=== PATIENT | male | born 1970 | race Caucasian/White ===

== ENCOUNTER 2021-12-22 13:26 | Outpatient (CLI) | payer OTHER, SELFPAY ==
[2021-12-22 11:14] LABS: Creatinine Urine 145.6 mg/dL
[2021-12-22 11:21] LABS: Albumin* 4.7 g/dL (3.3-5.0)
[2021-12-22 11:22] LABS: Chloride* 98 mmol/L (96-114); Potassium* 4.6 mmol/L (3.6-5.1); Sodium* 136 mmol/L (135-149)
[2021-12-22 11:24] LABS: Bilirubin Total* 1.1 mg/dL (0.1-1.5); Carbon Dioxide* 26 mmol/L (20-32); Cholesterol* 184 mg/dL (90-199); Creatinine* 0.7 mg/dL (0.5-1.5); Estimated Glomerular Filt Rate 110 ml/min; Total Protein* 8.4 g/dL (6.0-8.3)
[2021-12-22 11:25] LABS: Alanine Aminotransferase* 92 U/L (4-50); Alkaline Phosphatase* 72 U/L (40-150); Aspartate Amino Transferase* 76 U/L (12-35); Blood Urea Nitrogen* 14 mg/dL (7-30); Calcium* 9.4 mg/dL (8.4-10.6); Glucose* 114 mg/dL (60-115); HDL Cholesterol* 58 mg/dL (>=40); LDL Cholesterol Calculated 101 mg/dL (<100); Triglycerides* 125 mg/dL (40-149)
[2021-12-22 11:53] LABS: PSA Screen* 1.12 ng/mL (0.10-4.00)
[2021-12-22 11:54] LABS: Microalbumin Creatinine Ratio 440 mg/g (0-30); Microalbumin Urine 65 mg/dL
== END 2021-12-22 13:27 | disposition home or self-care (01) ==
PROVIDERS: PCP Family Medicine; Visit Provider Family Medicine
DX: E11.9 Type 2 diabetes mellitus without complications (principal); Z13.6 Encounter for screening for cardiovascular disorders; Z12.5 Encounter for screening for malignant neoplasm of prostate
CPT/HCPCS: 80053; 80061; 82043; 82570; 84153

== ENCOUNTER 2022-12-28 08:20 | Outpatient (CLI) | payer OTHER, SELFPAY | END 2022-12-28 08:21 | disposition home or self-care (01) | LOC: NFLDREF 15:14 | PROVIDERS: PCP Family Medicine; Referring Provider Family Medicine; Visit Provider Family Medicine | DX: Z00.00 Encounter for general adult medical examination without abnormal findings (principal); E11.9 Type 2 diabetes mellitus without complications; I10 Essential (primary) hypertension; E78.5 Hyperlipidemia, unspecified; R80.9 Proteinuria, unspecified | CPT/HCPCS: 80053; 80061; 82043; 82570 ==

== ENCOUNTER 2023-11-07 08:21 | Outpatient (CLI) | payer BC, SELFPAY ==
--- OUTSIDE RECORDS SUMMARY | 2023-11-07 08:25 | XMS_ITS | Clinical Summary ---
Author Organization [facility] Address [address] [place] [id number] Care Team Providers Care Card Player Name Role Phone Anthony Moeller MD Primary Care Provider [phone] Donald Parker MD Unavailable [phone] Allergies No known active allergies Medications Medication Sig Dispensed Refills Start Date End Date Status LISINOPRIL POIndications:Hyperte nsion Take 40 mg by mouth every evening Active Multiple Vitamins-Minerals (MULTIVITAMIN ADULT PO) Take by mouth every morning Active metFORMIN (GLUCOPHAGE) 500 MG tablet Take 500 mg by mouth 2 times daily (with meals) 06/05/2021 Active amLODIPine (NORVASC) 5 MG tablet Take 5 mg by mouth every morning 02/23/2022 Active aspirin 81 MG EC tabletIndications:Sherri chamorro osteoarthritis of right knee Take 1 tablet (81 mg) by mouth 2 times daily 60 tablet 04/17/2022 Active senna-docusate (SENOKOT-S/PERICOLACE ) 8.6-50 MG tabletIndications:Sherri chamorro osteoarthritis of right knee Take 1-2 tablets by mouth 2 times daily Take while on oral narcotics to prevent or treat constipation. 30 tablet 04/17/2022 Active polyethylene glycol (MIRALAX) 17 g packetIndications:Sherri chamorro osteoarthritis of right knee Take 17 g by mouth daily 7 packet 04/17/2022 Active acetaminophen (TYLENOL) 325 MG tabletIndications:Sherri chamorro osteoarthritis of right knee Take 2 tablets (650 mg) by mouth every 4 hours as needed for other (mild pain) 100 tablet 04/17/2022 Active ibuprofen (ADVIL/MOTRIN) 600 MG tabletIndications:Sherri pedro pablo osteoarthritis of right knee Take 1 tablet (600 mg) by mouth every 6 hours as needed for mild pain 30 tablet 04/17/2022 Active Active Problems Problem Noted Date Diagnosed Date Primary osteoarthritis of right knee 04/23/2022 Morbid obesity 04/02/2022 Resolved Problems Problem Noted Date Diagnosed Date Resolved Date Chronic pain of right knee 04/23/2022 0 07/24/2022 Aftercare following right kn ee joint replacement surgery 04/23/2022 07/24/2022 Family History Medical History Relation Comments Cerebrovascular Disease Father Diabetes Father Heart Disease Father Cancer Mother Diabetes Mother Relation Status Comments Father Mother Social History Tobacco Use Types Packs/Day Years Used Date Smoking Tobacco: Former Cigarettes 1 30 1 5 - 2014 Smokeless Tobacco: Never Tobacco Cessation:Counseling Given: Not Answered Alcohol Use Standard Drinks/Week Comments Yes 0 (1 standard drink = 0.6 oz pur e alcohol) daily 3-4 PHQ-2 Answer Date Recorded PHQ-2 Score 0 05/11/2022 Adolescent Education Answer Date Record ed Getting School Help Needed Not on file 02/13 Sex and Gender Information Value Date Recorded Sex Assigned at Not on file Gender Identity Not on file Sexual Orientation Not on file Last Filed Vital Signs Vital Sign Reading Time Taken Comments Blood Pressure 120/68 05/25/2022 10:23 AM TIMBER SIZER OPERATOR Pulse 72 04/18/2022 8:11 AM TIMBER SIZER OPERATOR Temperature 36.5 ??C (97.7 ??F) 04/18/2022 8 :11 AM TIMBER SIZER OPERATOR Respiratory Rate 16 04/18/2022 8:11 AM TIMBER SIZER OPERATOR Oxygen Saturation 97% 04/18/2022 8:1 1 AM TIMBER SIZER OPERATOR Inhaled Oxygen Concentration - - Weight 128.8 kg (284 lb) 05/25/2022 10: 23 AM TIMBER SIZER OPERATOR pulled from last visit Height 175.3 cm (5' 9) 05/25/2022 10:2 3 AM TIMBER SIZER OPERATOR Body Mass Index 41.94 05/25/2022 10:23 AM TIMBER SIZER OPERATOR Plan of Treatment Health Maintenance Due Date Last Done Comments ADVANCE CARE PLANNING 1968 ANNUAL REVIEW OF HM ORDERS 1968 CT COLONOGRAPHY 1968 FIT 1968 FLEX SIG 1968 URINE DRUG SCREEN 1968 YEARLY PREVENTIVE VISIT 1968 sDNA (Cologuard) 1968 COLONOSCOPY 1978 COLORECTAL CANCER SCREENING 1978 HIV SCREENING 09/12/1983 HEPATITIS C SCREENING 1986 HEPATITIS B IMMUNIZATION (1 of 3 - 19+ 3-dose series) 09/12/1987 LIPID 2008 LUNG CANCER SCREENING 2018 COVID-19 Vaccine ( - 2022- season) 2022 PHQ-2 (once per calendar year) 2023 05/11/2022, 04/03/2022 INFLUENZA VACCINE (#1) 2023 9, 03/25/2018, 04/18/2009, Additional history exists GLUCOSE 04/18/2025 04/18/2022, 03/30, 04/17/2022, Additional history exists DTAP/TDAP/TD IMMUNIZATION (3 - Td or Tdap) 12/02/2029 12/03/2019, 06/13/2010, 04/28/1994 Pneumococcal Vaccine: Pediatrics (0 to 5 Years) and At-Risk Patients (6 to 64 Years) Aged Out 10/23/2018 No longer eligible based on patient's age to complete this topic ZOSTER IMMUNIZATION Completed 08/27/2019, 9 HPV IMMUNIZATION Aged Out No longer e ligible based on patient's age to complete this topic IPV IMMUNIZATION Aged Out No longer e ligible based on patient's age to complete this topic MENINGITIS IMMUNIZATION Aged Out No l onger eligible based on patient's age to complete this topic RSV MONOCLONAL ANTIBODY Aged Out No l onger eligible based on patient's age to complete this topic Medical Devices Implanted Type Area Taker Down Device Identifier Shelf Expiration Date Model / Serial / Lot Bone Cement Simplex Full Dose 6191-1-001 - [id number] Implanted:Qty : 1 on 04/17/2022 by Donald Parker MD at [facility] Cement, Bone Right: Knee [employer] 06/27/2023 6191-1-001 / / [id number] Twinfix Ultra Pk 5.5mm Suture [place] With 2 Ultrabraid Sutures Implanted:Qty : 1 on 12/10/2017 by Les Israel MD at [facility] Metallic Hardware/An chor Right: Shoulder 05/23/2022 [id number] / / [id number] 2.8mm Q-Fix Suture [place] Implanted:Qty : 1 on 12/10/2017 by Les Israel MD at [facility] Metallic Hardware/An chor Right: Shoulder 04/03/2020 25-2800 / / [id number] Knee Uni Tibia Tray Mobile Bear D5 Rm/Ll - [id number] Implanted:Qty : 1 on 04/17/2022 by Donald Parker MD at [facility] Total Joint Component/I nsert Right: Knee [employer] 07/27/2031 [id number] / / [id number] Knee [place] Uni Femoral Med - [id number] Implanted:Qty : 1 on 04/17/2022 by Donald Parker MD at [facility] Total Joint Component/I nsert Right: Knee [employer] 03/19/2032 [id number] / / [id number] Insert [place] Anatomic Bear R Med Sz 4 - [id number] Implanted:Qty : 1 on 04/17/2022 by Donald Parker MD at [facility] Total Joint Component/I nsert Right: Knee [employer] 11/16/2025 [id number] / / [id number] Twinfix Ultra Pk 5.5mm Suture [place] With 2 Ultrabraid Sutures Implanted:Qty : 1 on 12/10/2017 by Les Israel MD at [facility] Right: Shoulder [employer] 01/10/2022 [id number] / / [id number] Procedures Procedure Name Priority Date/Time Associated Diagnosis Comments GLUCOSE BY METER Routine 04/18/2022 7:15 AM TIMBER SIZER OPERATOR from Last 3 Months or Most Recently Relevant to Health Maintenance Results * (ABNORMAL) Glucose by meter (04/18/2022 7:15 AM TIMBER SIZER OPERATOR) [facility] Signature GLUCOSE BY METER POCT 143(H) 70 - 99 mg/dL 04/18/2022 7:22 AM TIMBER SIZER OPERATOR RH LABORATORY POC Blood, Capillary BLOOD SPECIMEN / Unknown 04/18/2022 7:15 AM TIMBER SIZER OPERATOR 04/18/2022 7:22 AM TIMBER SIZER OPERATOR Donald Parker [facility] POC [facility] Lab [address] Lab (1st floor, no room number) [place] [address], [facility] [phone] from Last 3 Months or Most Recently Relevant to Health Maintenance Advance Directives For more information, please contact: [phone] * Full Code (Latest Code Status on File) Date Activated Date Inactivated Comments 04/17/2022 11:28 AM 04/18/2022 10:58 AM All basi c and advanced life-sustaining interventions are performed as appropriate Question Answer Comments Code status determined by: Discussion with adriana nt/ legal decision maker Care Teams Card Player Relationship Specialty Start Date End Date Anthony Moeller MD PCP - General Family Practice 11/21/17 Donald Parker MD [address] [place] [id number] Assigned Musculoskeletal Provider 09/29/22
--- OUTSIDE RECORDS SUMMARY | 2023-11-07 08:25 | XMS_ITS | Referral Summary ---
Author Organization [facility] Address [address] [place] [address] Care Team Providers Care Floral Designer Name Role Phone Anthony Moeller MD Primary Care Provider [phone] Donald Parker MD Unavailable [phone] Allergies No known active allergies Medications Medication [...] 04/17/2022 Active senna-docusate (SENOKOT-S/PERICOLACE ) 8.6-50 MG tabletIndications:Sherir chamorro osteoarthritis of right knee Take 1-2 [...] kn ee joint replacement surgery 04/23/2022 07/24/2022 Social History Tobacco Use Types Packs/Day Years Used Date Smoking Tobacco: Former Cigarettes 1 30 1 [id number] Smokeless Tobacco: Never Tobacco Cessation:Counseling Given: Not [...] Comments Blood Pressure 120/68 05/25/2022 10:23 AM GROUNDMAN/LINEMAN Pulse 72 04/18/2022 8:11 AM GROUNDMAN/LINEMAN Temperature 36.5 ??C (97.7 ??F) 04/18/2022 8 :11 AM GROUNDMAN/LINEMAN Respiratory Rate 16 04/18/2022 8:11 AM GROUNDMAN/LINEMAN Oxygen Saturation 97% 04/18/2022 8:1 1 AM GROUNDMAN/LINEMAN Inhaled Oxygen Concentration - - Weight 128.8 kg (284 lb) 05/25/2022 10: 23 AM GROUNDMAN/LINEMAN pulled from last visit Height 175.3 cm (5' 9) 05/25/2022 10:2 3 AM GROUNDMAN/LINEMAN Body Mass Index 41.94 05/25/2022 10:23 AM GROUNDMAN/LINEMAN Plan of Treatment Not on file Medical Devices Implanted Type Area Application Software Developer Device Identifier Shelf Expiration Date Model / Serial / Lot Bone Cement Simplex Full Dose 6191-1-001 - [id number] Implanted:Qty : 1 on 04/17/2022 by Donald Parker MD at [facility] Cement, Bone Right: Knee [employer] 06/27/2023 6191-1-001 / / [id number] Twinfix Ultra Pk 5.5mm Suture [place] With 2 Ultrabraid Sutures Implanted:Qty : 1 on 12/10/2017 by Les Israel MD at [facility] Metallic Hardware/An chor Right: Shoulder 05/23/2022 [id number] / / [id number] 2.8mm Q-Fix Suture [place] Implanted:Qty : 1 on 12/10/2017 by Les Israel MD at [facility] Metallic Hardware/An chor Right: Shoulder 04/03/2020 [id number] / / [id number] Knee Uni Tibia Tray Mobile Bear D5 Rm/Ll - [id number] Implanted:Qty : 1 on 04/17/2022 by Donald Parker MD at [facility] Total Joint Component/I nsert Right: Knee [employer] 07/27/2031 [id number] / / [id number] Knee [place] Uni Femoral Med - [id number] Implanted:Qty : 1 on 04/17/2022 by Donald Parker MD at [facility] Total Joint Component/I nsert Right: Knee [employer] 03/19/2032 [id number] / / [id number] Insert [place] Anatomic Bear R Med Sz 4 - [id number] Implanted:Qty : 1 on 04/17/2022 by Donald Parker MD at [facility] Total Joint Component/I nsert Right: Knee [employer] 11/16/2025 [id number] / / [id number] Twinfix Ultra Pk 5.5mm Suture [place] With 2 Ultrabraid Sutures Implanted:Qty : 1 on 12/10/2017 by Les Israel MD at [facility] Right: Shoulder [employer] 01/10/2022 [id number] / / [id number] Procedures Procedure Name Priority Date/Time Associated Diagnosis Comments GLUCOSE BY METER Routine 04/18/2022 7:15 AM GROUNDMAN/LINEMAN from Last 3 Months or Most Recently Relevant to Health Maintenance Results * (ABNORMAL) Glucose by meter (04/18/2022 7:15 AM GROUNDMAN/LINEMAN) [facility] Signature GLUCOSE BY METER POCT 143(H) 70 - 99 mg/dL 04/18/2022 7:22 AM GROUNDMAN/LINEMAN RH LABORATORY POC Blood, Capillary BLOOD SPECIMEN / Unknown 04/18/2022 7:15 AM GROUNDMAN/LINEMAN 04/18/2022 7:22 AM GROUNDMAN/LINEMAN Donald Parker MD LAB - [facility] POCT RH LABORATORY POC [facility] Acute Care Lab [address] Lab (1st floor, no room number) [place] [address], [facility] [phone] from Last 3 Months or Most Recently Relevant to Health Maintenance Advance Directives For more information, please contact: [phone] * Full Code (Latest Code Status on File) Date Activated Date Inactivated Comments 04/17/2022 11:28 AM 04/18/2022 10:58 AM All basi c and advanced life-sustaining interventions are performed as appropriate Question Answer Comments Code status determined by: Discussion with adriana nt/ legal decision maker Care Teams Floral Designer Relationship Specialty Start Date End Date Anthony Moeller MD PCP - General Family Practice 11/21/17 Donald Parker MD [address] [place] [address] Assigned Musculoskeletal Provider 09/29/22
--- OUTSIDE RECORDS SUMMARY | 2023-11-07 08:25 | XMS_ITS | Clinical Summary ---
Author Organization [facility] Address [address] [place] [address] Care Team Providers Care Canal Boat Operator Name Role Phone Md JUSTIN Hoff Primary Care Provider [phone] Source Comments You are receiving this document as you are listed as the primary care provider,follow-up provider, or the patient has been referred to you for consultation.This is in compliance with the Medicare and[facility] EHR Incentive Program,which states Providers who transition their patient to another setting of careor provider of care or refers their patient to another provider of care shouldprovide summary care record for each transition of care or referral. [facility] Allergies No known active allergies Medications Medication Sig Dispensed Refills Start Date End Date Status LISINOPRIL OR Active metFORMIN (GLUCOPHAGE) 500 MG tablet Take 500 mg by mouth two times a day with meals. Active ONE DAILY MULTIPLE VITAMIN OR Take 1 Tablet by mouth daily. Active Active Problems Problem Noted Date Diagnosed Date Plantar fasciitis 10/02/2019 Overview: Added automatically from request for surgery [id number] Complete rupture of rotator cuff 08/20/2012 Tobacco abuse 04/15/2012 Obstructive sleep apnea 12/23/2007 Overview: Setting: Auto 8-15 cmH20 Supplied by: [facility] PSG done: 12-10-07, 01-07-08 AHI 94 RDI 94 Lowest O2 Sat: 76% [place] [facility] 05-18-14 ; Severe Obstructive sleep apnea (adult) (ACG) Resolved Problems Problem Noted Date Diagnosed Date Resolved Date Esophageal reflux 11/26/2007 04/15/2012 Overview: Gastroesophageal Reflux Disease Immunizations Name Administration Dates Next Due Flu Vac Preserv Free (3+yrs) 03/18/2007 TDAP (ADACEL) 06/13/2010 Td 04/28/1994 Social History Tobacco Use Types Packs/Day Years Used Date Smoking Tobacco: Former Cigarettes Smokeless Tobacco: Never Comments:Smoking History Pac ks/day: Alcohol Use Standard Drinks/Week Comments Yes 0 (1 standard drink = 0.6 oz pur e alcohol) Sex and Gender Information Value Date Recorded Sex Assigned at Not on file Gender Identity Not on file Sexual Orientation Not on file Last Filed Vital Signs Vital Sign Reading Time Taken Comments Blood Pressure 122/82 11/04/2019 8:30 AM CDT Pulse 73 11/04/2019 8:30 AM CDT Temperature 36.2 ??C (97.2 ??F) 11/04/2019 8:15 AM CD T Respiratory Rate 16 11/04/2019 8:30 AM CDT Oxygen Saturation 96% 11/04/2019 8:30 AM CDT Inhaled Oxygen Concentration - - Weight 127.4 kg (280 lb 15.6 oz) 2019 10:03 AM CDT Height 172.7 cm (5' 8) 11/02/2019 10:0 3 AM CDT Body Mass Index 42.72 11/02/2019 10:03 AM CDT Plan of Treatment Health Maintenance Due Date Last Done Comments Colon Cancer Screening Plan Due 1968 Hep C Screening (Preventive Services) 1968 HIV Screening (Preventive Services) 1984 Adult Preventive Visit 1986 HepB (1) 09/12/1987 PSA Screening Discussion 06/20/2011 06/20/2010 Cholesterol 06/20/2015 06/20/2010, 03/18/2007 COVID-19 Vaccine (1 - 2022-2 4 season) 2022 Influenza (#1) 2023 04/16/2019, 03/25/2018, 03/18/2007 DTaP/Tdap/Td (3 - Tdap) 12/02/2029 12/03/19, 06/13/2010, 04/28/1994 Pneumococcal Aged Out 10/23/2018 No longer eligi ble based on patient's age to complete this topic Zoster/Shingles Completed 08/27/2019, 04/16/2019 HepA Aged Out No longer eligi ble based on patient's age to complete this topic Hib Aged Out No longer eligi ble based on patient's age to complete this topic IPV (Polio) Aged Out No longer eligi ble based on patient's age to complete this topic MCV4 Aged Out No longer eligi ble based on patient's age to complete this topic Procedures Procedure Name Priority Date/Time Associated Diagnosis Comments PROSTATIC SPECIFIC ANTIGEN(SCREEN) Routine 06/20/2010 8:15 AM MARKETING COPYWRITER LIPID PANEL & DIRECT LDL (IF NEEDED) Routine 06/20/2010 8:15 AM MARKETING COPYWRITER from Last 3 Months or Most Recently Relevant to Health Maintenance Results * Lipid Panel and Direct LDL(If Needed) (06/20/2010 8:15 AM MARKETING COPYWRITER) Cholesterol 174 0 - 200 mg/dL HP CONVERSION Triglycerides 125 0 - 149 mg/dL HP CONVERSION HDL Cholesterol 46 >39 mg/dL HP CONVERSION Cholesterol/HDL Ratio Screen 3.8 No normal range HP CONVERSION LDL Calculated 103 19 - 130 mg/dL HP CONVERSION Hours Fasting 15.0 No normal range HP CONVERSION 06/20/2010 8:15 AM MARKETING COPYWRITER [facility] LAB_1 HP CONVERSION * Prostatic Specific Antigen (Screen) (06/20/2010 8:15 AM MARKETING COPYWRITER) Prostate Specific Antigen 0.8 0.0 - 4.0 ng/mL HP CONVERSION 06/20/2010 8:15 AM MARKETING COPYWRITER Maxim[facility]ah[facility] LAB_1 HP CONVERSION from Last 3 Months or Most Recently Relevant to Health Maintenance Advance Directives * Full Code (Latest Code Status on File) Date Activated Date Inactivated Comments 11/04/2019 8:12 AM 11/04/2019 10:54 AM Care Teams Canal Boat Operator Relationship Specialty Start Date End Date Md Luis Eduardo, [place] [address] PCP - General 08/01/10
--- OUTSIDE RECORDS SUMMARY | 2023-11-07 08:25 | XMS_ITS | Clinical Summary ---
Author Organization [facility] Address [place], [place] [address] Care Team Providers Care Assistant Manager/Embalmer Name Role Phone Radha Gonzalez Primary Care Provider Unavailable Allergies No known active allergies Medications Medication Sig Dispensed Refills Start Date End Date Status ibuprofen (ADVIL; MOTRIN) 600 mg tablet Take 1 tablet by mouth every 6 hours if needed for Pain. Maximum of 3200 mg in 24 hours. 90 tablet 2 09/16/2012 Active oxyCODONE (ROXICODONE) 5 mg immediate release tablet Take 1-3 tablets by mouth every 4 hours if needed for Pain. 80 tablet 0 09/16/2012 Active hydrOXYzine pamoate (VISTARIL) 25 mg capsule Take 1 capsule by mouth every 6 hours if needed for Other (Specify) (to augment pain control). 50 capsule 1 09/16/2012 Active Active Problems Problem Noted Date Diagnosed Date Rotator cuff tear 09/15/2012 Glenoid labral tear 09/15/2012 Social History Tobacco Use Types Packs/Day Years Used Date Smoking Tobacco: Every Day Cigarettes Tobacco Cessation:Ready to Q uit: No Alcohol Use Standard Drinks/Week Comments Yes 3.3 (1 standard drink = 0.6 oz p ure alcohol) social Sex and Gender Information Value Date Recorded Sex Assigned at Not on file Gender Identity Not on file Sexual Orientation Not on file Obstetrics History Last Filed Vital Signs Vital Sign Reading Time Taken Comments Blood Pressure 115/68 09/16/2012 5:45 PM CDT Pulse 56 09/16/2012 5:45 PM CDT Temperature 36.3 ??C (97.4 ??F) 09/16/2012 4:09 PM CD T Respiratory Rate 18 09/16/2012 5:45 PM CDT Oxygen Saturation 94% 09/16/2012 5:45 PM CDT Inhaled Oxygen Concentration - - Weight 103 kg (227 lb 1.2 oz) 09/16/2012 11:53 A M CDT Height 174 cm (5' 8.5) 09/16/2012 11:53 AM CDT Body Mass Index 34.02 09/16/2012 11:53 AM CDT Plan of Treatment Health Maintenance Due Date Last Done Comments Tdap 09/12/1979 Depression screening for age 12+ 1980 HIV for age 15-65 09/12/1983 BMI (ht and wt on same day) for age 18+ 1986 Hepatitis C screening for ag e 18-79 1986 Tetanus booster 1988 Colonoscopy through age 75 2013 Lipids for age 45-75 2013 Zoster (shingles) series for age 50+ (1 of 2) 2018 COVID-19 vaccine series ( - 2022- season) 2022 Influenza for age 50-64 12/29/2023 Pneumococcal series for age 6-64 Aged Out No longer eligible based on patient's age to complete this topic Medical Devices Implanted Type Area Periodicals Library Assistant Device Identifier Shelf Expiration Date Model / Serial / Lot Sut Ancr 4.75 W/Loop - [id number] Implanted:Qty: 1 on 09/16/2012 by Jama Cohen MD at [facility] Right: Shoulder [employer] 04/27/2014 [id number] / / [id number] Care Teams Assistant Manager/Embalmer Relationship Specialty Start Date End Date Radha Gonzalez - Prior Lux PCP - General 09/16/12
--- NOTE | 2023-11-07 09:41 | W.ANESCHARGE ---
Anesthesia Charges Start Date/Time Anesthesia Start Date: 11/07/23 Anesthesia Start Time: 09:15 Stop Date/Time Anesthesia Stop Date: 11/07/23 Anesthesia Stop Time: 09:42
--- NOTE | 2023-11-07 11:05 | W.ANESCHARGE ---
Anesthesia Charges Start Date/Time Anesthesia Start Date: 11/07/23 Anesthesia Start Time: 09:15 Stop Date/Time Anesthesia Stop Date: 11/07/23 Anesthesia Stop Time: 09:42
== END 2023-11-07 08:22 | disposition home or self-care (01) ==
PROVIDERS: PCP Family Medicine; Visit Provider Internal Medicine
DX: Z12.11 Encounter for screening for malignant neoplasm of colon (principal); K63.5 Polyp of colon; Z86.010 Personal history of colon polyps
CPT/HCPCS: 00811; 43255; 88305; J2704

== ENCOUNTER 2023-12-20 08:17 | Outpatient (CLI) | payer BC, SELFPAY ==
--- OUTSIDE RECORDS SUMMARY | 2023-12-22 07:29 | XMS_ITS | Clinical Summary ---
Author Organization [facility] Address [address] [place] [address] Care Team Providers Care Burlap Spreader Name Role Phone Anthony Moeller MD Primary Care Provider [phone] Allergies No known active allergies Medications Medication Sig Dispensed Refills Start Date End Date Status LISINOPRIL POIndications:Hypert ension Take 40 mg by mouth every evening Active Multiple Vitamins-Minerals (MULTIVITAMIN ADULT PO) Take by mouth every morning Active metFORMIN (GLUCOPHAGE) 500 MG tablet Take 500 mg by mouth 2 times daily (with meals) 06/05/2021 Active amLODIPine (NORVASC) 5 MG tablet Take 5 mg by mouth every morning 02/23/2022 Active aspirin 81 MG EC tabletIndications:Pr imary osteoarthritis of right knee Take 1 tablet (81 mg) by mouth 2 times daily 60 tablet 04/17/2022 Active senna-docusate (SENOKOT-S/PERICOLAC E) 8.6-50 MG tabletIndications:Pr imary osteoarthritis of right knee Take 1-2 tablets by mouth 2 times daily Take while on oral narcotics to prevent or treat constipation. 30 tablet 04/17/2022 Active Additional Information Patient not taking.Reported on 12/20/2023 polyethylene glycol (MIRALAX) 17 g packetIndications:Pr imary osteoarthritis of right knee Take 17 g by mouth daily 7 packet 04/17/2022 Active Additional Information Patient not taking.Reported on 12/20/2023 acetaminophen (TYLENOL) 325 MG tabletIndications:Pr imary osteoarthritis of right knee Take 2 tablets (650 mg) by mouth every 4 hours as needed for other (mild pain) 100 tablet 04/17/2022 Active Additional Information Patient not taking.Reported on 12/20/2023 ibuprofen (ADVIL/MOTRIN) 600 MG tabletIndications:Pr imary osteoarthritis of right knee Take 1 tablet (600 mg) by mouth every 6 hours as needed for mild pain 30 tablet 04/17/2022 Active Additional Information Patient not taking.Reported on 12/20/2023 Active Problems Problem Noted Date Diagnosed Date Primary osteoarthritis of right knee 04/23/2022 Morbid obesity 04/02/2022 Resolved Problems Problem Noted Date Diagnosed Date Resolved Date Chronic pain of right knee 04/23/2022 0 07/24/2022 Aftercare following right kn ee joint replacement surgery 04/23/2022 07/24/2022 Encounters Date Type Department Care Team Description 12/20/2023 11:50 AM CDT Ancillary Procedure [facility] [address] [address] Donald Parker MD Orthopedic aftercare 12/20/2023 11:40 AM CDT Office Visit [facility] Orthopedic [address] [address] Donald Parker MD Orthopedic aftercare (Primary Dx); S/P right unicompartmental knee replacement 12/20/2023 Travel 12/03/2023 Telephone [facility] Orthopedic [address] [address] Donald Parker MD from Last 3 Months Family History Medical History Relation Comments Cerebrovascular Disease Father Diabetes Father Heart Disease Father Cancer Mother Diabetes Mother Relation Status Comments Father Mother Social History Tobacco Use Types Packs/Day Years Used Date Smoking Tobacco: Former Cigarettes 1 30 1 985 - 2015 Smokeless Tobacco: Never Tobacco Cessation:Counseling Given: Not [...] Sign Reading Time Taken Comments Blood Pressure 129/86 12/20/2023 11:46 AM CDT Pulse 72 04/18/2022 8:11 AM POWER GENERATION PLANT OPERATOR Temperature 36.5 ??C (97.7 ??F) 04/18/2022 8 :11 AM POWER GENERATION PLANT OPERATOR Respiratory Rate 16 04/18/2022 8:11 AM POWER GENERATION PLANT OPERATOR Oxygen Saturation 97% 04/18/2022 8:1 1 AM POWER GENERATION PLANT OPERATOR Inhaled Oxygen Concentration - - Weight 128.8 kg (284 lb) 05/25/2022 10: 23 AM POWER GENERATION PLANT OPERATOR pulled from last visit Height 175.3 cm (5' 9) 05/25/2022 10:2 3 AM POWER GENERATION PLANT OPERATOR Body Mass Index 41.94 05/25/2022 10:23 AM POWER GENERATION PLANT OPERATOR Plan of Treatment Health Maintenance Due [...] LUNG CANCER SCREENING 2018 COVID-19 Vaccine ( season) 2022 PHQ-2 (once per calendar year) [...] this topic Medical Devices Implanted Type Area Post Hole Digger Device Identifier Shelf Expiration Date Model / Serial / Lot Bone Cement Simplex Full Dose 6191-1-001 - [id number] Implanted:Qty : 1 on 04/17/2022 by Donald Parker MD at [employer] Cement, Bone Right: Knee [employer] 06/27/2023 6191-1-001 / / [id number] Twinfix Ultra Pk 5.5mm Suture [place] With 2 Ultrabraid Sutures Implanted:Qty : 1 on 12/10/2017 by Les Israel MD at [employer] Metallic Hardware/An chor Right: Shoulder 05/23/2022 [id number] / / [id number] 2.8mm Q-Fix Suture [place] Implanted:Qty : 1 on 12/10/2017 by Les Israel MD at [employer] Metallic Hardware/An chor Right: Shoulder 04/03/2020-2800 / / [id number] Knee Uni Tibia Tray Mobile Bear D5 Rm/Ll - [id number] Implanted:Qty : 1 on 04/17/2022 by Donald Parker MD at [employer] Total Joint Component/I nsert Right: Knee [employer] 07/27/2031 [id number] / / [id number] Knee [place] Uni Femoral Med - [id number] Implanted:Qty : 1 on 04/17/2022 by Donald Parker MD at [employer] Total Joint Component/I nsert Right: Knee [employer] 03/19/2032 [id number] / / [id number] Insert [place] Anatomic Bear R Med Sz 4 - [id number] Implanted:Qty : 1 on 04/17/2022 by Donald Parker MD at [employer] Total Joint Component/I nsert Right: Knee [employer] 11/16/2025 [id number] / / [id number] Twinfix Ultra Pk 5.5mm Suture [place] With 2 Ultrabraid Sutures Implanted:Qty : 1 on 12/10/2017 by Les Israel MD at [employer] Right: Shoulder [employer] 01/10/2022 [id number] / / [id number] Procedures Procedure Name Priority Date/Time Associated Diagnosis Comments XR KNEE RIGHT 3 VIEWS Routine 12/20/2023 12:06 PM CDT Orthopedic aftercare GLUCOSE BY METER Routine 04/18/2022 7:15 AM POWER GENERATION PLANT OPERATOR from Last 3 Months or Most Recently Relevant to Health Maintenance Results * XR Knee Right 3 Views (12/20/2023 12:06 PM CDT) Anatomical Region Laterality Modality Thigh, Knee, Leg Right Computed Radiog su Impressions 12/20/2023 3:10 PM CDT IMPRESSION: Medial unicompartmental hemiarthroplasty. No evidence of loosening or periprosthetic fracture. No joint effusion. JAMES GAMBLE DO SYSTEM ID: ??[id number] Narrative 12/20/2023 3:10 PM CDT EXAM: XR KNEE RIGHT 3 VIEWS DATE/TIME: 12/20/2023 12:06 PM INDICATION: Orthopedic aftercare COMPARISON: 05/25/2022 Procedure Note James Gamble DO - 12/20/2023 EXAM: XR KNEE RIGHT 3 VIEWS DATE/TIME: 12/20/2023 12:06 PM INDICATION: Orthopedic aftercare COMPARISON: 05/25/2022 IMPRESSION: Medial unicompartmental hemiarthroplasty. No evidence of loosening or periprosthetic fracture. No joint effusion. JAMES GAMBLE DO SYSTEM ID: [id number] Donald Parker MD IMG DIAGNOSTIC IMAGI NG ORDERABLES * (ABNORMAL) Glucose by meter (04/18/2022 7:15 AM POWER GENERATION PLANT OPERATOR) GLUCOSE BY METER POCT 143(H) 70 - 99 mg/dL 04/18/2022 7:22 AM POWER GENERATION PLANT OPERATOR [facility] POC Blood, Capillary BLOOD SPECIMEN / Unknown 04/18/2022 7:15 AM POWER GENERATION PLANT OPERATOR 04/18/2022 7:22 AM POWER GENERATION PLANT OPERATOR Donald Parekr MD LAB - BUD POCT [facility] [address] Lab (1st floor, no room number) [place] [address], [facility] [phone] from Last 3 Months or Most Recently Relevant to Health Maintenance Advance Directives For more information, please contact: [phone] * Full Code (Latest Code Status on File) Date Activated Date Inactivated Comments 04/17/2022 11:28 AM 04/18/2022 10:58 AM All basi c and advanced life-sustaining interventions are performed as appropriate Question Answer Comments Code status determined by: Discussion with adriana silveira/ legal decision maker Care Teams Burlap Spreader Relationship Specialty Start Date End Date Anthony Moeller MD PCP - General Family Practice 11/21/17
--- OUTSIDE RECORDS SUMMARY | 2023-12-22 07:29 | XMS_ITS | Encounter Summary ---
Author Organization [facility] Address [address] [place] [address] Care Team Providers Care Clock And Watch Hands Painter Name Role Phone Anthony Moeller MD Primary Care Provider [phone] Donald Parker MD Unavailable [phone] Encounter Details Date Type Department Care Team ([facility] st Contact Info) Description 12/03/2023 [facility] [address] [place], [place] [id number] Donald Parker MD [address] [place] [address] Social History Tobacco Use Types Packs/Day Years Used Date Smoking Tobacco: Former Cigarettes 5 2014 Smokeless Tobacco: Never Alcohol Use Standard Drinks/Week Comments Yes 0 (1 standard drink = 0.6 oz pur e alcohol) daily 3-4 PHQ-2 Answer Date Recorded PHQ-2 Score 0 05/11/2022 Adolescent Education Answer Date Record ed Getting School Help Needed Not on file 02/13 Sex and Gender Information Value Date Recorded Sex Assigned at Not on file Gender Identity Not on file Sexual Orientation Not on file documented as of this encounter Miscellaneous Notes * Telephone Encounter - Emerald Skelton RN - 12/04/2023 10:04 AM CDT Phoned patient back regarding right knee clunking symptoms. Patient is s/p right uni knee replacement 04/17/[address] Parker. Patient reports there is an audible clunking in his right knee that started about 2 weeks ago. He denies recent trauma/falls, knee pain, decreased ROM, inability to bear weight, swelling, redness, weeping/drainage, and/or fever/chills. Patient agreeable to follow up with Dr. Parker in clinic for further evaluation. Machine Room Engineer assisted in scheduling patient at the [place] location. Patient thankful for call and has no further questions. Emerald Skelton RN on 12/04/2023 at 10:07 AM * Telephone Encounter - StewartJuly - 12/03/2023 4:15 PM CDT Patient Returning Call Reason for call: patient calling having questions about the clunking he hears as of two weeks ago from surgery that provider did two years ago, requesting callback Information relayed to patient: te sent to clinic Patient has additional questions: No Could we send this information to you in [facility] or would you prefer to receive a phone call?: Patient would prefer a phone call Okay to leave a detailed message?: Yes at Cell number on file: Telephone Information: documented in this encounter Plan of Treatment Not on file documented as of this encounter Visit Diagnoses Not on filedocumented in this encounter Care Teams Clock And Watch Hands Painter Relationship Specialty Start Date End Date Anthony Moeller MD PCP - General Family Practice 11/21/17 Donald Parker MD [address] [place] [address] Assigned Musculoskeletal Provider 09/29/22 12/19/23 documented as of this encounter
--- OUTSIDE RECORDS SUMMARY | 2023-12-22 07:29 | XMS_ITS | Clinical Summary ---
Author Organization [facility] Address [address] [place] [address] Care Team Providers Care Fish Farmer Name Role Phone Md JUSTIN Hoff Primary Care Provider [phone] Source Comments You are receiving this document as you are listed as the primary care provider,follow-up provider, or the patient has been referred to you for consultation.This is in compliance with the Medicare andOhio[facility] Medical Cent[facility]aid EHR Incentive Program,which states Providers who transition their patient to another setting of careor provider of care or refers their patient to another provider of care shouldprovide summary care record for each transition of care or referral. [facility] Allergies No known active allergies Medications Medication Sig Dispensed Refills Start Date End Date Status LISINOPRIL OR Active metFORMIN (GLUCOPHAGE) 500 MG tablet Take 500 mg by mouth two times a day with meals. Active ONE DAILY MULTIPLE VITAMIN OR Take 1 Tablet by mouth daily. Active Active Problems Problem Noted Date Diagnosed Date Plantar fasciitis 10/02/2019 Overview (10/02/2019): Added automatically from request for surgery [id number] Complete rupture of rotator cuff 08/20/2012 Tobacco abuse 04/15/2012 Obstructive sleep apnea 12/23/2007 Overview (12/19/2016): Setting: Auto 8-15 cmH20 Supplied by: [facility] PSG done: 12-10-07, 01-07-08 AHI 94 RDI 94 Lowest O2 Sat: 76% [place] FF 1-20-15 ; Severe Obstructive sleep apnea (adult) (ACG) Resolved Problems Problem Noted Date Diagnosed Date Resolved Date Esophageal reflux 11/26/2007 04/15/2012 Overview (12/19/2016): Gastroesophageal Reflux Disease Immunizations Name Administration Dates [...] PROSTATIC SPECIFIC ANTIGEN(SCREEN) Routine 06/20/2010 8:15 AM FITNESS PLAN COORDINATOR LIPID PANEL & DIRECT LDL (IF NEEDED) Routine 06/20/2010 8:15 AM FITNESS PLAN COORDINATOR from Last 3 Months or Most Recently Relevant to Health Maintenance Results * Lipid Panel and Direct LDL(If Needed) (06/20/2010 8:15 AM FITNESS PLAN COORDINATOR) Cholesterol 174 0 - 200 mg/dL HP CONVERSION Triglycerides 125 0 - 149 mg/dL HP CONVERSION HDL Cholesterol 46 >39 mg/dL HP CONVERSION Cholesterol/HDL Ratio Screen 3.8 No normal range HP CONVERSION LDL Calculated 103 19 - 130 mg/dL HP CONVERSION Hours Fasting 15.0 No normal range HP CONVERSION 06/20/2010 8:15 AM FITNESS PLAN COORDINATOR [facility]_1 HP CONVERSION * Prostatic Specific Antigen (Screen) (06/20/2010 8:15 AM FITNESS PLAN COORDINATOR) Prostate Specific Antigen 0.8 0.0 - 4.0 ng/mL HP CONVERSION 06/20/2010 8:15 AM FITNESS PLAN COORDINATOR [facility] LAB_1 HP CONVERSION from Last 3 Months or Most Recently Relevant to Health Maintenance Advance Directives * Full Code (Latest Code Status on File) Date Activated Date Inactivated Comments 11/04/2019 8:12 AM 11/04/2019 10:54 AM Care Teams Fish Farmer Relationship Specialty Start Date End Date Md Luis Eduardo, [place] [address] PCP - General 08/01/10
--- OUTSIDE RECORDS SUMMARY | 2023-12-22 07:29 | XMS_ITS | Encounter Summary ---
Author Organization [facility] Address [address] [place] [address] Care Team Providers Care Concrete Stone Finishing Supervisor Name Role Phone Anthony Moeller MD Primary Care Provider [phone] Encounter Details Date Type Department Care Team (Latest Contact Info) Description 12/20/2023 Travel Social History Tobacco Use Types Packs/Day Years Used Date Smoking Tobacco: Former Cigarettes 982014 Smokeless Tobacco: Never Alcohol Use Standard Drinks/Week [...] on file documented as of this encounter Plan of Treatment Not on file documented as of this encounter Visit Diagnoses Not on filedocumented in this encounter Care Teams Concrete Stone Finishing Supervisor Relationship Specialty Start Date End Date Anthony Moeller MD PCP - General Family Practice 11/21/17 documented as of this encounter
--- OUTSIDE RECORDS SUMMARY | 2023-12-22 07:29 | XMS_ITS | Encounter Summary ---
Author Organization [facility] Address [address] [place] [address] Care Team Providers Care Pin Ticket Machine Operator Name Role Phone Anthony Moeller MD Primary Care Provider [phone] Reason for Visit * Diagnostic Imaging XR (Routine) - Pending Review Specialty Diagnoses / Procedures Referred By Contac t Referred To Contact Radiology. Diagnoses Orthopedic aftercare Procedures XR Knee Right 3 Views Donald Parker MD [address] [place] [address] Referral ID Status Reason Start Date Expiration Date V isits Requested Visits Authorized [id number] Pending Review 12/20/2023 12/19/2024 1 1 Encounter Details Date Type Department Care Team (Latest Contact Info) Description 12/20/2023 11:50 AM CDT Ancillary Procedure [facility] [address] [place] [address] Donald Parker MD [address] [place] [address] Orthopedic aftercare Social History Tobacco Use Types Packs/Day Years Used Date Smoking Tobacco: Former Cigarettes - 2014 Smokeless Tobacco: Never Alcohol Use Standard [...] on file documented as of this encounter Procedures Procedure Name Priority Date/Time Associated Diagnosis Comments XR KNEE RIGHT 3 VIEWS Routine 12/20/2023 12:06 PM CDT Orthopedic aftercare documented in this encounter Results * XR Knee Right 3 Views (12/20/2023 12:06 PM CDT) Anatomical Region Laterality Modality Thigh, Knee, Leg Right Computed Radiog su Impressions 12/20/2023 3:10 PM CDT IMPRESSION: Medial unicompartmental hemiarthroplasty. No evidence of loosening or periprosthetic fracture. No joint effusion. JAMES GAMBLE DO SYSTEM ID: ??[id number] Narrative 12/20/2023 3:10 PM CDT EXAM: XR KNEE RIGHT 3 VIEWS DATE/TIME: 12/20/2023 12:06 PM INDICATION: Orthopedic aftercare COMPARISON: 05/25/2022 Procedure Note James Gamble DO - 12/20/2023 EXAM: XR KNEE RIGHT 3 VIEWS DATE/TIME: 12/20/2023 12:06 PM INDICATION: Orthopedic aftercare COMPARISON: 05/25/2022 IMPRESSION: Medial unicompartmental hemiarthroplasty. No evidence of loosening or periprosthetic fracture. No joint effusion. JAMES GAMBLE DO SYSTEM ID: [id number] Donald Parker MD IMG DIAGNOSTIC IMAGI NG ORDERABLES documented in this encounter Visit Diagnoses Diagnosis Orthopedic aftercare Unspecified orthopedic aftercare documented in this encounter Care Teams Pin Ticket Machine Operator Relationship Specialty Start Date End Date Anthony Moeller MD PCP - General Family Practice 11/21/17 documented as of this encounter
--- OUTSIDE RECORDS SUMMARY | 2023-12-22 07:29 | XMS_ITS | Clinical Summary ---
Author Organization [facility] Address [place], [place] [address] Care Team Providers Care Chief Cloth Finishing Range Operator Name Role Phone Radha Gonzalez Primary Care [...] cuff tear 09/15/2012 Glenoid labral tear 09/15/2012 Encounters Date Type Department Care Team Description 11/07/2023 Lab Requisition [facility] [phone] Unknown, Doctor from Last 3 Months Social History Tobacco Use Types Packs/Day Years [...] (1 of 2) 2018 COVID-19 vaccine series (2022- season) 2022 Influenza for age 50-64 12/29/2023 Pneumococcal series for age 6-64 Aged Out No longer eligible based on patient's age to complete this topic Medical Devices Implanted Type Area Client Engagement Manager Device Identifier Shelf Expiration Date Model / Serial / Lot Sut Ancr 4.75 W/Loop - [id number] Implanted:Qty: 1 on 09/16/2012 by Jama Cohen MD at [facility] Right: Shoulder [employer] 04/27/2014 [id number] / / [id number] Procedures Procedure Name Priority Date/Time Associated Diagnosis Comments LAB TRACKING EVENT Routine 11/07/2023 9: 35 AM CDT PATH TISSUE EXAM Routine 11/07/2023 9:35 AM CDT from Last 3 Months Results * LAB TRACKING EVENT (11/07/2023 9:35 AM CDT) Other (Other) Client Collect / Unknown 11/07/2023 9:35 AM CDT 11/07/2023 10:09 PM CDT Doctor Unknown [facility] [address] [place] [address], * PATH TISSUE EXAM (11/07/2023 9:35 AM CDT) Case Report Pathology Report ?Case: [id number] ? Authorizing Provider: ??Unknown, Doctor ?Collected: ? 11/07/2023 0935 ? Ordering Location: ? [facility] ?Received: ?11/08/2023 0811 ? Pathologist: ? Danial Arias MD ? Specimen: ?Descending Colon Polyp ? 11/11/2023 11:03 AM CDT [facility] Final Diagnosis A) COLON, DESCENDING, POLYPECTOMY: 1. Tubular adenoma 2. Negative for high grade dysplasia 3. Per the colonoscopy report: ?? a. Polyp size: 3 mm ?? b. Resection: Complete ?? c. Retrieval: Complete 11/11/2023 11:03 AM CDT [facility] Clinical Information Mr. Schwartz is a 53 y.o. who presents for screening colonoscopy. 11/11/2023 11:03 AM CDT [facility] Gross Description A) Received in formalin are 3 guido mucosal fragments averaging 2 mm in greatest dimension, which are entirely submitted in one cassette. It is labeled with the patient's name and designated descending colon polyp. CAPRICE Celis 11/08/2023 10:03 AM 11/11/2023 11:03 AM CDT [facility] Microscopic Description The final diagnosis is based on microscopic examination of appropriate sections of all specimens. 11/11/2023 11:03 AM CDT [facility] Additional Information Interpreted at [facility] - [address] [facility] [address], [place] [address] 11/11/2023 11:03 AM CDT [facility] Other (Descending Colon Polyp) 11/07/2023 9:35 AM CDT 11/08/2023 8:11 AM CDT Doctor Unknown PATHOLOGY/CYTOLOGY [facility] [address] [place] [address], from Last 3 Months Care Teams Chief Cloth Finishing Range Operator Relationship Specialty Start Date End Date Radha Gonzalez PCP - General 09/16/12
--- OUTSIDE RECORDS SUMMARY | 2023-12-22 07:29 | XMS_ITS | Referral Summary ---
Author Organization [facility] Address [address] [place] [address] Care Team Providers Care Automatic Lathe Operator Name Role Phone Anthony Moeller MD Primary Care Provider [phone] Encounters Date Type Department Care Team Description 12/20/2023 11:50 AM CDT Ancillary Procedure [facility] Sports and Orthopedic Care [address] [place] [address] Donald Parker MD Orthopedic aftercare 12/20/2023 Travel 12/20/2023 11:40 AM CDT Office Visit [facility] Orthopedic [address] [address] Donald Parker MD Orthopedic aftercare (Primary Dx); S/P right unicompartmental knee replacement 12/03/2023 Telephone [facility] Orthopedic [address] [address] Donald Parker MD from Last 3 Months Allergies No known active allergies Medications Medication [...] AM CDT Pulse 72 04/18/2022 8:11 AM COAT OPERATOR Temperature 36.5 ??C (97.7 ??F) 04/18/2022 8 :11 AM COAT OPERATOR Respiratory Rate 16 04/18/2022 8:11 AM COAT OPERATOR Oxygen Saturation 97% 04/18/2022 8:1 1 AM COAT OPERATOR Inhaled Oxygen Concentration - - Weight 128.8 kg (284 lb) 05/25/2022 10: 23 AM COAT OPERATOR pulled from last visit Height 175.3 cm (5' 9) 05/25/2022 10:2 3 AM COAT OPERATOR Body Mass Index 41.94 05/25/2022 10:23 AM COAT OPERATOR Plan of Treatment Not on file Medical Devices Implanted Type Area Director Transition Device Identifier Shelf Expiration Date Model / Serial / Lot Bone Cement Simplex Full Dose 6191-1-001 - [id number] Implanted:Qty : 1 on 04/17/2022 by Donald Parker MD at [facility] Cement, Bone Right: Knee [employer] 06/27/2023 6191-1-001 / / [id number] Twinfix Ultra Pk 5.5mm Suture [place] With 2 Ultrabraid Sutures Implanted:Qty : 1 on 12/10/2017 by Les Israel MD at [facility] Metallic Hardware/An chor Right: Shoulder 05/23/2022 [id number] / / [id number] 2.8mm Q-Fix Suture [place] Implanted:Qty : 1 on 12/10/2017 by Les Israel MD at [facility] Metallic Hardware/An chor Right: Shoulder 04/03/2020 [id number] / / [id number] Knee Uni Tibia Tray Mobile Bear D5 Rm/Ll - [id number] Implanted:Qty : 1 on 04/17/2022 by Donald Parker MD at [facility] Total Joint Component/I nsert Right: Knee [employer] 07/27/2031 [id number] / / [id number] Knee [place] Uni Femoral Med - [id number] Implanted:Qty : 1 on 04/17/2022 by Donald Parker MD at [facility] Total Joint Component/I nsert Right: Knee [employer] 03/19/2032 [id number] / / [id number] Insert [place] Anatomic Bear R Med 4 - [id number] Implanted:Qty : 1 on 04/17/2022 by Donald Parker MD at [facility] Total Joint Component/I nsert Right: Knee [employer] 11/16/2025 [id number] / / [id number] Twinfix Ultra Pk 5.5mm Suture [place] With 2 Ultrabraid Sutures Implanted:Qty : 1 on 12/10/2017 by Les Israel MD at [facility] Right: Shoulder [employer] 01/10/2022 [id number] / / [id number] Procedures Procedure Name Priority Date/Time Associated Diagnosis Comments XR KNEE RIGHT 3 VIEWS Routine 12/20/2023 12:06 PM CDT Orthopedic aftercare GLUCOSE BY METER Routine 04/18/2022 7:15 AM COAT OPERATOR from Last 3 Months or Most Recently Relevant to Health Maintenance Results * XR Knee Right 3 Views (12/20/2023 12:06 PM CDT) Anatomical Region Laterality Modality Thigh, Knee, Leg Right Computed Radiog su Impressions 12/20/2023 3:10 PM CDT IMPRESSION: Medial unicompartmental hemiarthroplasty. No evidence of loosening or periprosthetic fracture. No joint effusion. JAMES GAMBLE DO SYSTEM ID: ??[id number] Narrative 12/20/2023 3:10 PM CDT EXAM: XR KNEE RIGHT 3 VIEWS DATE/TIME: 12/20/2023 12:06 PM INDICATION: Orthopedic aftercare COMPARISON: 05/25/2022 Procedure Note James Gamble DO - 12/20/2023 EXAM: XR KNEE RIGHT 3 VIEWS DATE/TIME: 12/20/2023 12:06 PM INDICATION: Orthopedic aftercare COMPARISON: 05/25/2022 IMPRESSION: Medial unicompartmental hemiarthroplasty. No evidence of loosening or periprosthetic fracture. No joint effusion. JAMES GAMBLE DO SYSTEM ID: [id number] Donald Parker MD IMG DIAGNOSTIC IMAGI NG ORDERABLES * (ABNORMAL) Glucose by meter (04/18/2022 7:15 AM COAT OPERATOR) GLUCOSE BY METER POCT 143(H) 70 - 99 mg/dL 04/18/2022 7:22 AM COAT OPERATOR [facility] LABORATORY POC Blood, Capillary BLOOD SPECIMEN / Unknown 04/18/2022 7:15 AM COAT OPERATOR 04/18/2022 7:22 AM COAT OPERATOR Donald Parker MD LAB - BEAKER POCT RH LABORATORY POC [facility] Acute Care Lab [address] [facility] Lab (1st floor, no room number) [place] [address], [facility] [phone] from Last 3 Months or Most Recently Relevant to Health Maintenance Advance Directives For more information, please contact: [phone] * Full Code (Latest Code Status on File) Date Activated Date Inactivated Comments 04/17/2022 11:28 AM 04/18/2022 10:58 AM All basi c and advanced life-sustaining interventions are performed as appropriate Question Answer Comments Code status determined by: Discussion with adriana silveira/ legal decision maker Care Teams Automatic Lathe Operator Relationship Specialty Start Date End Date Anthony Moeller MD PCP - General Family Practice 11/21/17
--- OUTSIDE RECORDS SUMMARY | 2023-12-22 07:29 | XMS_ITS | Encounter Summary ---
Author Organization [facility] Address [address] [place] [address] Care Team Providers Care Sap Bw Bi Developer Name Role Phone Anthony Moeller MD Primary Care Provider [phone] Reason for Referral * Diagnostic Imaging XR (Routine) - Pending Review Specialty Diagnoses / Procedures Referred By Contac t Referred To Contact Radiology. Diagnoses Orthopedic aftercare Procedures XR Knee Right 3 Views Donald Parker MD [address] [place] [address] Referral ID Status Reason Start Date Expiration Date V isits Requested Visits Authorized [id number] Pending Review 12/20/2023 12/19/2024 1 1 Encounter Details Date Type Department Care Team (Latest Contact Info) Description 12/20/2023 11:40 AM CDT Office Visit [facility] Orthopedic Clinic [address] [place] [address] Donald Parker MD [address] [place] [address] Orthopedic aftercare (Primary Dx); S/P right unicompartmental knee replacement Social History Tobacco Use Types Packs/Day Years Used Date Smoking Tobacco: Former Cigarettes 30 2014 Smokeless Tobacco: Never Alcohol Use Standard [...] on file documented as of this encounter Last Filed Vital Signs Vital Sign Reading Time Taken Comments Blood Pressure 129/86 12/20/2023 11:46 AM CDT Pulse - - Temperature - - Respiratory Rate - - Oxygen Saturation - - Inhaled Oxygen Concentration - - Weight - - Height - - Body Mass Index - - documented in this encounter Progress Notes * Donald Parker MD - 12/20/2023 11:40 AM CDT Images from the original note were not included. [facility] Physicians Orthopaedic Surgery Consultation by Donald Parker M.D. Rolando Schwartz Age: [age] year old Date of : 1970 Requesting physician: Anthony Grey Background history: DX: Hypertension Type 2 diabetes mellitus latest A1c 7.2 according to patient TREATMENTS: Right knee menisectomy ~20 years ago 04/17/2022, right medial unicompartmental knee arthroplasty, Dr. Parker History of Present Illness: 51-year-old male presenting with chronic right knee pain due to end-stage osteoarthritic changes inmedial compartment. Insufficiently responding to nonsurgical treatment options. Patient underwent right medial unicompartmental knee arthroplasty on 04/17/2022. Today the patient presents approximately a year and a half status post right medial unicompartmental arthroplasty. He states that overall he has been very pleased with the surgery and pain-free. 1 month ago he started to feel a clunk in the knee while walking. This lasted about 2-1/2 weeks before it spontaneously resolved. He denies any pain or locking associated with the clunk. He denies any swelling, redness fever or malaise. 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 Parents are currently in town and are able to help out in postsurgical phase. Hobbies / Sports: likes fishing/ice fishing Smoking: No Alcohol: Yes Illicit drug use: No Physical Exam: EXAMINATION pertinent findings: PSYCH: Pleasant, healthy-appearing, alert, oriented x3, cooperative. Normal mood and affect. VITAL SIGNS: There were no vitals taken for this visit. Reviewed nursing intake notes. There is no height or weight on file to calculate BMI. RESP: non labored breathing ABD: benign, soft, non-tender, no acute peritoneal findings SKIN: grossly normal LYMPHATIC: grossly normal, no adenopathy, no extremity edema NEURO: grossly normal , no motor deficits VASCULAR: satisfactory perfusion of all extremities MUSCULOSKELETAL: Alignment: Neutral alignment of right lower extremity. R knee: Incision is clean, dry and intact. There is some redness around the distal part of the incision. ROM 130-0-0 ??. No reproducible clunk with range of motion today straight leg raise +. No effusion ligamentously stable in both ML and AP direction. Normal PF tracking without crepitus. No signsof DVT. Right LE: Thigh and leg compartments soft and compressible +Quad/TA/GSC/FHL/EHL SILT DP/SP/Viri/Saph/Tib nerve distributions Palpable dorsalis pedis pulse Data: All laboratory data reviewed All imaging studies reviewed by me personally. XR knee right 12/20/2023: My interpretation: Status post placement of right medial unicompartmental knee arthroplasty. Adequate sizing, orientation and fixation of components. No signs of immediate postoperative complications. Assessment and Plan: Assessment: 51-year-old male presenting with chronic right knee pain due to end-stage osteoarthritic changes inmedial compartment. Insufficiently responding to nonsurgical treatment options. Patient underwent right medial unicompartmental knee arthroplasty on 04/17/2022. Now presenting with spontaneously subsided short-lived episode of clicking right knee of unknown etiology. Plan: After examined the patient reviewing the x-rays I extensively discussed my finds with him today. X-rays show no signs of mechanical failure of the implants. I was not able to reproduce the clunk today on physical exam. I cannot accurately tell him where this clunk came from but may be secondary to scar tissue. If it is not painful and he has no locking or decreased function of the knee we are notoverly concerned. If the clunk in the knee recurs I instructed him to call. He can continue to activities as tolerated. I recommend avoiding high impact exercises long-term. All questions were answered the patient will follow-up at his 5-year postop. Donald Parker MD, PhD Manager Business Systems Adult Reconstruction [facility] Department of Orthopaedic Surgery documented in this encounter Plan of Treatment Not on file documented as of this encounter Results * XR Knee Right 3 Views (12/20/2023 12:06 PM CDT) Anatomical Region Laterality Modality Thigh, Knee, Leg Right Computed Radiog su Impressions 12/20/2023 3:10 PM CDT IMPRESSION: Medial unicompartmental hemiarthroplasty. No evidence of loosening or periprosthetic fracture. No joint effusion. JAMES GAMBLE DO SYSTEM ID: ??[id number] Narrative 12/20/2023 3:10 PM CDT EXAM: XR KNEE RIGHT 3 VIEWS DATE/TIME: 12/20/2023 12:06 PM INDICATION: Orthopedic aftercare COMPARISON: 05/25/2022 Procedure Note James Gamble DO - 12/20/2023 EXAM: XR KNEE RIGHT 3 VIEWS DATE/TIME: 12/20/2023 12:06 PM INDICATION: Orthopedic aftercare COMPARISON: 05/25/2022 IMPRESSION: Medial unicompartmental hemiarthroplasty. No evidence of loosening or periprosthetic fracture. No joint effusion. JAMES GAMBLE DO SYSTEM ID: [id number] Donald Parker MD IMG DIAGNOSTIC IMAGI NG ORDERABLES documented in this encounter Visit Diagnoses Diagnosis Orthopedic aftercare- Primary Unspecified orthopedic aftercare S/P right unicompartmental knee replacement Knee joint replacement by other means Orthopedic aftercare Unspecified orthopedic aftercare documented in this encounter Care Teams Sap Bw Bi Developer Relationship Specialty Start Date End Date Anthony Moeller MD PCP - General Family Practice 11/21/17 documented as of this encounter
== END 2023-12-20 08:18 | disposition home or self-care (01) ==
LOC: NFLDREF 12-22 07:27
PROVIDERS: PCP Family Medicine; Referring Provider Family Medicine; Visit Provider Family Medicine
DX: E11.9 Type 2 diabetes mellitus without complications (principal); E78.5 Hyperlipidemia, unspecified; I10 Essential (primary) hypertension; R79.89 Other specified abnormal findings of blood chemistry; R80.9 Proteinuria, unspecified; R10.13 Epigastric pain; E87.1 Hypo-osmolality and hyponatremia
CPT/HCPCS: 80053; 80061; 82043; 82570

== ENCOUNTER 2024-01-01 14:24 | Outpatient (CLI) | payer BC, SELFPAY ==
--- OUTSIDE RECORDS SUMMARY | 2024-01-01 14:26 | XMS_ITS | Referral Summary ---
Author Organization [facility] Address [address] [place] [address] Care Team Providers Care Forensic Examiner Name Role Phone Anthony Moeller MD Primary Care Provider [phone] Encounters Date Type Department Care Team Description 12/20/2023 11:50 AM CDT Ancillary Procedure [facility] Sports and Orthopedic Care [address] [place] [address] Donald Parker MD Orthopedic aftercare 12/20/2023 Travel 12/20/2023 11:40 AM CDT Office Visit [facility] Orthopedic [address] [address] Donald Parker MD Orthopedic aftercare (Primary Dx); S/P right unicompartmental knee replacement 12/03/2023 Telephone [facility] Orthopedic [address] [address] Donald Parker MD from Last 3 Months [...] AM CDT Pulse 72 04/18/2022 8:11 AM ADVANCED SEAL DELIVERY SYSTEM Temperature 36.5 ??C (97.7 ??F) 04/18/2022 8 :11 AM ADVANCED SEAL DELIVERY SYSTEM Respiratory Rate 16 04/18/2022 8:11 AM ADVANCED SEAL DELIVERY SYSTEM Oxygen Saturation 97% 04/18/2022 8:1 1 AM ADVANCED SEAL DELIVERY SYSTEM Inhaled Oxygen Concentration - - Weight 128.8 kg (284 lb) 05/25/2022 10: 23 AM ADVANCED SEAL DELIVERY SYSTEM pulled from last visit Height 175.3 cm (5' 9) 05/25/2022 10:2 3 AM ADVANCED SEAL DELIVERY SYSTEM Body Mass Index 41.94 05/25/2022 10:23 AM ADVANCED SEAL DELIVERY SYSTEM Plan of Treatment Not on file Medical Devices Implanted Type Area Automated Teller Manager Device Identifier Shelf Expiration Date Model / Serial / Lot Bone Cement Simplex Full Dose 6191-1-001 - [id number] Implanted:Qty : 1 on 04/17/2022 by Donald Parker MD at [facility] Cement, Bone Right: Knee [employer] 06/27/2023 6191-1-001 / / [id number] Twinfix Ultra Pk 5.5mm Suture [place] With 2 Ultrabraid Sutures Implanted:Qty : 1 on 12/10/2017 by Les Israel MD at [facility] Metallic Hardware/An chor Right: Shoulder 05/23/2022 [id number] / / [id number] 2.8mm Q-Fix Suture [place] Implanted:Qty : 1 on 12/10/2017 by Les Israel MD at [facility] Metallic Hardware/An chor Right: Shoulder 04/03/2020 25-2800 / / [id number] Knee Uni Tibia Tray Mobile Bear D5 Rm/Ll - [id number] Implanted:Qty : 1 on 04/17/2022 by Donald Parker MD at [facility] Total Joint Component/I nsert Right: Knee [employer] 07/27/2031 [id number] / / [id number] Knee Ava Uni Femoral Med - [id number] Implanted:Qty : 1 on 04/17/2022 by Donald Parker MD at [facility] Total Joint Component/I nsert Right: Knee [employer] 03/19/2032 [id number] / / [id number] Insert Ava Anatomic Bear R Med 4 - [id number] Implanted:Qty : 1 on 04/17/2022 by Donald Parker MD at [facility] Total Joint Component/I nsert Right: Knee [employer] 11/16/2025 [id number] / / [id number] Twinfix Ultra Pk 5.5mm Suture [place] With 2 Ultrabraid Sutures Implanted:Qty : 1 on 12/10/2017 by Les Israel MD at [facility] Right: Shoulder [employer] 01/10/2022 [id number] / / [id number] Procedures Procedure Name Priority Date/Time Associated Diagnosis Comments XR KNEE RIGHT 3 VIEWS Routine 12/20/2023 12:06 PM CDT Orthopedic aftercare GLUCOSE BY METER Routine 04/18/2022 7:15 AM ADVANCED SEAL DELIVERY SYSTEM from Last 3 Months or Most Recently Relevant to Health Maintenance Results * XR Knee Right 3 Views (12/20/2023 12:06 PM CDT) Anatomical Region Laterality Modality Thigh, Knee, Leg Right Computed Radiog su Impressions 12/20/2023 3:10 PM CDT IMPRESSION: Medial unicompartmental hemiarthroplasty. No evidence of loosening or periprosthetic fracture. No joint effusion. JAMES GAMBLE DO SYSTEM ID: ??[id number] Narrative 12/20/2023 3:10 PM CDT EXAM: XR KNEE RIGHT 3 VIEWS DATE/TIME: 12/20/2023 12:06 PM INDICATION: Orthopedic aftercare COMPARISON: 05/25/2022 Procedure Note James Gamble DO - 12/20/2023 EXAM: XR KNEE RIGHT 3 VIEWS DATE/TIME: 12/20/2023 12:06 PM INDICATION: Orthopedic aftercare COMPARISON: 05/25/2022 IMPRESSION: Medial unicompartmental hemiarthroplasty. No evidence of loosening or periprosthetic fracture. No joint effusion. JAMES GAMBLE DO SYSTEM ID: [id number] Donald Parker MD IMG DIAGNOSTIC IMAGI NG ORDERABLES * (ABNORMAL) Glucose by meter (04/18/2022 7:15 AM ADVANCED SEAL DELIVERY SYSTEM) GLUCOSE BY METER POCT 143(H) 70 - 99 mg/dL 04/18/2022 7:22 AM ADVANCED SEAL DELIVERY SYSTEM [facility] LABORATORY POC Blood, Capillary BLOOD SPECIMEN / Unknown 04/18/2022 7:15 AM ADVANCED SEAL DELIVERY SYSTEM 04/18/2022 7:22 AM ADVANCED SEAL DELIVERY SYSTEM Donald Parker MD LAB - BEAKER POCT RH LABORATORY POC [facility] Acute Care Lab [address] [facility] Lab (1st floor, no room number) [place] [address], [facility] [phone] from Last 3 Months or Most Recently Relevant to Health Maintenance Advance Directives For more information, please contact: [phone] * Full Code (Latest Code Status on File) Date Activated Date Inactivated Comments 04/17/2022 11:28 AM 04/18/2022 10:58 AM All basi c and advanced life-sustaining interventions are performed as appropriate Question Answer Comments Code status determined by: Discussion with adriana silveira/ legal decision maker Care Teams Forensic Examiner Relationship Specialty Start Date End Date Anthony Moeller MD PCP - General Family Practice 11/21/17
--- OUTSIDE RECORDS SUMMARY | 2024-01-01 14:26 | XMS_ITS | Clinical Summary ---
Author Organization [employer] [facility] Address [place], [place] [address] Care Team Providers Care Printing Engineer Name Role Phone Radha Gonzalez Primary Care [...] Department Care Team Description 11/07/2023 Lab Requisition [facility] [phone] Unknown, Doctor from Last 3 Months Social [...] of 2) 2018 COVID-19 vaccine series ( season) 2023 Influenza for age 50-64 12/29/2023 Pneumococcal series for age 6-64 Aged Out No longer eligible based on patient's age to complete this topic Medical Devices Implanted Type Area Floor Finisher Helper Device Identifier Shelf Expiration Date Model / Serial / Lot Sut Ancr 4.75 W/Loop - [id number] Implanted:Qty: 1 on 09/16/2012 by Jama Cohen MD at [facility] Right: Shoulder [employer] 04/27/2014 [id number] / / [id number] Procedures Procedure Name Priority Date/Time Associated Diagnosis Comments LAB TRACKING EVENT Routine 11/07/2023 9: 35 AM CDT PATH TISSUE EXAM Routine 11/07/2023 9:35 AM CDT from Last 3 Months Results * LAB TRACKING EVENT (11/07/2023 9:35 AM CDT) Other (Other) Client Collect / Unknown 11/07/2023 9:35 AM CDT 11/07/2023 10:09 PM CDT Doctor Unknown [facility] [address] [place] [address], * PATH TISSUE EXAM (11/07/2023 9:35 AM CDT) Case Report Pathology Report ?Case: [id number] ? Authorizing Provider: ??Unknown, Doctor ?Collected: ? 11/07/2023 0935 ? Ordering Location: ? [facility] ?Received: ?11/08/2023 0811 ? Pathologist: ? Danial Arias MD ? Specimen: ?Descending Colon Polyp ? 11/11/2023 11:03 AM CDT [facility] LABORAT[facility] LABORATORY Final Diagnosis A) COLON, DESCENDING, POLYPECTOMY: 1. Tubular adenoma 2. Negative for high grade dysplasia 3. Per the colonoscopy report: ?? a. Polyp size: 3 mm ?? b. Resection: Complete ?? c. Retrieval: Complete 11/11/2023 11:03 AM CDT [facility] LABORAT[facility] LABORATORY Clinical Information Mr. Schwartz is a 53 y.o. who presents for screening colonoscopy. 11/11/2023 11:03 AM CDT [facility] Gross Description A) Received in formalin are 3 guido mucosal fragments averaging 2 mm in greatest dimension, which are entirely submitted in one cassette. It is labeled with the patient's name and designated descending colon polyp. CAPRICE Celis 11/08/2023 10:03 AM 11/11/2023 11:03 AM CDT [facility] Microscopic Description The final diagnosis is based on microscopic examination of appropriate sections of all specimens. 11/11/2023 11:03 AM CDT [facility] Additional Information Interpreted at [facility] Laboratory - [address] [facility] [address], [place] [address] 11/11/2023 11:03 AM CDT [facility] Other (Descending Colon Polyp) 11/07/2023 9:35 AM CDT 11/08/2023 8:11 AM CDT Doctor Unknown [facility] [address] [place] [address], from Last 3 Months Care Teams Printing Engineer Relationship Specialty Start Date End Date Radha Gonzalez PCP - General 09/16/12
--- OUTSIDE RECORDS SUMMARY | 2024-01-01 14:26 | XMS_ITS | Encounter Summary ---
Author Organization [facility] Address [address] [place] [address] Care Team Providers Care Senior Informatica Developer Name Role Phone Anthony Moeller MD Primary Care Provider [phone] Encounter Details Date Type Department Care Team [...] on filedocumented in this encounter Care Teams Senior Informatica Developer Relationship Specialty Start Date End Date Anthony Moeller MD PCP - General Family Practice 11/21/17 documented as of this encounter
--- OUTSIDE RECORDS SUMMARY | 2024-01-01 14:26 | XMS_ITS | Encounter Summary ---
Author Organization [facility] Address [address] [place] [address] Care Team Providers Care Department Store Manager Name Role Phone Anthony Moeller MD Primary Care Provider [phone] Reason for Referral * Diagnostic Imaging XR (Routine) - Pending Review Specialty Diagnoses / Procedures Referred By Contac t Referred To Contact Radiology. Diagnoses Orthopedic aftercare Procedures XR Knee Right 3 Views Donald Parker MD [address] [place] [address] Referral ID Status Reason Start Date Expiration Date V isits Requested Visits Authorized [id number] Pending Review 12/20/2023 12/19/2024 1 1 Encounter Details Date Type Department Care Team (Latest Contact Info) Description 12/20/2023 11:40 AM CDT Office Visit [facility] Orthopedic Clinic [address] [place] [address] Donald Parker MD [address] [place] [address] Orthopedic aftercare (Primary Dx); S/P right [...] from the original note were not included. [facility] Physicians Orthopaedic Surgery Consultation by Donald [...] swelling, redness fever or malaise. 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 [...] his 5-year postop. Donald Parker MD, PhD Seam Stay Stitcher Adult Reconstruction [facility] Department of Orthopaedic Surgery documented in this [...] joint effusion. JAMES GAMBLE DO SYSTEM ID: ??[id number] Narrative 12/20/2023 3:10 PM CDT EXAM: XR KNEE RIGHT 3 VIEWS DATE/TIME: 12/20/2023 12:06 PM INDICATION: Orthopedic aftercare COMPARISON: 05/25/2022 Procedure Note James Gamble DO - 12/20/2023 EXAM: XR KNEE RIGHT 3 VIEWS DATE/TIME: 12/20/2023 12:06 PM INDICATION: Orthopedic aftercare COMPARISON: 05/25/2022 IMPRESSION: Medial unicompartmental hemiarthroplasty. No evidence of loosening or periprosthetic fracture. No joint effusion. JAMES GAMBLE DO SYSTEM ID: [id number] Donald Parker MD IMG DIAGNOSTIC IMAGI NG ORDERABLES documented in this encounter Visit Diagnoses Diagnosis Orthopedic aftercare- Primary Unspecified orthopedic aftercare S/P right unicompartmental knee replacement Knee joint replacement by other means Orthopedic aftercare Unspecified orthopedic aftercare documented in this encounter Care Teams Department Store Manager Relationship Specialty Start Date End Date Anthony Moeller MD PCP - General Family Practice 11/21/17 documented as of this encounter
--- OUTSIDE RECORDS SUMMARY | 2024-01-01 14:26 | XMS_ITS | Clinical Summary ---
Author Organization [facility] Address [address] [place] [address] Care Team Providers Care Creative Strategist Name Role Phone Anthony Moeller MD Primary Care Provider [phone] Allergies No known active allergies Medications Medication [...] Description 12/20/2023 11:50 AM CDT Ancillary Procedure [facility] [address] [address] Donald Parker MD Orthopedic aftercare 12/20/2023 11:40 AM CDT Office Visit [facility] Orthopedic [address] [address] Donald Parker MD Orthopedic aftercare (Primary Dx); S/P right unicompartmental knee replacement 12/20/2023 Travel 12/03/[address] [facility] Orthopedic [address] [address] Donald Parker MD from Last 3 Months [...] AM CDT Pulse 72 04/18/2022 8:11 AM SUGAR REFINERY SUPERVISOR Temperature 36.5 ??C (97.7 ??F) 04/18/2022 8 :11 AM SUGAR REFINERY SUPERVISOR Respiratory Rate 16 04/18/2022 8:11 AM SUGAR REFINERY SUPERVISOR Oxygen Saturation 97% 04/18/2022 8:1 1 AM SUGAR REFINERY SUPERVISOR Inhaled Oxygen Concentration - - Weight 128.8 kg (284 lb) 05/25/2022 10: 23 AM SUGAR REFINERY SUPERVISOR pulled from last visit Height 175.3 cm (5' 9) 05/25/2022 10:2 3 AM SUGAR REFINERY SUPERVISOR Body Mass Index 41.94 05/25/2022 10:23 AM SUGAR REFINERY SUPERVISOR Plan of Treatment Health Maintenance Due Date [...] this topic Medical Devices Implanted Type Area Grinding Machine Operator Automatic Device Identifier Shelf Expiration Date Model / Serial / Lot Bone Cement Simplex Full Dose 6191-1-001 - [id number] Implanted:Qty : 1 on 04/17/2022 by Donald Parker MD at [facility] Cement, Bone Right: Knee [employer] 06/27/2023 6191-1-001 / / [id number] Twinfix Ultra Pk 5.5mm Suture [place] With 2 Ultrabraid Sutures Implanted:Qty : 1 on 12/10/2017 by Les Israel MD at [facility] Metallic Hardware/An chor Right: Shoulder 05/23/2022 [id number] / / [id number] 2.8mm Q-Fix Suture [place] Implanted:Qty : 1 on 12/10/2017 by Les Israel MD at [facility] Metallic Hardware/An chor Right: Shoulder 04/03/2020-2800 / / [id number] Knee Uni Tibia Tray Mobile Bear D5 Rm/Ll - [id number] Implanted:Qty : 1 on 04/17/2022 by Donald Parker MD at [facility] Total Joint Component/I nsert Right: Knee [employer] 07/27/2031 [id number] / / [id number] Knee [place] Uni Femoral Med - [id number] Implanted:Qty : 1 on 04/17/2022 by Donald Parker MD at [facility] Total Joint Component/I nsert Right: Knee [employer] 03/19/2032 [id number] / / [id number] Insert [place] Anatomic Bear R Med Sz 4 - [id number] Implanted:Qty : 1 on 04/17/2022 by Donald Parker MD at [facility] Total Joint Component/I nsert Right: Knee [employer] 11/16/2025 [id number] / / [id number] Twinfix Ultra Pk 5.5mm Suture [place] With 2 Ultrabraid Sutures Implanted:Qty : 1 on 12/10/2017 by Les Israel MD at [facility] Right: Shoulder [employer] 01/10/2022 [id number] / / [id number] Procedures Procedure Name Priority Date/Time Associated Diagnosis Comments XR KNEE RIGHT 3 VIEWS Routine 12/20/2023 12:06 PM CDT Orthopedic aftercare GLUCOSE BY METER Routine 04/18/2022 7:15 AM SUGAR REFINERY SUPERVISOR from Last 3 Months or Most Recently Relevant to Health Maintenance Results * XR Knee Right 3 Views (12/20/2023 12:06 PM CDT) Anatomical Region Laterality Modality Thigh, Knee, Leg Right Computed Radiog su Impressions 12/20/2023 3:10 PM CDT IMPRESSION: Medial unicompartmental hemiarthroplasty. No evidence of loosening or periprosthetic fracture. No joint effusion. JAMES GAMBLE DO SYSTEM ID: [id number] Narrative 12/20/2023 3:10 PM CDT EXAM: XR KNEE RIGHT 3 VIEWS DATE/TIME: 12/20/2023 12:06 PM INDICATION: Orthopedic aftercare COMPARISON: 05/25/2022 Procedure Note James Gamble DO - 12/20/2023 EXAM: XR KNEE RIGHT 3 VIEWS DATE/TIME: 12/20/2023 12:06 PM INDICATION: Orthopedic aftercare COMPARISON: 05/25/2022 IMPRESSION: Medial unicompartmental hemiarthroplasty. No evidence of loosening or periprosthetic fracture. No joint effusion. JAMES GAMBLE DO SYSTEM ID: [id number] Donald Parker MD IMG DIAGNOSTIC IMAGI NG ORDERABLES * (ABNORMAL) Glucose by meter (04/18/2022 7:15 AM SUGAR REFINERY SUPERVISOR) GLUCOSE BY METER POCT 143(H) 70 - 99 mg/dL 04/18/2022 7:22 AM SUGAR REFINERY SUPERVISOR [facility] POC Blood, Capillary BLOOD SPECIMEN / Unknown 04/18/2022 7:15 AM SUGAR REFINERY SUPERVISOR 04/18/2022 7:22 AM SUGAR REFINERY SUPERVISOR Donald Parker MD LAB - BUD POCT [facility] [address] Lab (1st floor, no room number) [place] [address], [facility] [phone] from Last 3 Months or Most Recently Relevant to Health Maintenance Advance Directives For more information, please contact: [phone] * Full Code (Latest Code Status on File) Date Activated Date Inactivated Comments 04/17/2022 11:28 AM 04/18/2022 10:58 AM All basi c and advanced life-sustaining interventions are performed as appropriate Question Answer Comments Code status determined by: Discussion with adriana silveira/ legal decision maker Care Teams Creative Strategist Relationship Specialty Start Date End Date Anthony Moeller MD PCP - General Family Practice 11/21/17
--- OUTSIDE RECORDS SUMMARY | 2024-01-01 14:26 | XMS_ITS | Clinical Summary ---
Author Organization [facility] Address [address] [place] [address] Care Team Providers Care Data Control Clerk Supervisor Name Role Phone Md JUSTIN Hoff Primary Care Provider [phone] Source Comments You are receiving this document as you are listed as the primary care provider,follow-up provider, or the patient has been referred to you for consultation.This is in compliance with the Medicare and[facility] E[facility] Incentive Program,which states Providers who transition their patient to another setting of careor provider of care or refers their patient to another provider of care shouldprovide summary care record for each transition of care or referral. [facility] [employer] Allergies No known active allergies Medications Medication [...] (10/02/2019): Added automatically from request for surgery [id number] Complete rupture of rotator cuff 08/20/2012 Tobacco abuse 04/15/2012 Obstructive sleep apnea 12/23/2007 Overview (12/19/2016): Setting: Auto 8-15 cmH20 Supplied by: [facility] PSG done: 12-10-07, 01-07-08 AHI 94 RDI [...] COVID-19 Vaccine (1 - 2022-2 4 season) 2023 Influenza (#1) 2023 04/16/2019, 03/25/2018, 03/18/2007 DTaP/Tdap/Td [...] PROSTATIC SPECIFIC ANTIGEN(SCREEN) Routine 06/20/2010 8:15 AM HEAD SOFT SUGAR OPERATOR LIPID PANEL & DIRECT LDL (IF NEEDED) Routine 06/20/2010 8:15 AM HEAD SOFT SUGAR OPERATOR from Last 3 Months or Most Recently Relevant to Health Maintenance Results * Lipid Panel and Direct LDL(If Needed) (06/20/2010 8:15 AM HEAD SOFT SUGAR OPERATOR) Cholesterol 174 0 - 200 mg/dL HP CONVERSION Triglycerides 125 0 - 149 mg/dL HP CONVERSION HDL Cholesterol 46 >39 mg/dL HP CONVERSION Cholesterol/HDL Ratio Screen 3.8 No normal range HP CONVERSION LDL Calculated 103 19 - 130 mg/dL HP CONVERSION Hours Fasting 15.0 No normal range HP CONVERSION 06/20/2010 8:15 AM HEAD SOFT SUGAR OPERATOR [facility] LAB_1 HP CONVERSION * Prostatic Specific Antigen (Screen) (06/20/2010 8:15 AM HEAD SOFT SUGAR OPERATOR) Prostate Specific Antigen 0.8 0.0 - 4.0 ng/mL HP CONVERSION 06/20/2010 8:15 AM HEAD SOFT SUGAR OPERATOR Maximiliano Barahona [facility] LAB_1 HP CONVERSION from Last 3 Months or Most Recently Relevant to Health Maintenance Advance Directives * Full Code (Latest Code Status on File) Date Activated Date Inactivated Comments 11/04/2019 8:12 AM 11/04/2019 10:54 AM Care Teams Data Control Clerk Supervisor Relationship Specialty Start Date End Date Md Luis Eduardo, [place] [address] PCP - General 08/01/10
--- OUTSIDE RECORDS SUMMARY | 2024-01-01 14:26 | XMS_ITS | Encounter Summary ---
Author Organization [facility] Address [address] [place] [address] Care Team Providers Care Talent Development Consultant Name Role Phone Anthony Moeller MD Primary Care Provider [phone] Reason for Visit * Diagnostic Imaging XR (Routine) - Pending Review Specialty Diagnoses / Procedures Referred By Contac t Referred To Contact Radiology. Diagnoses Orthopedic aftercare Procedures XR Knee Right 3 Views Donald Parker MD [address] [place] [address] Referral ID Status Reason Start Date Expiration Date V isits Requested Visits Authorized [id number] Pending Review 12/20/2023 12/19/2024 1 1 Encounter Details Date Type Department Care Team (Latest Contact Info) Description 12/20/2023 11:50 AM CDT Ancillary Procedure [facility] [address] [place] [address] Donald Parker MD [address] [place] [address] Orthopedic aftercare Social History Tobacco Use [...] joint effusion. JAMES GAMBLE DO SYSTEM ID: [id number] Narrative 12/20/2023 3:10 PM CDT EXAM: XR KNEE RIGHT 3 VIEWS DATE/TIME: 12/20/2023 12:06 PM INDICATION: Orthopedic aftercare COMPARISON: 05/25/2022 Procedure Note James Gamble DO - 12/20/2023 EXAM: XR KNEE RIGHT 3 VIEWS DATE/TIME: 12/20/2023 12:06 PM INDICATION: Orthopedic aftercare COMPARISON: 05/25/2022 IMPRESSION: Medial unicompartmental hemiarthroplasty. No evidence of loosening or periprosthetic fracture. No joint effusion. JAMES GAMBLE DO SYSTEM ID: [id number] Donald Parker MD IMG DIAGNOSTIC IMAGI NG ORDERABLES documented in this encounter Visit Diagnoses Diagnosis Orthopedic aftercare Unspecified orthopedic aftercare documented in this encounter Care Teams Talent Development Consultant Relationship Specialty Start Date End Date Anthony Moeller MD PCP - General Family Practice 11/21/17 documented as of this encounter
--- OUTSIDE RECORDS SUMMARY | 2024-01-01 14:27 | XMS_ITS | Encounter Summary ---
Author Organization [facility] Address [address] [place] [address] Care Team Providers Care Hockey Player Name Role Phone Anthony Moeller MD Primary Care Provider [phone] Donald Parker MD Unavailable [phone] Encounter Details Date Type Department Care Team ([facility] st Contact Info) Description 12/03/2023 [facility] [address] [place], [place] [address] Donald Parker MD [address] [place] [address] Social History Tobacco Use Types [...] Dr. Parker in clinic for further evaluation. Fuel Management Handler assisted in scheduling patient at the [place] location. Patient thankful for call and has [...] we send this information to you in [facility] or would you prefer to receive a phone call?: Patient would prefer a phone call Okay to leave a detailed message?: Yes at Cell number on file: Telephone Information: documented in this encounter Plan of Treatment Not on file documented as of this encounter Visit Diagnoses Not on filedocumented in this encounter Care Teams Hockey Player Relationship Specialty Start Date End Date Anthony Moeller MD PCP - General Family Practice 11/21/17 Donald Parker MD [address] [place] [address] Assigned Musculoskeletal Provider 09/29/22 12/19/23 documented as of this encounter
--- NOTE | 2024-01-01 15:00 | CRLHL7_ITS ---
For Patients: As a result of the Century Cures Act, medical imaging exams and procedure reports are released immediately into your electronic medical record. You may view this report before your referring provider. If you have questions, please contact your health care provider. INDICATION: Epigastric pain TECHNIQUE: CT abdomen and pelvis with 129 mL Isovue 70 COMPARISON: None. FINDINGS: Lower chest: Numerous small nodules diffusely within the lower lobes. Liver: Liver granulomas. Similar heterogeneous appearance of the liver with likely multiple ill-defined masses liver example inferior aspect of segment 4 of the liver measuring approximately 3 centimeters. Slight nodular contour to liver. No biliary dilatation seen. Gallbladder and bile ducts: No stones or inflammation. No biliary dilatation. Pancreas: Unremarkable. No mass or inflammation. Spleen: Splenic granulomas. Adrenal glands: Small nodule left adrenal gland nodularity left adrenal gland Kidneys: Too small to characterize low-attenuation lesions left kidney. GI tract: Unremarkable. Normal in caliber. No sign of mass or inflammation. Normal appendix. Vasculature: Abdominal aorta is normal in caliber. Suspected focal thrombus in the portal vein suspected thrombus in the portal vein near the splenic vein confluence on probable small thrombus in the proximal splenic vein 05/31 4 Lymph nodes: Upper abdominal adenopathy with multiple enlarged gastrohepatic lymph nodes example 2 centimeter short axis gastrohepatic lymph node enlarged iron hepatis nodes Peritoneum/Abdominal Wall: Unremarkable. No sign of mass or infiltration. No free air or significant free fluid. Pelvis: Large prostate gland. Bones: Unremarkable for age. IMPRESSION: 1. Slight nodular contour to liver extremely heterogeneous appearance with likely diffuse hypodense ill-defined masses. Upper abdominal adenopathy with gastrohepatic adenopathy enlarged iron hepatis nodes. Findings suspicious for metastatic disease. Suspect several focal areas of thrombus in the portal vein proximal splenic vein. 2. Numerous small nodules throughout the lower lobes indeterminate. Results discussed with Dr. Cruz on 01/02/24 at 9:30am. Please note that all CT scans at this facility use dose modulation, iterative reconstruction, and/or weight-based dosing when appropriate to reduce radiation dose to as low as reasonably achievable. Dictated by Evelyn Zuniga MD @ 01/02/2024 5:04:23 AM (Electronically Signed)
== END 2024-01-01 14:25 | disposition home or self-care (01) ==
LOC: CT 14:25
PROVIDERS: PCP Family Medicine; Visit Provider Family Medicine
DX: R10.13 Epigastric pain (principal); R16.0 Hepatomegaly, not elsewhere classified; R91.8 Other nonspecific abnormal finding of lung field
CPT/HCPCS: 74177; Q9967

== ENCOUNTER 2024-01-15 07:01 | Outpatient (CLI) | payer BC, SELFPAY ==
--- OUTSIDE RECORDS SUMMARY | 2024-01-15 07:03 | XMS_ITS | Clinical Summary ---
Author Organization [facility] Address [address] [place] [address] Care Team Providers Care Rose Grading Supervisor Name Role Phone Md JUSTIN Hoff Primary Care Provider [phone] Source Comments You are receiving this document as you are listed as the primary care provider,follow-up provider, or the patient has been referred to you for consultation.This is in compliance with the Medicare and[facility] EHR Incentive Program,which states Providers who transition their patient to another setting of careor provider of care or refers their patient to another provider of care shouldprovide summary care record for each transition of care or referral. [facility] Allergies No known active allergies Medications Medication [...] (10/02/2019): Added automatically from request for surgery [id number] Complete rupture of rotator cuff 08/20/2012 Tobacco abuse 04/15/2012 Obstructive sleep apnea 12/23/2007 Overview (12/19/2016): Setting: Auto 8-15 cmH20 Supplied by: [facility] PSG done: 12-10-07, 01-07-08 AHI 94 RDI 94 Lowest O2 Sat: 76% [place] FF 1-20-15 ; Severe Obstructive sleep apnea [...] 06/20/2010 Cholesterol 06/20/2015 06/20/2010, 03/18/2007 COVID-19 Vaccine ( - 2023-2 5 season) 2023 Influenza (#1) 2023 04/16/2019, 03/25/2018, [...] PROSTATIC SPECIFIC ANTIGEN(SCREEN) Routine 06/20/2010 8:15 AM SURGICAL AIDES TEACHER LIPID PANEL & DIRECT LDL (IF NEEDED) Routine 06/20/2010 8:15 AM SURGICAL AIDES TEACHER from Last 3 Months or Most Recently Relevant to Health Maintenance Results * Lipid Panel and Direct LDL(If Needed) (06/20/2010 8:15 AM SURGICAL AIDES TEACHER) Cholesterol 174 0 - 200 mg/dL HP CONVERSION Triglycerides 125 0 - 149 mg/dL HP CONVERSION HDL Cholesterol 46 >39 mg/dL HP CONVERSION Cholesterol/HDL Ratio Screen 3.8 No normal range HP CONVERSION LDL Calculated 103 19 - 130 mg/dL HP CONVERSION Hours Fasting 15.0 No normal range HP CONVERSION 06/20/2010 8:15 AM SURGICAL AIDES TEACHER Maxim[facility]ahona [facility] LAB_1 HP CONVERSION * Prostatic Specific Antigen (Screen) (06/20/2010 8:15 AM SURGICAL AIDES TEACHER) Prostate Specific Antigen 0.8 0.0 - 4.0 ng/mL HP CONVERSION 06/20/2010 8:15 AM SURGICAL AIDES TEACHER Maximiliano Barahona [facility] LAB_1 HP CONVERSION from Last 3 Months or Most Recently Relevant to Health Maintenance Advance Directives * Full Code (Latest Code Status on File) Date Activated Date Inactivated Comments 11/04/2019 8:12 AM 11/04/2019 10:54 AM Care Teams Rose Grading Supervisor Relationship Specialty Start Date End Date Md Luis Eduardo, [place] [address] PCP - General 08/01/10
--- OUTSIDE RECORDS SUMMARY | 2024-01-15 07:03 | XMS_ITS | Clinical Summary ---
Author Organization [facility] Address [place], [place] [address] Care Team Providers Care Production Control Coordinating Clerk Name Role Phone Anthony Moeller MD Primary Care Provider [phone] Allergies No known active allergies Medications Medication Sig Dispensed Refills Start Date End Date Status ibuprofen (ADVIL; MOTRIN) 600 mg tablet Take 1 tablet by mouth every 6 hours if needed for Pain. Maximum of 3200 mg in 24 hours. 90 tablet 2 09/16/2012 Active Lisinopril, Bulk, 100 % powd Mix 40 mg in liquid then take by mouth once daily. Active metFORMIN (GLUCOPHAGE) 500 mg tablet Take 500 mg by mouth two times daily with meals. Active metoprolol succinate (TOPROL XL) 50 mg sustained-release tablet Take 50 mg by mouth once daily. 01/29/2023 Active omeprazole (PRILOSEC) 40 mg Delayed-Release capsule Take 40 mg by mouth once daily. 01/07/2024 Active rosuvastatin (CRESTOR) 10 mg tablet Take 10 mg by mouth once daily. 01/07/2024 Active aspirin (ECOTRIN) 81 mg enteric coated tablet Take 81 mg by mouth once daily. 04/17/2022 Active amLODIPine (NORVASC) 5 mg tablet Take 5 mg by mouth once daily. Active oxyCODONE (ROXICODONE) 5 mg immediate release tablet Take 1-3 tablets by mouth every 4 hours if needed for Pain. 80 tablet 0 09/16/2012 01/14/2024 Discontinued (*Patient states no longer taking) hydrOXYzine pamoate (VISTARIL) 25 mg capsule Take 1 capsule by mouth every 6 hours if needed for Other (Specify) (to augment pain control). 50 capsule 1 09/16/2012 01/14/2024 Discontinued (*Patient states no longer taking) Active Problems Problem Noted Date Diagnosed Date Rotator cuff tear 09/15/2012 Glenoid labral tear 09/15/2012 Encounters Date Type Department Care Team Description 01/14/2024 10:24 AM CDT - 01/14/2024 11:59 PM CDT Hospital Encounter [facility] [address] [place] [address] Anthony Moeller MD Hepatomegaly 01/14/2024 Travel 11/07/2023 Lab Requisition [facility] [phone] Unknown, Doctor from Last 3 Months Social History Tobacco Use Types Packs/Day Years Used Date Smoking Tobacco: Former Cigarettes Tobacco Cessation:Counseling Given: Not Answered Alcohol Use Standard Drinks/Week Comments Yes 3.3 (1 standard drink = 0.6 oz p ure alcohol) social Sex and Gender Information Value Date Recorded Sex Assigned at Not on file Gender Identity Not on file Sexual Orientation Not on file Obstetrics History Last Filed Vital Signs Vital Sign Reading Time Taken Comments Blood Pressure 138/75 01/14/2024 2:15 PM CDT Pulse 65 01/14/2024 2:15 PM CDT Temperature 36.8 ??C (98.2 ??F) 01/14/2024 11:13 AM C DT Respiratory Rate 16 01/14/2024 2:15 PM CDT Oxygen Saturation 95% 01/14/2024 2:15 PM CDT Inhaled Oxygen Concentration - - Weight 103 kg (227 lb) 01/14/2024 11:13 AM CDT Height 172.7 cm (5' 8) 01/14/2024 11:13 AM CDT Body Mass Index 34.52 01/14/2024 11:13 AM CDT Plan of Treatment Health Maintenance [...] this topic Medical Devices Implanted Type Area Shearing Machine Operator Device Identifier Shelf Expiration Date Model / Serial / Lot Sut Ancr 4.75 W/Loop - [id number] Implanted:Qty: 1 on 09/16/2012 by Jama Cohen MD at [facility] Right: Shoulder [employer] 04/27/2014 [id number] / / [id number] Procedures Procedure Name Priority Date/Time Associated Diagnosis Comments CT BIOPSY LIVER Routine 01/14/2024 12:27 PM CDT Hepatomegaly GLUCOSE METER Routine 01/14/2024 11:20 AM CDT HEMOGLOBIN STAT 01/14/2024 10:51 AM CDT PLATELET COUNT STAT 01/14/2024 10:51 AM CDT PROTIME-INR STAT 01/14/2024 10:51 AM CDT LAB TRACKING EVENT Routine 11/07/2023 9: 35 AM CDT PATH TISSUE EXAM Routine 11/07/2023 9:35 AM CDT from Last 3 Months Results * CT BIOPSY LIVER (01/14/2024 12:27 PM CDT) Anatomical Region Laterality Modality LIVER Computed Tomogra phy, Other, Other, Other Narrative 01/14/2024 3:28 PM CDT RADIOLOGY POST PROCEDURE NOTE ?? 01/14/2024 Rolando Schwartz [id number] INFORMEDCONSENT: In my discussion, prior to the signing of the consent, I reviewed the procedure, benefits, risks, long-term effects, treatment options, possible use of pain or sedation medications, and how the procedure will meet the treatment goal with the patient and/or family. The patient was given ample time to ask questions. All questions were answered. INDICATIONS: Abnormal liver lesion in segment 4 of the liver PROCEDURE PERFORMED: CT-guided biopsy PROCEDURE NARRATIVE : Procedure explained to the patient and proper consent form obtained. ??Axial cuts through the liver performed in the supine position. ??Under CT guidance and sterile condition 18-gauge core biopsy was obtained from the lesion segment 4 of the liver. ??Cytology confirmed adequacy. ??Postprocedure CT was performed showed no hemorrhage or complications. ??Patient tolerated procedure well. PATIENT POSITION: supine ANTISEPTIC PREPARATION and BARRIER TECHNIQUES USED: ??Skin was prepped and draped in the usual sterile fashion. IMAGING GUIDANCE FOR ACCESS / PROCEDURE: ??CT ?Permanently recorded images are archived in PACS. ACCESS LOCATION / SITE / TECHNIQUE: Anterior approach. EQUIPMENT UTILIZED: 17/18-gauge core biopsy system CLOSURE: ??none RADIATION DOSE: ?? total exam DLP: 1400 mGy-cm MEDICATIONS GIVEN: ??. ??1% Lidocaine was used for local anesthesia. SPECIMEN(S): Several COMPLICATIONS: no complications noted DRAINS: ??None ?? ESTIMATED BLOOD LOSS: ??Less than 10 cc. PHYSICIAN(S) AND ASSISTANTS (if any): ??Diane Dickinson MD Additional Comments: Please call with questions. Diane Dickinson MD [place] Protocol A. Pre-procedure verification complete yes 1-relevant information / documentation available, reviewed and properly matched to the patient; 2-consent accurate and complete, 3-equipment and supplies available B. Site marking complete Yes Site marked if not in continuous attendance with patient C. TIME OUT completed yes Time Out was conducted just prior to starting procedure to verify the eight required elements: 1-patient identity, 2-consent accurate and complete, 3-position, 4-correct side/site marked (if applicable), 5-procedure, 6-relevant images / results properly labeled and displayed (if applicable), 7-antibiotics / irrigation fluids (if applicable), 8-safety precautions. Please note that all CT scans at this facility use dose modulation, iterative reconstruction, and/or weight-based dosing when appropriate to reduce radiation dose to as low as reasonably achievable. Anthony Moeller MD CT * (ABNORMAL) GLUCOSE METER (01/14/2024 11:20 AM CDT) GLUCOSE METER 101(H) 65 - 100 mg/dL 01/15/2024 6:08 AM CDT [facility] Blood BLOOD SPECIMEN / Unknown 01/14/2024 11:20 AM CDT 01/15/2024 6:08 AM CDT Anthony Moeller MD CHEMISTRY Performing Organization Address [facility]/ZIP Co de Phone Number [facility] [address] [place] [address], * Platelet Count (01/14/2024 10:51 AM CDT) PLATELET COUNT 215 140 - 440 thou/cu mm 01/14/2024 11:16 AM CDT [facility] MPV 9.4 6.5 - 11.0 fL 01/14/2024 11:16 AM CDT [facility] Blood BLOOD SPECIMEN / Unknown Venipuncture / Unknown 01/14/2024 10:51 AM CDT 01/14/2024 10:58 AM CDT Diane Dickinson MD HEMATOLOGY Performing Organization Address [facility] Co de Phone Number [facility] [address] [place] [address], * (ABNORMAL) Hemoglobin (01/14/2024 10:51 AM CDT) HEMOGLOBIN 11.7(L) 13.5 - 17.5 g/dL 01/14/2024 11:16 AM CDT [facility] MCV 93 80 - 100 fL 01/14/2024 11:16 AM CDT [facility] Blood BLOOD SPECIMEN / Unknown Venipuncture / Unknown 01/14/2024 10:51 AM CDT 01/14/2024 10:58 AM CDT Diane Dickinson MD HEMATOLOGY Performing Organization Address City/[facility]/ZIP Co de Phone Number [facility] [address] [address], * (ABNORMAL) Protime-INR (01/14/2024 10:51 AM CDT) INR 1.3(H) <1.3 01/14/2024 11:13 AM CDT [facility] PROTIME 14.4(H) 10.3 - 12.3 sec 01/14/2024 11:13 AM CDT [facility] Blood BLOOD SPECIMEN / Unknown Venipuncture / Unknown 01/14/2024 10:51 AM CDT 01/14/2024 10:59 AM CDT Narrative [facility] - 01/14/2024 11:13 AM CDT ?Therapeutic Range 2.0-3.0 for most anticoagulated patients 2.5-3.5 or 4.0 for high risk patients The INR is only used for patients on stable oral anticoagulant therapy. It makes no significant contribution to the diagnosis or treatment of patients whose Protime is prolonged for other reasons. INR results are increased when heparin levels exceed 1.0 U/mL, which corresponds to an aPTT >125 seconds if the patient is on UFH. Diane Dickinson MD HEMATOLOGY Performing Organization Address [facility] de Phone Number [facility] [address] [place] [address], * LAB TRACKING EVENT (11/07/2023 9:35 AM CDT) Other (Other) Client Collect / Unknown 11/07/2023 9:35 AM CDT 11/07/2023 10:09 PM CDT Doctor Unknown LAB BILL ONLY Performing Organization Address [facility] Co de Phone Number [facility] [address] [place] [address], [place] * PATH TISSUE EXAM (11/07/2023 9:35 AM CDT) Case Report Pathology Report ?Case: [id number] ? Authorizing Provider: ??Unknown, Doctor ?Collected: ? 11/07/2023 0935 ? Ordering Location: ? [facility] ?Received: ?11/08/2023 0811 ? Pathologist: ? Danial Arias MD ? Specimen: ?Descending Colon Polyp ? 11/11/2023 11:03 AM CDT [facility] Final Diagnosis A) COLON, DESCENDING, POLYPECTOMY: 1. Tubular adenoma 2. Negative for high grade dysplasia 3. Per the colonoscopy report: ?? a. Polyp size: 3 mm ?? b. Resection: Complete ?? c. Retrieval: Complete 11/11/2023 11:03 AM CDT [facility] Clinical Information Mr. Schwartz is a 53 y.o. who presents for screening colonoscopy. 11/11/2023 11:03 AM CDT [facility] Gross Description A) Received in formalin are 3 guido mucosal fragments averaging 2 mm in greatest dimension, which are entirely submitted in one cassette. It is labeled with the patient's name and designated descending colon polyp. CAPRICE Celis 11/08/2023 10:03 AM 11/11/2023 11:03 AM CDT [facility] Microscopic Description The final diagnosis is based on microscopic examination of appropriate sections of all specimens. 11/11/2023 11:03 AM CDT [facility] Additional Information Interpreted at [facility] - [address] [place] [address]. [facility] [address] [address] 11/11/2023 11:03 AM CDT [facility] Other (Descending Colon Polyp) 11/07/2023 9:35 AM CDT 11/08/2023 8:11 AM CDT Doctor Unknown PATHOLOGY/CYTOLOGY [facility] [address] [place] [address], from Last 3 Months Care Teams Production Control Coordinating Clerk Relationship Specialty Start Date End Date Anthony Moeller MD [address] [place] [address] PCP - General Family Practice 01/09/24
--- OUTSIDE RECORDS SUMMARY | 2024-01-15 07:03 | XMS_ITS | Clinical Summary ---
Author Organization [facility] Address [address] [place] [address] Care Team Providers Care Braille And Talking Books Clerk Name Role Phone Anthony Moeller MD Primary Care Provider [phone] Allergies No known active allergies Medications Medication [...] Description 12/20/2023 11:50 AM CDT Ancillary Procedure [facility] [address] [address] Donald Parker MD Orthopedic aftercare 12/20/2023 11:40 AM CDT Office Visit [facility] [address] [address] Donald Parker MD Orthopedic aftercare (Primary Dx); S/P right unicompartmental knee replacement 12/20/2023 Travel 12/03/2023 Telephone [facility] [address] [address] Donald Parker MD from Last 3 Months [...] AM CDT Pulse 72 04/18/2022 8:11 AM PRACTICAL NURSING FACULTY Temperature 36.5 ??C (97.7 ??F) 04/18/2022 8 :11 AM PRACTICAL NURSING FACULTY Respiratory Rate 16 04/18/2022 8:11 AM PRACTICAL NURSING FACULTY Oxygen Saturation 97% 04/18/2022 8:1 1 AM PRACTICAL NURSING FACULTY Inhaled Oxygen Concentration - - Weight 128.8 kg (284 lb) 05/25/2022 10: 23 AM PRACTICAL NURSING FACULTY pulled from last visit Height 175.3 cm (5' 9) 05/25/2022 10:2 3 AM PRACTICAL NURSING FACULTY Body Mass Index 41.94 05/25/2022 10:23 AM PRACTICAL NURSING FACULTY Plan of Treatment Health Maintenance Due Date [...] 09/12/1987 LIPID 2008 LUNG CANCER SCREENING 2018 PHQ-2 (once per calendar year) 2023 05/11/2022, 04/03/2022 COVID-19 Vaccine ( season) 2023 INFLUENZA VACCINE (#1) 2023 9, 03/25/2018, 04/18/2009, [...] this topic Medical Devices Implanted Type Area Repairer Welding Equipment Device Identifier Shelf Expiration Date Model / Serial / Lot Bone Cement Simplex Full Dose 6191-1-001 - [id number] Implanted:Qty : 1 on 04/17/2022 by Donald Parker MD at [facility] Cement, Bone Right: Knee [employer] 06/27/2023 6191-1-001 / / [id number] Twinfix Ultra Pk 5.5mm Suture [place] With 2 Ultrabraid Sutures Implanted:Qty : 1 on 12/10/2017 by Les Israel MD at [facility] Metallic Hardware/An chor Right: Shoulder 05/23/2022 [id number] / / [id number] 2.8mm Q-Fix Suture [place] Implanted:Qty : 1 on 12/10/2017 by Les Israel MD at [facility] Metallic Hardware/An chor Right: Shoulder 04/03/2020-2800 / / [id number] Knee Uni Tibia Tray Mobile Bear D5 Rm/Ll - [id number] Implanted:Qty : 1 on 04/17/2022 by Donald Parker MD at [facility] Total Joint Component/I nsert Right: Knee [employer] 07/27/2031 [id number] / / [id number] Knee [place] Uni Femoral Med - [id number] Implanted:Qty : 1 on 04/17/2022 by Donald Parker MD at [facility] Total Joint Component/I nsert Right: Knee [employer] 03/19/2032 [id number] / / [id number] Insert [place] Anatomic Bear R Med Sz 4 - [id number] Implanted:Qty : 1 on 04/17/2022 by Donald Parker MD at [facility] Total Joint Component/I nsert Right: Knee [employer] 11/16/2025 [id number] / / [id number] Twinfix Ultra Pk 5.5mm Suture [place] With 2 Ultrabraid Sutures Implanted:Qty : 1 on 12/10/2017 by Les Israel MD at [facility] Right: Shoulder [employer] 01/10/2022 [id number] / / [id number] Procedures Procedure Name Priority Date/Time Associated Diagnosis Comments XR KNEE RIGHT 3 VIEWS Routine 12/20/2023 12:06 PM CDT Orthopedic aftercare GLUCOSE BY METER Routine 04/18/2022 7:15 AM PRACTICAL NURSING FACULTY from Last 3 Months or Most Recently Relevant to Health Maintenance Results * XR Knee Right 3 Views (12/20/2023 12:06 PM CDT) Anatomical Region Laterality Modality Thigh, Knee, Leg Right Computed Radiog su Impressions 12/20/2023 3:10 PM CDT IMPRESSION: Medial unicompartmental hemiarthroplasty. No evidence of loosening or periprosthetic fracture. No joint effusion. JAMES GAMBLE DO SYSTEM ID: ??[id number] Narrative 12/20/2023 3:10 PM CDT EXAM: XR KNEE RIGHT 3 VIEWS DATE/TIME: 12/20/2023 12:06 PM INDICATION: Orthopedic aftercare COMPARISON: 05/25/2022 Procedure Note James Gamble DO - 12/20/2023 EXAM: XR KNEE RIGHT 3 VIEWS DATE/TIME: 12/20/2023 12:06 PM INDICATION: Orthopedic aftercare COMPARISON: 05/25/2022 IMPRESSION: Medial unicompartmental hemiarthroplasty. No evidence of loosening or periprosthetic fracture. No joint effusion. JAMES GAMBLE DO SYSTEM ID: [id number] Donald Parker MD IMG DIAGNOSTIC IMAGI NG ORDERABLES * (ABNORMAL) Glucose by meter (04/18/2022 7:15 AM PRACTICAL NURSING FACULTY) GLUCOSE BY METER POCT 143(H) 70 - 99 mg/dL 04/18/2022 7:22 AM PRACTICAL NURSING FACULTY [facility] POC Blood, Capillary BLOOD SPECIMEN / Unknown 04/18/2022 7:15 AM PRACTICAL NURSING FACULTY 04/18/2022 7:22 AM PRACTICAL NURSING FACULTY Donald Parker MD LAB - BUD POCT [facility] LAB[facility]AT[facility] [address] Lab (1st floor, no room number) [place] [address], [facility] [phone] from Last 3 Months or Most Recently Relevant to Health Maintenance Advance Directives For more information, please contact: [phone] * Full Code (Latest Code Status on File) Date Activated Date Inactivated Comments 04/17/2022 11:28 AM 04/18/2022 10:58 AM All basi c and advanced life-sustaining interventions are performed as appropriate Question Answer Comments Code status determined by: Discussion with adriana silveira/ legal decision maker Care Teams Braille And Talking Books Clerk Relationship Specialty Start Date End Date Anthony Moeller MD PCP - General Family Practice 11/21/17
--- OUTSIDE RECORDS SUMMARY | 2024-01-15 07:03 | XMS_ITS | Referral Summary ---
Author Organization [facility] Address [address] [place] [address] Care Team Providers Care Customs Verifier Name Role Phone Anthony Moeller MD Primary Care Provider [phone] Encounters Date Type Department Care Team Description 12/20/2023 11:50 AM CDT Ancillary Procedure [facility] [address] [place] [address] Donald Parker MD Orthopedic aftercare 12/20/2023 Travel 12/20/2023 11:40 AM CDT Office Visit [facility] Orthopedic [address] [address] Donald Parker MD Orthopedic aftercare (Primary Dx); S/P right unicompartmental knee replacement 12/03/2023 Telephone [facility]opedic [address] [address] Donald Parker MD from Last 3 Months [...] AM CDT Pulse 72 04/18/2022 8:11 AM DRILLING RIG OPERATOR Temperature 36.5 ??C (97.7 ??F) 04/18/2022 8 :11 AM DRILLING RIG OPERATOR Respiratory Rate 16 04/18/2022 8:11 AM DRILLING RIG OPERATOR Oxygen Saturation 97% 04/18/2022 8:1 1 AM DRILLING RIG OPERATOR Inhaled Oxygen Concentration - - Weight 128.8 kg (284 lb) 05/25/2022 10: 23 AM DRILLING RIG OPERATOR pulled from last visit Height 175.3 cm (5' 9) 05/25/2022 10:2 3 AM DRILLING RIG OPERATOR Body Mass Index 41.94 05/25/2022 10:23 AM DRILLING RIG OPERATOR Plan of Treatment Not on file Medical Devices Implanted Type Area Supervisor Contact Lens Device Identifier Shelf Expiration Date Model / Serial / Lot Bone Cement Simplex Full Dose 6191-1-001 - [id number] Implanted:Qty : 1 on 04/17/2022 by Donald Parker MD at [facility] Cement, Bone Right: Knee [employer] 06/27/2023 6191-1-001 / / [id number] Twinfix Ultra Pk 5.5mm Suture [place] With 2 Ultrabraid Sutures Implanted:Qty : 1 on 12/10/2017 by Les Israel MD at [facility] Metallic Hardware/An chor Right: Shoulder 05/23/2022 [id number] / / [id number] 2.8mm Q-Fix Suture [place] Implanted:Qty : 1 on 12/10/2017 by Les Israel MD at [facility] Metallic Hardware/An chor Right: Shoulder 04/03/2020 [id number] / / [id number] Knee Uni Tibia Tray Mobile Bear D5 Rm/Ll - [id number] Implanted:Qty : 1 on 04/17/2022 by Donald Parker MD at [facility] Total Joint Component/I nsert Right: Knee [employer] 07/27/2031 [id number] / / [id number] Knee [place] Uni Femoral Med - [id number] Implanted:Qty : 1 on 04/17/2022 by Donald Parker MD at [facility] Total Joint Component/I nsert Right: Knee [employer] 03/19/2032 [id number] / / [id number] Insert [place] Anatomic Bear R Med 4 - [id number] Implanted:Qty : 1 on 04/17/2022 by Donald Parker MD at [facility] Total Joint Component/I nsert Right: Knee [employer] 11/16/2025 [id number] / / [id number] Twinfix Ultra Pk 5.5mm Suture [place] With 2 Ultrabraid Sutures Implanted:Qty : 1 on 12/10/2017 by Les Israel MD at [facility] Right: Shoulder [employer] 01/10/2022 [id number] / / [id number] Procedures Procedure Name Priority Date/Time Associated Diagnosis Comments XR KNEE RIGHT 3 VIEWS Routine 12/20/2023 12:06 PM CDT Orthopedic aftercare GLUCOSE BY METER Routine 04/18/2022 7:15 AM DRILLING RIG OPERATOR from Last 3 Months or Most Recently Relevant to Health Maintenance Results * XR Knee Right 3 Views (12/20/2023 12:06 PM CDT) Anatomical Region Laterality Modality Thigh, Knee, Leg Right Computed Radiog su Impressions 12/20/2023 3:10 PM CDT IMPRESSION: Medial unicompartmental hemiarthroplasty. No evidence of loosening or periprosthetic fracture. No joint effusion. JAMES GAMBLE DO SYSTEM ID: ??[id number] Narrative 12/20/2023 3:10 PM CDT EXAM: XR KNEE RIGHT 3 VIEWS DATE/TIME: 12/20/2023 12:06 PM INDICATION: Orthopedic aftercare COMPARISON: 05/25/2022 Procedure Note James Gamble DO - 12/20/2023 EXAM: XR KNEE RIGHT 3 VIEWS DATE/TIME: 12/20/2023 12:06 PM INDICATION: Orthopedic aftercare COMPARISON: 05/25/2022 IMPRESSION: Medial unicompartmental hemiarthroplasty. No evidence of loosening or periprosthetic fracture. No joint effusion. JAMES GAMBLE DO SYSTEM ID: [id number] Donald Parker MD IMG DIAGNOSTIC IMAGI NG ORDERABLES * (ABNORMAL) Glucose by meter (04/18/2022 7:15 AM DRILLING RIG OPERATOR) GLUCOSE BY METER POCT 143(H) 70 - 99 mg/dL 04/18/2022 7:22 AM DRILLING RIG OPERATOR [facility] LAB[facility]AT[facility] POC Blood, Capillary BLOOD SPECIMEN / Unknown 04/18/2022 7:15 AM DRILLING RIG OPERATOR 04/18/2022 7:22 AM DRILLING RIG OPERATOR Donald Parker MD LAB - BEAKER POCT [facility] LABORATORY POC [facility] [address] [facility] Lab (1st floor, no room number) [place] [address], [facility] [phone] from Last 3 Months or Most Recently Relevant to Health Maintenance Advance Directives For more information, please contact: [phone] * Full Code (Latest Code Status on File) Date Activated Date Inactivated Comments 04/17/2022 11:28 AM 04/18/2022 10:58 AM All basi c and advanced life-sustaining interventions are performed as appropriate Question Answer Comments Code status determined by: Discussion with adriana silveira/ legal decision maker Care Teams Customs Verifier Relationship Specialty Start Date End Date Anthony Moeller MD PCP - General Family Practice 11/21/17
--- OUTSIDE RECORDS SUMMARY | 2024-01-15 07:04 | XMS_ITS | Encounter Summary ---
Author Organization [facility] Address [address] [place] [address] Care Team Providers Care Store Operations Associate Name Role Phone Anthony Moeller MD Primary Care Provider [phone] Reason for Referral * Diagnostic Imaging XR (Routine) - Pending Review Specialty Diagnoses / Procedures Referred By Contac t Referred To Contact Radiology. Diagnoses Orthopedic aftercare Procedures XR Knee Right 3 Views Donald Parker MD [address] [place] [address] Referral ID Status Reason Start Date Expiration Date V isits Requested Visits Authorized [id number] Pending Review 12/20/2023 12/19/2024 1 1 Encounter Details Date Type Department Care Team (Latest Contact Info) Description 12/20/2023 11:40 AM CDT Office Visit [facility] [address] [place] [address] Donald Parker MD [address] [place] [address] Orthopedic aftercare (Primary Dx); S/P right [...] from the original note were not included. [facility] Orthopaedic Surgery Consultation by Donald Parker [...] swelling, redness fever or malaise. 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 [...] his 5-year postop. Donald Parker MD, PhD Electrical Prospecting Operator Adult Reconstruction [facility] Department of Orthopaedic Surgery documented in this [...] joint effusion. JAMES GAMBLE DO SYSTEM ID: ??[id number] Narrative 12/20/2023 3:10 PM CDT EXAM: XR KNEE RIGHT 3 VIEWS DATE/TIME: 12/20/2023 12:06 PM INDICATION: Orthopedic aftercare COMPARISON: 05/25/2022 Procedure Note James Gamble DO - 12/20/2023 EXAM: XR KNEE RIGHT 3 VIEWS DATE/TIME: 12/20/2023 12:06 PM INDICATION: Orthopedic aftercare COMPARISON: 05/25/2022 IMPRESSION: Medial unicompartmental hemiarthroplasty. No evidence of loosening or periprosthetic fracture. No joint effusion. JAMES GAMBLE DO SYSTEM ID: [id number] Donald Parker MD IMG DIAGNOSTIC IMAGI NG ORDERABLES documented in this encounter Visit Diagnoses Diagnosis Orthopedic aftercare- Primary Unspecified orthopedic aftercare S/P right unicompartmental knee replacement Knee joint replacement by other means Orthopedic aftercare Unspecified orthopedic aftercare documented in this encounter Care Teams Store Operations Associate Relationship Specialty Start Date End Date Anthony Moeller MD PCP - General Family Practice 11/21/17 documented as of this encounter
--- OUTSIDE RECORDS SUMMARY | 2024-01-15 07:04 | XMS_ITS | Encounter Summary ---
Author Organization [place] Address [address] [place] [address] Care Team Providers Care Station Mechanic Name Role Phone Anthony Moeller MD Primary Care Provider Donald Parker MD Unavailable [phone] Encounter Details Date Type Department Care Team ([facility] st Contact Info) Description 12/03/2023 [facility] [address] [place], [place] [address] Donald Parker MD [address] [place] [address] Social History Tobacco Use Types [...] Dr. Parker in clinic for further evaluation. Cloth Cutting Inspector assisted in scheduling patient at the [place] location. Patient thankful for call and has [...] we send this information to you in [facility] or would you prefer to receive a phone call?: Patient would prefer a phone call Okay to leave a detailed message?: Yes at Cell number on file: Telephone Information: documented in this encounter Plan of Treatment Not on file documented as of this encounter Visit Diagnoses Not on filedocumented in this encounter Care Teams Station Mechanic Relationship Specialty Start Date End Date Anthony Moeller MD PCP - General Family Practice 11/21/17 Donald Parker MD [address] [place] [address] Assigned Musculoskeletal Provider 09/29/22 12/19/23 documented as of this encounter
--- OUTSIDE RECORDS SUMMARY | 2024-01-15 07:04 | XMS_ITS | Encounter Summary ---
Author Organization [facility] Address [address] [place] [address] Care Team Providers Care Culinary Director Name Role Phone Anthony Moeller MD Primary Care Provider [phone] Reason for Visit * Diagnostic Imaging XR (Routine) - Pending Review Specialty Diagnoses / Procedures Referred By Contac t Referred To Contact Radiology. Diagnoses Orthopedic aftercare Procedures XR Knee Right 3 Views Donald Parker MD [address] [place] [address] Referral ID Status Reason Start Date Expiration Date V isits Requested Visits Authorized [id number] Pending Review 12/20/2023 12/19/2024 1 1 Encounter Details Date Type Department Care Team (Latest Contact Info) Description 12/20/2023 11:50 AM CDT Ancillary Procedure [facility] [address] [place] [address] Donald Parker MD [address] [place] [address] Orthopedic aftercare Social History Tobacco Use [...] loosening or periprosthetic fracture. No joint effusion. AJMES GAMBLE DO SYSTEM ID: ??[id number] Narrative 12/20/2023 3:10 PM CDT EXAM: XR KNEE RIGHT 3 VIEWS DATE/TIME: 12/20/2023 12:06 PM INDICATION: Orthopedic aftercare COMPARISON: 05/25/2022 Procedure Note James Gamble DO - 12/20/2023 EXAM: XR KNEE RIGHT 3 VIEWS DATE/TIME: 12/20/2023 12:06 PM INDICATION: Orthopedic aftercare COMPARISON: 05/25/2022 IMPRESSION: Medial unicompartmental hemiarthroplasty. No evidence of loosening or periprosthetic fracture. No joint effusion. JAMES GAMBLE DO SYSTEM ID: [id number] Donald Parker MD IMG DIAGNOSTIC IMAGI NG ORDERABLES documented in this encounter Visit Diagnoses Diagnosis Orthopedic aftercare Unspecified orthopedic aftercare documented in this encounter Care Teams Culinary Director Relationship Specialty Start Date End Date Anthony Moeller MD PCP - General Family Practice 11/21/17 documented as of this encounter
--- OUTSIDE RECORDS SUMMARY | 2024-01-15 07:04 | XMS_ITS | Encounter Summary ---
Author Organization [place] Address [address] [place] [address] Care Team Providers Care Automotive Product Engineer Name Role Phone Anthony Moeller MD Primary Care Provider Encounter Details Date Type Department Care Team [...] on filedocumented in this encounter Care Teams Automotive Product Engineer Relationship Specialty Start Date End Date Anthony Moeller MD PCP - General Family Practice 11/21/17 documented as of this encounter
--- NOTE | 2024-01-15 07:15 | CRLHL7_ITS ---
For Patients: As a result of the 21st Century Cures Act, medical imaging exams and procedure reports are released immediately into your electronic medical record. You may view this report before your referring provider. If you have questions, please contact your health care provider. INDICATION: Hepatomegaly, suspicion for metastatic disease TECHNIQUE: 1.5 T MRI of the abdomen was performed with pre and postcontrast T1 weighted imaging; T2 weighted imaging; diffusion weighted imaging; in and out of phase imaging. 30 mL Dotarem IV COMPARISON: CT abdomen and pelvis 01/01/2024 FINDINGS: LIVER: Mildly nodular liver contour which may suggest cirrhosis. No hepatic steatosis. Heterogeneously peripherally enhancing mass at the right hepatic dome with extension into the infrahepatic IVC measuring 3.1 x 5 cm (). Multiple additional ill-defined lesions in the right hepatic lobe () and replacing most of the left hepatic lobe that are best appreciated on diffusion-weighted imaging (). Extensive tumor thrombus within the left and main portal vein. The right portal vein is patent. Additional eccentric tumor thrombus within the main portal vein adjacent to the portal confluence (55) that abuts the pancreatic head (/56). Focal thrombus within the splenic vein (/48). The hepatic veins and superior mesenteric vein are patent. The hepatic arteries are not well evaluated secondary to contrast bolus timing. Biliary tree: Mild intrahepatic biliary dilation within the right hepatic lobe. No extrahepatic biliary dilation. Gallbladder: Normal fluid-filled appearance without stones. REMAINING FINDINGS: Lungs: Innumerable subcentimeter bilateral pulmonary nodules, better evaluated on prior CT. No pleural or pericardial effusion. Possible right hilar lymph node versus filling defect within the right lower lobe central/segmental pulmonary artery (19/6), incompletely evaluated. Enlarged paraesophageal lymph node measuring 1.4 cm (19/7). Spleen: Splenomegaly measuring 15 cm in craniocaudal dimension. Pancreas: No pancreatic duct dilation. Adrenal glands: Left adrenal gland nodule measuring 1.4 cm (/21) with signal dropout on out of phase imaging. Kidneys and ureters: No renal masses or calculi bilaterally. No hydronephrosis. Vasculature: The IVC and aorta are patent. No abdominal aortic aneurysm. Lymph nodes: Similar multiple enlarged gastrohepatic and iron hepatis lymph nodes measuring up to 1.7 cm (/). Peritoneal space: No free fluid in the abdomen. Abdominal wall: Unremarkable Bones: Multilevel degenerative change of the imaged spine. Anterior compression deformity of the T10 and T11 vertebral bodies. Diffusion restricting and heterogeneously T2 hyperintense ovoid lesions within the T7 and T11 vertebral bodies without definite enhancement measuring 2 cm () and 1.3 cm (). IMPRESSION: 1. Mildly nodular liver contour suggestive of cirrhosis with multiple heterogeneously enhancing hepatic lesions replacing most of the left hepatic lobe, with additional lesions in the right hepatic lobe/dome. There is extensive tumor thrombus involving the intrahepatic IVC, left portal vein, main portal vein, and splenic vein. Imaging characteristics are indeterminate for primary hepatic malignancy versus metastases, although cholangiocarcinoma or possible pancreatic adenocarcinoma are favored. Hepatocellular carcinoma is also a consideration. Tissue sampling is recommended for further evaluation. 2. Possible right hilar lymph node versus filling defect within the right lower lobe central/segmental pulmonary artery. 3. Enlarged gastrohepatic and iron hepatis lymph nodes are suspicious for metastatic disease. 4. Thoracic osseous lesions are indeterminate for metastatic disease. 5. Innumerable subcentimeter pulmonary nodules are better evaluated on prior CT. 6. Focal intrahepatic biliary dilation in the right hepatic lobe. 7. Left adrenal gland nodule with signal characteristics suggestive of an adenoma, however its small size limits accurate characterization. 8. Splenomegaly. Dictated by Clarissa Begum MD @ 01/15/2024 2:13:58 PM (Electronically Signed)
== END 2024-01-15 07:02 | disposition home or self-care (01) ==
LOC: MRI 07:02
PROVIDERS: PCP Family Medicine; Visit Provider Family Medicine
DX: R16.0 Hepatomegaly, not elsewhere classified (principal); M89.9 Disorder of bone, unspecified; K74.60 Unspecified cirrhosis of liver; K76.9 Liver disease, unspecified; R91.8 Other nonspecific abnormal finding of lung field; E27.9 Disorder of adrenal gland, unspecified
CPT/HCPCS: 74183; A9575

== ENCOUNTER 2024-01-17 08:42 | Outpatient (CLI) | payer BC, SELFPAY ==
--- OUTSIDE RECORDS SUMMARY | 2024-01-17 08:46 | XMS_ITS | Clinical Summary ---
Author Organization [employer] [facility] Address [place], [place] [address] Care Team Providers Care Train Starter Name Role Phone Anthony Moeller MD Primary Care Provider [phone] Allergies No known active allergies Medications Medication [...] - 01/14/2024 11:59 PM CDT Hospital Encounter [facility] [address] [place] [address] Anthony Moeller MD Hepatomegaly 01/14/2024 Travel 11/07/2023 Lab Requisition [facility] [phone] Unknown, Doctor from Last 3 Months Social [...] this topic Medical Devices Implanted Type Area Supervisor Word Processing Device Identifier Shelf Expiration Date Model / Serial / Lot Sut Ancr 4.75 W/Loop - [id number] Implanted:Qty: 1 on 09/16/2012 by Jama Cohen MD at [facility] Right: Shoulder [employer] 04/27/2014 [id number] / / [id number] Procedures Procedure Name Priority Date/Time Associated Diagnosis Comments CT BIOPSY LIVER Routine 01/14/2024 12:27 PM CDT Hepatomegaly PATH [facility] CYTOLOGY ASP CYTOLOGY Today 01/14/2024 12:14 PM CDT GLUCOSE METER Routine 01/14/2024 11:20 AM CDT [...] POST PROCEDURE NOTE ?? 01/14/2024 Rolando Schwartz [id number] INFORMEDCONSENT: In my discussion, prior to [...] Please call with questions. Diane Dickinson MD Dalton Protocol A. Pre-procedure verification complete yes 1-relevant [...] reasonably achievable. Anthony Moeller MD CT * [facility] Cytology RETURNED GOODS REPAIRER (01/14/2024 12:14 PM CDT) Case Report Medical Cytology Report ? Case: [id number] ? Authorizing Provider: ??Diane Dickinson MD ?Collected: ? 01/14/2024 1214 ? Ordering Location: ? [facility] ?Received: ?01/14/2024 1222 ? Hospital Medical Imaging ? Pathologist: ? Jama Alcocer MD ? Specimen: ?Liver ? 01/15/2024 2:14 PM CDT [facility] Final Diagnosis A) LIVER, CT-GUIDED NEEDLE BIOPSY: 1. 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 -Tubular features seen histologically (see comment) 2. Background nonneoplastic liver shows cirrhosis, likely steatohepatitic (see comment) 3. Ancillary studies: ?? a. DNA mismatch repair enzyme IHC: Intact (positive labeling for MLH1, PMS2, MSH2 and MSH6) ? b. NGS 52 gene panel: Pending (ordered 01/15/2024), results in an amendment 01/15/2024 2:14 PM [facility] Comment A) The biopsy is diagnostic of an adenocarcinoma. The histomorphology in conjunction with the immunohistochemical labeling pattern (see below) are consistent with a cholangiocarcioma. Cholangiocarcinoma, however, is in part a diagnosis of exclusion based on no other apparent primary site in the upper GI tract, pancreas or gallbladder. Non-biliary lineage immunohistochemical markers are negative. Given the presence of cirrhosis and the histologically multifocal portal predominant growth this may be a tubular type cholangiocarcinoma arising in the intrahepatic biliary tree. In this clinical context this subtype is likely not clinically significant. Regarding the background liver, there is cirrhosis which, in the context of moderate steatosis and hepatocellular swelling most likely represents steatohepatitic etiology which could potentially be secondary to excess alcohol use or be nonalcoholic) which is most often due to some combination of the metabolic syndrome (obesity, diabetes, hyperlipidemia, etc.). Dr. Alcocer conveyed the results via phone discussion with Dr. Anthony Moeller's nurse, Kadi Avendaño, on 12/18/2023 at 2:10 PM. This was seen in consultation with Dr. Otilia Hutton. Please contact us with any questions ([facility] GI pathology service [phone]). Neoplastic tissue is available for ancillary studies, to request please contact the [facility] ([phone]). Neoplastic tissue available for ancillary studies: ?? [facility] NGS testing: ?- FFPE tissue blocks: A2 and A3 ?- Cytology slides: A1-1 (used for NGS); A1-2, A1-3, A1-4 remaining ?? Tests using immunostains and/or FISH (requiring 100 cells): A2 and A3 ?? Send out (outside vendor) testing requiring 5 x 5 mm of tumor: A2 and A3 01/15/2024 2:14 PM T [facility] Clinical Information Mr. Schwartz is a 53 y[address] who undergoes CT-guided needle biopsy of liver. 01/15/2024 2:14 PM CDT [facility] Gross Description A) Received identified as Liver is a radiologic guided biopsy specimen. The core biopsy sampling measures 2.0 cm x 0.4 cm in aggregate. The specimen consists of: ? -4 Air dried slides ? -1 Formalin vial ? -0 RPMI vials The following were prepared from the specimen submitted: ? -4 Diff-Quik stained slides ? -2 H&E stained cell block slides The biopsy material is entirely submitted in 2 cassettes. A2 Cell block material was removed from the patient and placed directly in formalin at 1215 on 01/14/24 and fixed in formalin at least 6 hours and no more than 72 hours. A3 Cell block material was removed from the patient and placed directly in formalin at 1215 on 01/14/24 and fixed in formalin at least 6 hours and no more than 72 hours. 01/15/2024 2:14 PM [facility] Adequacy Assessment A) C.A.M. assessed adequacy from the air-dried smears at the time of the procedure with an impression of Adequate. 01/15/2024 2:14 PM [facility] Microscopic Description Specimen adequacy: Adequate for interpretation. All slides were reviewed. The microscopic appearance substantiates the diagnosis. Both biopsies (A2 and A3) are generously sized and show a moderately differentiated adenocarcinoma with a tubulopapillary growth pattern, no obvious mucin production, and no necrosis. The background liver shows bridging fibrosis and nodular regeneration, fairly prominent sinusoidal dilatation, moderate (35%) steatosis, mild hepatocellular swelling, and negligible hepatocyte necrosis and no Krys's hyalin. A panel of immunostains was performed on block A2 to better clarify the nature of the adenocarcinoma with results as follows: TTF-1: Negative CDX2: Negative CK19: Positive CAIX: Positive (membranous) CK7: Negative CK20: Positive (focal) MLH1: Intact MSH2: Intact MSH6: Intact PMS2: Intact These results support carcinoma. 01/15/2024 2:14 PM T [facility] Additional Information Cytology is screened at [facility] - [address], [place] [address] and [facility] - [address], [place] [address] and [facility] - [address] [place] [address] Interpreted at [facility] - [address], [place] [address] Immunohistochemistry controls were reviewed and approved by the pathologist during this examination. 01/15/2024 2:14 PM CDT [facility] Aspirate SPECIMEN FROM LIVER / Unknown 01/14/2024 12:14 PM CDT 01/14/2024 12:22 PM CDT Diane Dickinson MD PATHOLOGY/CYTOLOGY [facility] [address] [place] [address], [place] * (ABNORMAL) GLUCOSE METER (01/14/2024 11:20 AM CDT) GLUCOSE METER 101(H) 65 - 100 mg/dL 01/15/2024 6:08 AM CDT [facility] Blood BLOOD SPECIMEN / Unknown 01/14/2024 11:20 AM CDT 01/15/2024 6:08 AM CDT Anthony Moeller MD CHEMISTRY [facility] [address] [place] [address], [place] * Platelet Count (01/14/2024 10:51 AM CDT) PLATELET COUNT 215 140 - 440 thou/cu mm 01/14/2024 11:16 AM CDT [facility] MPV 9.4 6.5 - 11.0 fL 01/14/2024 11:16 AM CDT [facility] Blood BLOOD SPECIMEN / Unknown Venipuncture / Unknown 01/14/2024 10:51 AM CDT 01/14/2024 10:58 AM CDT Diane Dickinson MD HEMATOLOGY Performing Organization Address [facility] Co de Phone Number [facility] [address] [place] [address] * (ABNORMAL) Hemoglobin (01/14/2024 10:51 AM CDT) HEMOGLOBIN 11.7(L) 13.5 - 17.5 g/dL 01/14/2024 11:16 AM CDT [facility] MCV 93 80 - 100 fL 01/14/2024 11:16 AM CDT [facility] Blood BLOOD SPECIMEN / Unknown Venipuncture / Unknown 01/14/2024 10:51 AM CDT 01/14/2024 10:58 AM CDT Diane Dickinson MD HEMATOLOGY Performing Organization Address [facility] de Phone Number [facility] [address] [place] [address], * (ABNORMAL) Protime-INR (01/14/2024 10:51 AM CDT) INR 1.3(H) <1.3 01/14/2024 11:13 AM CDT [facility] PROTIME 14.4(H) 10.3 - 12.3 sec 01/14/2024 11:13 AM CDT [facility] Blood BLOOD SPECIMEN / Unknown Venipuncture / Unknown 01/14/2024 10:51 AM CDT 01/14/2024 10:59 AM CDT Narrative [facility] - 01/14/2024 11:13 AM CDT ?Therapeutic [...] Diane Dickinson MD HEMATOLOGY Performing Organization Address [facility] de Phone Number [facility] [address] [place] [address], * LAB TRACKING EVENT (11/07/2023 9:35 AM CDT) Other (Other) Client Collect / Unknown 11/07/2023 9:35 AM CDT 11/07/2023 10:09 PM CDT Doctor Unknown LAB BILL ONLY Performing Organization Address [facility] Phone Number [facility] [address] [place] [address], * PATH TISSUE EXAM (11/07/2023 9:35 AM CDT) Case Report Pathology Report ?Case: [id number] ? Authorizing Provider: ??Unknown, Doctor ?Collected: ? 11/07/2023 0935 ? Ordering Location: ? [facility] ?Received: ?11/08/2023 0811 ? Pathologist: ? Danial Arias MD ? Specimen: ?Descending Colon Polyp ? 11/11/2023 11:03 AM CDT [facility] Final Diagnosis A) COLON, DESCENDING, POLYPECTOMY: 1. Tubular adenoma 2. Negative for high grade dysplasia 3. Per the colonoscopy report: ?? a. Polyp size: 3 mm ?? b. Resection: Complete ?? c. Retrieval: Complete 11/11/2023 11:03 AM CDT [facility] Clinical Information Mr. Schwartz is a 53 y.o. who presents for screening colonoscopy. 11/11/2023 11:03 AM CDT [facility] Gross Description A) Received in formalin are 3 guido mucosal fragments averaging 2 mm in greatest dimension, which are entirely submitted in one cassette. It is labeled with the patient's name and designated descending colon polyp. CAPRICE Celis 11/08/2023 10:03 AM 11/11/2023 11:03 AM CDT [facility] Microscopic Description The final diagnosis is based on microscopic examination of appropriate sections of all specimens. 11/11/2023 11:03 AM CDT [facility] Additional Information Interpreted at [facility] - [address] [address] 11/11/2023 11:03 AM CDT [facility] Other (Descending Colon Polyp) 11/07/2023 9:35 AM CDT 11/08/2023 8:11 AM CDT Doctor Unknown [facility] [address] [place] [address], from Last 3 Months Care Teams Train Starter Relationship Specialty Start Date End Date Anthony Moeller MD [address] [place] [phone] PCP - General Family Practice 01/09/24
--- OUTSIDE RECORDS SUMMARY | 2024-01-17 08:46 | XMS_ITS | Encounter Summary ---
Author Organization [facility] Address [address] [place] [address] Care Team Providers Care Clinical Data Analyst Name Role Phone Anthony Moeller MD Primary Care Provider [phone] Donald Parker MD Unavailable [phone] Encounter Details Date Type Department Care Team ([facility] st Contact Info) Description 12/03/2023 [facility] [address] [place], [place] [address] Donald Parker MD [address] [place] [address] Social History Tobacco Use Types [...] Dr. Parker in clinic for further evaluation. Special Procedures Tech assisted in scheduling patient at the [place] location. Patient thankful for call and has [...] we send this information to you in [facility] or would you prefer to receive a phone call?: Patient would prefer a phone call Okay to leave a detailed message?: Yes at Cell number on file: Telephone Information: documented in this encounter Plan of Treatment Not on file documented as of this encounter Visit Diagnoses Not on filedocumented in this encounter Care Teams Clinical Data Analyst Relationship Specialty Start Date End Date Anthony Moeller MD PCP - General Family Practice 11/21/17 Donald Parker MD [address] [place] [address] Assigned Musculoskeletal Provider 09/29/22 12/19/23 documented as of this encounter
--- OUTSIDE RECORDS SUMMARY | 2024-01-17 08:46 | XMS_ITS | Referral Summary ---
Author Organization [facility] Address [address] [place] [address] Care Team Providers Care Tin Recovery Worker Name Role Phone Anthony Moeller MD Primary Care Provider [phone] Encounters Date Type Department Care Team Description 12/20/2023 11:50 AM CDT Ancillary Procedure [facility] [address] [place] [address] Donald Parker MD Orthopedic aftercare 12/20/2023 Travel 12/20/2023 11:40 AM CDT Office Visit [facility] [address] [address] Donald Parker MD Orthopedic aftercare (Primary Dx); S/P right unicompartmental knee replacement 12/03/2023 Telephone [facility] [address] [address] Donald Parker MD from Last 3 Months [...] AM CDT Pulse 72 04/18/2022 8:11 AM ELECTRICIAN SHIP Temperature 36.5 ??C (97.7 ??F) 04/18/2022 8 :11 AM ELECTRICIAN SHIP Respiratory Rate 16 04/18/2022 8:11 AM ELECTRICIAN SHIP Oxygen Saturation 97% 04/18/2022 8:1 1 AM ELECTRICIAN SHIP Inhaled Oxygen Concentration - - Weight 128.8 kg (284 lb) 05/25/2022 10: 23 AM ELECTRICIAN SHIP pulled from last visit Height 175.3 cm (5' 9) 05/25/2022 10:2 3 AM ELECTRICIAN SHIP Body Mass Index 41.94 05/25/2022 10:23 AM ELECTRICIAN SHIP Plan of Treatment Not on file Medical Devices Implanted Type Area Scrap Baller Device Identifier Shelf Expiration Date Model / Serial / Lot Bone Cement Simplex Full Dose 6191-1-001 - [id number] Implanted:Qty : 1 on 04/17/2022 by Donald Parker MD at [facility] Cement, Bone Right: Knee [employer] 06/27/2023 6191-1-001 / / [id number] Twinfix Ultra Pk 5.5mm Suture [place] With 2 Ultrabraid Sutures Implanted:Qty : 1 on 12/10/2017 by Les Israel MD at [facility] Metallic Hardware/An chor Right: Shoulder 05/23/2022 [id number] / / [id number] 2.8mm Q-Fix Suture [place] Implanted:Qty : 1 on 12/10/2017 by Les Israel MD at [facility] Metallic Hardware/An chor Right: Shoulder 04/03/2020 [id number] / / [id number] Knee Uni Tibia Tray Mobile Bear D5 Rm/Ll - [id number] Implanted:Qty : 1 on 04/17/2022 by Donald Parker MD at [facility] Total Joint Component/I nsert Right: Knee [employer] 07/27/2031 [id number] / / [id number] Knee [place] Uni Femoral Med - [id number] Implanted:Qty : 1 on 04/17/2022 by Donald Parker MD at [facility] Total Joint Component/I nsert Right: Knee [employer] 03/19/2032 [id number] / / [id number] Insert [place] Anatomic Bear R Med 4 - [id number] Implanted:Qty : 1 on 04/17/2022 by Donald Parker MD at [facility] Total Joint Component/I nsert Right: Knee [employer] 11/16/2025 [id number] / / [id number] Twinfix Ultra Pk 5.5mm Suture [place] With 2 Ultrabraid Sutures Implanted:Qty : 1 on 12/10/2017 by Les Israel MD at [facility] Right: Shoulder [employer] 01/10/2022 [id number] / / [id number] Procedures Procedure Name Priority Date/Time Associated Diagnosis Comments XR KNEE RIGHT 3 VIEWS Routine 12/20/2023 12:06 PM CDT Orthopedic aftercare GLUCOSE BY METER Routine 04/18/2022 7:15 AM ELECTRICIAN SHIP from Last 3 Months or Most Recently Relevant to Health Maintenance Results * XR Knee Right 3 Views (12/20/2023 12:06 PM CDT) Anatomical Region Laterality Modality Thigh, Knee, Leg Right Computed Radiog su Impressions 12/20/2023 3:10 PM CDT IMPRESSION: Medial unicompartmental hemiarthroplasty. No evidence of loosening or periprosthetic fracture. No joint effusion. JMAES GAMBLE DO SYSTEM ID: ??[id number] Narrative 12/20/2023 3:10 PM CDT EXAM: XR KNEE RIGHT 3 VIEWS DATE/TIME: 12/20/2023 12:06 PM INDICATION: Orthopedic aftercare COMPARISON: 05/25/2022 Procedure Note James Gamble DO - 12/20/2023 EXAM: XR KNEE RIGHT 3 VIEWS DATE/TIME: 12/20/2023 12:06 PM INDICATION: Orthopedic aftercare COMPARISON: 05/25/2022 IMPRESSION: Medial unicompartmental hemiarthroplasty. No evidence of loosening or periprosthetic fracture. No joint effusion. JAMES GAMBLE DO SYSTEM ID: [id number] Donald Parker MD IMG DIAGNOSTIC IMAGI NG ORDERABLES * (ABNORMAL) Glucose by meter (04/18/2022 7:15 AM ELECTRICIAN SHIP) GLUCOSE BY METER POCT 143(H) 70 - 99 mg/dL 04/18/2022 7:22 AM ELECTRICIAN SHIP RH LABORATORY POC Blood, Capillary BLOOD SPECIMEN / Unknown 04/18/2022 7:15 AM ELECTRICIAN SHIP 04/18/2022 7:22 AM ELECTRICIAN SHIP Donald Parker MD LAB - BEAKER POCT RH LABORATORY POC [facility] Lab [address] [facility] Lab (1st floor, no room number) [place] [address], [facility] [phone] from Last 3 Months or Most Recently Relevant to Health Maintenance Advance Directives For more information, please contact: [phone] * Full Code (Latest Code Status on File) Date Activated Date Inactivated Comments 04/17/2022 11:28 AM 04/18/2022 10:58 AM All basi c and advanced life-sustaining interventions are performed as appropriate Question Answer Comments Code status determined by: Discussion with adriana silveira/ legal decision maker Care Teams Tin Recovery Worker Relationship Specialty Start Date End Date Anthony Moeller MD PCP - General Family Practice 11/21/17
--- OUTSIDE RECORDS SUMMARY | 2024-01-17 08:46 | XMS_ITS | Clinical Summary ---
Author Organization [facility] Address [address] [place] [address] Care Team Providers Care Associate Professor Of Philosophy Name Role Phone Md JUSTIN Hoff Primary Care Provider [phone] Source Comments You are receiving this document as you are listed as the primary care provider,follow-up provider, or the patient has been referred to you for consultation.This is in compliance with the Medicare and[facility] EHR Incentive Program,which states Providers who transition their patient to another setting of careor provider of care or refers their patient to another provider of care shouldprovide summary care record for each transition of care or referral. [facility] Allergies No known active allergies Medications Medication [...] (10/02/2019): Added automatically from request for surgery [id number] Complete rupture of rotator cuff 08/20/2012 Tobacco abuse 04/15/2012 Obstructive sleep apnea 12/23/2007 Overview (12/19/2016): Setting: Auto 8-15 cmH20 Supplied by: [facility] PSG done: 12-10-07, 01-07-08 AHI 94 [...] PROSTATIC SPECIFIC ANTIGEN(SCREEN) Routine 06/20/2010 8:15 AM AIRCRAFT DISPATCHER LIPID PANEL & DIRECT LDL (IF NEEDED) Routine 06/20/2010 8:15 AM AIRCRAFT DISPATCHER from Last 3 Months or Most Recently Relevant to Health Maintenance Results * Lipid Panel and Direct LDL(If Needed) (06/20/2010 8:15 AM AIRCRAFT DISPATCHER) Cholesterol 174 0 - 200 mg/dL HP CONVERSION Triglycerides 125 0 - 149 mg/dL HP CONVERSION HDL Cholesterol 46 >39 mg/dL HP CONVERSION Cholesterol/HDL Ratio Screen 3.8 No normal range HP CONVERSION LDL Calculated 103 19 - 130 mg/dL HP CONVERSION Hours Fasting 15.0 No normal range HP CONVERSION 06/20/2010 8:15 AM AIRCRAFT DISPATCHER [facility] LAB_1 HP CONVERSION * Prostatic Specific Antigen (Screen) (06/20/2010 8:15 AM AIRCRAFT DISPATCHER) Prostate Specific Antigen 0.8 0.0 - 4.0 ng/mL HP CONVERSION 06/20/2010 8:15 AM AIRCRAFT DISPATCHER [facility] LAB_1 HP CONVERSION from Last 3 Months or Most Recently Relevant to Health Maintenance Advance Directives * Full Code (Latest Code Status on File) Date Activated Date Inactivated Comments 11/04/2019 8:12 AM 11/04/2019 10:54 AM Care Teams Associate Professor Of Philosophy Relationship Specialty Start Date End Date Md Luis Eduardo, [place] [address] PCP - General 08/01/10
--- OUTSIDE RECORDS SUMMARY | 2024-01-17 08:46 | XMS_ITS | Encounter Summary ---
Author Organization [facility] Address [address] [place] [address] Care Team Providers Care Preschool Head Teacher Name Role Phone Anthony Moeller MD Primary Care Provider [phone] Reason for Referral * Diagnostic Imaging XR (Routine) - Pending Review Specialty Diagnoses / Procedures Referred By Contac t Referred To Contact Radiology. Diagnoses Orthopedic aftercare Procedures XR Knee Right 3 Views Donald Parker MD [address] [place] [address] Referral ID Status Reason Start Date Expiration Date V isits Requested Visits Authorized [id number] Pending Review 12/20/2023 12/19/2024 1 1 Encounter Details Date Type Department Care Team (Latest Contact Info) Description 12/20/2023 11:40 AM CDT Office Visit [facility] [address] [place] [address] Donald Parker MD [address] [place] [address] Orthopedic aftercare (Primary Dx); S/P right [...] from the original note were not included. [facility] Physicians Orthopaedic Surgery Consultation by Donald [...] swelling, redness fever or malaise. 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 [...] his 5-year postop. Donald Parker MD, PhD Dog Groomer Adult Reconstruction [facility] Department of Orthopaedic Surgery documented in this [...] joint effusion. JAMES GAMBLE DO SYSTEM ID: ??[id number] Narrative 12/20/2023 3:10 PM CDT EXAM: XR KNEE RIGHT 3 VIEWS DATE/TIME: 12/20/2023 12:06 PM INDICATION: Orthopedic aftercare COMPARISON: 05/25/2022 Procedure Note James Gamble DO - 12/20/2023 EXAM: XR KNEE RIGHT 3 VIEWS DATE/TIME: 12/20/2023 12:06 PM INDICATION: Orthopedic aftercare COMPARISON: 05/25/2022 IMPRESSION: Medial unicompartmental hemiarthroplasty. No evidence of loosening or periprosthetic fracture. No joint effusion. JAMES GAMBLE DO SYSTEM ID: [id number] Donald Parker MD IMG DIAGNOSTIC IMAGI NG ORDERABLES documented in this encounter Visit Diagnoses Diagnosis Orthopedic aftercare- Primary Unspecified orthopedic aftercare S/P right unicompartmental knee replacement Knee joint replacement by other means Orthopedic aftercare Unspecified orthopedic aftercare documented in this encounter Care Teams Preschool Head Teacher Relationship Specialty Start Date End Date Anthony Moeller MD PCP - General Family Practice 11/21/17 documented as of this encounter
--- OUTSIDE RECORDS SUMMARY | 2024-01-17 08:46 | XMS_ITS | Encounter Summary ---
Author Organization [facility] Address [address] [place] [address] Care Team Providers Care Management Accounts Manager Name Role Phone Anthony Moeller MD Primary Care Provider [phone] Reason for Visit * Diagnostic Imaging XR (Routine) - Pending Review Specialty Diagnoses / Procedures Referred By Contac t Referred To Contact Radiology. Diagnoses Orthopedic aftercare Procedures XR Knee Right 3 Views Donald Parker MD [address] [place] [address] Referral ID Status Reason Start Date Expiration Date V isits Requested Visits Authorized [id number] Pending Review 12/20/2023 12/19/2024 1 1 Encounter Details Date Type Department Care Team (Latest Contact Info) Description 12/20/2023 11:50 AM CDT Ancillary Procedure [facility] [address] [place] [address] Donald Parker MD [address] [place] [address] Orthopedic aftercare Social History Tobacco Use [...] joint effusion. JAMES GAMBLE DO SYSTEM ID: ??[id number] Narrative 12/20/2023 3:10 PM CDT EXAM: XR KNEE RIGHT 3 VIEWS DATE/TIME: 12/20/2023 12:06 PM INDICATION: Orthopedic aftercare COMPARISON: 05/25/2022 Procedure Note James Gamble DO - 12/20/2023 EXAM: XR KNEE RIGHT 3 VIEWS DATE/TIME: 12/20/2023 12:06 PM INDICATION: Orthopedic aftercare COMPARISON: 05/25/2022 IMPRESSION: Medial unicompartmental hemiarthroplasty. No evidence of loosening or periprosthetic fracture. No joint effusion. JAMES GAMBLE DO SYSTEM ID: [id number] Donald Parker MD IMG DIAGNOSTIC IMAGI NG ORDERABLES documented in this encounter Visit Diagnoses Diagnosis Orthopedic aftercare Unspecified orthopedic aftercare documented in this encounter Care Teams Management Accounts Manager Relationship Specialty Start Date End Date Anthony Moeller MD PCP - General Family Practice 11/21/17 documented as of this encounter
--- OUTSIDE RECORDS SUMMARY | 2024-01-17 08:46 | XMS_ITS | Encounter Summary ---
Author Organization [facility] Address [address] [place] [address] Care Team Providers Care Food Equipment Service Technician Name Role Phone Anthony Moeller MD Primary Care Provider [phone] Encounter Details Date Type Department Care Team [...] on filedocumented in this encounter Care Teams Food Equipment Service Technician Relationship Specialty Start Date End Date Anthony Moeller MD PCP - General Family Practice 11/21/17 documented as of this encounter
--- OUTSIDE RECORDS SUMMARY | 2024-01-17 08:46 | XMS_ITS | Clinical Summary ---
Author Organization [facility] Address [address] [place] [address] Care Team Providers Care Electric Repair Supervisor Name Role Phone Anthony Moeller MD Primary Care Provider [phone] Allergies No known active allergies Medications Medication [...] Description 12/20/2023 11:50 AM CDT Ancillary Procedure [facility] [address] [address] Donald Parker MD Orthopedic aftercare 12/20/2023 11:40 AM CDT Office Visit [facility] [address] [address] Donald Parker MD Orthopedic aftercare (Primary Dx); S/P right unicompartmental knee replacement 12/20/2023 Travel 12/03/2023 Telephone [facility] [address] [address] Donald Parker MD from Last 3 Months [...] AM CDT Pulse 72 04/18/2022 8:11 AM PEOPLE MANAGER Temperature 36.5 ??C (97.7 ??F) 04/18/2022 8 :11 AM PEOPLE MANAGER Respiratory Rate 16 04/18/2022 8:11 AM PEOPLE MANAGER Oxygen Saturation 97% 04/18/2022 8:1 1 AM PEOPLE MANAGER Inhaled Oxygen Concentration - - Weight 128.8 kg (284 lb) 05/25/2022 10: 23 AM PEOPLE MANAGER pulled from last visit Height 175.3 cm (5' 9) 05/25/2022 10:2 3 AM PEOPLE MANAGER Body Mass Index 41.94 05/25/2022 10:23 AM PEOPLE MANAGER Plan of Treatment Health Maintenance Due Date [...] this topic Medical Devices Implanted Type Area Power Shovel Operator Device Identifier Shelf Expiration Date Model / Serial / Lot Bone Cement Simplex Full Dose 6191-1-001 - [id number] Implanted:Qty : 1 on 04/17/2022 by Donald Parker MD at [facility] Cement, Bone Right: Knee [employer] 06/27/2023 6191-1-001 / / [id number] Twinfix Ultra Pk 5.5mm Suture [place] With 2 Ultrabraid Sutures Implanted:Qty : 1 on 12/10/2017 by Les Israel MD at [facility] Metallic Hardware/An chor Right: Shoulder 05/23/2022 [id number] / / [id number] 2.8mm Q-Fix Suture [place] Implanted:Qty : 1 on 12/10/2017 by Les Israel MD at [facility] Metallic Hardware/An chor Right: Shoulder 04/03/2020-2800 / / [id number] Knee Uni Tibia Tray Mobile Bear D5 Rm/Ll - [id number] Implanted:Qty : 1 on 04/17/2022 by Donald Parker MD at [facility] Total Joint Component/I nsert Right: Knee [employer] 07/27/2031 [id number] / / [id number] Knee [place] Uni Femoral Med - [id number] Implanted:Qty : 1 on 04/17/2022 by Donald Parker MD at [facility] Total Joint Component/I nsert Right: Knee [employer] 03/19/2032 [id number] / / [id number] Insert [place] Anatomic Bear R Med Sz 4 - [id number] Implanted:Qty : 1 on 04/17/2022 by Donald Parker MD at [facility] Total Joint Component/I nsert Right: Knee [employer] 11/16/2025 [id number] / / [id number] Twinfix Ultra Pk 5.5mm Suture [place] With 2 Ultrabraid Sutures Implanted:Qty : 1 on 12/10/2017 by Les Israel MD at [facility] Right: Shoulder [employer] 01/10/2022 [id number] / / [id number] Procedures Procedure Name Priority Date/Time Associated Diagnosis Comments XR KNEE RIGHT 3 VIEWS Routine 12/20/2023 12:06 PM CDT Orthopedic aftercare GLUCOSE BY METER Routine 04/18/2022 7:15 AM PEOPLE MANAGER from Last 3 Months or Most Recently Relevant to Health Maintenance Results * XR Knee Right 3 Views (12/20/2023 12:06 PM CDT) Anatomical Region Laterality Modality Thigh, Knee, Leg Right Computed Radiog su Impressions 12/20/2023 3:10 PM CDT IMPRESSION: Medial unicompartmental hemiarthroplasty. No evidence of loosening or periprosthetic fracture. No joint effusion. JAMES GAMBLE DO SYSTEM ID: ??[id number] Narrative 12/20/2023 3:10 PM CDT EXAM: XR KNEE RIGHT 3 VIEWS DATE/TIME: 12/20/2023 12:06 PM INDICATION: Orthopedic aftercare COMPARISON: 05/25/2022 Procedure Note James Gamble DO - 12/20/2023 EXAM: XR KNEE RIGHT 3 VIEWS DATE/TIME: 12/20/2023 12:06 PM INDICATION: Orthopedic aftercare COMPARISON: 05/25/2022 IMPRESSION: Medial unicompartmental hemiarthroplasty. No evidence of loosening or periprosthetic fracture. No joint effusion. JAMES GAMBLE DO SYSTEM ID: [id number] Donald Parker MD IMG DIAGNOSTIC IMAGI NG ORDERABLES * (ABNORMAL) Glucose by meter (04/18/2022 7:15 AM PEOPLE MANAGER) GLUCOSE BY METER POCT 143(H) 70 - 99 mg/dL 04/18/2022 7:22 AM PEOPLE MANAGER RH LABORATORY POC Blood, Capillary BLOOD SPECIMEN / Unknown 04/18/2022 7:15 AM PEOPLE MANAGER 04/18/2022 7:22 AM PEOPLE MANAGER Donald Parker MD LAB - BUD POCT RH LABORATORY [facility] Acute Care Lab [address] Lab (1st floor, no room number) [place] [address], [facility] [phone] from Last 3 Months or Most Recently Relevant to Health Maintenance Advance Directives For more information, please contact: [phone] * Full Code (Latest Code Status on File) Date Activated Date Inactivated Comments 04/17/2022 11:28 AM 04/18/2022 10:58 AM All basi c and advanced life-sustaining interventions are performed as appropriate Question Answer Comments Code status determined by: Discussion with adriana silveira/ legal decision maker Care Teams Electric Repair Supervisor Relationship Specialty Start Date End Date Anthony Moeller MD PCP - General Family Practice 11/21/17
--- NOTE | 2024-01-17 09:00 | CRLHL7_ITS ---
For Patients: As a result of the Century Cures Act, medical imaging exams and procedure reports are released immediately into your electronic medical record. You may view this report before your referring provider. If you have questions, please contact your health care provider. INDICATION: Intrahepatic bile duct carcinoma COMPARISON: CT abdomen pelvis 01/01/2024, MR abdomen 01/15/2024 TECHNIQUE: CT angiogram chest with contrast, pulmonary embolism protocol. Multiplanar axial, coronal, and sagittal reformats are included. MIP images to improve detection of pulmonary emboli are included. Intravenous contrast: 95 mL Isovue 370. FINDINGS: PE: Well-timed contrast bolus. No pulmonary emboli. Normal caliber main pulmonary artery. Normal sized right heart chambers. No reflux of contrast below the diaphragm. Airway: Expiratory appearance of the trachea. Lungs: Innumerable small metastatic nodules scattered throughout both lungs. Extensive calcified granulomas. No consolidations. No edema or emphysema. Pleura: No pleural effusion. No pneumothorax. Lymph nodes: Multi station bilateral hilar and mediastinal adenopathy. No axillary or subpectoral adenopathy. No internal mammary or cardiophrenic adenopathy. There is some underlying coarse calcifications and a few lymph nodes consistent with old granulomatous disease, but the adenopathy is consistent with malignant/metastatic ruben involvement. Right upper paratracheal: 2.9 x 2.9 cm (series 5, image 66) Right lower paratracheal: 1.9 x 3.1 cm (series 5, image 76) Subcarinal: 3.6 x 2.6 cm (series 5, image 92) Right anterior prevascular: 2.7 x 1.3 cm (series 5, image 94) Right hilar: 1.7 x 3.4 centimeters (series 5, image 90) Left upper anterior hilar: 2.0 x 1.5 cm (series 5, image 80) . Mediastinum: No pneumomediastinum. Heart and great vessels: No pericardial effusion. Normal cardiac chamber size. Scattered atherosclerotic plaques. No aortic aneurysm. Chest wall: Normal. No masses. Upper abdomen: See recent abdominal cross-sectional imaging. Irregular liver parenchyma. Upper abdominal adenopathy. Splenic granulomas. Bones: There is a 1.5 centimeter lytic or lucent lesion in the T4 vertebral body posteriorly. No pathologic fracture at that level. Posterior cortex is disrupted. Extraosseous extension is not excluded by CT, particularly due to timing for pulmonary emboli. Smaller bone lesion in T8. Similar large bone lesion in the right posterior aspect of T12. T11 compression fracture does not appear pathologic. Cortex is sclerotic and intact suggest this is a remote injury. There is some mild anterior wedging of the T12 vertebral body which also does not appear to be an acute compression fracture. Tiny sclerotic lesion in the mid sternum. IMPRESSION: 1. Extensive pulmonary parenchymal metastatic nodules. 2. Metastatic mediastinal and bilateral hilar adenopathy. 3. Multiple lytic bone lesions consistent with osseous metastasis. 4. No pulmonary embolism. Please note that all CT scans at this facility use dose modulation, iterative reconstruction, and/or weight-based dosing when appropriate to reduce radiation dose to as low as reasonably achievable. Dictated by Carmencita Carr MD @ 01/20/2024 8:44:36 AM (Electronically Signed)
[2024-01-17 09:33] LABS: Creatinine* 0.9 mg/dL (0.5-1.5); Estimated Glomerular Filt Rate 101 ml/min
== END 2024-01-17 08:43 | disposition home or self-care (01) ==
LOC: CT 08:43
PROVIDERS: PCP Family Medicine; Visit Provider Clinical Nurse Specialist
DX: C22.1 Intrahepatic bile duct carcinoma (principal); R93.89 Abnormal findings on diagnostic imaging of other specified body structures; C78.00 Secondary malignant neoplasm of unspecified lung; M89.9 Disorder of bone, unspecified
CPT/HCPCS: 36415; 71275; 82565; Q9967

== ENCOUNTER 2024-01-27 09:06 | Day surgery (SDC) | payer BC, SELFPAY ==
[2024-01-27] VITALS (8 sets, daily range): BP systolic 97–140; BP diastolic 54–88; PULSE 55–64; RESP 16–18; TEMP 35.9–36.5; O2SAT 95–100; BMI 37.8
--- OUTSIDE RECORDS SUMMARY | 2024-01-27 09:09 | XMS_ITS | Encounter Summary ---
Author Organization [facility] Address [address] [place] [address] Care Team Providers Care Director Systems Name Role Phone Anthony Moeller MD Primary Care Provider [phone] Reason for Visit * Diagnostic Imaging XR (Routine) - Pending Review Specialty Diagnoses / Procedures Referred By Contac t Referred To Contact Radiology. Diagnoses Orthopedic aftercare Procedures XR Knee Right 3 Views Donald Parker MD [address] [place] [address] Referral ID Status Reason Start Date Expiration Date V isits Requested Visits Authorized [id number] Pending Review 12/20/2023 12/19/2024 1 1 Encounter Details Date Type Department Care Team (Latest Contact Info) Description 12/20/2023 11:50 AM CDT Ancillary Procedure [facility] [address] [place] [address] Donald Parker MD [address] [place] [address] Orthopedic aftercare Social History Tobacco Use [...] joint effusion. JAMES GAMBLE DO SYSTEM ID: ??[id number] Narrative 12/20/2023 3:10 PM CDT EXAM: XR KNEE RIGHT 3 VIEWS DATE/TIME: 12/20/2023 12:06 PM INDICATION: Orthopedic aftercare COMPARISON: 05/25/2022 Procedure Note James Gamble DO - 12/20/2023 EXAM: XR KNEE RIGHT 3 VIEWS DATE/TIME: 12/20/2023 12:06 PM INDICATION: Orthopedic aftercare COMPARISON: 05/25/2022 IMPRESSION: Medial unicompartmental hemiarthroplasty. No evidence of loosening or periprosthetic fracture. No joint effusion. JAMES GAMBLE DO SYSTEM ID: [id number] Donald Parker MD IMG DIAGNOSTIC IMAGI NG ORDERABLES documented in this encounter Visit Diagnoses Diagnosis Orthopedic aftercare Unspecified orthopedic aftercare documented in this encounter Care Teams Director Systems Relationship Specialty Start Date End Date Anthony Moeller MD PCP - General Family Practice 11/21/17 documented as of this encounter
--- OUTSIDE RECORDS SUMMARY | 2024-01-27 09:09 | XMS_ITS | Encounter Summary ---
Author Organization [facility] Address [address] [place] [address] Care Team Providers Care Senior Hadoop Developer Name Role Phone Anthony Moeller MD [...] filedocumented in this encounter Care Teams Senior Hadoop Developer Relationship Specialty Start Date End Date Anthony Moeller MD PCP - General Family Practice 11/21/17 documented as of this encounter
--- OUTSIDE RECORDS SUMMARY | 2024-01-27 09:09 | XMS_ITS | Referral Summary ---
Author Organization [facility] Address [address] [place] [address] Care Team Providers Care Prepleater Name Role Phone Anthony Moeller MD Primary Care Provider [phone] Donald Parker MD Unavailable [phone] Encounters Date Type Department Care Team Description 12/20/2023 11:50 AM CDT Ancillary Procedure [facility] [address] [place] [address] Donald Parker MD Orthopedic aftercare 12/20/2023 Travel 12/20/2023 11:40 AM CDT Office Visit [facility] Orthopedic [address] [place] [address] Donald Parker MD Orthopedic aftercare (Primary Dx); S/P right unicompartmental knee replacement 12/03/[address] [facility] Orthopedic [address] [place] [address] Donald Parker MD from Last 3 Months [...] Former Cigarettes 1 30 1 985 - 2014 Smokeless Tobacco: Never Tobacco Cessation:Counseling [...] AM CDT Pulse 72 04/18/2022 8:11 AM DIGITAL MARKETER Temperature 36.5 ??C (97.7 ??F) 04/18/2022 8 :11 AM DIGITAL MARKETER Respiratory Rate 16 04/18/2022 8:11 AM DIGITAL MARKETER Oxygen Saturation 97% 04/18/2022 8:1 1 AM DIGITAL MARKETER Inhaled Oxygen Concentration - - Weight 128.8 kg (284 lb) 05/25/2022 10: 23 AM DIGITAL MARKETER pulled from last visit Height 175.3 cm (5' 9) 05/25/2022 10:2 3 AM DIGITAL MARKETER Body Mass Index 41.94 05/25/2022 10:23 AM DIGITAL MARKETER Plan of Treatment Not on file Medical Devices Implanted Type Area Girls Tennis Coach Device Identifier Shelf Expiration Date Model / Serial / Lot Bone Cement Simplex Full Dose 6191-1-001 - [id number] Implanted:Qty : 1 on 04/17/2022 by Donald Parker MD at [facility] Cement, Bone Right: Knee [employer] 06/27/2023 6191-1-001 / / [id number] Twinfix Ultra Pk 5.5mm Suture Dyer With 2 Ultrabraid Sutures Implanted:Qty : 1 on 12/10/2017 by Les Israel MD at [facility] Metallic Hardware/An chor Right: Shoulder 05/23/2022 [id number] / / [id number] 2.8mm Q-Fix Suture Dyer Implanted:Qty : 1 on 12/10/2017 by Les Israel MD at [facility] Metallic Hardware/An chor Right: Shoulder 04/03/2020-2800 / / [id number] Knee Uni Tibia Tray Mobile Bear D5 Rm/Ll - [id number] Implanted:Qty : 1 on 04/17/2022 by Donald Parker MD at [facility] Total Joint Component/I nsert Right: Knee [employer] 07/27/2031 [id number] / / [id number] Knee Anita Uni Femoral Med - [id number] Implanted:Qty : 1 on 04/17/2022 by Donald Parker MD at [facility] Total Joint Component/I nsert Right: Knee [employer] 03/19/2032 [id number] / / [id number] Insert Anita Anatomic [facility] 4 - [id number] Implanted:Qty : 1 on 04/17/2022 by Donald Parker MD at [facility] Total Joint Component/I nsert Right: Knee [employer] 11/16/2025 [id number] / / [id number] Twinfix Ultra Pk 5.5mm Suture Dyer With 2 Ultrabraid Sutures Implanted:Qty : 1 on 12/10/2017 by Les Israel MD at [facility] Right: Shoulder [employer] 01/10/2022 [id number] / / [id number] Procedures Procedure Name Priority Date/Time Associated Diagnosis Comments XR KNEE RIGHT 3 VIEWS Routine 12/20/2023 12:06 PM CDT Orthopedic aftercare GLUCOSE BY METER Routine 04/18/2022 7:15 AM DIGITAL MARKETER from Last 3 Months or Most Recently Relevant to Health Maintenance Results * XR Knee Right 3 Views (12/20/2023 12:06 PM CDT) Anatomical Region Laterality Modality Thigh, Knee, Leg Right Computed Radiog su Impressions 12/20/2023 3:10 PM CDT IMPRESSION: Medial unicompartmental hemiarthroplasty. No evidence of loosening or periprosthetic fracture. No joint effusion. JAMES GAMBLE DO SYSTEM ID: ??[id number] Narrative 12/20/2023 3:10 PM CDT EXAM: XR KNEE RIGHT 3 VIEWS DATE/TIME: 12/20/2023 12:06 PM INDICATION: Orthopedic aftercare COMPARISON: 05/25/2022 Procedure Note James Gamble DO - 12/20/2023 EXAM: XR KNEE RIGHT 3 VIEWS DATE/TIME: 12/20/2023 12:06 PM INDICATION: Orthopedic aftercare COMPARISON: 05/25/2022 IMPRESSION: Medial unicompartmental hemiarthroplasty. No evidence of loosening or periprosthetic fracture. No joint effusion. JAMES GAMBLE DO SYSTEM ID: [id number] Donald Parker MD IMG DIAGNOSTIC IMAGI NG ORDERABLES * (ABNORMAL) Glucose by meter (04/18/2022 7:15 AM DIGITAL MARKETER) GLUCOSE BY METER POCT 143(H) 70 - 99 mg/dL 04/18/2022 7:22 AM DIGITAL MARKETER LABORATORY POC Blood, Capillary BLOOD SPECIMEN / Unknown 04/18/2022 7:15 AM DIGITAL MARKETER 04/18/2022 7:22 AM DIGITAL MARKETER Donald Parker MD LAB - [facility] POCT LABORATORY [facility] [address] (1st floor, no room number) [place] [address], [facility] [phone] from Last 3 Months or Most Recently Relevant to Health Maintenance Advance Directives For more information, please contact: [phone] * Full Code (Latest Code Status on File) Date Activated Date Inactivated Comments 04/17/2022 11:28 AM 04/18/2022 10:58 AM All basi c and advanced life-sustaining interventions are performed as appropriate Question Answer Comments Code status determined by: Discussion with patie nt/ legal decision maker Care Teams Prepleater Relationship Specialty Start Date End Date Anthony Moeller MD PCP - General Family Practice 11/21/17 Donald Parker MD [address] [place] [address] Assigned Musculoskeletal Provider 01/20/24
--- OUTSIDE RECORDS SUMMARY | 2024-01-27 09:09 | XMS_ITS | Clinical Summary ---
Author Organization [facility] Address [address] [place] [address] Care Team Providers Care Engineering Production Worker Name Role Phone Anthony Moeller MD Primary Care Provider [phone] Donald Parker MD Unavailable [phone] Allergies No known active allergies Medications Medication [...] [facility] [address] [address] Donald Parker MD Orthopedic aftercare 12/20/2023 11:40 AM CDT Office Visit [facility] Orthopedic [address] [address] Donald Parker MD Orthopedic aftercare (Primary Dx); S/P right unicompartmental knee replacement 12/20/2023 Travel 12/03/2023 Telephone [facility] Orthopedic [address] [address] Donald Parker MD from Last 3 Months [...] AM CDT Pulse 72 04/18/2022 8:11 AM INSTRUCTOR FLYING Temperature 36.5 ??C (97.7 ??F) 04/18/2022 8 :11 AM INSTRUCTOR FLYING Respiratory Rate 16 04/18/2022 8:11 AM INSTRUCTOR FLYING Oxygen Saturation 97% 04/18/2022 8:1 1 AM INSTRUCTOR FLYING Inhaled Oxygen Concentration - - Weight 128.8 kg (284 lb) 05/25/2022 10: 23 AM INSTRUCTOR FLYING pulled from last visit Height 175.3 cm (5' 9) 05/25/2022 10:2 3 AM INSTRUCTOR FLYING Body Mass Index 41.94 05/25/2022 10:23 AM INSTRUCTOR FLYING Plan of Treatment Health Maintenance Due Date [...] 04/18/2009, Additional history exists GLUCOSE 04/18/2025 04/18/2022, 12, 04/17/2022, Additional history exists DTAP/TDAP/TD IMMUNIZATION (3 [...] this topic Medical Devices Implanted Type Area Finish Patcher Device Identifier Shelf Expiration Date Model / Serial / Lot Bone Cement Simplex Full Dose 6191-1-001 - [id number] Implanted:Qty : 1 on 04/17/2022 by Donald Parker MD at [facility] Cement, Bone Right: Knee [employer] 06/27/2023 6191-1-001 / / [id number] Twinfix Ultra Pk 5.5mm Suture [place] With 2 Ultrabraid Sutures Implanted:Qty : 1 on 12/10/2017 by Les Israel MD at [facility] Metallic Hardware/An chor Right: Shoulder 05/23/2022 [id number] / / [id number] 2.8mm Q-Fix Suture [employer] Implanted:Qty : 1 on 12/10/2017 by Les Israel MD at [facility] Metallic Hardware/An chor Right: Shoulder 04/03/2020-2800 / / [id number] Knee Uni Tibia Tray Mobile Bear D5 Rm/Ll - [id number] Implanted:Qty : 1 on 04/17/2022 by Donald Parker MD at [facility] Total Joint Component/I nsert Right: Knee [employer] 07/27/2031 [id number] / / [id number] Knee [place] Uni Femoral Med - [id number] Implanted:Qty : 1 on 04/17/2022 by Donald Parker MD at [facility] Total Joint Component/I nsert Right: Knee [employer] 03/19/2032 [id number] / / [id number] Insert Atqasuk Anatomic Bear R Med Sz 4 - [id number] Implanted:Qty : 1 on 04/17/2022 by Donald Parker MD at [facility] Total Joint Component/I nsert Right: Knee [employer] 11/16/2025 [id number] / / [id number] Twinfix Ultra Pk 5.5mm Suture [place] With 2 Ultrabraid Sutures Implanted:Qty : 1 on 12/10/2017 by Les Israel MD at [facility] Right: Shoulder [employer] 01/10/2022 [id number] / / [id number] Procedures Procedure Name Priority Date/Time Associated Diagnosis Comments XR KNEE RIGHT 3 VIEWS Routine 12/20/2023 12:06 PM CDT Orthopedic aftercare GLUCOSE BY METER Routine 04/18/2022 7:15 AM INSTRUCTOR FLYING from Last 3 Months or Most Recently Relevant to Health Maintenance Results * XR Knee Right 3 Views (12/20/2023 12:06 PM CDT) Anatomical Region Laterality Modality Thigh, Knee, Leg Right Computed Radiog su Impressions 12/20/2023 3:10 PM CDT IMPRESSION: Medial unicompartmental hemiarthroplasty. No evidence of loosening or periprosthetic fracture. No joint effusion. JAMES GAMBLE DO SYSTEM ID: ??[id number] Narrative 12/20/2023 3:10 PM CDT EXAM: XR KNEE RIGHT 3 VIEWS DATE/TIME: 12/20/2023 12:06 PM INDICATION: Orthopedic aftercare COMPARISON: 05/25/2022 Procedure Note James Gamble DO - 12/20/2023 EXAM: XR KNEE RIGHT 3 VIEWS DATE/TIME: 12/20/2023 12:06 PM INDICATION: Orthopedic aftercare COMPARISON: 05/25/2022 IMPRESSION: Medial unicompartmental hemiarthroplasty. No evidence of loosening or periprosthetic fracture. No joint effusion. JAMES GAMBLE DO SYSTEM ID: [id number] Donald Parker MD IMG DIAGNOSTIC IMAGI NG ORDERABLES * (ABNORMAL) Glucose by meter (04/18/2022 7:15 AM INSTRUCTOR FLYING) GLUCOSE BY METER POCT 143(H) 70 - 99 mg/dL 04/18/2022 7:22 AM INSTRUCTOR FLYING RH LABORATORY POC Blood, Capillary BLOOD SPECIMEN / Unknown 04/18/2022 7:15 AM INSTRUCTOR FLYING 04/18/2022 7:22 AM INSTRUCTOR FLYING Donald Parker MD LAB - [facility] LABORATORY POC [facility] Lab [address] Lab (1st floor, no room number) [place] [address], [place] [phone] from Last 3 Months or Most Recently Relevant to Health Maintenance Advance Directives For more information, please contact: [phone] * Full Code (Latest Code Status on File) Date Activated Date Inactivated Comments 04/17/2022 11:28 AM 04/18/2022 10:58 AM All basi c and advanced life-sustaining interventions are performed as appropriate Question Answer Comments Code status determined by: Discussion with adriana silveira/ legal decision maker Care Teams Engineering Production Worker Relationship Specialty Start Date End Date Anthony Moeller MD PCP - General Family Practice 11/21/17 Donald Parker MD [address] [place] [address] Assigned Musculoskeletal Provider 01/20/24
--- OUTSIDE RECORDS SUMMARY | 2024-01-27 09:09 | XMS_ITS | Clinical Summary ---
Author Organization [facility] Address [place], [place] [address] Care Team Providers Care Systems Auditor Name Role Phone Anthony Moeller MD Primary Care Provider [phone] Allergies No known active allergies Medications Medication [...] - 01/14/2024 11:59 PM CDT Hospital Encounter [facility] [address] [place] [address] Anthony Moeller MD Hepatomegaly 01/14/2024 Travel 11/07/2023 Lab Requisition [facility] [phone] Unknown, Doctor from Last 3 Months Social [...] this topic Medical Devices Implanted Type Area Ripsawyer Device Identifier Shelf Expiration Date Model / Serial / Lot Sut Ancr 4.75 W/Loop - [id number] Implanted:Qty: 1 on 09/16/2012 by Jama Cohen MD at [facility] Right: Shoulder [employer] 04/27/2014 [id number] / / [id number] Procedures Procedure Name Priority Date/Time Associated Diagnosis Comments CT BIOPSY LIVER Routine 01/14/2024 12:27 PM CDT Hepatomegaly PATH [facility] CYTOLOGY ASP CYTOLOGY Today 01/14/2024 12:14 PM CDT FOCUS Routine 01/14/2024 12:14 PM CDT GLUCOSE METER Routine [...] POST PROCEDURE NOTE ?? 01/14/2024 Rolando Schwartz [id number] INFORMEDCONSENT: In my discussion, prior to [...] 10 cc. PHYSICIAN(S) AND ASSISTANTS (if any): ??iDane Dickinson MD Additional Comments: Please call with questions. Diane Dickinson MD [place] Protocol A. Pre-procedure verification complete yes 1-relevant [...] reasonably achievable. Anthony Moeller MD CT * FOCUS (01/14/2024 12:14 PM CDT) Aspirate SPECIMEN FROM LIVER / Unknown 01/14/2024 12:14 PM CDT 01/15/2024 1:33 PM CDT Diane Dickinson MD LABORATORY [facility]-CENTRAL LABORATORY [address] [place] [address], * [facility] Cytology REST ROOM ATTENDANT (01/14/2024 12:14 PM CDT) Case Report Medical Cytology Report ? Case: [id number] ? Authorizing Provider: ??Diane Dickinson MD ?Collected: ? 01/14/2024 1214 ? Ordering Location: ? [facility] ?Received: ?01/14/2024 1222 ? [facility] ? Pathologist: ? Jama Alcocer MD ? Specimen: ?Liver ? 01/24/2024 1:29 PM CDT [facility]- CENTRAL LABORATORY Amendment 01/24/2024 - Amendmen t to report [facility] Solid Tumor Targeted (52 gene) Next Generation Sequencing results. Please see diagnosis and attached scanned report. 01/24/2024 1:29 PM CDT [facility]- CENTRAL LABORATORY Final Diagnosis A) LIVER, CT-GUIDED NEEDLE BIOPSY: 1. 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 -Tubular features seen histologically (see comment) 2. Background nonneoplastic liver shows cirrhosis, likely steatohepatitic (see comment) 3. Ancillary studies: ?? a. DNA mismatch repair enzyme IHC: Intact (positive labeling for MLH1, PMS2, MSH2 and MSH6) ? b. NGS 52 gene panel: Negative, See attached NGS report 01/24/2024 1:[address] [facility] [place] [place] [facility] Amendment electronically signed by Aissatou Castillo MD on 01/24/2024 at 1:29 PM Comment A) The biopsy is diagnostic of [...] [place]. Please contact us with any questions ([facility] GI pathology service [phone]). Neoplastic tissue is available for ancillary studies, to request please contact the [facility] ([phone]). Neoplastic tissue available for ancillary studies: ?? [facility] NGS testing: ?- FFPE tissue blocks: A2 and A3 ?- Cytology slides: A1-1 (used for NGS); A1-2, A1-3, A1-4 remaining ?? Tests using immunostains and/or FISH (requiring 100 cells): A2 and A3 ?? Send out (outside vendor) testing requiring 5 x 5 mm of tumor: A2 and A3 01/24/2024 1:[address] [facility] [place] [place] [facility] Clinical Information Mr. Schwartz is a 53 y[address]o. who undergoes CT-guided needle biopsy of liver. 01/24/2024 1:[address] [facility] [place] [place] [facility] Gross Description A) Received identified as [...] hours and no more than 72 hours. 01/24/2024 1:[address] [facility] [place] [place] [facility] Adequacy Assessment A) C.A.M. assessed adequacy from the air-dried smears at the time of the procedure with an impression of Adequate. 01/24/2024 1:[address] [facility] [place] [place] [facility] Microscopic Description Specimen adequacy: Adequate for interpretation. [...] Intact PMS2: Intact These results support carcinoma. 01/24/2024 1:[address] [facility] [place] [place] [facility] Molecular Diagnostics Summary Preanalytical microdissection of tissue/cytology slides for Next Generation Sequencing was performed according to laboratory protocol as follows: Microscopic examination was performed by a pathologist, Dr. Alcocer, to determine specimen adequacy and identify areas of tumor for isolation. Areas of tumor selected and marked by the pathologist were manually harvested by a ear mold laboratory technician for nucleic acid extraction. 01/24/2024 1:[address] [facility] [place] [place] [facility] Additional Information Cytology is screened at [facility] - [address], [place] [address] and [facility] - [address] [place] [address] and [facility] - [address] [place] [address] Interpreted at [facility] - [address] [address] Immunohistochemistry controls were reviewed and approved by the pathologist during this examination. 01/24/2024 1:[address] [facility] [place] [place] [facility] Aspirate SPECIMEN FROM LIVER / Unknown 01/14/2024 12:14 PM CDT 01/14/2024 12:22 PM CDT Diane Dickinson MD PATHOLOGY/CYTOLOGY [facility] [address] [address], [place] * (ABNORMAL) GLUCOSE METER (01/14/2024 11:20 AM CDT) GLUCOSE METER 101(H) 65 - 100 mg/dL 01/15/2024 6:08 AM CDT [facility] Blood BLOOD SPECIMEN / Unknown 01/14/2024 11:20 AM CDT 01/15/2024 6:08 AM CDT Anthony Moeller MD CHEMISTRY Performing Organization Address [facility] Co de Phone Number [facility] [address] [place] [address], [place] * Platelet Count (01/14/2024 10:51 AM CDT) PLATELET COUNT 215 140 - 440 thou/cu mm 01/14/2024 11:16 AM CDT [facility] MPV 9.4 6.5 - 11.0 fL 01/14/2024 11:16 AM CDT [facility] Blood BLOOD SPECIMEN / Unknown Venipuncture / Unknown 01/14/2024 10:51 AM CDT 01/14/2024 10:58 AM CDT Diane Dickinson MD HEMATOLOGY Performing Organization Address City/[facility]/ZIP Co de Phone Number [facility] [address] [place] [address], * (ABNORMAL) Hemoglobin (01/14/2024 10:51 AM CDT) HEMOGLOBIN 11.7(L) 13.5 - 17.5 g/dL 01/14/2024 11:16 AM CDT [facility] MCV 93 80 - 100 fL 01/14/2024 11:16 AM CDT [facility] Blood BLOOD SPECIMEN / Unknown Venipuncture / Unknown 01/14/2024 10:51 AM CDT 01/14/2024 10:58 AM CDT Diane Dickinson MD HEMATOLOGY Performing Organization Address [facility] Co de Phone Number [facility] [address] [address], [place] * (ABNORMAL) Protime-INR (01/14/2024 10:51 AM CDT) INR 1.3(H) <1.3 01/14/2024 11:13 AM CDT [facility] PROTIME 14.4(H) 10.3 - 12.3 sec 01/14/2024 11:13 AM CDT [facility] Blood BLOOD SPECIMEN / Unknown Venipuncture / Unknown 01/14/2024 10:51 AM CDT 01/14/2024 10:59 AM CDT Narrative [facility] - 01/14/2024 11:13 AM CDT ?Therapeutic [...] Diane Dickinson MD HEMATOLOGY Performing Organization Address [facility] Co de Phone Number [facility] [address] [address], [place] * LAB TRACKING EVENT (11/07/2023 9:35 AM CDT) Other (Other) Client Collect / Unknown 11/07/2023 9:35 AM CDT 11/07/2023 10:09 PM CDT Doctor Unknown LAB BILL ONLY Performing Organization Address [facility] Co de Phone Number [facility] [address] [address], [place] * PATH TISSUE EXAM (11/07/2023 9:35 AM CDT) Case Report Pathology Report ?Case: [id number] ? Authorizing Provider: ??Unknown, Doctor ?Collected: ? 11/07/2023 0935 ? Ordering Location: ? [facility] ?Received: ?11/08/2023 0811 ? Pathologist: ? Danial Arias MD ? Specimen: ?Descending Colon Polyp ? 11/11/2023 11:03 AM CDT [facility] LABORATORY-[facility] N[facility]AL LABORATORY Final Diagnosis A) COLON, DESCENDING, POLYPECTOMY: 1. Tubular adenoma 2. Negative for high grade dysplasia 3. Per the colonoscopy report: ?? a. Polyp size: 3 mm ?? b. Resection: Complete ?? c. Retrieval: Complete 11/11/2023 11:03 AM CDT [facility] LABORATORY-[facility]AL LAB[facility]AT[facility] Clinical Information Mr. Schwartz is a 53 y.o. who presents for screening colonoscopy. 11/11/2023 11:03 AM CDT [facility] Gross Description A) Received in formalin are 3 guido mucosal fragments averaging 2 mm in greatest dimension, which are entirely submitted in one cassette. It is labeled with the patient's name and designated descending colon polyp. CAPRICE Celis 11/08/2023 10:03 AM 11/11/2023 11:03 AM CDT [facility] Microscopic Description The final diagnosis is based on microscopic examination of appropriate sections of all specimens. 11/11/2023 11:03 AM CDT [facility] N[facility]AL [facility]AT[facility] Additional Information Interpreted at [facility] - [address] [place] [address] [facility] [address], [place] [address] 11/11/2023 11:03 AM CDT [facility] Other (Descending Colon Polyp) 11/07/2023 9:35 AM CDT 11/08/2023 8:11 AM CDT Doctor Unknown PATHOLOGY/CYTOLOGY [facility] [address] [place] [address], from Last 3 Months Care Teams Systems Auditor Relationship Specialty Start Date End Date Anthony Moeller MD [address] [place] [id number] PCP - General Family Practice 01/09/24
--- OUTSIDE RECORDS SUMMARY | 2024-01-27 09:09 | XMS_ITS | Clinical Summary ---
Author Organization [facility] Address [address] [place] [address] Care Team Providers Care Sewer Digger Name Role Phone Md JUSTIN Hoff Primary Care Provider Source Comments You are receiving this document as you are listed as the primary care provider,follow-up provider, or the patient has been referred to you for consultation.This is in compliance with the Medicare and[facility] EHR Incentive Program,which states Providers who transition their patient to another setting of careor provider of care or refers their patient to another provider of care shouldprovide summary care record for each transition of care or referral. [facility] Allergies No known active allergies Medications Medication [...] (10/02/2019): Added automatically from request for surgery [id number] Complete rupture of rotator cuff 08/20/2012 Tobacco abuse 04/15/2012 Obstructive sleep apnea 12/23/2007 Overview (12/19/2016): Setting: Auto 8-15 cmH20 Supplied by: [facility] PSG done: 12-10-07, 01-07-08 AHI 94 [...] PROSTATIC SPECIFIC ANTIGEN(SCREEN) Routine 06/20/2010 8:15 AM CLASSICS PROFESSOR LIPID PANEL & DIRECT LDL (IF NEEDED) Routine 06/20/2010 8:15 AM CLASSICS PROFESSOR from Last 3 Months or Most Recently Relevant to Health Maintenance Results * Lipid Panel and Direct LDL(If Needed) (06/20/2010 8:15 AM CLASSICS PROFESSOR) Cholesterol 174 0 - 200 mg/dL HP CONVERSION Triglycerides 125 0 - 149 mg/dL HP CONVERSION HDL Cholesterol 46 >39 mg/dL HP CONVERSION Cholesterol/HDL Ratio Screen 3.8 No normal range HP CONVERSION LDL Calculated 103 19 - 130 mg/dL HP CONVERSION Hours Fasting 15.0 No normal range HP CONVERSION 06/20/2010 8:15 AM CLASSICS PROFESSOR [facility] LAB_1 HP CONVERSION * Prostatic Specific Antigen (Screen) (06/20/2010 8:15 AM CLASSICS PROFESSOR) Prostate Specific Antigen 0.8 0.0 - 4.0 ng/mL HP CONVERSION 06/20/2010 8:15 AM CLASSICS PROFESSOR Maximiliano Barahona [facility] LAB_1 HP CONVERSION from Last 3 Months or Most Recently Relevant to Health Maintenance Advance Directives * Full Code (Latest Code Status on File) Date Activated Date Inactivated Comments 11/04/2019 8:12 AM 11/04/2019 10:54 AM Care Teams Sewer Digger Relationship Specialty Start Date End Date Md Luis Eduardo, [place] [address] PCP - General 08/01/10
--- OUTSIDE RECORDS SUMMARY | 2024-01-27 09:10 | XMS_ITS | Encounter Summary ---
Author Organization [facility] Address [address] [place] [address] Care Team Providers Care Textile Engraver Name Role Phone Anthony Moeller MD Primary Care Provider [phone] Reason for Referral * Diagnostic Imaging XR (Routine) - Pending Review Specialty Diagnoses / Procedures Referred By Contac t Referred To Contact Radiology. Diagnoses Orthopedic aftercare Procedures XR Knee Right 3 Views Donald Parker MD [address] [place] [id number] Referral ID Status Reason Start Date Expiration Date V isits Requested Visits Authorized [id number] Pending Review 12/20/2023 12/19/2024 1 1 Encounter Details Date Type Department Care Team (Latest Contact Info) Description 12/20/2023 11:40 AM CDT Office Visit [facility] [address] [place] [address] Donald Parker MD [address] [place] [id number] Orthopedic aftercare (Primary Dx); S/P right [...] from the original note were not included. [facility]3] Physicians Orthopaedic Surgery Consultation by Donald Parker [...] swelling, redness fever or malaise. 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 [...] his 5-year postop. Donald Parker MD, PhD Jewelry Mechanic Adult Reconstruction [facility] Department of Orthopaedic Surgery documented in this encounter Plan of Treatment Not on file documented as of this encounter Results * XR Knee Right 3 Views (12/20/2023 12:06 PM CDT) Anatomical Region Laterality Modality Thigh, Knee, Leg Right Computed Radiog su Impressions 12/20/2023 3:10 PM CDT IMPRESSION: Medial unicompartmental hemiarthroplasty. No evidence of loosening or periprosthetic fracture. No joint effusion. JAEMS GAMBLE DO SYSTEM ID: ??[id number] Narrative 12/20/2023 3:10 PM CDT EXAM: XR KNEE RIGHT 3 VIEWS DATE/TIME: 12/20/2023 12:06 PM INDICATION: Orthopedic aftercare COMPARISON: 05/25/2022 Procedure Note James Gamble DO - 12/20/2023 EXAM: XR KNEE RIGHT 3 VIEWS DATE/TIME: 12/20/2023 12:06 PM INDICATION: Orthopedic aftercare COMPARISON: 05/25/2022 IMPRESSION: Medial unicompartmental hemiarthroplasty. No evidence of loosening or periprosthetic fracture. No joint effusion. JAMES GAMBLE DO SYSTEM ID: [id number] Donald Parker MD IMG DIAGNOSTIC IMAGI NG ORDERABLES documented in this encounter Visit Diagnoses Diagnosis Orthopedic aftercare- Primary Unspecified orthopedic aftercare S/P right unicompartmental knee replacement Knee joint replacement by other means Orthopedic aftercare Unspecified orthopedic aftercare documented in this encounter Care Teams Textile Engraver Relationship Specialty Start Date End Date Anthony Moeller MD PCP - General Family Practice 11/21/17 documented as of this encounter
--- OUTSIDE RECORDS SUMMARY | 2024-01-27 09:10 | XMS_ITS | Encounter Summary ---
Author Organization [facility] Address [address] [place] [address] Care Team Providers Care Senior Bookkeeper Name Role Phone Anthony Moeller MD Primary Care Provider [phone] Donald Parker MD Unavailable [phone] Encounter Details Date Type Department Care Team ([facility] st Contact Info) Description 12/03/2023 [facility] [address] [place], [place] [id number] Donald Parker MD [address] [place] [address] Social History Tobacco Use Types [...] Dr. Parker in clinic for further evaluation. Green Hide Inspector assisted in scheduling patient at the [facility] location. Patient thankful for call and has [...] we send this information to you in [facility] or would you prefer to receive a phone call?: Patient would prefer a phone call Okay to leave a detailed message?: Yes at Cell number on file: Telephone Information: documented in this encounter Plan of Treatment Not on file documented as of this encounter Visit Diagnoses Not on filedocumented in this encounter Care Teams Senior Bookkeeper Relationship Specialty Start Date End Date Anthony Moeller MD PCP - General Family Practice 11/21/17 Donald Parker MD [address] [place] [id number] Assigned Musculoskeletal Provider 09/29/22 12/19/23 documented as of this encounter
[2024-01-27] MEDS: SODIUM CHLORIDE 0.9 % (FLUSH) 10 ML SYRINGE IVF (09:25)
[2024-01-27] MEDS: LACTATED RINGERS 1000 ML 1,000 ML 100 ML IV (09:25)
--- NOTE | 2024-01-27 10:30 | CRLHL7_ITS ---
For Patients: As a result of the Century Cures Act, medical imaging exams and procedure reports are released immediately into your electronic medical record. You may view this report before your referring provider. If you have questions, please contact your health care provider. INDICATION: Intraop part. TECHNIQUE: Single spot fluoroscopic views of the chest. COMPARISON: None. FINDINGS: Right IJ Port-A-Cath terminates in the mid to distal SVC. Please see operative report/procedure note for complete details. Fluoroscopy time: 103.1 seconds. Radiation dose: 43.6 mGy. IMPRESSION: Fluoroscopic guidance for port placement. Dictated by Marcio Loza MD @ 01/27/2024 12:31:00 PM (Electronically Signed)
--- NOTE | 2024-01-27 10:39 | PM.GSCN ---
History of Present Illness Consult details Date Seen: 01/27/24 Consult date: 01/27/24 Narrative: The patient is a 53-year-old male with metastatic cholangiocarcinoma who is here today for port placement for chemotherapy. Two months ago he began having abdominal pain and noted a 30 lb weight loss. Workup revealed multiple liver masses, IVC and portal vein thrombus, upper abdominal adenopathy, pulmonary nodules as well as multiple lytic bone lesions consistent with osseous metastasis. Liver biopsy showed cirrhosis and moderately differentiated adenocarcinoma consistent with cholangiocarcinoma. He does take apixaban for portal vein thrombus. He has held that since Saturday. He has normal renal function so that should be acceptable. Today he complains only of back pain. [facility] Medical History (Updated 01/27/24 @ 10:53 by Edel Kennedy MD) Hypertension ?I10 - Essential (primary) hypertension (ICD-10) DMII (diabetes mellitus, type 2) ?E11.9 - Type 2 diabetes mellitus without complications (ICD-10) Obstructive sleep apnea treated with continuous positive airway pressure (CPAP) ?G47.33 - Obstructive sleep apnea (adult) (pediatric) (ICD-10) ?Z99.89 - Dependence on other enabling machines and devices (ICD-10) Osteoarthritis of knee ?M17.10 - Unilateral primary osteoarthritis, unspecified knee (ICD-10) Liver masses ?R16.0 - Hepatomegaly, not elsewhere classified (ICD-10) Cholangiocarcinoma ?C22.1 - Intrahepatic bile duct carcinoma (ICD-10) Portal vein thrombosis ?I81 - Portal vein thrombosis (ICD-10) Plantar fasciitis ?M72.2 - Plantar fascial fibromatosis (ICD-10) History of tear of meniscus of knee joint ?Z87.828 - Personal history of other (healed) physical injury and trauma (ICD-10) History of fracture of vertebral column ?Z87.81 - Personal history of (healed) traumatic fracture (ICD-10) Surgical History (Updated 01/07/23 @ 07:59 by Anthony Moeller MD) History of partial knee replacement ?Z96.659 - Presence of unspecified artificial knee joint (ICD-10) Status post rotator cuff surgery ?Z98.890 - Other specified postprocedural states (ICD-10) History of shoulder surgery ?Z98.890 - Other specified postprocedural states (ICD-10) History of colonoscopy with polypectomy ?Z98.890 - Other specified postprocedural states (ICD-10) ?Z86.010 - Personal history of colonic polyps (ICD-10) Social History (Updated 12/25/23 @ 09:43 by Edel Oliva[facility]) Narrative: History of alcohol use with cirrhosis noted on recent liver biopsy. Has now abstained since his diagnosis of cholangiocarcinoma. History of smoking; has been tobacco free for 15 years. 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 What is your current living situation?: I presently have a place to live Problems where you live: no known problems In the past 12 months, utilities in danger of being shut off: no In past 12 months, lack of transportation kept you from medical appts, meetings, work, or getting things needed for daily living: no In the past 12 mos, have been you worried that your food would run out before you had money to buy more?: never true In the past 12 mos, the food you bought just didn't last and you didn't have money to buy more?: never true Smoking Status: Former smoker How often do you have a drink containing alcohol: monthly or less AUDIT-C Alcohol total score: 1 Non-prescribed substance use: denies use Caffeine: Yes How often does anyone, including family, friends and others, physically hurt you: never How often does anyone, including family, friends and others, insult or talk down to you: never How often does anyone, including family, friends and others, threaten you with harm: never How often does anyone, including family, friends and others, scream or curse at you: never Little interest or pleasure in doing things: not at all Feeling down, depressed, or hopeless: not at all Meds Home Medications and Allergies Home Medications ?Medication ?Instructions ?Recorded ?Confirmed ?Type Blood Glucose Meter 12/26/21 01/20/24 History aspirin 81 mg tablet,delayed 81 mg PO QDAY 12/26/21 01/27/24 History release (Adult Low Dose Aspirin) multivitamin 1 tab PO QDAY 12/26/21 01/27/24 History amoxicillin 500 mg capsule 2,000 mg PO ONCE PRN 02/27/23 01/27/24 History acetaminophen 500 mg capsule 1,000 mg PO Q6H PRN 01/20/24 01/27/24 History naproxen sodium 220 mg capsule 440 mg PO BID PRN 01/20/24 01/27/24 History (Aleve) Allergies Allergy/AdvReac Type Severity Reaction Status Date / Time No Known Allergies Allergy Unknown Verified 01/27/24 09:13 Exam Narrative: Exam Narrative: General: No acute distress CV: Regular rate Respiratory: Breathing nonlabored on room air Neck: Patient with a striking amount of fatty tissue in his supra clavicular fossa bilaterally. This is soft. There are no firm nodules or adenopathy. Chest: No scars noted on upper chest. Const: Vital Signs, click to edit/add: Vital Signs - 24 hr 01/27/24 09:26 Temperature 97.7 F Pulse Rate 55 L Respiratory Rate 16 Blood Pressure 138/88 Pulse Oximetry 99 Oxygen Delivery Me thod Room Air Results Labs Labs: Reviewed Imaging CT scan - chest: report reviewed and image reviewed Additional studies: Chest CT: IMPRESSION: 1. Extensive pulmonary parenchymal metastatic nodules. 2. Metastatic mediastinal and bilateral hilar adenopathy. 3. Multiple lytic bone lesions consistent with osseous metastasis. 4. No pulmonary embolism. Progress Note:A&P Assessment and plan (1) Cholangiocarcinoma: Status: Acute (2) Liver masses: Status: Acute (3) Portal vein thrombosis: Status: Acute (4) Obstructive sleep apnea treated with continuous positive airway pressure (CPAP): Status: Acute Plan The patient is a 53-year-old male who is here today for port placement for chemotherapy. Risks and benefits of the procedure were discussed with him. He is agreeable to proceed. His anticoagulation has been appropriately held. Of note, he has striking fullness of his supraclavicular fossa bilaterally, however imaging was reviewed and this clinically and radiographically appears to be fatty tissue. This may make port placement somewhat more difficult, however, it should still be feasible this point.
--- NOTE | 2024-01-27 11:09 | W.ANESCHARGE ---
Anesthesia Charges Start Date/Time Anesthesia Start Date: 01/27/24 Anesthesia Start Time: 11:06 Stop Date/Time Anesthesia Stop Date: 01/27/24 Anesthesia Stop Time: 12:32
[2024-01-27] MEDS: CEFAZOLIN 2 GM INJ IVP (11:22)
--- NOTE | 2024-01-27 11:26 | W.ANESCHARGE ---
Anesthesia Charges Start Date/Time Anesthesia Start Date: 01/27/24 Anesthesia Start Time: 11:06 Stop Date/Time Anesthesia Stop Date: 01/27/24 Anesthesia Stop Time: 12:32
[2024-01-27] MEDS: 0.9% SODIUM CHL 50 ML VIAL INJECTION (12:04)
[2024-01-27] MEDS: LIDOCAINE 1% MDV 20 ML INJECTION (12:04)
[2024-01-27] MEDS: HEPARIN 500 UNIT/5 ML SYRINGE IVF (12:04)
[2024-01-27] MEDS: BUPIVACAINE 0.5% 30 ML INJECTION (12:04)
--- NOTE | 2024-01-27 12:20 | CRLHL7_ITS ---
For Patients: As a result of the Century Cures Act, medical imaging exams and procedure reports are released immediately into your electronic medical record. You may view this report before your referring provider. If you have questions, please contact your health care provider. INDICATION: Post port placement TECHNIQUE: Chest 1 views. COMPARISON: CT PE 01/17/2024 FINDINGS: Cardiovasculature and mediastinum: Appearance of cardiomegaly is likely related to low lung volumes. Unremarkable mediastinum. Right chest wall port catheter with tip in the superior cavoatrial junction. Lungs and pleural spaces: Lung volumes are low, but lungs are clear. No pneumothorax or pleural effusion. Bones and soft tissues: No significant findings. IMPRESSION: Right chest wall port catheter with tip in the superior cavoatrial junction. Dictated by Jamila Silva MD @ 01/27/2024 1:14:13 PM (Electronically Signed)
--- NOTE | 2024-01-27 12:22 | P.GSOP_ITS ---
Operative Note Date of procedure: 01/27/24 Pre-op diagnosis: Metastatic cholangiocarcinoma Post-op diagnosis: Same Type of Procedure: Right IJ power port placement with fluoroscopic and ultrasound guidance Indications: The patient is a 53-year-old male who was recently diagnosed with advanced cholangiocarcinoma. A port has been requested for chemotherapy. He presents today for this procedure. Procedure Description: After discussing the risks and benefits of the procedure, the patient signed informed consent.? The operative site was marked and the patient was brought to the operating room and placed on the operating table in supine position.? Care was taken to pad the patient's pressure points.?? The patient was then given sedation by anesthesia.? His arms were tucked at his sides and neck extended.? The operative site was then prepped and draped in the usual sterile fashion.? A time-out was then performed. The patient's right internal jugular vein was visualized using ultrasound. Local anesthetic was injected into the skin overlying the vein. This was accessed percutaneously using ultrasound guidance. Using Seldinger technique, a guidewire was threaded through the needle. The wire initially did not advance easily. The needle was pulled back, however it was pulled back from the vein. Ultrasound was again used to access the left IJ vein and the wire threaded easily. Fluoroscopy was used and the wire was noted to have crossed the midline. This was pulled back and repositioned was attempted, however the wire curled back on itself. A Glidewire was then obtained and advanced through the needle. I was able to slide this down into the SVC, with the wire remaining to the right of midline. A skin brent was made around the wire. Next, local anesthetic was injected into the skin below the clavicle and along the proposed tract to the neck incision. A skin incision was then made with a 15 blade and a pocket created in the subcutaneous tissue with cautery. A tunneler was then used to thread the catheter from the chest wall pocket to the neck incision. Once t his was done fluoroscopy was brought into the field. Over the wire the tract was dilated using fluoroscopy. The wire and the dilator were then removed leaving the sheath in the vein. Through this, the catheter was threaded. Using fluoroscopy, the catheter was positioned into the distal SVC. The catheter did initially not have blood return with aspiration. It was pulled back to the mid SVC and then did aspirate very easily. It flushed easily as well. The catheter was then connected to the port. The port was placed in the subcutaneous pocket and secured in place with 2 0 Prolene sutures. The port was again noted to flush and aspirate easily. This was then locked with heparinized saline. The skin was closed with absorbable suture. Sterile dressings were applied. Instrument sponge and needle counts were correct at the end of the case. The patient was woken and taken to the PACU in stable condition. ? The patient tolerated the procedure well. Findings: Right IJ power port placed in the mid SVC. Implants: Power port Anesthesia: MAC Surgeon: Edel Kennedy MD Estimated blood loss (mL): 10 Condition: stable Disposition: same day
== END 2024-01-27 13:36 | disposition home or self-care (01) ==
PROVIDERS: PCP Family Medicine; Visit Provider Surgery
PROC: (CPT 36561; principal; 2024-01-27 10:30)
DX: Z45.2 Encounter for adjustment and management of vascular access device (principal); C22.1 Intrahepatic bile duct carcinoma; C79.51 Secondary malignant neoplasm of bone; C78.02 Secondary malignant neoplasm of left lung; C78.01 Secondary malignant neoplasm of right lung; C77.1 Secondary and unspecified malignant neoplasm of intrathoracic lymph nodes; E11.9 Type 2 diabetes mellitus without complications
CPT/HCPCS: 36561; 00532; 71045; 76000; 76998; 82962; C1769; C1788; J0665; J0690; J1100; J1642; J2250; J2405; J2704; J3010; J3490; J7120

== ENCOUNTER 2024-01-29 10:13 | Outpatient (CLI) | payer BC, SELFPAY ==
--- NOTE | 2024-01-29 10:00 | CT_ITS ---
Patient: CLEMENTE DAVIS Facility:?[facility] Patient ID:?[id number] Site Patient ID:?[id number]. Site :?[id number] Study:?CT-Chest 75CC ISOVUE 370-01/29/2024 10:35:17 AM Ordering Physician:Dsuty Chang Final Report: INDICATION: Status post port placement. Hematoma right chest wall. Evaluate for hemothorax. COMPARISON: Portions of a CT obtained January 17, 2024 TECHNIQUE: : CT examination of the chest was performed following the uneventful intravenous administration of 75 cc of Isovue 3 7.Thin axial sections were obtained from the thoracic inlet through the lung bases. Please note that all CT scans at this facility use dose modulation, iterative reconstruction, and/or weight-based dosing when appropriate to reduce radiation dose to as low as reasonably achievable. FINDINGS: : HEART and MEDIASTINUM: The heart size is normal. There is extensive mediastinal lymphadenopathy similar to the prior study. No pericardial effusion. LUNGS and PLEURAL SPACES: The lungs show too numerous to count scattered nodules similar in appearance to the prior study. There is no pleural effusion or pneumothorax. There is no hemothorax. VISUALIZED UPPER ABDOMEN: Upper abdominal lymphadenopathy again identified. Similar to the prior study OSSEOUS STRUCTURES: Osseous metastatic disease again noted. The largest focus is in T4 and is unchanged. TUBES and LINES: There is a newly placed right port. This ends in the proximal SVC. There is extensive clot in the SVC distal to the port. This is nearly occlusive. There is subcutaneous induration in the region of the port but no collection. IMPRESSION: 1. There is a newly placed right port that ends in the proximal SVC. This terminates immediately prior to a long segment of clot in the SVC. This clot is nearly occlusive based on contrast flow from the left brachiocephalic vein into the right heart. 2. Cutaneous and subcutaneous induration in the region of the port, an expected postoperative finding. No collection in this area. No mediastinal hematoma. No pleural effusion, pneumothorax or hemothorax as questioned. 3. Redemonstration of extensive malignant disease involving mediastinal and hilar lymph nodes, the lungs, the bones and the lymph nodes of the visualized upper abdomen. Similar to the most recent exam. Please note that all CT scans at this facility use dose modulation, iterative reconstruction, and/or weight-based dosing when appropriate to reduce radiation dose to as low as reasonably achievable. Dictated by Ant Rodriguez MD @ 01/29/2024 11:11:06 AM Signed by:?Ant Rodriguez MD @01/29/2024 11:11:06 AM (Electronic Signature)
--- OUTSIDE RECORDS SUMMARY | 2024-01-29 10:18 | XMS_ITS | Clinical Summary ---
Author Organization [facility] Address [address] [place] [address] Care Team Providers Care Hotel Superintendent Name Role Phone Anthony Moeller MD Primary Care Provider [phone] Donald Parker MD Unavailable [phone] Allergies No known active allergies Medications Medication [...] 12/20/2023 11:50 AM CDT Ancillary Procedure [facility] Sports [facility] Orthopedic Care [address] [address] Donald Parker MD Orthopedic aftercare 12/20/2023 11:40 AM CDT Office Visit [facility] Orthopedic [address] [address] Donald Parker MD Orthopedic aftercare (Primary Dx); S/P right unicompartmental knee replacement 12/20/2023 Travel 12/03/2023 Telephone [facility] Orthopedic [address] [address] Donald Parker MD from Last 3 Months [...] AM CDT Pulse 72 04/18/2022 8:11 AM COMMUNITY PLACEMENT WORKER Temperature 36.5 ??C (97.7 ??F) 04/18/2022 8 :11 AM COMMUNITY PLACEMENT WORKER Respiratory Rate 16 04/18/2022 8:11 AM COMMUNITY PLACEMENT WORKER Oxygen Saturation 97% 04/18/2022 8:1 1 AM COMMUNITY PLACEMENT WORKER Inhaled Oxygen Concentration - - Weight 128.8 kg (284 lb) 05/25/2022 10: 23 AM COMMUNITY PLACEMENT WORKER pulled from last visit Height 175.3 cm (5' 9) 05/25/2022 10:2 3 AM COMMUNITY PLACEMENT WORKER Body Mass Index 41.94 05/25/2022 10:23 AM COMMUNITY PLACEMENT WORKER Plan of Treatment Health Maintenance Due Date [...] this topic Medical Devices Implanted Type Area Quality Assurance Representative Device Identifier Shelf Expiration Date Model / Serial / Lot Bone Cement Simplex Full Dose 6191-1-001 - [id number] Implanted:Qty : 1 on 04/17/2022 by Donald Parker MD at [facility] Cement, Bone Right: Knee [employer] 06/27/2023 6191-1-001 / / [id number] Twinfix Ultra Pk 5.5mm Suture Zapata With 2 Ultrabraid Sutures Implanted:Qty : 1 on 12/10/2017 by Les Israel MD at [facility] Metallic Hardware/An chor Right: Shoulder 05/23/2022 [id number] / / [id number] 2.8mm Q-Fix Suture Zapata Implanted:Qty : 1 on 12/10/2017 by Les Israel MD at [facility] Metallic Hardware/An chor Right: Shoulder 04/03/2020-2800 / / [id number] Knee Uni Tibia Tray Mobile Bear D5 Rm/Ll - [id number] Implanted:Qty : 1 on 04/17/2022 by Donald Parker MD at [facility] Total Joint Component/I nsert Right: Knee [employer] 07/27/2031 [id number] / / [id number] Knee Roland Uni Femoral Med - [id number] Implanted:Qty : 1 on 04/17/2022 by Donald Parker MD at [facility] Total Joint Component/I nsert Right: Knee [employer] 03/19/2032 [id number] / / [id number] Insert Roland Anatomic Bear R Med Sz 4 - [id number] Implanted:Qty : 1 on 04/17/2022 by Donald Parker MD at [facility] Total Joint Component/I nsert Right: Knee [employer] 11/16/2025 [id number] / / [id number] Twinfix Ultra Pk 5.5mm Suture Zapata With 2 Ultrabraid Sutures Implanted:Qty : 1 on 12/10/2017 by Les Israel MD at [facility] Right: Shoulder [employer] 01/10/2022 [id number] / / [id number] Procedures Procedure Name Priority Date/Time Associated Diagnosis Comments XR KNEE RIGHT 3 VIEWS Routine 12/20/2023 12:06 PM CDT Orthopedic aftercare GLUCOSE BY METER Routine 04/18/2022 7:15 AM COMMUNITY PLACEMENT WORKER from Last 3 Months or Most Recently Relevant to Health Maintenance Results * XR Knee Right 3 Views (12/20/2023 12:06 PM CDT) Anatomical Region Laterality Modality Thigh, Knee, Leg Right Computed Radiog su Impressions 12/20/2023 3:10 PM CDT IMPRESSION: Medial unicompartmental hemiarthroplasty. No evidence of loosening or periprosthetic fracture. No joint effusion. JAMES GAMBLE DO SYSTEM ID: ??[id number] Narrative 12/20/2023 3:10 PM CDT EXAM: XR KNEE RIGHT 3 VIEWS DATE/TIME: 12/20/2023 12:06 PM INDICATION: Orthopedic aftercare COMPARISON: 05/25/2022 Procedure Note James Gamble DO - 12/20/2023 EXAM: XR KNEE RIGHT 3 VIEWS DATE/TIME: 12/20/2023 12:06 PM INDICATION: Orthopedic aftercare COMPARISON: 05/25/2022 IMPRESSION: Medial unicompartmental hemiarthroplasty. No evidence of loosening or periprosthetic fracture. No joint effusion. JAMES GAMBLE DO SYSTEM ID: [id number] Donald Parker MD IMG DIAGNOSTIC IMAGI NG ORDERABLES * (ABNORMAL) Glucose by meter (04/18/2022 7:15 AM COMMUNITY PLACEMENT WORKER) GLUCOSE BY METER POCT 143(H) 70 - 99 mg/dL 04/18/2022 7:22 AM COMMUNITY PLACEMENT WORKER [facility] LABORATORY POC Blood, Capillary BLOOD SPECIMEN / Unknown 04/18/2022 7:15 AM COMMUNITY PLACEMENT WORKER 04/18/2022 7:22 AM COMMUNITY PLACEMENT WORKER Donald Parker MD LAB - SUEAKER POCT [facility] LABORATORY POC [facility] Acute Care Lab [address] Lab (1st floor, no room number) [place] [address], [facility] [phone] from Last 3 Months or Most Recently Relevant to Health Maintenance Advance Directives For more information, please contact: [phone] * Full Code (Latest Code Status on File) Date Activated Date Inactivated Comments 04/17/2022 11:28 AM 04/18/2022 10:58 AM All basi c and advanced life-sustaining interventions are performed as appropriate Question Answer Comments Code status determined by: Discussion with adriana silveira/ legal decision maker Care Teams Hotel Superintendent Relationship Specialty Start Date End Date Anthony Moeller MD PCP - General Family Practice 11/21/17 Donald Parker MD [address] [place] [address] Assigned Musculoskeletal Provider 01/20/24
--- OUTSIDE RECORDS SUMMARY | 2024-01-29 10:18 | XMS_ITS | Clinical Summary ---
Author Organization [facility] Address [place], [place] [address] Care Team Providers Care Wet Mix Operator Name Role Phone Anthony Moeller MD Primary Care Provider [phone] Allergies No known active allergies Medications Medication [...] 01/14/2024 11:59 PM CDT Hospital Encounter [facility] Medical Imaging [address] [place] [address] Anthony Moeller MD Hepatomegaly 01/14/2024 Travel 11/07/2023 Lab Requisition [facility] [phone] Unknown, Doctor from Last 3 Months Social [...] this topic Medical Devices Implanted Type Area Gasateria Attendant Device Identifier Shelf Expiration Date Model / Serial / Lot Sut Ancr 4.75 W/Loop - [id number] Implanted:Qty: 1 on 09/16/2012 by Jama Cohen MD at [facility] Right: Shoulder [employer] 04/27/2014 [id number] / / [id number] Procedures Procedure Name Priority Date/Time Associated Diagnosis [...] POST PROCEDURE NOTE ?? 01/14/2024 Rolando Schwartz [id number] INFORMEDCONSENT: In my discussion, prior to [...] Please call with questions. Diane Dickinson MD [place] Protocol A. Pre-procedure verification complete yes 1-relevant [...] 1:33 PM CDT Diane Dickinson MD LABORATORY [facility] [address] [place] [address], * [facility]NA Cytology SLAB CONDITIONER SUPERVISOR (01/14/2024 12:14 PM CDT) Case Report Medical Cytology Report ? Case: [id number] ? Authorizing Provider: ??Diane Dickinson MD ?Collected: ? 01/14/2024 1214 ? Ordering Location: ? [facility] ?Received: ?01/14/2024 1222 ? Hospital Medical Imaging ? Pathologist: ? Jama Alcocer MD ? Specimen: ?Liver ? 01/24/2024 1:29 PM CDT [facility] Amendment 01/24/2024 - Amendmen t to report [facility] Solid Tumor Targeted (52 gene) Next Generation Sequencing results. Please see diagnosis and attached scanned report. 01/24/2024 1:29 PM CDT [facility] Final Diagnosis A) LIVER, CT-GUIDED [...] attached NGS report 01/24/2024 1:29 PM CDT [facility] Amendment electronically signed by Aissatou Castillo [...] [place]. Please contact us with any questions ([facility] GI pathology service [phone]). Neoplastic tissue is available for ancillary studies, to request please contact the [facility] Pathology Consult Center ([phone]). Neoplastic tissue available for ancillary studies: ?? [facility] NGS testing: ?- FFPE tissue blocks: A2 and A3 ?- Cytology slides: A1-1 (used for NGS); A1-2, A1-3, A1-4 remaining ?? Tests using immunostains and/or FISH (requiring 100 cells): A2 and A3 ?? Send out (outside vendor) testing requiring 5 x 5 mm of tumor: A2 and A3 01/24/2024 1:29 PM T [facility] Clinical Information Mr. Schwartz is a 53 y[address] who undergoes CT-guided needle biopsy of liver. 01/24/2024 1:29 PM CDT [facility] Gross Description A) Received identified [...] than 72 hours. 01/24/2024 1:29 PM T [facility] Adequacy Assessment A) C.A.M. assessed adequacy from the air-dried smears at the time of the procedure with an impression of Adequate. 01/24/2024 1:29 PM T [facility] Microscopic Description Specimen adequacy: Adequate for [...] results support carcinoma. 01/24/2024 1:29 PM CDT [facility] Molecular Diagnostics Summary Preanalytical microdissection of tissue/cytology slides for Next Generation Sequencing was performed according to laboratory protocol as follows: Microscopic examination was performed by a pathologist, Dr. Alcocer, to determine specimen adequacy and identify areas of tumor for isolation. Areas of tumor selected and marked by the pathologist were manually harvested by a catheterization laboratory technician for nucleic acid extraction. 01/24/2024 1:29 PM T [facility] Additional Information Cytology is screened at [facility] - [address], [place] [address] and [facility] - [address] [place] [address] and [facility] - [address] [place] [address] Interpreted at [facility] - [address], [place] [address] Immunohistochemistry controls were reviewed and approved by the pathologist during this examination. 01/24/2024 1:29 PM CDT [facility] Aspirate SPECIMEN FROM LIVER / Unknown 01/14/2024 12:14 PM CDT 01/14/2024 12:22 PM CDT Diane Dickinson MD PATHOLOGY/CYTOLOGY [facility] [address] [address], [place] * (ABNORMAL) GLUCOSE METER (01/14/2024 11:20 AM CDT) GLUCOSE METER 101(H) 65 - 100 mg/dL 01/15/2024 6:08 AM CDT [facility] Blood BLOOD SPECIMEN / Unknown 01/14/2024 11:20 AM CDT 01/15/2024 6:08 AM CDT Anthony Moeller MD CHEMISTRY Performing Organization Address [facility] Co de Phone Number [facility] [address] [place] [address], [place] * Platelet Count (01/14/2024 10:51 AM CDT) PLATELET COUNT 215 140 - 440 thou/cu mm 01/14/2024 11:16 AM CDT [facility] MPV 9.4 6.5 - 11.0 fL 01/14/2024 11:16 AM CDT [facility] Blood BLOOD SPECIMEN / Unknown Venipuncture / Unknown 01/14/2024 10:51 AM CDT 01/14/2024 10:58 AM CDT Diane Dickinson MD HEMATOLOGY Performing Organization Address [facility]/ZIP Co de Phone Number [facility] [address] [place] [address], * (ABNORMAL) Hemoglobin (01/14/2024 10:51 AM CDT) HEMOGLOBIN 11.7(L) 13.5 - 17.5 g/dL 01/14/2024 11:16 AM CDT [facility] MCV 93 80 - 100 fL 01/14/2024 11:16 AM CDT [facility] Blood BLOOD SPECIMEN / Unknown Venipuncture / Unknown 01/14/2024 10:51 AM CDT 01/14/2024 10:58 AM CDT Diane Dickinson MD HEMATOLOGY Performing Organization Address [facility] Co de Phone Number [facility] [address] [address], [place] * (ABNORMAL) Protime-INR (01/14/2024 10:51 AM CDT) INR 1.3(H) <1.3 01/14/2024 11:13 AM CDT [facility] PROTIME 14.4(H) 10.3 - 12.3 sec 01/14/2024 11:13 AM CDT [facility] Blood BLOOD SPECIMEN / Unknown Venipuncture / Unknown 01/14/2024 10:51 AM CDT 01/14/2024 10:59 AM CDT Narrative [facility] - 01/14/2024 11:13 AM CDT ?Therapeutic Range [...] Diane Dickinson MD HEMATOLOGY Performing Organization Address [facility] Co de Phone Number [facility] [address] [address], [place] * LAB TRACKING EVENT (11/07/2023 9:35 AM CDT) Other (Other) Client Collect / Unknown 11/07/2023 9:35 AM CDT 11/07/2023 10:09 PM CDT Doctor Unknown LAB BILL ONLY Performing Organization Address [facility] Co de Phone Number [facility] [address] [address], [place] * PATH TISSUE EXAM (11/07/2023 9:35 AM CDT) Case Report Pathology Report ?Case: [id number] ? Authorizing Provider: ??Unknown, Doctor ?Collected: ? 11/07/2023 0935 ? Ordering Location: ? [facility] ?Received: ?11/08/2023 0811 ? Pathologist: ? Danial Arias MD ? Specimen: ?Descending Colon Polyp ? 11/11/2023 11:03 AM CDT [facility] Final Diagnosis A) COLON, DESCENDING, POLYPECTOMY: 1. Tubular adenoma 2. Negative for high grade dysplasia 3. Per the colonoscopy report: ?? a. Polyp size: 3 mm ?? b. Resection: Complete ?? c. Retrieval: Complete 11/11/2023 11:03 AM CDT [facility] Clinical Information Mr. Schwartz is a 53 y.o. who presents for screening colonoscopy. 11/11/2023 11:03 AM CDT [facility] Gross Description A) Received in formalin are 3 guido mucosal fragments averaging 2 mm in greatest dimension, which are entirely submitted in one cassette. It is labeled with the patient's name and designated descending colon polyp. CAPRICE Celis 11/08/2023 10:03 AM 11/11/2023 11:03 AM CDT [facility] Microscopic Description The final diagnosis is based on microscopic examination of appropriate sections of all specimens. 11/11/2023 11:03 AM CDT [facility] Additional Information Interpreted at [facility] - [address] [place] [address] [address] [facility] [address], [place] [address] 11/11/2023 11:03 AM CDT [facility] Other (Descending Colon Polyp) 11/07/2023 9:35 AM CDT 11/08/2023 8:11 AM CDT Doctor Unknown PATHOLOGY/CYTOLOGY [facility] [address] [place] [address], from Last 3 Months Care Teams Wet Mix Operator Relationship Specialty Start Date End Date Anthony Moeller MD [address] [place] [phone] PCP - General Family Practice 01/09/24
--- OUTSIDE RECORDS SUMMARY | 2024-01-29 10:18 | XMS_ITS | Clinical Summary ---
Author Organization [facility] Address [address] [place] [address] Care Team Providers Care Milieu Counselor Name Role Phone Md JUSTIN Hoff Primary Care Provider [phone] Source Comments You are receiving this document as you are listed as the primary care provider,follow-up provider, or the patient has been referred to you for consultation.This is in compliance with the Medicare andSelect [facility] EHR Incentive Program,which states Providers who transition their patient to another setting of careor provider of care or refers their patient to another provider of care shouldprovide summary care record for each transition of care or referral. [facility] Allergies No known active allergies Medications Medication [...] (10/02/2019): Added automatically from request for surgery [id number] Complete rupture of rotator cuff 08/20/2012 Tobacco abuse 04/15/2012 Obstructive sleep apnea 12/23/2007 Overview (12/19/2016): Setting: Auto 8-15 cmH20 Supplied by: [facility] PSG done: 12-10-07, 01-07-08 AHI 89 [...] patient's age to complete this topic RSV Aged Out No longer eligi ble based on patient's age to complete this topic MCV4 Aged Out No longer eligi ble based on patient's age to complete this topic Procedures Procedure Name Priority Date/Time Associated Diagnosis Comments PROSTATIC SPECIFIC ANTIGEN(SCREEN) Routine 06/20/2010 8:15 AM CORE SUCKER LIPID PANEL & DIRECT LDL (IF NEEDED) Routine 06/20/2010 8:15 AM CORE SUCKER from Last 3 Months or Most Recently Relevant to Health Maintenance Results * Lipid Panel and Direct LDL(If Needed) (06/20/2010 8:15 AM CORE SUCKER) Cholesterol 174 0 - 200 mg/dL HP CONVERSION Triglycerides 125 0 - 149 mg/dL HP CONVERSION HDL Cholesterol 46 >39 mg/dL HP CONVERSION Cholesterol/HDL Ratio Screen 3.8 No normal range HP CONVERSION LDL Calculated 103 19 - 130 mg/dL HP CONVERSION Hours Fasting 15.0 No normal range HP CONVERSION 06/20/2010 8:15 AM CORE SUCKER Maximiliano Barahona [facility]_1 HP CONVERSION * Prostatic Specific Antigen (Screen) (06/20/2010 8:15 AM CORE SUCKER) Prostate Specific Antigen 0.8 0.0 - 4.0 ng/mL HP CONVERSION 06/20/2010 8:15 AM CORE SUCKER Maximiliano Barahona [facility]_1 HP CONVERSION from Last 3 Months or Most Recently Relevant to Health Maintenance Advance Directives * Full Code (Latest Code Status on File) Date Activated Date Inactivated Comments 11/04/2019 8:12 AM 11/04/2019 10:54 AM Care Teams Milieu Counselor Relationship Specialty Start Date End Date Md Luis Eduardo, [place] [address] PCP - General 08/01/10
--- OUTSIDE RECORDS SUMMARY | 2024-01-29 10:19 | XMS_ITS | Encounter Summary ---
Author Organization [facility] Address [address] [place] [address] Care Team Providers Care Shoe Sprayer Name Role Phone Anthony Moeller MD Primary Care Provider [phone] Reason for Visit * Diagnostic Imaging XR (Routine) - Pending Review Specialty Diagnoses / Procedures Referred By Contac t Referred To Contact Radiology. Diagnoses Orthopedic aftercare Procedures XR Knee Right 3 Views Donald Parker MD [address] [place] [address] Referral ID Status Reason Start Date Expiration Date V isits Requested Visits Authorized [id number] Pending Review 12/20/2023 12/19/2024 1 1 Encounter Details Date Type Department Care Team (Latest Contact Info) Description 12/20/2023 11:50 AM CDT Ancillary Procedure [facility] [address] [place] [address] Donald Parker MD [address] [place] [address] Orthopedic aftercare Social History Tobacco Use [...] joint effusion. JAMES GAMBLE DO SYSTEM ID: ??[id number] Narrative 12/20/2023 3:10 PM CDT EXAM: XR KNEE RIGHT 3 VIEWS DATE/TIME: 12/20/2023 12:06 PM INDICATION: Orthopedic aftercare COMPARISON: 05/25/2022 Procedure Note James Gamble DO - 12/20/2023 EXAM: XR KNEE RIGHT 3 VIEWS DATE/TIME: 12/20/2023 12:06 PM INDICATION: Orthopedic aftercare COMPARISON: 05/25/2022 IMPRESSION: Medial unicompartmental hemiarthroplasty. No evidence of loosening or periprosthetic fracture. No joint effusion. JAMES GAMBLE DO SYSTEM ID: [id number] Donald Parker MD IMG DIAGNOSTIC IMAGI NG ORDERABLES documented in this encounter Visit Diagnoses Diagnosis Orthopedic aftercare Unspecified orthopedic aftercare documented in this encounter Care Teams Shoe Sprayer Relationship Specialty Start Date End Date Anthony Moeller MD PCP - General Family Practice 11/21/17 documented as of this encounter
--- OUTSIDE RECORDS SUMMARY | 2024-01-29 10:19 | XMS_ITS | Encounter Summary ---
Author Organization [facility] Address [address] [place] [address] Care Team Providers Care Extrusion Operator Name Role Phone Anthony Moeller MD [...] on filedocumented in this encounter Care Teams Extrusion Operator Relationship Specialty Start Date End Date Anthony Moeller MD PCP - General Family Practice 11/21/17 documented as of this encounter
--- OUTSIDE RECORDS SUMMARY | 2024-01-29 10:19 | XMS_ITS | Referral Summary ---
Author Organization [facility] Address [address] [place] [address] Care Team Providers Care Statistical Analyst Name Role Phone Anthony Moeller MD Primary Care Provider [phone] Donald Parker MD Unavailable [phone] Encounters Date Type Department Care Team Description 12/20/2023 11:50 AM CDT Ancillary Procedure [facility] [address] [place] [address] Donald Parker MD Orthopedic aftercare 12/20/2023 Travel 12/20/2023 11:40 AM CDT Office Visit [facility] [address] [place] [address] Donald Parker MD Orthopedic aftercare (Primary Dx); S/P right unicompartmental knee replacement 12/03/2023 Telephone [facility] [address] [place] [address] Donald Parker MD from Last 3 Months [...] AM CDT Pulse 72 04/18/2022 8:11 AM SHORTHAND TEACHER Temperature 36.5 ??C (97.7 ??F) 04/18/2022 8 :11 AM SHORTHAND TEACHER Respiratory Rate 16 04/18/2022 8:11 AM SHORTHAND TEACHER Oxygen Saturation 97% 04/18/2022 8:1 1 AM SHORTHAND TEACHER Inhaled Oxygen Concentration - - Weight 128.8 kg (284 lb) 05/25/2022 10: 23 AM SHORTHAND TEACHER pulled from last visit Height 175.3 cm (5' 9) 05/25/2022 10:2 3 AM SHORTHAND TEACHER Body Mass Index 41.94 05/25/2022 10:23 AM SHORTHAND TEACHER Plan of Treatment Not on file Medical Devices Implanted Type Area Director Physical Therapy Device Identifier Shelf Expiration Date Model / Serial / Lot Bone Cement Simplex Full Dose 6191-1-001 - [id number] Implanted:Qty : 1 on 04/17/2022 by Donald Parker MD at [facility] Cement, Bone Right: Knee [employer] 06/27/2023 6191-1-001 / / [id number] Twinfix Ultra Pk 5.5mm Suture [place] With 2 Ultrabraid Sutures Implanted:Qty : 1 on 12/10/2017 by Les Israel MD at [facility] Metallic Hardware/An chor Right: Shoulder 05/23/2022 [id number] / / [id number] 2.8mm Q-Fix Suture [place] Implanted:Qty : 1 on 12/10/2017 by Les Israel MD at [facility] Metallic Hardware/An chor Right: Shoulder 04/03/2020-2800 / / [id number] Knee Uni Tibia Tray Mobile Bear D5 Rm/Ll - [id number] Implanted:Qty : 1 on 04/17/2022 by Donald Parker MD at [facility] Total Joint Component/I nsert Right: Knee [employer] 07/27/2031 [id number] / / [id number] Knee [place] Uni Femoral Med - [id number] Implanted:Qty : 1 on 04/17/2022 by Donald Parker MD at [facility] Total Joint Component/I nsert Right: Knee [employer] 03/19/2032 [id number] / / [id number] Insert [place] Anatomic [facility] 4 - [id number] Implanted:Qty : 1 on 04/17/2022 by Donald Parker MD at [facility] Total Joint Component/I nsert Right: Knee [employer] 11/16/2025 [id number] / / [id number] Twinfix Ultra Pk 5.5mm Suture [place] With 2 Ultrabraid Sutures Implanted:Qty : 1 on 12/10/2017 by Les Israel MD at [facility] Right: Shoulder [employer] 01/10/2022 [id number] / / [id number] Procedures Procedure Name Priority Date/Time Associated Diagnosis Comments XR KNEE RIGHT 3 VIEWS Routine 12/20/2023 12:06 PM CDT Orthopedic aftercare GLUCOSE BY METER Routine 04/18/2022 7:15 AM SHORTHAND TEACHER from Last 3 Months or Most Recently Relevant to Health Maintenance Results * XR Knee Right 3 Views (12/20/2023 12:06 PM CDT) Anatomical Region Laterality Modality Thigh, Knee, Leg Right Computed Radiog su Impressions 12/20/2023 3:10 PM CDT IMPRESSION: Medial unicompartmental hemiarthroplasty. No evidence of loosening or periprosthetic fracture. No joint effusion. JAMES GAMBLE DO SYSTEM ID: ??[id number] Narrative 12/20/2023 3:10 PM CDT EXAM: XR KNEE RIGHT 3 VIEWS DATE/TIME: 12/20/2023 12:06 PM INDICATION: Orthopedic aftercare COMPARISON: 05/25/2022 Procedure Note James Gamble DO - 12/20/2023 EXAM: XR KNEE RIGHT 3 VIEWS DATE/TIME: 12/20/2023 12:06 PM INDICATION: Orthopedic aftercare COMPARISON: 05/25/2022 IMPRESSION: Medial unicompartmental hemiarthroplasty. No evidence of loosening or periprosthetic fracture. No joint effusion. JAMES GAMBLE DO SYSTEM ID: [id number] Donald Parker MD IMG DIAGNOSTIC IMAGI NG ORDERABLES * (ABNORMAL) Glucose by meter (04/18/2022 7:15 AM SHORTHAND TEACHER) GLUCOSE BY METER POCT 143(H) 70 - 99 mg/dL 04/18/2022 7:22 AM SHORTHAND TEACHER LABORATORY POC Blood, Capillary BLOOD SPECIMEN / Unknown 04/18/2022 7:15 AM SHORTHAND TEACHER 04/18/2022 7:22 AM SHORTHAND TEACHER Donald Parker MD LAB - [facility] POCT LABORATORY [facility] [address] [facility] (1st floor, no room number) [place] [address], [facility] [phone] from Last 3 Months or Most Recently Relevant to Health Maintenance Advance Directives For more information, please contact: [phone] * Full Code (Latest Code Status on File) Date Activated Date Inactivated Comments 04/17/2022 11:28 AM 04/18/2022 10:58 AM All basi c and advanced life-sustaining interventions are performed as appropriate Question Answer Comments Code status determined by: Discussion with patie nt/ legal decision maker Care Teams Statistical Analyst Relationship Specialty Start Date End Date Anthony Moeller MD PCP - General Family Practice 11/21/17 Donald Parker MD [address] [place] [address] Assigned Musculoskeletal Provider 01/20/24
--- OUTSIDE RECORDS SUMMARY | 2024-01-29 10:19 | XMS_ITS | Encounter Summary ---
Author Organization [facility] Address [address] [place] [address] Care Team Providers Care Molding Cutter Name Role Phone Anthony Moeller MD Primary Care Provider [phone] Reason for Referral * Diagnostic Imaging XR (Routine) - Pending Review Specialty Diagnoses / Procedures Referred By Contac t Referred To Contact Radiology. Diagnoses Orthopedic aftercare Procedures XR Knee Right 3 Views Donald Parker MD [address] [place] [address] Referral ID Status Reason Start Date Expiration Date V isits Requested Visits Authorized [id number] Pending Review 12/20/2023 12/19/2024 1 1 Encounter Details Date Type Department Care Team (Latest Contact Info) Description 12/20/2023 11:40 AM CDT Office Visit [facility] [address] [place] [address] Donald Parker MD [address] [place] [address] Orthopedic aftercare (Primary Dx); S/P right [...] from the original note were not included. [facility] Physicians Orthopaedic Surgery Consultation by [...] swelling, redness fever or malaise. 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 [...] his 5-year postop. Donald Parker MD, PhD Brass Roller Adult Reconstruction [facility] Department of Orthopaedic Surgery documented in this [...] joint effusion. JAMES GAMBLE DO SYSTEM ID: ??[id number] Narrative 12/20/2023 3:10 PM CDT EXAM: XR KNEE RIGHT 3 VIEWS DATE/TIME: 12/20/2023 12:06 PM INDICATION: Orthopedic aftercare COMPARISON: 05/25/2022 Procedure Note James Gamble DO - 12/20/2023 EXAM: XR KNEE RIGHT 3 VIEWS DATE/TIME: 12/20/2023 12:06 PM INDICATION: Orthopedic aftercare COMPARISON: 05/25/2022 IMPRESSION: Medial unicompartmental hemiarthroplasty. No evidence of loosening or periprosthetic fracture. No joint effusion. JAMES GAMBLE DO SYSTEM ID: [id number] Donald Parker MD IMG DIAGNOSTIC IMAGI NG ORDERABLES documented in this encounter Visit Diagnoses Diagnosis Orthopedic aftercare- Primary Unspecified orthopedic aftercare S/P right unicompartmental knee replacement Knee joint replacement by other means Orthopedic aftercare Unspecified orthopedic aftercare documented in this encounter Care Teams Molding Cutter Relationship Specialty Start Date End Date Anthony Moeller MD PCP - General Family Practice 11/21/17 documented as of this encounter
--- OUTSIDE RECORDS SUMMARY | 2024-01-29 10:19 | XMS_ITS | Encounter Summary ---
Author Organization [facility] Address [address] [place] [address] Care Team Providers Care Wheat Buyer Name Role Phone Anthony Moeller MD Primary Care Provider [phone] Donald Parker MD Unavailable [phone] Encounter Details Date Type Department Care Team ([facility] st Contact Info) Description 12/03/2023 [facility] [address] [place], [place] [id number] Donald Parker MD [address] [place] [address] Social History Tobacco Use Types [...] Dr. Parker in clinic for further evaluation. Denture Processor assisted in scheduling patient at the [place] location. Patient thankful for call and has [...] we [facility] to you [facility] or would you prefer to receive a phone call?: Patient would prefer a phone call Okay to leave a detailed message?: Yes at Cell number on file: Telephone Information: documented in this encounter Plan of Treatment Not on file documented as of this encounter Visit Diagnoses Not on filedocumented in this encounter Care Teams Wheat Buyer Relationship Specialty Start Date End Date Anthony Moeller MD PCP - General Family Practice 11/21/17 Donald Parker MD [address] [place] [address] Assigned Musculoskeletal Provider 09/29/22 12/19/23 documented as of this encounter
== END 2024-01-29 10:14 | disposition home or self-care (01) ==
LOC: CT 10:14
PROVIDERS: PCP Family Medicine; Visit Provider Surgery
DX: J94.2 Hemothorax (principal)
CPT/HCPCS: 71260; Q9967

== ENCOUNTER 2024-02-28 12:05 | Outpatient (CLI) | payer BC, SELFPAY ==
--- OUTSIDE RECORDS SUMMARY | 2024-02-28 12:08 | XMS_ITS | Encounter Summary ---
Author Organization [facility] Address [address] [place] [address] Care Team Providers Care Mortgage Specialist Name Role Phone Unavailable Primary Care Provider Unavailabl e Reason for Referral * MRI/CAT/PET Scan (Routine) - Closed Specialty Diagnoses / Procedures Referred By Bharat khoury Referred To Contact Diagnoses Cholangiocarcinoma (HCC) Procedures PET CT Skull to Thigh FDG Georgiana Samayoa M.D. [address] [place] [address] Phone: tel: fax: [facility] Region Referral ID Status Reason Start Date Expiration Date Visits Re quested Visits Authorized [id number] Closed 01/20/2024 01/19/2025 1 1 Reason for Visit * MRI/CAT/PET Scan (Routine) - Closed Specialty Diagnoses / Procedures Referred By Bharat khoury Referred To Contact Diagnoses Cholangiocarcinoma (HCC) Procedures PET CT Skull to Thigh FDG Georgiana Samayoa M.D. [address] [place] [address] Phone: tel: fax: [facility] Region Referral ID Status Reason Start Date Expiration Date Visits Re quested Visits Authorized [id number] Closed 01/20/2024 01/19/2025 1 1 Encounter Details Date Type Department Care Team (Latest Contact Info) Description 02/21/2024 9:42 AM CDT - 02/21/2024 11:59 PM CDT Hospital Encounter Department of Radiology in [place], [place] [address] [place] [phone] Georgiana Samayoa M.D. 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 Gender Identity Not on file Sexual Orientation Not on file documented as of this encounter Medications at Time of Discharge prochlorperazine (Compazine) 10 mg tablet TAKE 1/2 TABLET (5 MG) BY MOUTH 3 TIMES DAILY NEEDED FOR NAUSEA AND VOMITING 30 tablet 02/18/2024 documented as of this encounter Plan of Treatment Not on file documented as of this encounter Procedures Procedure Name Priority Date/Time Associated Diagnosis Comments PET CT SKULL TO THIGH RAD - Routine (most inpatients and all outpatients) 02/21/2024 11:17 AM CDT Cholangiocarcinom a (HCC) documented in this encounter Results * PET CT Skull to Thigh FDG (02/21/2024 11:17 AM CDT) Anatomical Region Laterality Modality Body, Nuclear Medicine PET R ST LOS, PET ARZ LOS, Nuclear Medicine PET FLA LOS, Nuclear Medicine N/A Positron Emission Tomography (PET) Impressions 02/21/2024 12:39 PM CDT 1. ??Focal elevated radiotracer uptake in hepatic segment 4 near the hilum, may correspond to previous biopsy result of adenocarcinoma/cholangiocarcinoma. Recommend further evaluation with liver MRI or multiphase CT. 2. ??Multiple enlarged upper abdominal lymph nodes with low level radiotracer uptake, suspicious for metastases. 3. ??Enlarged mediastinal lymph nodes with low level radiotracer uptake, suspicious for metastases. 4. ??Innumerable sub-6 mm pulmonary nodules without detectable radiotracer uptake, may represent metastases or infectious/inflammatory etiology. 5. ??Hypermetabolic lytic vertebral body lesions in T12 and L1, suspicious for metastases. Two additional lytic vertebral body lesions without radiotracer uptake are indeterminate. Narrative 02/21/2024 12:39 PM CDT EXAM: PET CT SKULL TO THIGH FDG COMPARISON: None INDICATION: Cholangiocarcinoma. Subsequent treatment strategy. F-[address] scan was performed from the mid calvarium through the upper thighs with CT fusion imaging for attenuation correction, anatomic coregistration, and respiratory gating only. Serum glucose at time of F-18 FDG injection: 122 mg/dL. Uptake time: 60 minutes following injection. The patient reports no recent vaccinations. FINDINGS: Head/Neck: Periapical lucency with associated radiotracer avidity adjacent to the right mandibular molar, may represent dental infection. Chest: Enlarged right paratracheal lymph node (image 85) measuring 17 mm in short axis with SUV max 3.1. There is an additional prominent mediastinal lymph node anterior to the SVC with low level radiotracer uptake (image 87), SUV max 3.8. Background mediastinal blood pool SUV max is 2.4. Abdomen/Pelvis: Focal mildly elevated radiotracer uptake centrally in hepatic segment 4 near the hilum with SUV max of 4.4. Background liver SUV max is 3.1. Multiple enlarged gastrohepatic, celiac axis, and iron hepatis lymph nodes with low level radiotracer uptake, for example a gastrohepatic lymph node measuring 21 mm in short axis (image 145), with SUV max 2.8. Multiple prominent to mildly enlarged retroperitoneal lymph nodes with low level radiotracer uptake. Skeleton: Hypermetabolic lytic lesion in the right posterior T12 vertebral body (image 156) with SUV max 6.7, suspicious for metastasis. There is another hypermetabolic lesion in the L1 vertebral body with associated subtle lysis on CT (image 164), SUV max 5. There are additional indeterminate lytic lesions in the T8 and T4 vertebral bodies without elevated radiotracer uptake. Other Findings: Innumerable bilateral pulmonary nodules most are sub-6 mm. There is no single dominant noncalcified nodule. Calcified left hilar lymph nodes and left upper lobe nodule likely represent old granulomatous disease. Right internal jugular approach Port-A-Cath terminates in the SVC. Hepatosplenomegaly. Hepatic and splenic granulomata. There is a 14 mm mildly hyperdense cystic lesion at the superior pole of the right kidney without associated radiotracer uptake. There is a small exophytic cyst at the inferior pole of the left kidney. Left adrenal 15 mm nodule. Small fat-containing inguinal hernias. Subcentimeter sclerotic focus in the right ilium (image 225) without radiotracer uptake, may represent a bone island. RADIOPHARMACEUTICAL/MEDS: Route: intravenous fludeoxyglucose F 18 injection FCI (FDG F-18),14.7 millicurie Procedure Note Shant Bryson M.D., M.S. - 02/21/2024 EXAM: PET CT SKULL TO THIGH FDG COMPARISON: None INDICATION: Cholangiocarcinoma. Subsequent treatment strategy. F-[address] scan was performed from the mid calvarium through theupper thighs with CT fusion imaging for attenuation correction, anatomiccoregistration, and respiratory gating only. Serum glucose at time of F-18 FDG injection: 122 mg/dL. Uptake time: 60 minutes following injection. The patient reports no recent vaccinations. FINDINGS: Head/Neck: Periapical lucency with associated radiotracer avidity adjacentto the right mandibular molar, may represent dental infection. Chest: Enlarged right paratracheal lymph node (image 85) measuring 17 mmin short axis with SUV max 3.1. There is an additional prominentmediastinal lymph node anterior to the SVC with low level radiotraceruptake (image 87), SUV max 3.8. Background mediastinal blood pool SUV max is 2.4. Abdomen/Pelvis: Focal mildly elevated radiotracer uptake centrally inhepatic segment 4 near the hilum with SUV max of 4.4. Background liver SUVmax is 3.1. Multiple enlarged gastrohepatic, celiac axis, and portahepatis lymph nodes with low level radiotracer uptake, for example a gastrohepatic lymph node measuring 21 mmin short axis (image 145), with SUV max 2.8. Multiple prominent to mildlyenlarged retroperitoneal lymph nodes with low level radiotracer uptake. Skeleton: Hypermetabolic lytic lesion in the right posterior T12 vertebralbody (image 156) with SUV max 6.7, suspicious for metastasis. There isanother hypermetabolic lesion in the L1 vertebral body with associatedsubtle lysis on CT (image 164), SUV max 5. There are additional indeterminate lytic lesions in the T8 and D9jamltgcge bodies without elevated radiotracer uptake. Other Findings: Innumerable bilateral pulmonary nodules most are sub-6 mm.There is no single dominant noncalcified nodule. Calcified left hilarlymph nodes and left upper lobe nodule likely represent old granulomatousdisease. Right internal jugular approach Port-A-Cath terminates in the SVC. Hepatosplenomegaly. Hepaticand splenic granulomata. There is a 14 mm mildly hyperdense cystic lesionat the superior pole of the right kidney without associated radiotraceruptake. There is a small exophytic cyst at the inferior pole of the left kidney. Left adrenal 15 mm nodule.Small fat-containing inguinal hernias. Subcentimeter sclerotic focus inthe right ilium (image 225) without radiotracer uptake, may represent abone island. RADIOPHARMACEUTICAL/MEDS: Route: intravenous fludeoxyglucose F 18 injection FCI (FDG F-18),14.7 millicurie IMPRESSION: 1. Focal elevated radiotracer uptake in hepatic segment 4 near the hilum,may correspond to previous biopsy result ofadenocarcinoma/cholangiocarcinoma. Recommend further evaluation with liverMRI or multiphase CT. 2. Multiple enlarged upper abdominal lymph nodes with low levelradiotracer uptake, suspicious for metastases. 3. Enlarged mediastinal lymph nodes with low level radiotracer uptake,suspicious for metastases. 4. Innumerable sub-6 mm pulmonary nodules without detectable radiotraceruptake, may represent metastases or infectious/inflammatory etiology. 5. Hypermetabolic lytic vertebral body lesions in T12 and L1, suspiciousfor metastases. Two additional lytic vertebral body lesions withoutradiotracer uptake are indeterminate. Georgiana AUGUSTINE [place] PROCEDURES Final Resu lt documented in this encounter Visit Diagnoses Diagnosis Cholangiocarcinoma (HCC) documented in this encounter Administered Medications Inactive Administered Medications - up to 3 most recent administrations Medication Order MAR Action Action Date Dose Rate Site fludeoxyglucose F 18 injection FCI (FDG F-18) 14.7 millicurie, intravenous, Once, On Sat02/21/24 at 1030, For 1 dose, Imaging Protocol Orders Given 02/21/2024 9:55 AM CDT 14.7 millicuries Left Antecubital documented in this encounter
--- OUTSIDE RECORDS SUMMARY | 2024-02-28 12:08 | XMS_ITS | Encounter Summary ---
Author Organization [facility] Address [address] [place] [address] Care Team Providers Care Photographic Press Screwmaker Name Role Phone Unavailable Primary Care Provider Unavailabl e Reason for Referral * MRI/CAT/PET Scan (Routine) - Closed Specialty Diagnoses / Procedures Referred By Bharat khoury Referred To Contact Diagnoses Cholangiocarcinoma (HCC) Procedures PET CT Skull to Thigh FDG Georgiana Samayoa M.D. [address] [place] [address] Phone: tel: fax: [facility] Referral ID Status Reason Start Date Expiration Date Visits Re quested Visits Authorized [id number] Closed 01/20/2024 01/19/2025 1 1 Encounter Details Date Type Department Care Team (Late st Contact Info) Description 01/20/2024 Orders Only Department of Oncology in [place], [place] [address] [place] [phone] Georgiana Samayoa M.D. 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 Other Findings: [...] RADIOPHARMACEUTICAL/MEDS: Route: intravenous fludeoxyglucose F 18 injection FDC (FDG F-18),14.7 millicurie IMPRESSION: 1. Focal elevated [...] lesions withoutradiotracer uptake are indeterminate. Georgiana AUGUSTINE NM PROCEDURES Final Resu lt documented in this encounter Visit Diagnoses Diagnosis Cholangiocarcinoma (HCC)- Primary Cholangiocarcinoma (HCC) documented in this encounter
--- OUTSIDE RECORDS SUMMARY | 2024-02-28 12:08 | XMS_ITS | Clinical Summary ---
Author Organization [facility] Address [address] [place] [address] Care Team Providers Care Heavy Duty Custodian Name Role Phone Unavailable Primary Care Provider Unavailabl e Source Comments Patient records contain information from all sites at [facility]. For routine questions regarding patient records, call [phone] during business hours, M-F 8:00 AM - 5:00 PM Central Time. Record requests for emergency care only can be directed to [phone] at any time.[facility] Medications prochlorperazin e (Compazine) 10 mg tablet TAKE 1/2 TABLET (5 MG) BY MOUTH 3 TIMES DAILY NEEDED FOR NAUSEA AND VOMITING 30 tablet 02/18/2024 Active Encounters Date Type Department Care Team Description 02/21/2024 9:42 AM CDT - 02/21/2024 11:59 PM CDT Hospital Encounter Department of Radiology in [place], [place] [address] [place] [phone] Georgiana Samayoa M.D. Cholangiocarcinoma (HCC) Discharge Disposition: Home or Self Care 02/17/2024 Refill Department of Oncology in [place], [place] [address] [place] [phone] Georgiana Samayoa M.D. Med Refill 01/20/2024 Orders Only Department of Oncology in [place], [place] [address] [place] [phone] Georgiana Samayoa M.D. 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 Gender Identity Not on file Sexual Orientation Not on file Plan of Treatment Health Maintenance Due Date Last Done Comments CT Colonography 1968 Cologuard 1968 Colonoscopy 1968 Colorectal Cancer Screening 1968 FIT 1968 HIV Screening 1968 Hepatitis C Screening 1968 Lipid (Cholesterol) Screening 1968 Hepatitis B Vaccines (1 of 3 - 19+ 3-dose series) 09/12/1987 Depression Screening (Annual PHQ-2) 04/29/2023 COVID-19 Vaccine ( - season) 2023 Influenza Vaccine (#1) 2024 9, 03/25/2018, 04/18/2009, Additional history exists Fasting Glucose for Diabetes Screening 04/02/2025 04/02/2022 DTaP,Tdap,and Td Vaccines (3 - Td or Tdap) 12/02/2029 12/03/2019, 06/13/2010, 04/28/1994 Pneumococcal vaccine (0-64 years) Aged Out 10/23/2018 No longer eligible based on patient's age to complete this topic Zoster Vaccines Completed 08/27/2019, 04/16/2019 IPV Vaccines Aged Out No longer eligi ble based on patient's age to complete this topic Procedures Procedure Name Priority Date/Time Associated Diagnosis Comments PET CT SKULL TO THIGH RAD - Routine (most inpatients and all outpatients) 02/21/2024 11:17 AM CDT Cholangiocarcinom a (HCC) from Last 3 Months Results * PET CT Skull to Thigh [...] RADIOPHARMACEUTICAL/MEDS: Route: intravenous fludeoxyglucose F 18 injection ALF (FDG F-18),14.7 millicurie Procedure Note Shant Bryson [...] indeterminate lytic lesions in the T8 and X0pbxrmaalp bodies without elevated radiotracer uptake. Other Findings: [...] RADIOPHARMACEUTICAL/MEDS: Route: intravenous fludeoxyglucose F 18 injection ALF (FDG F-18),14.7 millicurie IMPRESSION: 1. Focal elevated [...] vertebral body lesions withoutradiotracer uptake are indeterminate. us Georgiana Danita M.D. IMG NM PROCEDURES Final Resu lt from Last 3 Months Insurance [facility]
--- OUTSIDE RECORDS SUMMARY | 2024-02-28 12:08 | XMS_ITS | Encounter Summary ---
Author Organization [facility] Address [address] [place] [address] Care Team Providers Care Packing House Laborer Name Role Phone Unavailable Primary Care Provider Unavailabl e Reason for Visit * Reason Comments Med Refill Encounter Details Date Type Department Care Team (Late st Contact Info) Description 02/17/2024 Refill Department of Oncology in [place], [place] [address] [place] [phone] Georgiana Samayoa M.D. 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
--- OUTSIDE RECORDS SUMMARY | 2024-02-28 12:08 | XMS_ITS | Referral Summary ---
Author Organization [facility] Address [address] [place] [address] Care Team Providers Care Media Operator Name Role Phone Unavailable Primary Care Provider Unavailabl e Source Comments Patient records contain information from all sites at [facility]. For routine questions regarding patient records, call [phone] during business hours, M-F 8:00 AM - 5:00 PM Central Time. Record requests for emergency care only can be directed to [phone] at any time.[facility] Encounters Date Type Department Care Team Description 02/21/2024 9:42 AM CDT - 02/21/2024 11:59 PM CDT Hospital Encounter Department of Radiology in [place], [place] [address] [place] [address] Georgiana Samayoa M.D. Cholangiocarcinoma (HCC) Discharge Disposition: Home or Self Care 02/17/2024 Refill Department of Oncology in [place], [place] [address] [place] [address] Georgiana Samayoa M.D. Med Refill 01/20/2024 Orders Only Department of Oncology in [place], [place] [address] [place] [address] Georgiana Samayoa M.D. Cholangiocarcinoma (HCC) (Primary Dx) from Last 3 Months Medications prochlorperazin e (Compazine) 10 mg tablet TAKE 1/2 TABLET (5 MG) BY MOUTH 3 TIMES DAILY NEEDED FOR NAUSEA AND VOMITING 30 tablet 02/18/2024 Active Social History Tobacco Use Types Packs/Day Years Used Date Smoking Tobacco: Never Assessed Nutrition Answer Date Recorded Nutrition: EVOO Fat Source Unknown 07/04 Nutrition: Servings of Fruits/Vegetables per Day Not on file 07/04/2020 Dental Answer Date Recorded Dental: Regular Dentist Unknown 07/06/19 21 Sex and Gender Information Value Date Recorded Sex Assigned at Not on file 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 Other Findings: [...] RADIOPHARMACEUTICAL/MEDS: Route: intravenous fludeoxyglucose F 18 injection PENITENTIARY (FDG F-18),14.7 millicurie IMPRESSION: 1. Focal elevated [...] body lesions withoutradiotracer uptake are indeterminate. Georgiana Samayoa M.D. [facility] [place] PROCEDURES Final Resu lt from Last 3 Months Insurance [place] [address]
--- OUTSIDE RECORDS SUMMARY | 2024-02-28 12:08 | XMS_ITS | Clinical Summary ---
Author Organization [facility] Address [address] [place] [address] Care Team Providers Care Purchasing Buyer Name Role Phone Md JUSTIN Hoff Primary Care Provider [phone] Source Comments You are receiving this document as you are listed as the primary care provider,follow-up provider, or the patient has been referred to you for consultation.This is in compliance with the Medicare and[facility] EHR Incentive Program,which states Providers who transition their patient to another setting of careor provider of care or refers their patient to another provider of care shouldprovide summary care record for each transition of care or referral. [facility] Allergies No known active allergies Medications Medication [...] (10/02/2019): Added automatically from request for surgery [id number] Complete rupture of rotator cuff 08/20/2012 Tobacco abuse 04/15/2012 Obstructive sleep apnea 12/23/2007 Overview (12/19/2016): Setting: Auto 8-15 cmH20 Supplied by: [facility] PSG done: 12-10-07, 01-07-08 AHI 94 [...] on patient's age to complete this topic Infant RSV Aged Out No longer eligi ble based on patient's age to complete this topic MCV4 Aged Out No longer eligi ble based on patient's age to complete this topic Procedures Procedure Name Priority Date/Time Associated Diagnosis Comments PROSTATIC SPECIFIC ANTIGEN(SCREEN) Routine 06/20/2010 8:15 AM LINUX NETWORK ENGINEER LIPID PANEL & DIRECT LDL (IF NEEDED) Routine 06/20/2010 8:15 AM LINUX NETWORK ENGINEER from Last 3 Months or Most Recently Relevant to Health Maintenance Results * Lipid Panel and Direct LDL(If Needed) (06/20/2010 8:15 AM LINUX NETWORK ENGINEER) Cholesterol 174 0 - 200 mg/dL HP CONVERSION Triglycerides 125 0 - 149 mg/dL HP CONVERSION HDL Cholesterol 46 >39 mg/dL HP CONVERSION Cholesterol/HDL Ratio Screen 3.8 No normal range HP CONVERSION LDL Calculated 103 19 - 130 mg/dL HP CONVERSION Hours Fasting 15.0 No normal range HP CONVERSION 06/20/2010 8:15 AM LINUX NETWORK ENGINEER [facility] LAB_1 HP CONVERSION * Prostatic Specific Antigen (Screen) (06/20/2010 8:15 AM LINUX NETWORK ENGINEER) Prostate Specific Antigen 0.8 0.0 - 4.0 ng/mL HP CONVERSION 06/20/2010 8:15 AM LINUX NETWORK ENGINEER Maximiliano Barahona [facility] LAB_1 HP CONVERSION from Last 3 Months or Most Recently Relevant to Health Maintenance Advance Directives * Full Code (Latest Code Status on File) Date Activated Date Inactivated Comments 11/04/2019 8:12 AM 11/04/2019 10:54 AM Care Teams Purchasing Buyer Relationship Specialty Start Date End Date Md Luis Eduardo, [place] [address] PCP - General 08/01/10
--- OUTSIDE RECORDS SUMMARY | 2024-02-28 12:08 | XMS_ITS ---
Author Organization [facility] Address [address] [place] [address] Care Team Providers Care Tandem Operator Name Role Phone Unavailable Unavailable Unavailable Surgery Details Not on file Complications Check Surgery Details section. Procedure Estimated Blood Loss Check Surgery Details section. Procedure Findings Check Surgery Details section. Procedure Specimens Taken Check Surgery Details section.
--- OUTSIDE RECORDS SUMMARY | 2024-02-28 12:09 | XMS_ITS | Encounter Summary ---
Author Organization [facility] Address [address] [place] [address] Care Team Providers Care Band Edger Name Role Phone Anthony Moeller MD Primary Care Provider [phone] Donald Parker MD Unavailable [phone] Encounter Details Date Type Department Care Team ([facility] st Contact Info) Description 12/03/2023 [facility] [address] [place], [place] [phone] Donald Parker MD [address] [place] [address] Social History Tobacco Use Types Packs/Day Years Used Date Smoking Tobacco: Former Cigarettes 30 1 5 - 2014 Smokeless Tobacco: Never Alcohol Use Standard Drinks/Week Comments Yes 0 (1 standard drink = 0.6 oz pur e alcohol) daily 3-4 PHQ-2 Answer Date Recorded PHQ-2 Score 0 05/11/2022 Adolescent Education Answer Date Record ed Getting School Help Needed Not on file 02/13 Sex and Gender Information Value Date Recorded Sex Assigned at Not on file 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 Parker in clinic for further evaluation. Neonatal Social Worker assisted in scheduling patient at the [place] location. Patient thankful for call and has no further questions. Emerald Skelton RN on 12/04/2023 at 10:07 AM * Telephone Encounter - TerryJuly - 12/03/2023 4:15 PM CDT Patient Returning Call Reason for call: patient calling having questions about the clunking he hears as of two weeks ago from surgery that provider did two years ago, requesting callback Information relayed to patient: te sent to clinic Patient has additional questions: No [facility] or would you prefer to receive a phone call?: Patient would prefer a phone call Okay to leave a detailed message?: Yes at Cell number on file: Telephone Information: documented in this encounter Plan of Treatment Not on file documented as of this encounter Visit Diagnoses Not on filedocumented in this encounter Care Teams Band Edger Relationship Specialty Start Date End Date Anthony Moeller MD PCP - General Family Practice 11/21/17 Donald Parker MD [address] [place] [address] Assigned Musculoskeletal Provider 09/29/22 12/19/23 documented as of this encounter
--- OUTSIDE RECORDS SUMMARY | 2024-02-28 12:09 | XMS_ITS | Referral Summary ---
Author Organization [facility] Address [address] [place] [address] Care Team Providers Care Machine Accountant Name Role Phone Anthony Moeller MD Primary Care Provider [phone] Donald Parker MD Unavailable [phone] Encounters Date Type Department Care Team Description 12/20/2023 11:50 AM CDT Ancillary Procedure [facility] [address] [place] [address] Donald Parker MD Orthopedic aftercare 12/20/2023 Travel 12/20/2023 11:40 AM CDT Office Visit [facility] [address] [place] [address] Donald Parker MD Orthopedic aftercare (Primary Dx); S/P right unicompartmental knee replacement 12/03/2023 Telephone [facility] [address] [place] [address] Donald Parker MD from Last 3 Months Allergies No known active allergies Medications LISINOPRIL POIndications:Hype rtension Take 40 mg by mouth every evening Active Multiple Vitamins-Minerals (MULTIVITAMIN ADULT PO) Take by mouth every morning Active metFORMIN (GLUCOPHAGE) 500 MG tablet Take 500 mg by mouth 2 times daily (with meals) 06/05/19 22 Active amLODIPine (NORVASC) 5 MG tablet Take 5 mg by mouth every morning 02/24/20 Active aspirin 81 MG EC tabletIndications: Primary osteoarthritis of right knee Take 1 tablet (81 mg) by mouth 2 times daily 60 tablet 04/17/20 Active senna-docusate (SENOKOT-S/PERICOL CARLOS) 8.6-50 MG tabletIndications: Primary osteoarthritis of right knee Take 1-2 tablets by mouth 2 times daily Take while on oral narcotics to prevent or treat constipation. 30 tablet 04/17/20 Active Additional Information Patient not taking.Reported on 12/20/2023 polyethylene glycol (MIRALAX) 17 g packetIndications: Primary osteoarthritis of right knee Take 17 g by mouth daily 7 packet 04/17/20 Active Additional Information Patient not taking.Reported on 12/20/2023 acetaminophen (TYLENOL) 325 MG tabletIndications: Primary osteoarthritis of right knee Take 2 tablets (650 mg) by mouth every 4 hours as needed for other (mild pain) 100 tablet 04/17/20 Active Additional Information Patient not taking.Reported on 12/20/2023 ibuprofen (ADVIL/MOTRIN) 600 MG tabletIndications: Primary osteoarthritis of right knee Take 1 tablet (600 mg) by mouth every 6 hours as needed for mild pain 30 tablet 04/17/20 Active Additional Information Patient not taking.Reported on [...] Smoking Tobacco: Former Cigarettes 1 30 1 - 2014 Smokeless Tobacco: Never Tobacco Cessation:Counseling [...] on file Legal Sex Male 5:12 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 TAX 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 Gender Identity Not on file Sexual Orientation Not on file Last Filed Vital Signs Vital Sign Reading Time Taken Comments Blood Pressure 129/86 12/20/2023 11:46 AM CDT Pulse 72 04/18/2022 8:11 AM INCOME TAX ADJUSTER Temperature 36.5 ??C (97.7 ??F) 04/18/2022 8 :11 AM INCOME TAX ADJUSTER Respiratory Rate 16 04/18/2022 8:11 AM INCOME TAX ADJUSTER Oxygen Saturation 97% 04/18/2022 8:1 1 AM INCOME TAX ADJUSTER Inhaled Oxygen Concentration - - Weight 128.8 kg (284 lb) 05/25/2022 10: 23 AM INCOME TAX ADJUSTER pulled from last visit Height 175.3 cm (5' 9) 05/25/2022 10:2 3 AM INCOME TAX ADJUSTER Body Mass Index 41.94 05/25/2022 10:23 AM INCOME TAX ADJUSTER Plan of Treatment Not on file Medical Devices Implanted Type Area Licensed Occupational Therapist Device Identifier Shelf Expiration Date Model / Serial / Lot Bone Cement Simplex Full Dose 6191-1-001 - [id number] Implanted:Qty : 1 on 04/17/2022 by Donald Parker MD at [facility] Cement, Bone Right: Knee [employer] 06/27/2023 6191-1-001 / / [id number] Twinfix Ultra Pk 5.5mm Suture Mulberry With 2 Ultrabraid Sutures Implanted:Qty : 1 on 12/10/2017 by Les Israel MD at [facility] Metallic Hardware/An chor Right: Shoulder 05/23/2022 [id number] / / [id number] 2.8mm Q-Fix Suture Mulberry Implanted:Qty : 1 on 12/10/2017 by Les Israel MD at [facility] Metallic Hardware/An chor Right: Shoulder 04/03/2020-2800 / / [id number] Knee Uni Tibia Tray Mobile Bear D5 Rm/Ll - [id number] Implanted:Qty : 1 on 04/17/2022 by Donald Parker MD at [facility] Total Joint Component/I nsert Right: Knee [employer] 07/27/2031 [id number] / / [id number] Knee [place] Uni Femoral Med - [id number] Implanted:Qty : 1 on 04/17/2022 by Donald Parker MD at [facility] Total Joint Component/I nsert Right: Knee [employer] 03/19/2032 [id number] / / [id number] Insert [place] Anatomic Miller R Med 4 - [id number] Implanted:Qty : 1 on 04/17/2022 by Donald Parker MD at [facility] Total Joint Component/I nsert Right: Knee [employer] 11/16/2025 [id number] / / [id number] Twinfix Ultra Pk 5.5mm Suture Mulberry With 2 Ultrabraid Sutures Implanted:Qty : 1 on 12/10/2017 by Les Israel MD at [facility] Right: Shoulder [employer] 01/10/2022 [id number] / / [id number] Procedures Procedure Name Priority Date/Time Associated Diagnosis Comments XR KNEE RIGHT 3 VIEWS Routine 12/20/2023 12:06 PM CDT Orthopedic aftercare GLUCOSE BY METER Routine 04/18/2022 7:15 AM INCOME TAX ADJUSTER from Last 3 Months or Most Recently Relevant to Health Maintenance Results * XR Knee Right 3 Views (12/20/2023 12:06 PM CDT) Anatomical Region Laterality Modality Thigh, Knee, Leg Right Computed Radiog su Impressions 12/20/2023 3:10 PM CDT IMPRESSION: Medial unicompartmental hemiarthroplasty. No evidence of loosening or periprosthetic fracture. No joint effusion. JAMES GAMBLE DO SYSTEM ID: [id number] Narrative 12/20/2023 3:10 PM CDT EXAM: XR KNEE RIGHT 3 VIEWS DATE/TIME: 12/20/2023 12:06 PM INDICATION: Orthopedic aftercare COMPARISON: 05/25/2022 Procedure Note James Gamble DO - 12/20/2023 EXAM: XR KNEE RIGHT 3 VIEWS DATE/TIME: 12/20/2023 12:06 PM INDICATION: Orthopedic aftercare COMPARISON: 05/25/2022 IMPRESSION: Medial unicompartmental hemiarthroplasty. No evidence of loosening or periprosthetic fracture. No joint effusion. JAMES GAMBLE DO SYSTEM ID: [id number] Donald Parker MD IMG DIAGNOSTIC IMAGING ORDER KEV Final Result * (ABNORMAL) Glucose by meter (04/18/2022 7:15 AM INCOME TAX ADJUSTER) GLUCOSE BY METER POCT 143(H) 70 - 99 mg/dL 04/18/2022 7:22 AM INCOME TAX ADJUSTER LABORATORY POC Blood, Capillary BLOOD SPECIMEN / Unknown 04/18/2022 7:15 AM INCOME TAX ADJUSTER 04/18/2022 7:22 AM INCOME TAX ADJUSTER Donald Parker MD LAB - BEAKER POCT Final Resu lt LABORATORY [facility] [address] [facility] Lab (1st floor, no room number) [place] [address], [facility] [phone] from Last 3 Months or Most Recently Relevant to Health Maintenance Insurance [place] [address] [place] [id number] [facility] [employer] Advance Directives For more information, please contact: [phone] * Full Code (Latest Code Status on File) Date Activated Date Inactivated Comments 04/17/2022 11:28 AM 04/18/2022 10:58 AM All basi c and advanced life-sustaining interventions are performed as appropriate Question Answer Comments Code status determined by: Discussion with adriana nt/ legal decision maker Care Teams Machine Accountant Relationship Specialty Start Date End Date Anthony Moeller MD PCP - General Family Practice 11/21/17 Donald Parker MD [address] [place] [phone] Assigned Musculoskeletal Provider 01/20/24
--- OUTSIDE RECORDS SUMMARY | 2024-02-28 12:09 | XMS_ITS | Encounter Summary ---
Author Organization [facility] Address [address] [place] [address] Care Team Providers Care President Mortgage Company Name Role Phone Anthony Moeller MD Primary Care Provider [phone] Encounter Details Date Type Department Care Team (Latest Contact Info) Description 12/20/2023 Travel Social History Tobacco Use Types Packs/Day Years Used Date Smoking Tobacco: Former Cigarettes 2014 Smokeless Tobacco: Never Alcohol Use Standard Drinks/Week Comments Yes 0 (1 standard drink = 0.6 oz pur e alcohol) daily 3-4 PHQ-2 Answer Date Recorded PHQ-2 Score 0 05/11/2022 Adolescent Education Answer Date Record ed Getting School Help Needed Not on file 02/13 Sex and Gender Information Value Date Recorded Sex Assigned at Not on file 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
--- OUTSIDE RECORDS SUMMARY | 2024-02-28 12:09 | XMS_ITS | Encounter Summary ---
Author Organization [place] Address [address] [place] [address] Care Team Providers Care Freight Loading Supervisor Name Role Phone Anthony Moeller MD Primary Care Provider [phone] Reason for Referral * Diagnostic Imaging XR (Routine) - Pending Review Specialty Diagnoses / Procedures Referred By Contac t Referred To Contact Radiology. Diagnoses Orthopedic aftercare Procedures XR Knee Right 3 Views Donald Parker MD [address] [place] [address] Phone: tel: fax: Referral ID Status Reason Start Date Expiration Date V isits Requested Visits Authorized [id number] Pending Review 12/20/2023 12/19/2024 1 1 Encounter Details Date Type Department Care Team (Latest Contact Info) Description 12/20/2023 11:40 AM CDT Office Visit [facility] [address] [place] [address] Donald Parker MD [address] [place] [address] Orthopedic aftercare (Primary Dx); S/P right [...] on file Legal Sex Male 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 [facility] Orth[facility]edic [facility] Consultation by Donald Parker [...] redness fever or malaise. 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 [...] his 5-year postop. Donald Parker MD, PhD Legal Word Processor Adult Reconstruction [facility] Department of Orthopaedic Surgery documented in this [...] joint effusion. JMAES GAMBLE DO SYSTEM ID: ??[id number] Narrative 12/20/2023 3:10 PM CDT EXAM: XR KNEE RIGHT 3 VIEWS DATE/TIME: 12/20/2023 12:06 PM INDICATION: Orthopedic aftercare COMPARISON: 05/25/2022 Procedure Note James Gamble DO - 12/20/2023 EXAM: XR KNEE RIGHT 3 VIEWS DATE/TIME: 12/20/2023 12:06 PM INDICATION: Orthopedic aftercare COMPARISON: 05/25/2022 IMPRESSION: Medial unicompartmental hemiarthroplasty. No evidence of loosening or periprosthetic fracture. No joint effusion. JAMES GAMBLE DO SYSTEM ID: [id number] Donald Parker MD IMG DIAGNOSTIC IMAGING ORDER KEV Final Result documented in this encounter Visit Diagnoses Diagnosis Orthopedic aftercare- Primary Unspecified orthopedic aftercare S/P right unicompartmental knee replacement Knee joint replacement by other means Orthopedic aftercare Unspecified orthopedic aftercare documented in this encounter Care Teams Freight Loading Supervisor Relationship Specialty Start Date End Date Anthony Moeller MD PCP - General Family Practice 11/21/17 documented as of this encounter
--- OUTSIDE RECORDS SUMMARY | 2024-02-28 12:09 | XMS_ITS | Clinical Summary ---
Author Organization [employer] [facility] Address [place], [place] [address] Care Team Providers Care Stage Manager Name Role Phone Anthony Moeller MD Primary Care Provider [phone] Allergies No known active allergies Medications Medication [...] 5 mg by mouth once daily. Active Active Problems Problem Noted Date Diagnosed Date Rotator cuff tear 09/15/2012 Glenoid labral tear 09/15/2012 Encounters Date Type Department Care Team Description 02/21/2024 Transcribe Orders [facility] [address] [place] [address] Georgiana Samayoa MD 01/14/2024 10:24 AM CDT - 01/14/2024 11:59 PM CDT Hospital Encounter [facility] Medical Imaging [address] [place] [address] Anthony Moeller MD Hepatomegaly 01/14/2024 Travel from Last 3 Months Social History Tobacco [...] 01/14/2024 11:13 AM CDT Plan of Treatment Upcoming Encounters Date Type Department Care Team (Late st Contact Info) Description 03/11/2024 9:00 AM CARBIDE OPERATOR Phone Office Visit [facility] [address] [place] [address] Kayli Ty MS, [facility] [address] [place] [address] Health Maintenance Due Date Last Done Comments [...] this topic Medical Devices Implanted Type Area Therapeutic Specialist Device Identifier Shelf Expiration Date Model / Serial / Lot Sut Ancr 4.75 W/Loop - [id number] Implanted:Qty: 1 on 09/16/2012 by Jama Cohen MD at [facility] Right: Shoulder [employer] 04/27/2014 [id number] / / [id number] Procedures Procedure Name Priority Date/Time Associated Diagnosis Comments CT BIOPSY LIVER Routine 01/14/2024 12:27 PM CDT Hepatomegaly PATH [facility]NA CYTOLOGY ASP CYTOLOGY Today 01/14/2024 12:14 PM CDT FOCUS Routine 01/14/2024 12:14 PM CDT GLUCOSE METER Routine 01/14/2024 11:20 AM CDT HEMOGLOBIN STAT 01/14/2024 10:51 AM CDT PLATELET COUNT STAT 01/14/2024 10:51 AM CDT PROTIME-INR STAT 01/14/2024 10:51 AM CDT from Last 3 Months Results * CT BIOPSY LIVER (01/14/2024 12:27 PM CDT) Anatomical Region Laterality Modality LIVER Computed Tomogra phy, Other, Other, Other Narrative 01/14/2024 3:28 PM CDT RADIOLOGY POST PROCEDURE NOTE ?? 01/14/2024 Rolando Schwartz [id number] INFORMEDCONSENT: In my discussion, prior to [...] Please call with questions. Diane Dickinson MD [place] Protocol A. Pre-procedure verification complete yes 1-relevant [...] 1:33 PM CDT Diane Dickinson MD LABORATORY [facility] [address] [place] [address], * FNA Cytology REVENUE INVESTIGATOR (01/14/2024 12:14 PM CDT) Case Report Medical Cytology Report ? Case: [id number] ? Authorizing Provider: ??Diane Dickinson MD ?Collected: ? 01/14/2024 1214 ? Ordering Location: ? [facility] ?Received: ?01/14/2024 1222 ? Hospital Medical Imaging ? Pathologist: ? Jama Alcocer MD ? Specimen: ?Liver ? 01/24/2024 1:29 PM CDT [facility] Amendment 01/24/2024 - Amendmen t to report [facility] Solid Tumor Targeted (52 gene) Next Generation Sequencing results. Please see diagnosis and attached scanned report. 01/24/2024 1:29 PM CDT [facility] Final Diagnosis A) LIVER, CT-GUIDED [...] attached NGS report 01/24/2024 1:29 PM CDT [facility] Amendment electronically signed by Aissatou [...] [place]. Please contact us with any questions ([facility] GI pathology service [phone]). Neoplastic tissue is available for ancillary studies, to request please contact the [facility] ([phone]). Neoplastic tissue available for ancillary studies: ?? Charan NGS testing: ?- FFPE tissue blocks: A2 and A3 ?- Cytology slides: A1-1 (used for NGS); A1-2, A1-3, A1-4 remaining ?? Tests using immunostains and/or FISH (requiring 100 cells): A2 and A3 ?? Send out (outside vendor) testing requiring 5 x 5 mm of tumor: A2 and A3 01/24/2024 1:29 PM T [facility] Clinical Information Mr. Schwartz is a 53 y.o. who undergoes CT-guided needle biopsy of liver. 01/24/2024 1:29 PM CDT [facility] Gross Description A) Received identified [...] than 72 hours. 01/24/2024 1:29 PM T [facility] Adequacy Assessment A) C.A.M. assessed adequacy from the air-dried smears at the time of the procedure with an impression of Adequate. 01/24/2024 1:29 PM T [facility] Microscopic Description Specimen adequacy: Adequate [...] results support carcinoma. 01/24/2024 1:29 PM CDT [facility] Molecular Diagnostics Summary Preanalytical microdissection of tissue/cytology slides for Next Generation Sequencing was performed according to laboratory protocol as follows: Microscopic examination was performed by a pathologist, Dr. Alcocer, to determine specimen adequacy and identify areas of tumor for isolation. Areas of tumor selected and marked by the pathologist were manually harvested by a laboratory equipment cleaner for nucleic acid extraction. 01/24/2024 1:29 PM CDT [facility] Additional Information Cytology is screened at [facility] - [address], [place] [address] and [facility] - [address] [place] [address] and [facility] - [address] [place] [address] Interpreted at [facility] - [address], [place] [address] Immunohistochemistry controls were reviewed and approved by the pathologist during this examination. 01/24/2024 1:29 PM CDT [facility] Aspirate SPECIMEN FROM LIVER / Unknown 01/14/2024 12:14 PM CDT 01/14/2024 12:22 PM CDT Diane Dickinson MD PATHOLOGY/CYTOLOGY [facility] [address] [place] [address], [place] * (ABNORMAL) GLUCOSE METER (01/14/2024 11:20 AM CDT) GLUCOSE METER 101(H) 65 - 100 mg/dL 01/15/2024 6:08 AM CDT [facility] Blood BLOOD SPECIMEN / Unknown 01/14/2024 11:20 AM CDT 01/15/2024 6:08 AM CDT Anthony Moeller MD CHEMISTRY Performing Organization Address [facility]/ZIP Co de Phone Number [facility] [address] [place] [address], * Platelet Count (01/14/2024 10:51 AM CDT) PLATELET COUNT 215 140 - 440 thou/cu mm 01/14/2024 11:16 AM CDT [facility] MPV 9.4 6.5 - 11.0 fL 01/14/2024 11:16 AM CDT [facility] Blood BLOOD SPECIMEN / Unknown Venipuncture / Unknown 01/14/2024 10:51 AM CDT 01/14/2024 10:58 AM CDT Diane Dickinson MD HEMATOLOGY Performing Organization Address [facility] Co de Phone Number [facility] [address] [place] [address], * (ABNORMAL) Hemoglobin (01/14/2024 10:51 AM CDT) HEMOGLOBIN 11.7(L) 13.5 - 17.5 g/dL 01/14/2024 11:16 AM CDT [facility] MCV 93 80 - 100 fL 01/14/2024 11:16 AM CDT [facility] Blood BLOOD SPECIMEN / Unknown Venipuncture / Unknown 01/14/2024 10:51 AM CDT 01/14/2024 10:58 AM CDT Diane Dickinson MD HEMATOLOGY Performing Organization Address City/[facility]/ZIP Co de Phone Number [facility] [address] [place] [address], [place] * (ABNORMAL) Protime-INR (01/14/2024 10:51 AM CDT) INR 1.3(H) <1.3 01/14/2024 11:13 AM CDT [facility] PROTIME 14.4(H) 10.3 - 12.3 sec 01/14/2024 11:13 AM CDT [facility] Blood BLOOD SPECIMEN / Unknown Venipuncture / Unknown 01/14/2024 10:51 AM CDT 01/14/2024 10:59 AM CDT Narrative [facility] - 01/14/2024 11:13 AM CDT ?Therapeutic Range [...] is on UFH. Diane Dickinson MD HEMATOLOGY [facility] [address] [place] [address], from Last 3 Months Care Teams Stage Manager Relationship Specialty Start Date End Date Anthony Moeller MD [address] [place] [phone] PCP - General Family Practice 01/09/24
--- OUTSIDE RECORDS SUMMARY | 2024-02-28 12:09 | XMS_ITS | Clinical Summary ---
Author Organization [facility] Address [address] [place] [address] Care Team Providers Care Marine Drafter Name Role Phone Anthony Moeller MD Primary Care Provider [phone] Donald Parker MD Unavailable [phone] Allergies No known active allergies Medications LISINOPRIL POIndications:Hype rtension Take 40 mg by mouth every evening Active Multiple Vitamins-Minerals (MULTIVITAMIN ADULT PO) Take by mouth every morning Active metFORMIN (GLUCOPHAGE) 500 MG tablet Take 500 mg by mouth 2 times daily (with meals) 06/05/19 22 Active amLODIPine (NORVASC) 5 MG tablet Take 5 mg by mouth every morning 02/24/20 22 Active aspirin 81 MG EC tabletIndications: Primary osteoarthritis of right knee Take 1 tablet (81 mg) by mouth 2 times daily 60 tablet 04/17/20 22 Active senna-docusate (SENOKOT-S/PERICOL CARLOS) 8.6-50 MG tabletIndications: Primary osteoarthritis of right knee Take 1-2 tablets by mouth 2 times daily Take while on oral narcotics to prevent or treat constipation. 30 tablet 04/17/20 22 Active Additional Information Patient not taking.Reported on [...] 11:50 AM CDT Ancillary Procedure [facility] [address] [place] [address] Donald Parker MD Orthopedic aftercare 12/20/2023 11:40 AM CDT Office Visit [facility] Orthopedic [address] [address] Donald Parker MD Orthopedic aftercare (Primary Dx); S/P right unicompartmental knee replacement 12/20/2023 Travel 12/03/[address] 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 Gender Identity Not on file Sexual Orientation Not on file Last Filed Vital Signs Vital Sign Reading Time Taken Comments Blood Pressure 129/86 12/20/2023 11:46 AM CDT Pulse 72 04/18/2022 8:11 AM PRESSING MACHINE OPERATOR Temperature 36.5 ??C (97.7 ??F) 04/18/2022 8 :11 AM PRESSING MACHINE OPERATOR Respiratory Rate 16 04/18/2022 8:11 AM PRESSING MACHINE OPERATOR Oxygen Saturation 97% 04/18/2022 8:1 1 AM PRESSING MACHINE OPERATOR Inhaled Oxygen Concentration - - Weight 128.8 kg (284 lb) 05/25/2022 10: 23 AM PRESSING MACHINE OPERATOR pulled from last visit Height 175.3 cm (5' 9) 05/25/2022 10:2 3 AM PRESSING MACHINE OPERATOR Body Mass Index 41.94 05/25/2022 10:23 AM PRESSING MACHINE OPERATOR Plan of Treatment Health Maintenance Due [...] Td or Tdap) 12/02/2029 12/03/2019, 06/13/2010, 04/28/1994 RSV VACCINE (1 - 1-dose 75+ series) 09/12/2043 Pneumococcal Vaccine: Pediatrics (0 to 5 Years) [...] this topic Medical Devices Implanted Type Area Product Marketing Intern Device Identifier Shelf Expiration Date Model / Serial / Lot Bone Cement Simplex Full Dose 6191-1-001 - [id number] Implanted:Qty : 1 on 04/17/2022 by Donald Parker MD at [facility] Cement, Bone Right: Knee [employer] 06/27/2023 6191-1-001 / / [id number] Twinfix Ultra Pk 5.5mm Suture Rio With 2 Ultrabraid Sutures Implanted:Qty : 1 on 12/10/2017 by Les Israel MD at [facility] Metallic Hardware/An chor Right: Shoulder 05/23/2022 [id number] / / [id number] 2.8mm Q-Fix Suture Rio Implanted:Qty : 1 on 12/10/2017 by Les Israel MD at [facility] Metallic Hardware/An chor Right: Shoulder 04/03/2020 [id number] / / [id number] Knee Uni Tibia Tray Mobile Bear D5 Rm/Ll - [id number] Implanted:Qty : 1 on 04/17/2022 by Donald Parker MD at [facility] Total Joint Component/I nsert Right: Knee [employer] 07/27/2031 [id number] / / [id number] Knee [place] Uni Femoral Med - [id number] Implanted:Qty : 1 on 04/17/2022 by Donald Parker MD at [facility] Total Joint Component/I nsert Right: Knee [employer] 03/19/2032 [id number] / / [id number] Insert [place] Anatomic Bear R Med Sz 4 - [id number] Implanted:Qty : 1 on 04/17/2022 by Donald Parker MD at [facility] Total Joint Component/I nsert Right: Knee [employer] 11/16/2025 [id number] / / [id number] Twinfix Ultra Pk 5.5mm Suture Rio With 2 Ultrabraid Sutures Implanted:Qty : 1 on 12/10/2017 by Les Israel MD at [facility] Right: Shoulder [employer] 01/10/2022 [id number] / / [id number] Procedures Procedure Name Priority Date/Time Associated Diagnosis Comments XR KNEE RIGHT 3 VIEWS Routine 12/20/2023 12:06 PM CDT Orthopedic aftercare GLUCOSE BY METER Routine 04/18/2022 7:15 AM PRESSING MACHINE OPERATOR from Last 3 Months or Most Recently Relevant to Health Maintenance Results * XR Knee Right 3 Views (12/20/2023 12:06 PM CDT) Anatomical Region Laterality Modality Thigh, Knee, Leg Right Computed Radiog su Impressions 12/20/2023 3:10 PM CDT IMPRESSION: Medial unicompartmental hemiarthroplasty. No evidence of loosening or periprosthetic fracture. No joint effusion. JAMES GAMBLE DO SYSTEM ID: [id number] Narrative 12/20/2023 3:10 PM CDT EXAM: XR KNEE RIGHT 3 VIEWS DATE/TIME: 12/20/2023 12:06 PM INDICATION: Orthopedic aftercare COMPARISON: 05/25/2022 Procedure Note James Gamble DO - 12/20/2023 EXAM: XR KNEE RIGHT 3 VIEWS DATE/TIME: 12/20/2023 12:06 PM INDICATION: Orthopedic aftercare COMPARISON: 05/25/2022 IMPRESSION: Medial unicompartmental hemiarthroplasty. No evidence of loosening or periprosthetic fracture. No joint effusion. JAMES GAMBLE DO SYSTEM ID: [id number] Donald Parker MD IMG DIAGNOSTIC IMAGING ORDER KEV Final Result * (ABNORMAL) Glucose by meter (04/18/2022 7:15 AM PRESSING MACHINE OPERATOR) [facility] GLUCOSE BY METER POCT 143(H) 70 - 99 mg/dL 04/18/2022 7:22 AM PRESSING MACHINE OPERATOR [facility] POC Blood, Capillary BLOOD SPECIMEN / Unknown 04/18/2022 7:15 AM PRESSING MACHINE OPERATOR 04/18/2022 7:22 AM PRESSING MACHINE OPERATOR Donald Parker MD LAB - BEAKER POCT Final Resu lt [facility]AT[facility] POC [facility] [address] Lab (1st floor, no room number) [place] [address], [facility] [phone] from Last 3 Months or Most Recently Relevant to Health Maintenance Insurance [facility] [place] [address] [facility] [employer] Advance Directives For more information, please contact: [phone] * Full Code (Latest Code Status on File) Date Activated Date Inactivated Comments 04/17/2022 11:28 AM 04/18/2022 10:58 AM All basi c and advanced life-sustaining interventions are performed as appropriate Question Answer Comments Code status determined by: Discussion with adriana nt/ legal decision maker Care Teams Marine Drafter Relationship Specialty Start Date End Date Anthony Moeller MD PCP - General Family Practice 11/21/17 Donald Parker MD [address] [place] [address] Assigned Musculoskeletal Provider 01/20/24
--- OUTSIDE RECORDS SUMMARY | 2024-02-28 12:09 | XMS_ITS | Encounter Summary ---
Author Organization [place] Address [address] [place] [address] Care Team Providers Care Facilities Assistant Name Role Phone Anthony Moeller MD Primary Care Provider [phone] Reason for Visit * Diagnostic Imaging XR (Routine) - Pending Review Specialty Diagnoses / Procedures Referred By Contac t Referred To Contact Radiology. Diagnoses Orthopedic aftercare Procedures XR Knee Right 3 Views Donald Parker MD [address] [place] [address] Phone: tel: fax: Referral ID Status Reason Start Date Expiration Date V isits Requested Visits Authorized [id number] Pending Review 12/20/2023 12/19/2024 1 1 Encounter Details Date Type Department Care Team (Latest Contact Info) Description 12/20/2023 11:50 AM CDT Ancillary Procedure [facility] [address] [place], [place] [address] Donald Parker MD [address] [place] [address] Orthopedic aftercare Social History Tobacco Use [...] on file 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 JAMES GAMBLE DO SYSTEM ID: [id number] Narrative 12/20/2023 3:10 PM CDT EXAM: XR KNEE RIGHT 3 VIEWS DATE/TIME: 12/20/2023 12:06 PM INDICATION: Orthopedic aftercare COMPARISON: 05/25/2022 Procedure Note James Gamble DO - 12/20/2023 EXAM: XR KNEE RIGHT 3 VIEWS DATE/TIME: 12/20/2023 12:06 PM INDICATION: Orthopedic aftercare COMPARISON: 05/25/2022 IMPRESSION: Medial unicompartmental hemiarthroplasty. No evidence of loosening or periprosthetic fracture. No joint effusion. JAMES GAMBLE DO SYSTEM ID: [id number] Donald Parker MD IMG DIAGNOSTIC IMAGING ORDER KEV Final Result documented in this encounter Visit Diagnoses Diagnosis Orthopedic aftercare Unspecified orthopedic aftercare documented in this encounter Care Teams Facilities Assistant Relationship Specialty Start Date End Date Anthony Moeller MD PCP - General Family Practice 11/21/17 documented as of this encounter
--- NOTE | 2024-02-28 12:15 | CRLHL7_ITS ---
For Patients: As a result of the Century Cures Act, medical imaging exams and procedure reports are released immediately into your electronic medical record. You may view this report before your referring provider. If you have questions, please contact your health care provider. INDICATION: Increased shortness of breath TECHNIQUE: Chest 2 views. COMPARISON: CT chest 01/29/2024, chest radiograph 01/27/2024. FINDINGS: Cardiovascular and mediastinum: Heart size is normal. Unremarkable mediastinum. Right chest wall port catheter with tip in the upper SVC. Lungs and pleural spaces: Left upper lobe calcified granuloma. Scattered pulmonary nodules throughout the lungs are better seen on the recent CT. No pneumothorax or pleural effusion. Bones and soft tissues: No acute findings.. IMPRESSION: No consolidation or evidence of pulmonary edema. Known nodules throughout the lungs are better seen on recent CT. Dictated by Jamila Silva MD @ 02/28/2024 12:41:52 PM (Electronically Signed)
== END 2024-02-28 12:06 | disposition home or self-care (01) ==
LOC: RAD 12:06
PROVIDERS: PCP Family Medicine; Visit Provider Clinical Nurse Specialist
DX: R06.02 Shortness of breath (principal); R91.8 Other nonspecific abnormal finding of lung field; R05.8 Other specified cough
CPT/HCPCS: 71046

== ENCOUNTER 2024-03-27 07:04 | Outpatient (CLI) | payer BC, SELFPAY ==
--- OUTSIDE RECORDS SUMMARY | 2024-03-27 07:07 | XMS_ITS | Encounter Summary ---
Author Organization [facility] Address [address] [place] [address] Care Team Providers Care Glass Loading Equipment Tender Name Role Phone Unavailable Primary Care Provider Unavailabl e Reason for Visit * Reason Comments Med Refill Encounter Details Date Type Department Care Team (Late st Contact Info) Description 03/19/2024 Refill Department of Oncology in [place], [place] [address] [place] [phone] Georgiana Samayoa M.D. 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
--- OUTSIDE RECORDS SUMMARY | 2024-03-27 07:07 | XMS_ITS | Referral Summary ---
Author Organization [facility] Address [address] [place] [address] Care Team Providers Care Leadership Recruiter Name Role Phone Unavailable Primary Care Provider Unavailabl e Source Comments Patient records contain information from all sites at [facility]. For routine questions regarding patient records, call [phone] during business hours, M-F 8:00 AM - 5:00 PM Central Time. Record requests for emergency care only can be directed to [phone] at any time.[facility] Encounters Date Type Department Care Team Description 03/19/2024 Refill Department of Oncology in [place], [place] [address] [place] [address] Georgiana Samayoa M.D. Med Refill 02/21/2024 9:42 AM CDT - 02/21/2024 11:59 PM CDT Hospital Encounter Department of Radiology in [place], [place] [address] [place] [address] Georgiana Samayoa M.D. Cholangiocarcinoma (HCC) Discharge Disposition: Home or Self Care 02/17/2024 Refill Department of Oncology in [place], [place] [address] [place] [address] Georgiana Samayoa M.D. Med Refill 01/20/2024 Orders Only Department of Oncology in [place], [place] [address] [place] [address] Georgiana Samayoa M.D. 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 Focal elevated radiotracer uptake in hepatic segment 4 near the hilum, may correspond to previous biopsy result of adenocarcinoma/cholangiocarcinoma. Recommend further evaluation with liver MRI or multiphase CT. 2. Multiple enlarged upper abdominal lymph nodes with low level radiotracer uptake, suspicious for metastases. 3. Enlarged mediastinal lymph nodes with low level radiotracer uptake, suspicious for metastases. 4. Innumerable sub-6 mm pulmonary nodules without detectable radiotracer [...] RADIOPHARMACEUTICAL/MEDS: Route: intravenous fludeoxyglucose F 18 injection JAIL (FDG F-18),14.7 millicurie Procedure Note Shant Bryson [...] indeterminate lytic lesions in the T8 and G2bmbkxmyyi bodies without elevated radiotracer uptake. Other Findings: [...] RADIOPHARMACEUTICAL/MEDS: Route: intravenous fludeoxyglucose F 18 injection JAIL (FDG F-18),14.7 millicurie IMPRESSION: 1. Focal elevated [...] withoutradiotracer uptake are indeterminate. Georgiana Samayoa M.D. IM NM PROCEDURES Final Resu lt from Last 3 Months Insurance [facility]
--- OUTSIDE RECORDS SUMMARY | 2024-03-27 07:07 | XMS_ITS | Clinical Summary ---
Author Organization [facility] Address [address] [place] [address] Care Team Providers Care Pharmacovigilance Specialist Name Role Phone Md JUSTIN Hoff Primary Care Provider [phone] Source Comments You are receiving this document as you are listed as the primary care provider,follow-up provider, or the patient has been referred to you for consultation.This is in compliance with the Medicare and[facility] EHR Incentive Program,which states Providers who transition their patient to another setting of careor provider of care or refers their patient to another provider of care shouldprovide summary care record for each transition of care or referral. [facility] Allergies No known active allergies Medications Medication [...] (10/02/2019): Added automatically from request for surgery [id number] Complete rupture of rotator cuff 08/20/2012 Tobacco abuse 04/15/2012 Obstructive sleep apnea 12/23/2007 Overview (12/19/2016): Setting: Auto 8-15 cmH20 Supplied by: [facility] PSG done: 12-10-07, 01-07-08 AHI 94 [...] 73 11/04/2019 8:30 AM CDT Temperature 36.2 C (97.2 F) 11/04/2019 8:15 AM CDT Respiratory Rate 16 11/04/2019 8:30 AM CDT [...] PROSTATIC SPECIFIC ANTIGEN(SCREEN) Routine 06/20/2010 8:15 AM HEEL TOP LIFT SPLITTER LIPID PANEL & DIRECT LDL (IF NEEDED) Routine 06/20/2010 8:15 AM HEEL TOP LIFT SPLITTER from Last 3 Months or Most Recently Relevant to Health Maintenance Results * Lipid Panel and Direct LDL(If Needed) (06/20/2010 8:15 AM HEEL TOP LIFT SPLITTER) Cholesterol 174 0 - 200 mg/dL HP CONVERSION Triglycerides 125 0 - 149 mg/dL HP CONVERSION HDL Cholesterol 46 >39 mg/dL HP CONVERSION Cholesterol/HDL Ratio Screen 3.8 No normal range HP CONVERSION LDL Calculated 103 19 - 130 mg/dL HP CONVERSION Hours Fasting 15.0 No normal range HP CONVERSION 06/20/2010 8:15 AM HEEL TOP LIFT SPLITTER [facility]_1 HP CONVERSION * Prostatic Specific Antigen (Screen) (06/20/2010 8:15 AM HEEL TOP LIFT SPLITTER) Prostate Specific Antigen 0.8 0.0 - 4.0 ng/mL HP CONVERSION 06/20/2010 8:15 AM HEEL TOP LIFT SPLITTER [facility]_1 HP CONVERSION from Last 3 Months or Most Recently Relevant to Health Maintenance Advance Directives * Full Code (Latest Code Status on File) Date Activated Date Inactivated Comments 11/04/2019 8:12 AM 11/04/2019 10:54 AM Care Teams Pharmacovigilance Specialist Relationship Specialty Start Date End Date Md Luis Eduardo, [place] [address] PCP - General 08/01/10
--- OUTSIDE RECORDS SUMMARY | 2024-03-27 07:07 | XMS_ITS | Clinical Summary ---
Author Organization [facility] Address [place], [place] [address] Care Team Providers Care Rag Inspector Name Role Phone Anthony Moeller MD Primary Care Provider [phone] Allergies No known active allergies Medications Medication [...] Encounters Date Type Department Care Team Description 03/24/2024 Telephone [facility] [address] [place] [address] Kayli Ty MS, [facility] Results 03/13/2024 Telephone [facility] [address] [place] [address] [facility] 03/11/2024 9:00 AM FILM ARCHIVIST Phone Office Visit [facility] [address] [place] [address] Kayli Ty MS, [facility] Counseling (Cancer genetic counseling); Phone Visit 03/03/2024 Telephone [facility] [address] [place] [address] [facility] 02/21/2024 Transcribe Orders [facility] [address], [place] [address] Georgiana Samayoa MD 01/14/2024 10:24 AM CDT - 01/14/2024 11:59 PM CDT Hospital Encounter [facility] [address] [place] [address] Anthony Moeller MD Hepatomegaly 01/14/2024 Travel from [...] 65 01/14/2024 2:15 PM CDT Temperature 36.8 C (98.2 F) 01/14/2024 11:13 AM CDT Respiratory Rate 16 01/14/2024 2:15 PM CDT [...] this topic Medical Devices Implanted Type Area Signal Wirer Device Identifier Shelf Expiration Date Model / Serial / Lot Sut Ancr 4.75 W/Loop - [id number] Implanted:Qty: 1 on 09/16/2012 by Jama Cohen MD at [facility] Right: Shoulder [employer] 04/27/2014 [id number] / / [id number] Procedures Procedure Name Priority Date/Time Associated Diagnosis [...] 3:28 PM CDT RADIOLOGY POST PROCEDURE NOTE 01/14/2024 Rolando Schwartz [id number] INFORMEDCONSENT: In my discussion, prior to [...] the patient and proper consent form obtained. Axial cuts through the liver performed in the supine position. Under CT guidance and sterile condition 18-gauge core biopsy was obtained from the lesion segment 4 of the liver. Cytology confirmed adequacy. Postprocedure CT was performed showed no hemorrhage or complications. Patient tolerated procedure well. PATIENT POSITION: supine ANTISEPTIC PREPARATION and BARRIER TECHNIQUES USED: Skin was prepped and draped in the usual sterile fashion. IMAGING GUIDANCE FOR ACCESS / PROCEDURE: CT Permanently recorded images are archived in PACS. ACCESS LOCATION / SITE / TECHNIQUE: Anterior approach. EQUIPMENT UTILIZED: 17/18-gauge core biopsy system CLOSURE: none RADIATION DOSE: total exam DLP: 1400 mGy-cm MEDICATIONS GIVEN: . 1% Lidocaine was used for local anesthesia. SPECIMEN(S): Several COMPLICATIONS: no complications noted DRAINS: None ESTIMATED BLOOD LOSS: Less than 10 cc. PHYSICIAN(S) AND ASSISTANTS (if any): Diane Dickinson MD Additional Comments: Please call with questions. Diane Dickinson MD [place] Protocol A. Pre-procedure verification complete yes 1-relevant [...] 1:33 PM CDT Diane Dickinson MD [facility] [address] [place] [address], * [facility] Cytology BRANCH BILLING PAYROLL CLERK (01/14/2024 12:14 PM CDT) Case Report Medical Cytology Report Case: [id number] Authorizing Provider: Diane Dickinson MD Collected: 01/14/2024 1214 Ordering Location: [facility] Received: 01/14/2024 1222 [facility] Pathologist: Jama Alcocer MD Specimen: Liver 01/24/2024 1:29 PM CDT [facility] Amendment 01/24/2024 - Amendmen t to report [facility] Solid Tumor Targeted (52 gene) Next Generation Sequencing results. Please see diagnosis and attached scanned report. 01/24/2024 1:29 PM CDT [facility] Final Diagnosis A) LIVER, CT-GUIDED NEEDLE BIOPSY: 1. 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 Background nonneoplastic liver shows cirrhosis, likely steatohepatitic (see comment) 3. Ancillary studies: a. DNA mismatch repair enzyme IHC: Intact (positive labeling for MLH1, PMS2, MSH2 and MSH6) b. NGS 52 gene panel: Negative, See attached NGS report 01/24/2024 1:29 PM CDT [facility] Amendment electronically signed by Aissatou Castillo [...] [place]. Please contact us with any questions ([facility] GI pathology service [phone]). Neoplastic tissue is available for ancillary studies, to request please contact the [facility] ([phone]). Neoplastic tissue available for ancillary studies: [facility] NGS testing: - FFPE tissue blocks: A2 and A3 - Cytology slides: A1-1 (used for NGS); A1-2, A1-3, A1-4 remaining Tests using immunostains and/or FISH (requiring 100 cells): A2 and A3 Send out (outside vendor) testing requiring 5 x 5 mm of tumor: A2 and A3 01/24/2024 1:29 PM T [facility] Clinical Information Mr. Schwartz is a 53 y.o. who undergoes CT-guided needle biopsy of liver. 01/24/2024 1:29 PM T [facility] Gross Description A) Received identified as Liver is a radiologic guided biopsy specimen. The core biopsy sampling measures 2.0 cm x 0.4 cm in aggregate. The specimen consists of: -4 Air dried slides -1 Formalin vial -0 RPMI vials The following were prepared from the specimen submitted: -4 Diff-Quik stained slides -2 H&E stained cell block slides The [...] than 72 hours. 01/24/2024 1:29 PM T [facility] Adequacy Assessment A) C.A.M. assessed adequacy from the air-dried smears at the time of the procedure with an impression of Adequate. 01/24/2024 1:29 PM T [facility] Microscopic Description Specimen adequacy: Adequate for [...] These results support carcinoma. 01/24/2024 1:29 PM T [facility] Molecular Diagnostics Summary Preanalytical microdissection of tissue/cytology slides for Next Generation Sequencing was performed according to laboratory protocol as follows: Microscopic examination was performed by a pathologist, Dr. Alcocer, to determine specimen adequacy and identify areas of tumor for isolation. Areas of tumor selected and marked by the pathologist were manually harvested by a animal laboratory technician for nucleic acid extraction. 01/24/2024 1:29 PM T [facility] Additional Information Cytology is screened at [facility] - [address], [place] [address] and [facility] - [address], [place] [address] and [facility] - [address] [place] [address] Interpreted at [facility] - [address], [place] [address] Immunohistochemistry controls were reviewed and approved by the pathologist during this examination. 01/24/2024 1:29 PM CDT [facility] Aspirate SPECIMEN FROM LIVER / Unknown 01/14/2024 12:14 PM CDT 01/14/2024 12:22 PM CDT Diane Dickinsno MD PATHOLOGY/CYTOLOGY Performing Organization Address [facility]/ZIP Co de Phone Number [facility] [address] [address], [place] * (ABNORMAL) GLUCOSE METER (01/14/2024 11:20 AM CDT) GLUCOSE METER 101(H) 65 - 100 mg/dL 01/15/2024 6:08 AM CDT [facility] Blood BLOOD SPECIMEN / Unknown 01/14/2024 11:20 AM CDT 01/15/2024 6:08 AM CDT Anthony Moeller MD CHEMISTRY Performing Organization Address [facility] Co de Phone Number [facility] [address] [address], [place] * Platelet Count (01/14/2024 10:51 AM CDT) PLATELET COUNT 215 140 - 440 thou/cu mm 01/14/2024 11:16 AM CDT [facility] MPV 9.4 6.5 - 11.0 fL 01/14/2024 11:16 AM CDT [facility] Blood BLOOD SPECIMEN / Unknown Venipuncture / Unknown 01/14/2024 10:51 AM CDT 01/14/2024 10:58 AM CDT Diane Dickinson MD HEMATOLOGY Performing Organization Address City/[facility] Co de Phone Number [facility] [address] [place] [address], [place] * (ABNORMAL) Hemoglobin (01/14/2024 10:51 AM CDT) HEMOGLOBIN 11.7(L) 13.5 - 17.5 g/dL 01/14/2024 11:16 AM CDT [facility] MCV 93 80 - 100 fL 01/14/2024 11:16 AM CDT [facility] Blood BLOOD SPECIMEN / Unknown Venipuncture / Unknown 01/14/2024 10:51 AM CDT 01/14/2024 10:58 AM CDT Diane Dickinson MD HEMATOLOGY Performing Organization Address [facility] de Phone Number [facility] [address] [place] [address], * (ABNORMAL) Protime-INR (01/14/2024 10:51 AM CDT) INR 1.3(H) <1.3 01/14/2024 11:13 AM CDT [facility] PROTIME 14.4(H) 10.3 - 12.3 sec 01/14/2024 11:13 AM CDT [facility] Blood BLOOD SPECIMEN / Unknown Venipuncture / Unknown 01/14/2024 10:51 AM CDT 01/14/2024 10:59 AM CDT Narrative [facility] - 01/14/2024 11:13 AM CDT Therapeutic Range 2.0-3.0 for most anticoagulated patients 2.5-3.5 [...] Diane Dickinson MD HEMATOLOGY Performing Organization Address [facility] Co de Phone Number [facility] [address] [place] [address], from Last 3 Months Care Teams Rag Inspector Relationship Specialty Start Date End Date Anthony Moeller MD [address] [place] [address] PCP - General Family Practice 01/09/24
--- OUTSIDE RECORDS SUMMARY | 2024-03-27 07:07 | XMS_ITS | Encounter Summary ---
Author Organization [facility] Address [address] [place] [address] Care Team Providers Care Printed Circuit Boards Solder Leveler Name Role Phone Unavailable Primary Care Provider Unavailabl e Reason for Referral * MRI/CAT/PET Scan (Routine) - Closed Specialty Diagnoses / Procedures Referred By Bharat khoury Referred To Contact Diagnoses Cholangiocarcinoma (HCC) Procedures PET CT Skull to Thigh FDG Georgiana Samayoa M.D. [address] [place] [address] Phone: tel: fax: [facility] Region Referral ID Status Reason Start Date Expiration Date Visits Re quested Visits Authorized [id number] Closed 01/20/2024 01/19/2025 1 1 Encounter Details Date Type Department Care Team (Late st Contact Info) Description 01/20/2024 Orders Only Department of Oncology in [place], [place] [address] [place] [phone] Georgiana Samayoa M.D. 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 Other Findings: [...] RADIOPHARMACEUTICAL/MEDS: Route: intravenous fludeoxyglucose F 18 injection LONG-TERM (FDG F-18),14.7 millicurie IMPRESSION: 1. Focal elevated [...] M.D. IM NM PROCEDURES Final Resu lt documented in this encounter Visit Diagnoses Diagnosis Cholangiocarcinoma (HCC)- Primary Cholangiocarcinoma (HCC) documented in this encounter
--- OUTSIDE RECORDS SUMMARY | 2024-03-27 07:07 | XMS_ITS | Encounter Summary ---
Author Organization [facility] Address [address] [place] [address] Care Team Providers Care Java User Interface Developer Name Role Phone Anthony Moeller MD Primary Care Provider [phone] Reason for Visit * Diagnostic Imaging XR (Routine) - Pending Review Specialty Diagnoses / Procedures Referred By Contac t Referred To Contact Radiology. Diagnoses Orthopedic aftercare Procedures XR Knee Right 3 Views Donald Parker MD [address] [place] [address] Phone: tel: fax: Referral ID Status Reason Start Date Expiration Date V isits Requested Visits Authorized [id number] Pending Review 12/20/2023 12/19/2024 1 1 Encounter Details Date Type Department Care Team (Latest Contact Info) Description 12/20/2023 11:50 AM CDT Ancillary Procedure [facility] [address] [place], [place] [address] Donald Parker MD [address] [place] [address] Orthopedic aftercare Social History Tobacco Use [...] on file 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 JAMES GAMBLE DO SYSTEM ID: [id number] Narrative 12/20/2023 3:10 PM CDT EXAM: XR KNEE RIGHT 3 VIEWS DATE/TIME: 12/20/2023 12:06 PM INDICATION: Orthopedic aftercare COMPARISON: 05/25/2022 Procedure Note James Gamble DO - 12/20/2023 EXAM: XR KNEE RIGHT 3 VIEWS DATE/TIME: 12/20/2023 12:06 PM INDICATION: Orthopedic aftercare COMPARISON: 05/25/2022 IMPRESSION: Medial unicompartmental hemiarthroplasty. No evidence of loosening or periprosthetic fracture. No joint effusion. JAMES GAMBLE DO SYSTEM ID: [id number] Donald Parker MD IMG DIAGNOSTIC IMAGING ORDER KEV Final Result documented in this encounter Visit Diagnoses Diagnosis Orthopedic aftercare Unspecified orthopedic aftercare documented in this encounter Care Teams Java User Interface Developer Relationship Specialty Start Date End Date Anthony Moeller MD PCP - General Family Practice 11/21/17 documented as of this encounter
--- OUTSIDE RECORDS SUMMARY | 2024-03-27 07:07 | XMS_ITS | Clinical Summary ---
Author Organization [facility] [place] [facility] Address [address] [place] [address] Care Team Providers Care Shrimp Packer Name Role Phone Unavailable Primary Care Provider Unavailabl e Source Comments Patient records contain information from all sites at [facility]. For routine questions regarding patient records, call [phone] during business hours, M-F 8:00 AM - 5:00 PM Central Time. Record requests for emergency care only can be directed to [phone] at any time.[facility] Medications prochlorperazin e (Compazine) 10 mg tablet TAKE 1/2 TABLET (5 MG) BY MOUTH 3 TIMES DAILY NEEDED FOR NAUSEA AND VOMITING 30 tablet 02/18/2024 Active Encounters Date Type Department Care Team Description 03/19/2024 Refill Department of Oncology in [place], [place] [address] [place] [address] Georgiana Samayoa M.D. Med Refill 02/21/2024 9:42 AM CDT - 02/21/2024 11:59 PM CDT Hospital Encounter Department of Radiology in [place], [place] [address] [place] [phone] Georgiana Samayoa M.D. Cholangiocarcinoma (HCC) Discharge Disposition: Home or Self Care 02/17/2024 Refill Department of Oncology in [place], [place] [address] [place] [address] Georgiana Samayoa M.D. Med Refill 01/20/2024 Orders Only Department of Oncology in [place], [place] [address] [facility] [place] [address] Georgiana Samayoa M.D. 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 Other Findings: [...] RADIOPHARMACEUTICAL/MEDS: Route: intravenous fludeoxyglucose F 18 injection SHELTER (FDG F-18),14.7 millicurie IMPRESSION: 1. Focal elevated [...] Resu lt from Last 3 Months Insurance [facility] [place] [address]
--- OUTSIDE RECORDS SUMMARY | 2024-03-27 07:07 | XMS_ITS | Clinical Summary ---
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 Gender Identity Not on file Sexual Orientation Not on file Last Filed Vital Signs Vital Sign Reading Time Taken Comments Blood Pressure 129/86 12/20/2023 11:46 AM CDT Pulse 72 04/18/2022 8:11 AM SHINE WORKER Temperature 36.5 C (97.7 F) 04/18/2022 8:11 AM SHINE WORKER Respiratory Rate 16 04/18/2022 8:11 AM SHINE WORKER Oxygen Saturation 97% 04/18/2022 8:1 1 AM SHINE WORKER Inhaled Oxygen Concentration - - Weight 128.8 kg (284 lb) 05/25/2022 10: 23 AM SHINE WORKER pulled from last visit Height 175.3 cm (5' 9) 05/25/2022 10:2 3 AM SHINE WORKER Body Mass Index 41.94 05/25/2022 10:23 AM SHINE WORKER Plan of Treatment Health Maintenance Due [...] this topic Medical Devices Implanted Type Area Probation Agent Device Identifier Shelf Expiration Date Model / Serial / Lot Bone Cement Simplex Full Dose 6191-1-001 - [id number] Implanted:Qty : 1 on 04/17/2022 by Donald Parker MD at [facility] Cement, Bone Right: Knee [employer] 06/27/2023 6191-1-001 / / [id number] Twinfix Ultra Pk 5.5mm Suture [place] With 2 Ultrabraid Sutures Implanted:Qty : 1 on 12/10/2017 by Les Israel MD at [facility] Metallic Hardware/An chor Right: Shoulder 05/23/2022 [id number] / / [id number] 2.8mm Q-Fix Suture [place] Implanted:Qty : 1 on 12/10/2017 by Les Israel MD at [facility] Metallic Hardware/An chor Right: Shoulder 04/03/2020 25-2800 / / [id number] Knee Uni Tibia Tray Mobile Bear D5 Rm/Ll - [id number] Implanted:Qty : 1 on 04/17/2022 by Donald Parker MD at [facility] Total Joint Component/I nsert Right: Knee [employer] 07/27/2031 [id number] / / [id number] Knee [place] Uni Femoral Med - [id number] Implanted:Qty : 1 on 04/17/2022 by Donald Parker MD at [facility] Total Joint Component/I nsert Right: Knee [employer] 03/19/2032 [id number] / / [id number] Insert [place] Anatomic Bear R Med Sz 4 - [id number] Implanted:Qty : 1 on 04/17/2022 by Donald Parker MD at [facility] Total Joint Component/I nsert Right: Knee [employer] 11/16/2025 [id number] / / [id number] Twinfix Ultra Pk 5.5mm Suture [place] With 2 Ultrabraid Sutures Implanted:Qty : 1 on 12/10/2017 by Les Israel MD at [facility] Right: Shoulder [employer] 01/10/2022 [id number] / / [id number] Procedures Procedure Name Priority Date/Time Associated Diagnosis Comments GLUCOSE BY METER Routine 04/18/2022 7:15 AM SHINE WORKER from Last 3 Months or Most Recently Relevant to Health Maintenance Results * (ABNORMAL) Glucose by meter (04/18/2022 7:15 AM SHINE WORKER) GLUCOSE BY METER POCT 143(H) 70 - 99 mg/dL 04/18/2022 7:22 AM SHINE WORKER [facility] LAB[facility]AT[facility] POC Blood, Capillary BLOOD SPECIMEN / Unknown 04/18/2022 7:15 AM SHINE WORKER 04/18/2022 7:22 AM SHINE WORKER Dnoald Parker MD LAB - BEAKER POCT Final Resu lt RH LABORATORY POC [facility] [address] Lab (1st floor, no room number) [place] [address], [facility] [phone] from Last 3 Months or Most Recently Relevant to Health Maintenance Insurance [place] [address] SCHNEIDER [id number] [facility] [employer] Advance Directives For more information, please contact: [phone] * Full Code (Latest Code Status on File) Date Activated Date Inactivated Comments 04/17/2022 11:28 AM 04/18/2022 10:58 AM All basi c and advanced life-sustaining interventions are performed as appropriate Question Answer Comments Code status determined by: Discussion with adriana nt/ legal decision maker Care Teams Memorial Adviser Relationship Specialty Start Date End Date Anthony Moeller MD PCP - General Family Practice 11/21/17 Donald Parker MD [address] [place] [address] Assigned Musculoskeletal Provider 01/20/24
--- OUTSIDE RECORDS SUMMARY | 2024-03-27 07:07 | XMS_ITS | Referral Summary ---
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 Gender Identity Not on file Sexual Orientation Not on file Last Filed Vital Signs Vital Sign Reading Time Taken Comments Blood Pressure 129/86 12/20/2023 11:46 AM CDT Pulse 72 04/18/2022 8:11 AM THIRD STEEL POURER Temperature 36.5 C (97.7 F) 04/18/2022 8:11 AM THIRD STEEL POURER Respiratory Rate 16 04/18/2022 8:11 AM THIRD STEEL POURER Oxygen Saturation 97% 04/18/2022 8:1 1 AM THIRD STEEL POURER Inhaled Oxygen Concentration - - Weight 128.8 kg (284 lb) 05/25/2022 10: 23 AM THIRD STEEL POURER pulled from last visit Height 175.3 cm (5' 9) 05/25/2022 10:2 3 AM THIRD STEEL POURER Body Mass Index 41.94 05/25/2022 10:23 AM THIRD STEEL POURER Plan of Treatment Not on file Medical Devices Implanted Type Area Consumer Studies Professor Device Identifier Shelf Expiration Date Model / Serial / Lot Bone Cement Simplex Full Dose 6191-1-001 - [id number] Implanted:Qty : 1 on 04/17/2022 by Donald Parker MD at [facility] Cement, Bone Right: Knee [employer] 06/27/2023 6191-1-001 / / [id number] Twinfix Ultra Pk 5.5mm Suture [place] With 2 Ultrabraid Sutures Implanted:Qty : 1 on 12/10/2017 by Les Israel MD at [facility] Metallic Hardware/An chor Right: Shoulder 05/23/2022 [id number] / / [id number] 2.8mm Q-Fix Suture [place] Implanted:Qty : 1 on 12/10/2017 by Les Israel MD at [facility] Metallic Hardware/An chor Right: Shoulder 04/03/2020-2800 / / [id number] Knee Uni Tibia Tray Mobile Bear D5 Rm/Ll - [id number] Implanted:Qty : 1 on 04/17/2022 by Donald Parker MD at [facility] Total Joint Component/I nsert Right: Knee [employer] 07/27/2031 [id number] / / [id number] Knee [place] Uni Femoral Med - [id number] Implanted:Qty : 1 on 04/17/2022 by Donald Parker MD at [facility] Total Joint Component/I nsert Right: Knee [employer] 03/19/2032 [id number] / / [id number] Insert [place] Anatomic Bear R Med Sz 4 - [id number] Implanted:Qty : 1 on 04/17/2022 by Donald Parker MD at [facility] Total Joint Component/I nsert Right: Knee [employer] 11/16/2025 [id number] / / [id number] Twinfix Ultra Pk 5.5mm Suture [place] With 2 Ultrabraid Sutures Implanted:Qty : 1 on 12/10/2017 by Les Israel MD at [facility] Right: Shoulder [employer] 01/10/2022 [id number] / / [id number] Procedures Procedure Name Priority Date/Time Associated Diagnosis Comments GLUCOSE BY METER Routine 04/18/2022 7:15 AM THIRD STEEL POURER from Last 3 Months or Most Recently Relevant to Health Maintenance Results * (ABNORMAL) Glucose by meter (04/18/2022 7:15 AM THIRD STEEL POURER) GLUCOSE BY METER POCT 143(H) 70 - 99 mg/dL 04/18/2022 7:22 AM THIRD STEEL POURER [facility] LABORATORY POC Blood, Capillary BLOOD SPECIMEN / Unknown 04/18/2022 7:15 AM THIRD STEEL POURER 04/18/2022 7:22 AM THIRD STEEL POURER us Donald Parker MD LAB - BEAKER POCT Final Resu lt RH LABORATORY [facility] [address] [facility] Lab (1st floor, no room number) [place] [address], [facility] [phone] from Last 3 Months or Most Recently Relevant to Health Maintenance Insurance [facility] Samuel TROY MS Poly Adaptive [facility] [place] [id number] [facility] [employer] Advance Directives For more information, please contact: [phone] * Full Code (Latest Code Status on File) Date Activated Date Inactivated Comments 04/17/2022 11:28 AM 04/18/2022 10:58 AM All basi c and advanced life-sustaining interventions are performed as appropriate Question Answer Comments Code status determined by: Discussion with patie nt/ legal decision maker Care Teams C Developer Relationship Specialty Start Date End Date Anthony Moeller MD PCP - General Family Practice 11/21/17 Donald Parker MD [address] [place] [address] Assigned Musculoskeletal Provider 01/20/24
--- OUTSIDE RECORDS SUMMARY | 2024-03-27 07:07 | XMS_ITS | Encounter Summary ---
Author Organization [facility] Address [address] [place] [address] Care Team Providers Care Kosher Sealer Name Role Phone Unavailable Primary Care Provider Unavailabl e Reason for Referral * MRI/CAT/PET Scan (Routine) - Closed Specialty Diagnoses / Procedures Referred By Bharat khoury Referred To Contact Diagnoses Cholangiocarcinoma (HCC) Procedures PET CT Skull to Thigh FDG Georgiana Samayoa M.D. [address] [place] [address] Phone: tel: fax: [facility] Region Referral ID Status Reason Start Date Expiration Date Visits Re quested Visits Authorized [id number] Closed 01/20/2024 01/19/2025 1 1 Reason for Visit * MRI/CAT/PET Scan (Routine) - Closed Specialty Diagnoses / Procedures Referred By Bharat khoury Referred To Contact Diagnoses Cholangiocarcinoma (HCC) Procedures PET CT Skull to Thigh FDG Georgiana Samayoa M.D. [address] [place] [address] Phone: tel: fax: [facility] Region Referral ID Status Reason Start Date Expiration Date Visits Re quested Visits Authorized [id number] Closed 01/20/2024 01/19/2025 1 1 Encounter Details Date Type Department Care Team (Latest Contact Info) Description 02/21/2024 9:42 AM CDT - 02/21/2024 11:59 PM CDT Hospital Encounter Department of Radiology in [place], [place] [address] [place] [id number] Georgiana Samayoa M.D. 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 Other Findings: [...] RADIOPHARMACEUTICAL/MEDS: Route: intravenous fludeoxyglucose F 18 injection PRISON (FDG F-18),14.7 millicurie IMPRESSION: 1. Focal elevated [...] Dose Rate Site fludeoxyglucose F 18 injection PRISON (FDG F-18) 14.7 millicurie, intravenous, Once, On Sat02/21/24 at 1030, For 1 dose, Imaging Protocol Orders Given 02/21/2024 9:55 AM CDT 14.7 millicuries Left Antecubital documented in this encounter
--- OUTSIDE RECORDS SUMMARY | 2024-03-27 07:07 | XMS_ITS | Encounter Summary ---
Author Organization [facility] Address [address] [place] [address] Care Team Providers Care Teacher Drama Name Role Phone Unavailable Primary Care Provider Unavailabl e Reason for Visit * Reason Comments Med Refill Encounter Details Date Type Department Care Team (Late st Contact Info) Description 02/17/2024 Refill Department of Oncology in [place], [place] [address] [place] [phone] Georgiana Samayoa M.D. 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
--- OUTSIDE RECORDS SUMMARY | 2024-03-27 07:07 | XMS_ITS ---
Author Organization [facility] Address [address] [place] [address] Care Team Providers Care Dynamic Balancer Name Role Phone Unavailable Unavailable Unavailable Surgery Details Not on file Complications Check Surgery Details section. Procedure Estimated Blood Loss Check Surgery Details section. Procedure Findings Check Surgery Details section. Procedure Specimens Taken Check Surgery Details section.
--- OUTSIDE RECORDS SUMMARY | 2024-03-27 07:07 | XMS_ITS | Encounter Summary ---
Author Organization [facility] Address [address] [place] [address] Care Team Providers Care Jowl Trimmer Name Role Phone Anthony Moeller MD Primary Care Provider [phone] Reason for Referral * Diagnostic Imaging XR (Routine) - Pending Review Specialty Diagnoses / Procedures Referred By Contac t Referred To Contact Radiology. 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 [facility] Orthopaedic Surgery Consultation by Donald Parker [...] redness fever or malaise. 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 [...] his 5-year postop. Donald Parker MD, PhD Salesperson Household Appliances Adult Reconstruction [facility] Department of Orthopaedic Surgery documented in this [...] joint effusion. JAMES GAMBLE DO SYSTEM ID: [id number] Narrative 12/20/2023 3:10 PM CDT EXAM: XR KNEE RIGHT 3 VIEWS DATE/TIME: 12/20/2023 12:06 PM INDICATION: Orthopedic aftercare COMPARISON: 05/25/2022 Procedure Note James Gamble DO - 12/20/2023 EXAM: XR KNEE RIGHT 3 VIEWS DATE/TIME: 12/20/2023 12:06 PM INDICATION: Orthopedic aftercare COMPARISON: 05/25/2022 IMPRESSION: Medial unicompartmental hemiarthroplasty. No evidence of loosening or periprosthetic fracture. No joint effusion. JAMES GAMBLE DO SYSTEM ID: [id number] Donald Parker MD IMG DIAGNOSTIC IMAGING ORDER KEV Final Result documented in this encounter Visit Diagnoses Diagnosis Orthopedic aftercare- Primary Unspecified orthopedic aftercare S/P right unicompartmental knee replacement Knee joint replacement by other means Orthopedic aftercare Unspecified orthopedic aftercare documented in this encounter Care Teams Jowl Trimmer Relationship Specialty Start Date End Date Anthony Moeller MD PCP - General Family Practice 11/21/17 documented as of this encounter
--- OUTSIDE RECORDS SUMMARY | 2024-03-27 07:07 | XMS_ITS | Encounter Summary ---
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
--- NOTE | 2024-03-27 07:15 | CRLHL7_ITS ---
For Patients: As a result of the Century Cures Act, medical imaging exams and procedure reports are released immediately into your electronic medical record. You may view this report before your referring provider. If you have questions, please contact your health care provider. INDICATION: Intrahepatic biliary duct carcinoma; follow-up. COMPARISON: MRI of the abdomen January 15, 2024; CT chest, abdomen and pelvis with intravenous contrast 03/27/2024; CT abdomen and pelvis January 01, 2024; CT chest with intravenous contrast January 17, 2024 and January 29, 2024. TECHNIQUE: Precontrast T1 and T2 weighted imaging; T2 haste imaging; diffusion-weighted imaging; in- and out of phase imaging; postcontrast imaging including subtraction; 30 cc of dotarem contrast was injected. FINDINGS: Cirrhotic liver morphology. Splenomegaly. tumor masses identified involving the left hepatic lobe with restriction of diffusion. Tumor thrombus identified within the main portal vein and the splenic vein. 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 Tumor thrombus within the right hepatic vein extending into the inferior vena cava. Tumor nodules identified in segment 7 of the liver. The gallbladder is unremarkable. Peripancreatic and periportal lymphadenopathy as well as lymphadenopathy involving the gastrohepatic ligament. Pathologically enlarged lymph nodes in the retroperitoneum. Diffuse metastatic bone disease. Impression: 1. Tumor nodules identified throughout the left hepatic lobe as well as segment 7 of the liver ; stable in appearance when compared to December 2023. 2. Cirrhotic liver morphology with evidence of splenomegaly. 3. Tumor thrombus identified involving the right portal vein, splenic vein and occlusion of the left portal vein by the tumor thrombus. 4. Possible tumor thrombus within the right hepatic vein with extension into the inferior vena cava. 5. Diffuse metastatic bone disease 6. Metastatic disease involving the lymphadenopathy in the upper abdomen Dictated by Clara Coles MD @ 03/30/2024 11:41:14 AM (Electronically Signed)
--- NOTE | 2024-03-27 09:00 | CRLHL7_ITS ---
For Patients: As a result of the Century Cures Act, medical imaging exams and procedure reports are released immediately into your electronic medical record. You may view this report before your referring provider. If you have questions, please contact your health care provider. Indication: CHOLANGIOCARCINOMA FOLLOW UP Technique: CT Chest/Abd/Pelvis 120CC ISOVUE 370 Please note that all CT scans at this facility use dose modulation, iterative reconstruction, and/or weight-based dosing when appropriate to reduce radiation dose to as low as reasonably achievable. Comparison: 01/29/2024 CT chest, 01/15/2024 MR abdomen Findings: In the chest, persistent adenopathy noted in the subcarinal, precarinal, right paratracheal and prevascular spaces along with both neftaly. No significant interval change noted. Normal axillary lymph nodes. Visualized thyroid unremarkable. No pulmonary embolism or aortic dissection. No pleural or pericardial effusion. Innumerable bilateral pulmonary nodules again noted measuring 5 millimeters or less. Stable calcified nodules within the left upper lobe. Stable calcified lymph nodes in the left hilum. Stable calcification within 1 of the subcarinal lymph nodes. Lytic lesions within several vertebral bodies again noted with chronic wedging of T11. Increased size of the lytic lesion within T8. No fluid about the right-sided port. In the abdomen, cirrhotic liver morphology again noted with calcified granulomas. Heterogeneity of the liver parenchyma noted with similar ill-defined hypodense lesions in the dome of the liver. Tumor thrombus within the main portal vein and portal vein confluence again noted. Extensive upper retroperitoneal adenopathy is similar. Splenomegaly with numerous calcified granulomas. Adrenal glands appears similar. No hydronephrosis. Simple cyst lower pole left kidney. Atherosclerotic changes. No aneurysm. No pancreatic lesion. No gallstones. Gallbladder incompletely distended. In the pelvis, the bladder appears normal. Prostate nonenlarged. No bowel obstruction. Appendix normal. No abscess or pelvic free fluid. No hernia. Osseous structures appear similar within the lumbar spine. No pelvic or inguinal adenopathy. Impression: Progression of osseous metastatic disease within the T8 vertebral body. No acute fracture. Chronic wedging of T11. Similar adenopathy in the mediastinum, neftaly and upper retroperitoneum. Similar appearance of the liver with cirrhotic morphology, ill-defined lesions in the right hepatic lobe, patchy biliary dilation and splenomegaly. Unchanged tumor thrombus within the main portal vein and portal vein confluence. Innumerable 5 millimeter or less metastatic pulmonary nodules throughout both lungs. Please note that all CT scans at this facility use dose modulation, iterative reconstruction, and/or weight-based dosing when appropriate to reduce radiation dose to as low as reasonably achievable. Dictated by Donell Jennings MD @ 03/27/2024 11:34:11 AM (Electronically Signed)
== END 2024-03-27 07:05 | disposition home or self-care (01) ==
LOC: MRI 07:05
PROVIDERS: PCP Family Medicine; Visit Provider Internal Medicine Hematology & Oncology
DX: C22.1 Intrahepatic bile duct carcinoma (principal); K76.9 Liver disease, unspecified; K74.60 Unspecified cirrhosis of liver; M89.9 Disorder of bone, unspecified; I81 Portal vein thrombosis; R91.8 Other nonspecific abnormal finding of lung field
CPT/HCPCS: 71260; 74177; 74183; A9575; Q9967

== ENCOUNTER 2024-04-24 06:54 | Emergency (ER) | payer BC, SELFPAY ==
[2024-04-24 07:00] VITALS: BP 125/67; PULSE 82; RESP 20; TEMP 36.8; O2SAT 99; BMI 36.5
--- NOTE | 2024-04-24 07:19 | CRLHL7_ITS ---
For Patients: As a result of the Century Cures Act, medical imaging exams and procedure reports are released immediately into your electronic medical record. You may view this report before your referring provider. If you have questions, please contact your health care provider. INDICATION: Pain TECHNIQUE: CT thoracic spine without contrast. COMPARISON: CT chest abdomen pelvis 03/27/2024 FINDINGS: Vertebrae: Alignment is normal. Redemonstration of the lytic lesion in T12 with pathologic fracture at T12 (12/21) with 10 percent height loss. Redemonstration of lytic lesions in T4, T8 with pathologic fracture at T8. Similar wedging of T11. Discs and facet joints: Mild degenerative disease of the spine.. Extraspinal findings: Prevertebral soft tissues are unremarkable. Mediastinal and retroperitoneal lymphadenopathy, for example a right lower paratracheal lymph node measuring 2.7 x 1.9 centimeters (), previously 2.7 x 1.7 centimeters. Calcified granulomas in the spleen. IMPRESSION: Redemonstration of the lytic metastatic lesion in T12 with new pathologic fracture. Redemonstration of lytic lesions in T4, T8 with pathologic fracture of T8. Similar chronic compression deformity of T11. Please note that all CT scans at this facility use dose modulation, iterative reconstruction, and/or weight-based dosing when appropriate to reduce radiation dose to as low as reasonably achievable. Dictated by Jamila Silva MD @ 04/24/2024 7:59:54 AM (Electronically Signed)
--- NOTE | 2024-04-24 07:19 | CRLHL7_ITS ---
For Patients: As a result of the Century Cures Act, medical imaging exams and procedure reports are released immediately into your electronic medical record. You may view this report before your referring provider. If you have questions, please contact your health care provider. INDICATION: Pain TECHNIQUE: CT lumbar spine without contrast. COMPARISON: CT chest abdomen pelvis 03/07/2024 FINDINGS: Vertebrae: Alignment is normal. Lytic lesion in L1 is similar to prior. See separately dictated CT thoracic spine for associated findings. Discs and facet joints: Mild degenerative disease of the spine. Extraspinal findings: Partially visualized retroperitoneal lymphadenopathy with surrounding soft tissue stranding. IMPRESSION: Lytic metastatic lesion in L1 is similar to prior. Please note that all CT scans at this facility use dose modulation, iterative reconstruction, and/or weight-based dosing when appropriate to reduce radiation dose to as low as reasonably achievable. Dictated by Jamila Silva MD @ 04/24/2024 8:03:39 AM (Electronically Signed)
--- NOTE | 2024-04-24 07:33 | ED_ITS ---
HPI - General Adult General Date Seen: 04/24/24 <Donell Giles MD - Last Filed: 04/30/24 00:00> Chief complaint: Back Injury/Pain <Donell Giles MD - Last Filed: 04/30/24 00:00> Stated complaint: back pain <Donell Giles MD - Last Filed: 04/30/24 00:00> Time Seen by Provider: 04/24/24 07:22 <Donell Giles MD - Last Filed: 04/30/24 00:00> Source: patient <Donell Giles MD - Last Filed: 04/30/24 00:00> Mode of arrival: ambulatory <Donell Giles MD - Last Filed: 04/30/24 00:00> Limitations: no limitations <Donell Giles MD - Last Filed: 04/30/24 00:00> History of Present Illness HPI narrative: Patient comes in today with concerns of back pain. He has stage IV cholangiocarcinoma and is under the care of an oncologist. No recent injury. He is known to have spinal metastases but this pain is acutely worse. He is mainly here for imaging. <Donell Giles MD - Last Filed: 04/30/24 00:00> Related Data Home medications: Home Medications ?Medication ?Instructions ?Recorded ?Confirmed Blood Glucose Meter 12/26/21 04/24/24 aspirin 81 mg tablet,delayed 81 mg PO QDAY 12/26/21 04/24/24 release (Adult Low Dose Aspirin) multivitamin 1 tab PO QDAY 12/26/21 04/24/24 acetaminophen 500 mg capsule 1,000 mg PO Q6H PRN 01/20/24 04/24/24 apixaban 5 mg tablet (Eliquis) 5 mg PO BID 02/19/24 04/24/24 lisinopril 40 mg tablet 40 mg PO QDAY 03/12/24 04/24/24 loratadine 10 mg tablet (Claritin) 10 mg PO QDAY 03/12/24 04/24/24 ondansetron 4 mg disintegrating 4 mg PO Q8H PRN 04/01/24 04/24/24 tablet calcium 600 mg (as 1 tab PO BID 04/24/24 04/24/24 carbonate)-vitamin D3 10 mcg (400 unit) tablet metoprolol succinate 100 mg 150 mg PO DAILY 04/24/24 04/24/24 tablet,extended release 24 hr Previous Rx's ?Medication ?Instructions ?Recorded lancets #100 ea 01/07/23 amlodipine 5 mg tablet 5 mg PO QDAY #90 tabs 12/25/23 metformin 500 mg tablet 500 mg PO BIDWMEAL #180 tabs 12/25/23 rosuvastatin 10 mg tablet 10 mg PO QDAY #90 tabs 01/07/24 fluticasone propionate 45 2 puff inhalation BID #12 grams 03/11/24 mcg-salmeterol 21 mcg/actuation HFA inhaler (Advair HFA) albuterol sulfate 90 mcg/actuation 2 puff inhalation QID PRN 03/18/24 aerosol inhaler (Ventolin HFA) shortness of breath or wheezing #8.5 grams prochlorperazine maleate 5 mg 5 mg PO TID PRN nausea and 03/19/24 tablet (Compazine) vomiting #60 tabs calcium 600 mg (as carbonate)-vit 1 tab PO BID #120 tabs 04/01/24 D3 10 mcg (400 unit)-minerals tablet magnesium oxide 400 mg PO QDAY #30 caps 04/01/24 omeprazole 40 mg capsule,delayed 40 mg PO QDAY #90 caps 04/01/24 release pemigatinib 9 mg tablet 9 mg PO QDAY #14 tabs 04/01/24 sodium chloride 1,000 mg soluble 1,000 mg PO BID electrolyte 04/01/24 tablet replenishment #100 tabs loperamide 2 mg capsule (Imodium 2 mg PO Q4H PRN loose stool #30 04/20/24 A-D) caps sennosides 8.6 mg-docusate sodium 1 tab-cap PO QHS constipation #60 04/20/24 50 mg tablet (Senna with Docusate tabs Sodium) tramadol 50 mg tablet 50 mg PO Q6H PRN pain #60 tabs 04/20/24 oxycodone 5 mg tablet 5 mg PO Q6H PRN pain #30 tabs 04/24/24 <Donell Giles MD - Last Filed: 04/30/24 00:00> Allergies/adverse reactions: Allergies Allergy/AdvReac Type Severity Reaction Status Date / Time No Known Allergies Allergy Unknown Verified 04/24/24 07:04 <Donell Giles MD - Last Filed: 04/30/24 00:00> Review of Systems Narrative: Review of systems is as outlined above otherwise noted to be negative. <Donell Giles MD - Last Filed: 04/30/24 00:00> [facility] Medical History: Medical History (Updated 04/24/24 @ 11:26 by Socorro Eduardo APRN) Encounter for antineoplastic chemotherapy and immunotherapy ?Z51.11 - Encounter for antineoplastic chemotherapy (ICD-10) ?Z51.12 - Encounter for antineoplastic immunotherapy (ICD-10) Osteoarthritis of knee ?M17.10 - Unilateral primary osteoarthritis, unspecified knee (ICD-10) History of fracture of vertebral column ?Z87.81 - Personal history of (healed) traumatic fracture (ICD-10) <Donell Giles MD - Last Filed: 04/30/24 00:00> Surgical History: Surgical History History of tear of meniscus of knee joint ?Z87.828 - Personal history of other (healed) physical injury and trauma (ICD-10) Plantar fasciitis ?M72.2 - Plantar fascial fibromatosis (ICD-10) History of partial knee replacement ?Z96.659 - Presence of unspecified artificial knee joint (ICD-10) History of shoulder surgery ?Z98.890 - Other specified postprocedural states (ICD-10) History of colonoscopy with polypectomy ?Z98.890 - Other specified postprocedural states (ICD-10) ?Z86.010 - Personal history of colonic polyps (ICD-10) <Donell Giles MD - Last Filed: 04/30/24 00:00> Family History: Family History Mother Diabetes Father Coronary artery disease History of coronary artery bypass graft x 3 Stroke <Donell Giles MD - Last Filed: 04/30/24 00:00> Social History: Social History (Updated 01/27/24 @ 10:54 by Edel Kennedy MD) Narrative: History of alcohol use with cirrhosis noted on recent liver biopsy. Has now abstained since his diagnosis of cholangiocarcinoma. History of smoking; has been tobacco free for 15 years. 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 What is your current living situation?: I presently have a place to live Problems where you live: no known problems In the past 12 months, utilities in danger of being shut off: no In past 12 months, lack of transportation kept you from medical appts, meetings, work, or getting things needed for daily living: no In the past 12 mos, have been you worried that your food would run out before you had money to buy more?: never true In the past 12 mos, the food you bought just didn't last and you didn't have money to buy more?: never true Smoking Status: Former smoker Second hand tobacco smoke exposure: No How often do you have a drink containing alcohol: monthly or less AUDIT-C Alcohol total score: 1 Non-prescribed substance use: denies use Caffeine: Yes How often does anyone, including family, friends and others, physically hurt you : never How often does anyone, including family, friends and others, insult or talk down to you: never How often does anyone, including family, friends and others, threaten you with harm: never How often does anyone, including family, friends and others, scream or curse at you: never <Donell Giles MD - Last Filed: 04/30/24 00:00> Exam Narrative: Exam Narrative: Vitals noted. He is pale and jaundiced Lungs: Clear to auscultation in all elaine. No wheezes, rales, rhonchi. Heart: Regular rate and rhythm without murmur. Abdomen: Soft and nontender. No guarding, rigidity, rebound. Bowel sounds are normal. No palpable masses. Extremities: No cyanosis or edema. Good distal pulses. He has diffuse tenderness of his thoracic and lumbar spine. No crepitus. Neurologic: Awake, alert, fully oriented. Neurologic exam is nonfocal. <Donell Giles MD - Last Filed: 04/30/24 00:00> Const: Vital Signs, click to edit/add: Vital Signs - 24 hr 04/24/24 07:00 Temperature 98.2 F Pulse Rate [Right Pulse Oximeter] 82 Respiratory Rate 20 Blood Pressure [Ri ght Upper Arm] 125/67 Pulse Oximetry 99 Oxygen Delivery Me thod Room Air <Donell Giles MD - Last Filed: 04/30/24 00:00> Vital Signs, click to edit/add: Vital Signs - 24 hr 04/24/24 07:00 Temperature 98.2 F Pulse Rate [Right Pulse Oximeter] 82 Respiratory Rate 20 Blood Pressure [Ri ght Upper Arm] 125/67 Pulse Oximetry 99 Oxygen Delivery Me thod Room Air <Shayne Dawson MD - Last Filed: 04/24/24 08:25> Course Course ED Course: Patient seen and examined. CT scans of the thoracic and lumbar spine show Redemonstration of the lytic metastatic lesion in T12 with new pathologic fracture. Redemonstration of lytic lesions in T4, T8 with pathologic fracture of T8. Similar chronic compression deformity of T11. <Donell Giles MD - Last Filed: 04/30/24 00:00> Vital Signs Vital signs: Initial Vital Signs Temperature 98.2 F 04/24/24 07:00 Temperature Source Temporal Artery Scan 04/24/24 07:00 Pulse Rate 82 04/24/24 07:00 Respiratory Rate 20 04/24/24 07:00 Blood Pressure 125/67 04/24/24 07:00 Blood Pressure Mean 86 04/24/24 07:00 Blood Pressure Position Sitting 04/24/24 07:00 Pulse Oximetry 99 04/24/24 07:00 Oxygen Delivery Method Room Air 04/24/24 07:00 Vital Signs Temperature 98.2 F 04/24/24 07:00 Pulse Rate 82 04/24/24 07:00 Respiratory Rate 20 04/24/24 07:00 Blood Pressure 125/67 04/24/24 07:00 Pulse Oximetry 99 04/24/24 07:00 Oxygen Delivery Method Room Air 04/24/24 07:00 Temperature 98.2 F 04/24/24 07:00 Pulse Rate 82 04/24/24 07:00 Respiratory Rate 20 04/24/24 07:00 Blood Pressure 125/67 04/24/24 07:00 Pulse Oximetry 99 04/24/24 07:00 Oxygen Delivery Method Room Air 04/24/24 07:00 <Donell Giles MD - Last Filed: 04/30/24 00:00> Initial Vital Signs Temperature 98.2 F 04/24/24 07:00 Temperature Source Temporal Artery Scan 04/24/24 07:00 Pulse Rate 82 04/24/24 07:00 Respiratory Rate 20 04/24/24 07:00 Blood Pressure 125/67 04/24/24 07:00 Blood Pressure Mean 86 04/24/24 07:00 Blood Pressure Position Sitting 04/24/24 07:00 Pulse Oximetry 99 04/24/24 07:00 Oxygen Delivery Method Room Air 04/24/24 07:00 Vital Signs Temperature 98.2 F 04/24/24 07:00 Pulse Rate 82 04/24/24 07:00 Respiratory Rate 20 04/24/24 07:00 Blood Pressure 125/67 04/24/24 07:00 Pulse Oximetry 99 04/24/24 07:00 Oxygen Delivery Method Room Air 04/24/24 07:00 Temperature 98.2 F 04/24/24 07:00 Pulse Rate 82 04/24/24 07:00 Respiratory Rate 20 04/24/24 07:00 Blood Pressure 125/67 04/24/24 07:00 Pulse Oximetry 99 04/24/24 07:00 Oxygen Delivery Method Room Air 04/24/24 07:00 <Shayne Dawson MD - Last Filed: 04/24/24 08:25> Medical Decision Making MDM Narrative Medical decision making narrative: This patient was evaluated by Dr. Giles and results of the CT imaging were pending at the end of a shift. These results return with new fractures at T8 and T12. He has lytic lesions that are not new at these same sites along with T4 and L1. I relayed these findings with the patient. He is okay to be discharged home and did receive a prescription for oxycodone. He is instructed to follow-up with his primary providers. <Shayne Dawson MD - Last Filed: 04/24/24 08:25> Imaging Data CT Thoracic & Lumbar Spine: Radiologist's impression: Redemonstration of the lytic metastatic lesion in T12 with new pathologic fracture. Redemonstration of lytic lesions in T4, T8 with pathologic fracture of T8. Similar chronic compression deformity of T11. Lytic metastatic lesion in L1 is similar to prior. <Shayne aDwson MD - Last Filed: 04/24/24 08:25> Discharge Plan Discharge Clinical Impression: Metastasis to bone, Cholangiocarcinoma <Donell Giles MD - Last Filed: 04/30/24 00:00> Patient Disposition: Home, Self-Care <Donell Giles MD - Last Filed: 04/30/24 00:00> Condition: Stable <Donell Giles MD - Last Filed: 04/30/24 00:00> Additional Instructions: Switch from tramadol to oxycodone 5 mg every 6 hours as needed for pain. [facility]. <Donell Giles MD - Last Filed: 04/30/24 00:00> Prescriptions: New oxycodone 5 mg tablet 5 mg PO Q6H PRN (Reason: pain) Qty: 30 0RF No Action (DME) lancets Misc See Rx Instructions .Route Qty: 100 3RF Rx Instructions: As directed acetaminophen 500 mg capsule 1,000 mg PO Q6H PRN ondansetron 4 mg tablet,disintegrating 4 mg PO Q8H PRN omeprazole 40 mg capsule,delayed release(DR/EC) 40 mg PO QDAY Qty: 90 1RF pemigatinib 9 mg tablet 9 mg PO QDAY Qty: 14 0RF Rx Instructions: Take 1 tablet daily, administer for 14 days, followed by 7 days off (21-day cycle) sodium chloride 1,000 mg tablet,soluble 1,000 mg PO BID Qty: 100 3RF magnesium oxide 400 mg magnesium capsule 400 mg PO QDAY Qty: 30 0RF calcium carbonate-vit D3-min 600 mg-10 mcg (400 unit) tablet 1 tab PO BID Qty: 120 0RF lisinopril 40 mg tablet 40 mg PO QDAY Rx Instructions: alternating with 20mg every other day loratadine [Claritin] 10 mg tablet 10 mg PO QDAY aspirin [Adult Low Dose Aspirin] 81 mg tablet,delayed release (DR/EC) 81 mg PO QDAY multivitamin Tablet 1 tab PO QDAY (DME) Blood Glucose Meter Misc See Rx Instructions .Route Rx Instructions: As directed amlodipine 5 mg tablet 5 mg PO QDAY Qty: 90 3RF metformin 500 mg tablet 500 mg PO BIDWMEAL Qty: 180 3RF fluticasone propion-salmeterol [Advair HFA] 45-21 mcg/actuation HFA aerosol inhaler 2 puff inhalation BID Qty: 12 1RF Eliquis 5 mg tablet 5 mg PO BID loperamide [Imodium A-D] 2 mg capsule 2 mg PO Q4H PRN (Reason: loose stool) Qty: 30 0RF Rx Instructions: administer after each loose stool until symptoms controlled; do not exceed 8 mg per 24 hrs sennosides-docusate sodium [Senna with Docusate Sodium] 8.6-50 mg tablet 1 tab-cap PO QHS Qty: 60 0RF Rx Instructions: Take 1 tablet at bedtime if needed to prevent constipation. Hold if having diarrhea. tramadol 50 mg tablet 50 mg PO Q6H PRN (Reason: pain) Qty: 60 0RF Rx Instructions: Take 1 tablet, with 1 - 500mg acetaminophen (extra strength tylenol) every 6 hours if needed for moderate to severe pain. metoprolol succinate 100 mg tablet extended release 24 hr 150 mg PO DAILY calcium carbonate-vitamin D3 600 mg-10 mcg (400 unit) tablet 1 tab PO BID rosuvastatin 10 mg tablet 10 mg PO QDAY Qty: 90 3RF albuterol sulfate [Ventolin HFA] 90 mcg/actuation HFA aerosol inhaler 2 puff inhalation QID PRN (Reason: shortness of breath or wheezing) Qty: 8.5 1RF prochlorperazine maleate [Compazine] 5 mg tablet 5 mg PO TID PRN (Reason: nausea and vomiting) Qty: 60 1RF <Donell Giles MD - Last Filed: 04/30/24 00:00> Follow Up/Referrals: Anthony Moeller MD [Primary Care Provider] - <Donell Giles MD - Last Filed: 04/30/24 00:00> Stand Alone Forms: [employer] Info Instructions <Donell Giles MD - Last Filed: 04/30/24 00:00>
== END 2024-04-24 08:32 | disposition home or self-care (01) ==
PROVIDERS: Emergency Provider Family Medicine; PCP Family Medicine
DX: C22.1 Intrahepatic bile duct carcinoma (principal); C79.51 Secondary malignant neoplasm of bone
CPT/HCPCS: 72128; 72131; 99281; 99284

== ENCOUNTER 2024-05-15 02:51 | Emergency (ER) | payer BC, SELFPAY ==
--- OUTSIDE RECORDS SUMMARY | 2024-05-15 02:52 | XMS_ITS | Referral Summary ---
Author Organization [place] Address [address] [place] [id number] Care Team Providers Care Training Specialist Name Role Phone Anthony Moeller MD Primary Care Provider [phone] Donald Parker MD Unavailable [phone] Allergies No known active allergies Medications LISINOPRIL [...] on file Legal Sex Male 5:12 AM [employer] Gender Identity Not on file Sexual Orientation Not on file Last Filed Vital Signs Vital Sign Reading Time Taken Comments Blood Pressure 129/86 12/20/2023 11:46 AM CDT Pulse 72 04/18/2022 8:11 AM [employer] Temperature 36.5 C (97.7 F) 04/18/2022 8:11 AM [employer]NAGER Respiratory Rate 16 04/18/2022 8:11 AM [employer]LEY MANAGER Oxygen Saturation 97% 04/18/2022 8:1 1 AM [employer]NAGER Inhaled Oxygen Concentration - - Weight 128.8 kg (284 lb) 05/25/2022 10: 23 AM [employer]LEY MANAGER pulled from last visit Height 175.3 cm (5' 9) 05/25/2022 10:2 3 AM [employer]LEY MANAGER Body Mass Index 41.94 05/25/2022 10:23 AM [employer]LEY MANAGER Plan of Treatment Not on file Medical Devices Implanted Type Area Stone Layout Marker Device Identifier Shelf Expiration Date Model / Serial / Lot Bone Cement Simplex Full Dose 6191-1-001 - [id number] Implanted:Qty : 1 on 04/17/2022 by Donald Parker MD at [facility] Cement, Bone Right: Knee [employer] 06/27/2023 6191-1-001 / / [id number] Twinfix Ultra Pk 5.5mm Suture Winters With 2 Ultrabraid Sutures Implanted:Qty : 1 on 12/10/2017 by Les Israel MD at [facility] Metallic Hardware/An chor Right: Shoulder 05/23/2022 [id number] / / [id number] 2.8mm Q-Fix Suture Winters Implanted:Qty : 1 on 12/10/2017 by Les Israel MD at [facility] Metallic Hardware/An chor Right: Shoulder 04/03/2020-2800 / / [id number] Knee Uni Tibia Tray Mobile Bear D5 Rm/Ll - [id number] Implanted:Qty : 1 on 04/17/2022 by Donald Parker MD at [facility] Total Joint Component/I nsert Right: Knee [employer] 07/27/2031 [id number] / / [id number] Knee Alice Uni Femoral Med - [id number] Implanted:Qty : 1 on 04/17/2022 by Donald Parker MD at [facility] Total Joint Component/I nsert Right: Knee [employer] 03/19/2032 [id number] / / [id number] Insert Alice Anatomic Bear R Med Sz 4 - [id number] Implanted:Qty : 1 on 04/17/2022 by Donald Parker MD at [facility] Total Joint Component/I nsert Right: Knee [employer] 11/16/2025 [id number] / / [id number] Twinfix Ultra Pk 5.5mm Suture Winters With 2 Ultrabraid Sutures Implanted:Qty : 1 on 12/10/2017 by Les Israel MD at [facility] Right: Shoulder [employer] 01/10/2022 [id number] / / [id number] Procedures Procedure Name Priority Date/Time Associated Diagnosis Comments GLUCOSE BY METER Routine 04/18/2022 7:15 AM B[employer]LEY MANAGER from Last 3 Months or Most Recently Relevant to Health Maintenance Results * (ABNORMAL) Glucose by meter (04/18/2022 7:15 AM B[employer]ING ALLEY MANAGER) GLUCOSE BY METER POCT 143(H) 70 - 99 mg/dL 04/18/2022 7:22 AM B[employer]LING ALLEY MANAGER [facility] POC Blood, Capillary BLOOD SPECIMEN / Unknown 04/18/2022 7:15 AM B[employer]ING ALLEY MANAGER 04/18/2022 7:22 AM BOW[employer]ING ALLEY MANAGER us Donald Parker MD LAB - BEAKER POCT Final Resu lt [facility] [address] [facility] (1st floor, no room number) [place] [address], [facility] [phone] from Last 3 Months or Most Recently Relevant to Health Maintenance Insurance [facility] [place] [employer] [facility] [address] [facility] [employer] Advance Directives For more information, please contact: [phone] * Full Code (Latest Code Status on File) Date Activated Date Inactivated Comments 04/17/2022 11:28 AM 04/18/2022 10:58 AM All basi c and advanced life-sustaining interventions are performed as appropriate Question Answer Comments Code status determined by: Discussion with patie nt/ legal decision maker Care Teams Training Specialist Relationship Specialty Start Date End Date Anthony Moeller MD PCP - General Family Practice 11/21/17 Donald Parker MD [address] [place] [address] Assigned Musculoskeletal Provider 01/20/24
--- OUTSIDE RECORDS SUMMARY | 2024-05-15 02:52 | XMS_ITS | Clinical Summary ---
Author Organization [facility] Address [address] [place] [address] Care Team Providers Care Senior Architect Name Role Phone Anthony Moeller MD Primary Care Provider [phone] Donald Parker MD Unavailable Allergies No known [...] on file Legal Sex Male 5:12 AM WAIST PRESSER Gender Identity Not on file Sexual Orientation Not on file Last Filed Vital Signs Vital Sign Reading Time Taken Comments Blood Pressure 129/86 12/20/2023 11:46 AM CDT Pulse 72 04/18/2022 8:11 AM WAIST PRESSER Temperature 36.5 C (97.7 F) 04/18/2022 8:11 AM WAIST PRESSER Respiratory Rate 16 04/18/2022 8:11 AM WAIST PRESSER Oxygen Saturation 97% 04/18/2022 8:1 1 AM WAIST PRESSER Inhaled Oxygen Concentration - - Weight 128.8 kg (284 lb) 05/25/2022 10: 23 AM WAIST PRESSER pulled from last visit Height 175.3 cm (5' 9) 05/25/2022 10:2 3 AM WAIST PRESSER Body Mass Index 41.94 05/25/2022 10:23 AM WAIST PRESSER Plan of Treatment Health Maintenance Due Date Last Done Comments ADVANCE CARE PLANNING 1968 ANNUAL REVIEW OF HM ORDERS 1968 CT COLONOGRAPHY 1968 FIT 1968 FLEX SIG 1968 URINE DRUG SCREEN 1968 sDNA (Cologuard) 1968 YEARLY PREVENTIVE VISIT 09/12/1971 COLONOSCOPY 1978 COLORECTAL CANCER SCREENING 1978 HIV SCREENING 09/12/1983 HEPATITIS C SCREENING 1986 HEPATITIS B IMMUNIZATION (1 of 3 - 19+ 3-dose series) 09/12/1987 LIPID 2008 LUNG CANCER SCREENING 2018 Pneumococcal Vaccine: 50+ Years (2 of 2 - PCV) 10/24/2019 10/23/2018 COVID-19 Vaccine (1 - season) 2023 INFLUENZA VACCINE (#1) 2023 9, 03/25/2018, 04/18/2009, Additional history exists PHQ-2 (once per calendar year) 2024 05/11/2022, 04/03/2022 GLUCOSE 04/18/2025 04/18/2022, 12, 04/17/2022, Additional history exists DTAP/TDAP/TD IMMUNIZATION (3 - Td or Tdap) 12/02/2029 12/03/2019, 06/13/2010, 04/28/1994 RSV VACCINE (1 - 1-dose 75+ series) 09/12/2043 ZOSTER IMMUNIZATION Completed 08/27/2019, 9 HPV IMMUNIZATION Aged Out No longer e ligible based on patient's age to complete this topic MENINGITIS IMMUNIZATION Aged Out No l onger eligible based on patient's age to complete this topic RSV MONOCLONAL ANTIBODY Aged Out No l onger eligible based on patient's age to complete this topic Medical Devices Implanted Type Area Tomography Technologist Device Identifier Shelf Expiration Date Model / Serial / Lot Bone Cement Simplex Full Dose 6191-1-001 - [id number] Implanted:Qty : 1 on 04/17/2022 by Donald Parker MD at [facility] Cement, Bone Right: Knee [employer] 06/27/2023 6191-1-001 / / [id number] Twinfix Ultra Pk 5.5mm Suture Letha With 2 Ultrabraid Sutures Implanted:Qty : 1 on 12/10/2017 by Les Israel MD at [facility] Metallic Hardware/An chor Right: Shoulder 05/23/2022 [id number] / / [id number] 2.8mm Q-Fix Suture Letha Implanted:Qty : 1 on 12/10/2017 by Les Israel MD at [facility] Metallic Hardware/An chor Right: Shoulder 04/03/2020 [id number] / / [id number] Knee Uni Tibia Tray Mobile Bear D5 Rm/Ll - [id number] Implanted:Qty : 1 on 04/17/2022 by Donald Parker MD at [facility] Total Joint Component/I nsert Right: Knee [employer] 07/27/2031 [id number] / / [id number] Knee Linn Uni Femoral Med - [id number] Implanted:Qty : 1 on 04/17/2022 by Donald Parker MD at [facility] Total Joint Component/I nsert Right: Knee [employer] 03/19/2032 [id number] / / [id number] Insert Linn Anatomic Bear R Med Sz 4 - [id number] Implanted:Qty : 1 on 04/17/2022 by Donald Parker MD at [facility] Total Joint Component/I nsert Right: Knee [employer] 11/16/2025 [id number] / / [id number] Twinfix Ultra Pk 5.5mm Suture Letha With 2 Ultrabraid Sutures Implanted:Qty : 1 on 12/10/2017 by Les Israel MD at [facility] Right: Shoulder [employer] 01/10/2022 [id number] / / [id number] Procedures Procedure Name Priority Date/Time Associated Diagnosis Comments GLUCOSE BY METER Routine 04/18/2022 7:15 AM WAIST PRESSER from Last 3 Months or Most Recently Relevant to Health Maintenance Results * (ABNORMAL) Glucose by meter (04/18/2022 7:15 AM WAIST PRESSER) [facility] GLUCOSE BY METER POCT 143(H) 70 - 99 mg/dL 04/18/2022 7:22 AM WAIST PRESSER [facility] LABORATORY POC Blood, Capillary BLOOD SPECIMEN / Unknown 04/18/2022 7:15 AM WAIST PRESSER 04/18/2022 7:22 AM WAIST PRESSER Donald MILLER - [facility] POCT Final Resu lt RH LABORATORY POC [facility] [address] Lab (1st floor, no room number) [place] [address], [facility] [phone] from Last 3 Months or Most Recently Relevant to Health Maintenance Insurance [employer] [place] [facility] [employer] Advance Directives For more information, please contact: [phone] * Full Code (Latest Code Status on File) Date Activated Date Inactivated Comments 04/17/2022 11:28 AM 04/18/2022 10:58 AM All basi c and advanced life-sustaining interventions are performed as appropriate Question Answer Comments Code status determined by: Discussion with adriana nt/ legal decision maker Care Teams Senior Architect Relationship Specialty Start Date End Date Anthony Moelelr MD PCP - General Family Practice 11/21/17 Donald Parker MD [address] [place] [address] Assigned Musculoskeletal Provider 01/20/24
--- OUTSIDE RECORDS SUMMARY | 2024-05-15 02:52 | XMS_ITS | Clinical Summary ---
Author Organization [facility] Address [place], [place] [address] Care Team Providers Care Ppap Coordinator Name Role Phone Anthony Moeller MD Primary Care Provider [phone] Allergies No known active allergies Medications ibuprofen (ADVIL; MOTRIN) 600 mg tablet Take [...] Active metoprolol succinate (TOPROL XL) 50 mg sustained-relea se tablet Take 50 mg by mouth once [...] Type Department Care Team Description 03/24/2024 Telephone [facility] [address] [place] [address] Kayli Ty MS, [facility] Results 03/13/2024 Telephone [facility] [address] [place] [address] [facility] 03/11/2024 9:00 AM REGULATORY INTERNSHIP Phone Office Visit [facility] [address] [place] [address] Kayli Ty MS, [facility] Counseling (Cancer genetic counseling); Phone Visit 03/03/2024 Telephone [facility] [address] [place] [address] [facility] 02/21/2024 Transcribe Orders [place] [address] [place] [address] Georgiana Samayoa MD from Last 3 Months Social History Tobacco Use Types Packs/Day Years Used Date Smoking Tobacco: Former Cigarettes Tobacco Cessation:Counseling Given: Not Answered Alcohol Use Standard Drinks/Week Comments Yes 3.3 (1 standard drink = 0.6 oz p ure alcohol) social Sex and Gender Information Value Date Recorded Sex Assigned at Not on file Legal Sex Male 6:24 AM REGULATORY INTERNSHIP Gender Identity Not on file Sexual Orientation [...] age 18+ 1986 Hepatitis C screening for age 18-79 1986 Tetanus booster 1988 Colonoscopy through age 75 2013 Lipids for age 45-75 2013 Pneumococcal series for age 50+ (1 of 1 - PCV) 019 Zoster (shingles) series for age 50+ (1 of 2) 09/12/19 19 COVID-19 vaccine series ( - 2023- season) Influenza for age 50-64 12/29/2023 Medical Devices Implanted Type Area Inspector Of Weights And Measures Device Identifier Shelf Expiration Date Model / Serial / Lot Sut Ancr 4.75 W/Loop - [id number] Implanted:Qty: 1 on 09/16/2012 by Jama Cohen MD at [facility] Right: Shoulder [employer] 04/27/2014 [id number] / / [id number] Insurance [facility] Care Teams Ppap Coordinator Relationship Specialty Start Date End Date Anthony Moeller MD [address] [place] [address] PCP - General Family Practice 01/09/24
--- OUTSIDE RECORDS SUMMARY | 2024-05-15 02:53 | XMS_ITS | Clinical Summary ---
Author Organization [facility] Address [address] [place] [address] Care Team Providers Care Assistant Administrator Name Role Phone Unavailable Primary Care Provider Unavailabl e Source Comments Patient records contain information from all sites at [facility]. For routine questions regarding patient records, call [phone] during business hours, M-F 8:00 AM - 5:00 PM Central Time. Record requests for emergency care only can be directed to [phone] at any time.[facility] Allergies No known active allergies Medications prochlorperazin e (Compazine) 10 mg tablet TAKE 1/2 TABLET (5 MG) BY MOUTH 3 TIMES DAILY NEEDED FOR NAUSEA AND VOMITING 30 tablet 4 Active acetaminophen (TylenoL) 325 mg tablet Take 650 mg by mouth. 2 Active albuterol 90 mcg/actuation inhaler Inhale 2 puffs. 4 Active amLODIPine (Norvasc) 5 mg tablet 5 MG ORALLY EVERY DAY Active amoxicillin (AmoxiL) 500 mg capsule TAKE ONE CAPSULE BY MOUTH THREE TIMES A DAY UNTIL GONE 4 Active Eliquis 5 mg tablet 4 Active aspirin [address] tablet Take 81 mg by mouth daily. 2 Active calcium carbonate-vitam in D3 1,500 mg (600 mg calcium)-10 mcg (400 Unit) per tablet Take 1 tablet by mouth 2 (two) times a day. 4 Active chlorhexidine (Peridex) 0.12 % mouthwash RINSE WITH 15ML (1 CAPFUL) FOR 30 SECONDS AM AND PM AFTER TOOTHBRUSHING. EXPECTORATE AFTER RINSING, DO NOT SWALLOW. 4 Active fluticasone propion-salmete roL (Advair HFA) 45-21 mcg/actuation inhaler Inhale 2 puffs. 4 Active HYDROcodone-jessica taminophen ([place]) 5-325 mg per tablet TAKE ONE HALF TABLET EVERY 4 TO 6 HOURS FOR PAIN NEEDED. DO NOT EXCEED 8 TABLETS PER DAY. 4 Active ibuprofen 600 mg tablet Take 600 mg by mouth every 6 (six) hours as needed. 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 Med Refill 05/07/2024 7:57 AM TECHNICIAN ANATOMIC PATHOLOGY Hospital Encounter Department of Radiation Oncology in [address] [address] Haley Martínez M.D. Chamberlain, Daniel, M.D. 05/07/2024 Documentation Department of Radiation Oncology in [address] [address] Ant Mccullough M.D. 05/06/2024 7:58 AM TECHNICIAN ANATOMIC PATHOLOGY Hospital Encounter Department of Radiation Oncology in [address] [address] Haley Martínez M.D. Chamberlain, Daniel, M.D. 05/05/2024 7:56 AM TECHNICIAN ANATOMIC PATHOLOGY - 05/05/2024 5:34 PM TECHNICIAN ANATOMIC PATHOLOGY Hospital Encounter Department of Radiation Oncology in [address] [address] Ant Mccullough M.D. Cholangiocarcinoma (HCC); Secondary Malignant Neoplasm Bone (HCC) 05/05/2024 7:56 AM TECHNICIAN ANATOMIC PATHOLOGY Hospital Encounter Department of Radiation Oncology in [address] [address] Haley Martínez M.D. Chamberlain, Daniel, M.D. 05/04/2024 7:49 AM TECHNICIAN ANATOMIC PATHOLOGY Hospital Encounter Department of Radiation Oncology in [address] [address] Haley Martínez M.D. Chamberlain, Daniel, M.D. 05/04/2024 Refill Department of Oncology in [address] [address] Georgiana Samayoa M.D. [facility] Refill 05/01/2024 7:58 AM TECHNICIAN ANATOMIC PATHOLOGY Hospital Encounter Department of Radiation Oncology in [address] [address] Haley Martínez M.D. Chamberlain, Daniel, M.D. 04/28/2024 12:39 PM TECHNICIAN ANATOMIC PATHOLOGY - 05/07/2024 10:29 AM TECHNICIAN ANATOMIC PATHOLOGY Hospital Encounter Department of Radiation Oncology in [address] [address] Haley Martínez M.D. Chamberlain, Daniel, M.D. Cholangiocarcinoma (HCC); Secondary Malignant Neoplasm Bone (HCC) 04/28/2024 11:42 AM TECHNICIAN ANATOMIC PATHOLOGY - 05/12/2024 4:59 PM TECHNICIAN ANATOMIC PATHOLOGY Hospital Encounter Department of Radiation Oncology in [address] [address] Ant Mccullough M.D. Cholangiocarcinoma (HCC) (Primary Dx); Secondary Malignant Neoplasm Bone (HCC) 04/24/2024 Orders Only Department of Radiation Oncology in [address] [address] Charlene Kaufman APRN, C.N.P., D.N.P. Cholangiocarcinoma (HCC) (Primary Dx); Secondary Malignant Neoplasm Bone (HCC) 03/19/2024 Refill Department of Oncology in [place], [place] [address] [place] [address] Georgiana Samayoa M.D. Med Refill 02/21/2024 9:42 AM CDT - 02/21/2024 11:59 PM CDT Hospital Encounter Department of Radiology in [place], [place] [address] [place] [address] Georgiana Samayoa M.D. Cholangiocarcinoma (HCC) Discharge Disposition: Home or Self Care 02/17/2024 Refill Department of Oncology in [place], [place] [address] [place] [address] Georgiana Samayoa M.D. Med Refill from Last 3 Months Family History Medical History Relation Name Comments Cancer Mother Relation Name Status Comments Mother Social History Tobacco Use Types Packs/Day Years Used Date Smoking Tobacco: Former Cigarettes 1 15 1 [id number] Tobacco Cessation:Counseling Given: Not Answered Alcohol Use Standard Drinks/Week Comments Not Currently 0 (1 standard drink = 0.6 oz pure alcohol) Quit in December 2023. Previous use of 1 bottle of vodka per week for 20 years. Nutrition Answer Date Recorded Nutrition: EVOO Fat Source 13 10/09 Nutrition: Servings of Fruits/Vegetables per Day Not on file 10/09/2018 Dental Answer Date Recorded Dental: Regular Dentist Unknown 07/06/19 21 Sex and Gender Information Value Date Recorded Sex Assigned at Not on file Legal Sex Male 9:27 PM TECHNICIAN ANATOMIC PATHOLOGY Gender Identity Not on file Sexual Orientation Not on file Occupation Industry Job Start Date Job End Date Not on file Not on file Not on file Not on file Last Filed Vital Signs Vital Sign Reading Time Taken Comments Blood Pressure 111/73 05/05/2024 8:36 AM TECHNICIAN ANATOMIC PATHOLOGY Pulse 103 05/05/2024 8:36 AM TECHNICIAN ANATOMIC PATHOLOGY Temperature 36.1 C (96.9 F) 05/05/2024 8:36 AM TECHNICIAN ANATOMIC PATHOLOGY Respiratory Rate - - Oxygen Saturation - - Inhaled Oxygen Concentration - - Weight 105 kg (232 lb 9.4 oz) 05/05/2024 8:36 AM TECHNICIAN ANATOMIC PATHOLOGY Height - - Body Mass Index - - Plan of Treatment Health Maintenance Due Date Last Done Comments CT Colonography 1968 Cologuard 1968 Colonoscopy 1968 Colorectal Cancer Screening 1968 FIT 1968 HIV Screening 1968 Hepatitis C Screening 1968 Lipid (Cholesterol) Screening 1968 COVID-19 Vaccine (#1) 1973 Hepatitis B Vaccines (1 of 3 - 19+ 3-dose series) 09/12/1987 Pneumococcal vaccine (50+ years) (2 of 2 - PCV) 10/24/2019 10/23/2018 Creatinine Level (Kidney Function Test) 04/02/2023 04/02/2022 Potassium Level 04/02/2023 04/02/2022, 12/10/2017 Sodium Level 04/02/2023 04/02/2022 Influenza Vaccine (#1) 2024 9, 03/25/2018, 04/18/2009, Additional history exists Depression Screening (Annual PHQ-2) 04/29/2024 Fasting Glucose for Diabetes Screening 04/02/2025 04/02/2022 DTaP,Tdap,and Td Vaccines (3 - Td or Tdap) 12/02/2029 12/03/2019, 06/13/2010, 04/28/1994 Zoster Vaccines Completed 08/27/2019, 04/16/2019 HPV Vaccines Aged Out No longer eligi ble based on patient's age to complete this topic IPV Vaccines Aged Out No longer eligi ble based on patient's age to complete this topic Procedures Procedure Name Priority Date/Time Associated Diagnosis Comments ARIA COURSE COMPLETE TREATMENT INFORMATION Routine 05/07/2024 8:21 AM TECHNICIAN ANATOMIC PATHOLOGY ARIA DAILY TREATMENT INFORMATION Routine 05/07/2024 8:21 AM TECHNICIAN ANATOMIC PATHOLOGY ARIA DAILY TREATMENT INFORMATION Routine 05/06/2024 8:27 AM TECHNICIAN ANATOMIC PATHOLOGY ARIA DAILY TREATMENT INFORMATION Routine 05/05/2024 8:30 AM TECHNICIAN ANATOMIC PATHOLOGY ARIA DAILY TREATMENT INFORMATION Routine 05/04/2024 8:27 AM TECHNICIAN ANATOMIC PATHOLOGY ARIA DAILY TREATMENT INFORMATION Routine 05/01/2024 8:50 AM TECHNICIAN ANATOMIC PATHOLOGY INITIAL RAD ONC TREATMENT PLANNING CT SIMULATION Routine 04/28/2024 1:00 PM TECHNICIAN ANATOMIC PATHOLOGY Cholangiocarcinom a (HCC) Secondary Malignant Neoplasm Bone (HCC) OUTSIDE CT NEURO Routine 04/24/2024 7:35 AM TECHNICIAN ANATOMIC PATHOLOGY OUTSIDE CT NEURO Routine 04/24/2024 7:30 AM TECHNICIAN ANATOMIC PATHOLOGY OUTSIDE CT BODY Routine 03/27/2024 8:20 AM TECHNICIAN ANATOMIC PATHOLOGY OUTSIDE MR BODY Routine 03/27/2024 7:30 AM TECHNICIAN ANATOMIC PATHOLOGY OUTSIDE DX CHEST Routine 02/28/2024 12:[address] SKULL TO THIGH RAD - Routine (most inpatients and all outpatients) 02/21/2024 11:17 AM CDT Cholangiocarcinom a (HCC) from Last 3 Months Results * Aria Course Complete Treatment Information (05/07/2024 8:21 AM TECHNICIAN ANATOMIC PATHOLOGY) Course ID [id number] te CONLEY ARIA Course Start Date 4 10:56 TECHNICIAN ANATOMIC PATHOLOGY CONLEY ARIA Course End Date 5 11:24 TECHNICIAN ANATOMIC PATHOLOGY CONLEY ARIA First Treatment Date 5 08:27 TECHNICIAN ANATOMIC PATHOLOGY CONLEY ARIA Last Treatment Date 5 08:21 TECHNICIAN ANATOMIC PATHOLOGY CONLEY ARIA Treatment Elapsed Days 6 CONLEY ARIA Reference Point [id number]_ 2000x CONLEY ARIA Dosage Given to Date cGy 1999 [facility]A Reference Point [id number]_ 2000x CONLEY ARIA Dosage Given to Date cGy 1999 CONLEY ARIA Reference Point [id number] 2000x CON[facility] ARIA Dosage Given to Date cGy 1999 CON[facility] ARIA Plan ID [id number] CONLEY ARIA Fractions Treated to Date 5 CONLEY ARIA Planned Total Fractions 5 CONLEY ARIA Prescribed Dose Per Fraction 400 CONLEY ARIA Prescription Dose in cGy 2000 CONLEY ARIA Plan Primary Reference Point [id number]_ 2000x CONLEY ARIA Plan ID [id number] CONLEY ARIA Fractions Treated to Date 5 CONLEY ARIA Planned Total Fractions 5 CONLEY ARIA Prescribed Dose Per Fraction 400 CONLEY ARIA Prescription Dose in cGy 2000 [facility] ARIA Plan Primary Reference Point [id number]_ 2000x [facility] ARIA Plan ID [id number] CONLEY ARIA Fractions Treated to Date 5 CONLEY ARIA Planned Total Fractions 5 CONLEY ARIA Prescribed Dose Per Fraction 400 [facility]LEY ARIA Prescription Dose in cGy 2000 CONLEY ARIA Plan Primary Reference Point [id number]_ 1999x CONLEY ARIA 05/07/2024 8:21 AM TECHNICIAN ANATOMIC PATHOLOGY us Provider Not In System RADIATION ONCOLOGY ORDERA BLES Final Result CONLEY ARIA na * Aria Daily Treatment Information (05/07/2024 8:21 AM TECHNICIAN ANATOMIC PATHOLOGY) Only the most recent of5 resultswithin the time period is included. Course ID [id number] te CONLEY ARIA Course Start Date 4 10:56 TECHNICIAN ANATOMIC PATHOLOGY CONLEY ARIA First Treatment Date 5 08:27 TECHNICIAN ANATOMIC PATHOLOGY CONLEY ARIA Last Treatment Date 5 08:21 TECHNICIAN ANATOMIC PATHOLOGY CONLEY ARIA Treatment Elapsed Days 6 CONLEY ARIA Reference Point [id number]_ 2000x CON[facility] ARIA Dosage Given to Date cGy 1999 CON[facility] ARIA Session Dosage Given 400 CON[facility] ARIA Reference Point [id number]_ 2000x CONLEY ARIA Dosage Given to Date cGy 1999 CONLEY ARIA Session Dosage Given 400 CONLEY ARIA Reference Point [id number] 2000x CONLEY ARIA Dosage Given to Date cGy 1999 CONLEY ARIA Session Dosage Given 400 CON[facility] ARIA Plan ID [id number] [facility] ARIA Fractions Treated to Date 5 CONLEY ARIA Planned Total Fractions 5 CONLEY ARIA Prescribed Dose Per Fraction 400 CONLEY ARIA Prescription Dose in cGy 2000 [facility] ARIA Plan Primary Reference Point [id number]_ 2000x [facility] ARIA Plan ID [id number] [facility] ARIA Fractions Treated to Date 5 CONLEY ARIA Planned Total Fractions 5 CONLEY ARIA Prescribed Dose Per Fraction 400 CONLEY ARIA Prescription Dose in cGy 2000 [facility] ARIA Plan Primary Reference Point [id number]_ 2000x CONLEY ARIA Plan ID [id number] CONLEY ARIA Fractions Treated to Date 5 CONLEY ARIA Planned Total Fractions 5 CONLEY ARIA Prescribed Dose Per Fraction 400 CONLEY ARIA Prescription Dose in cGy 2000 CONLEY ARIA Plan Primary Reference Point [id number]_ 2000x CONLEY ARIA 05/07/2024 8:21 AM TECHNICIAN ANATOMIC PATHOLOGY us Provider Not In System RADIATION ONCOLOGY ORDERA BLES Final Result Performing Organization Address [facility] Co de Phone Number YAEL TORRES na * Initial Rad Onc Treatment Planning CT Simulation (04/28/2024 1:00 PM TECHNICIAN ANATOMIC PATHOLOGY) Narrative CONLEY ARIA - 04/28/2024 1:00 PM TECHNICIAN ANATOMIC PATHOLOGY Rupal Payton, RTT 04/28/2024 1:28 PM Initial Rad Onc Treatment Planning CT Simulation Performed by: Ant Mccullouhg M.D. Authorized by: Haley Martínez M.D. Haley Martínez M.D. RADIATION ONCOLOGY ORDERA BLES Final Result Performing Organization Address [facility] Co de Phone Number YAEL TORRES na * CT thoracic spine wo con-Outside CT Neuro (04/24/2024 7:35 AM TECHNICIAN ANATOMIC PATHOLOGY) Only the most recent of2 resultswithin the time period is included. 04/24/2024 7:29 AM TECHNICIAN ANATOMIC PATHOLOGY Narrative [facility] - 04/24/2024 9:23 AM TECHNICIAN ANATOMIC PATHOLOGY This order has been created and auto-finalized to support the import of outside images. If available, original interpretation can be found on the Media Tab in Chart Review, in Document Viewer, as an image in QREADS or as an Addendum. If a re-interpretation or overread is required please follow defined workflow. us Provider Not In System IMG CT PROCEDURES Final R esult Performing Organization Address City/[facility]/ZIP Co de Phone Number II NA * CT chest abdomen pelv w con-Outside CT Body (03/27/2024 8:20 AM TECHNICIAN ANATOMIC PATHOLOGY) Narrative [facility] - 04/24/2024 9:26 AM TECHNICIAN ANATOMIC PATHOLOGY This order has been created and auto-finalized to support the import of outside images. If available, original interpretation can be found on the Media Tab in Chart Review, in Document Viewer, as an image in QREADS or as an Addendum. If a re-interpretation or overread is required please follow defined workflow. us Provider Not In System IMG CT PROCEDURES Final R esult Performing Organization Address [facility] de Phone Number II NA * MR abdomen wo/w con-Outside MR Body (03/27/2024 7:30 AM TECHNICIAN ANATOMIC PATHOLOGY) Narrative [facility] - 04/24/2024 9:26 AM TECHNICIAN ANATOMIC PATHOLOGY This order has been created and auto-finalized to support the import of outside images. If available, original interpretation can be found on the Media Tab in Chart Review, in Document Viewer, as an image in QREADS or as an Addendum. If a re-interpretation or overread is required please follow defined workflow. us Provider Not In System IMG MRI PROCEDURES Final Result Performing Organization Address [facility] de Phone Number II NA * XR chest 2V-Outside Chest Xray (02/28/2024 12:25 PM CDT) Narrative [facility] - 04/24/2024 9:18 AM TECHNICIAN ANATOMIC PATHOLOGY This order has been created and auto-finalized to support the import of outside images. If available, original interpretation can be found on the Media Tab in Chart Review, in Document Viewer, as an image in QREADS or as an Addendum. If a re-interpretation or overread is required please follow defined workflow. us Provider Not In System IMG DIAGNOSTIC IMAGING MO OCEDURES Final Result Performing Organization Address [facility] de Phone Number [facility] NA * PET CT Skull to Thigh FDG [...] RADIOPHARMACEUTICAL/MEDS: Route: intravenous fludeoxyglucose F 18 injection ASSISTED (FDG F-18),14.7 millicurie Procedure Note Shant Bryson [...] indeterminate lytic lesions in the T8 and Z9lpsixmmsl bodies without elevated radiotracer uptake. Other Findings: [...] RADIOPHARMACEUTICAL/MEDS: Route: intravenous fludeoxyglucose F 18 injection ASSISTED (FDG F-18),14.7 millicurie IMPRESSION: 1. Focal elevated [...] withoutradiotracer uptake are indeterminate. Georgiana Samayoa M.D. IMG NM PROCEDURES Final Resu lt from Last 3 Months Insurance [facility]
--- OUTSIDE RECORDS SUMMARY | 2024-05-15 02:53 | XMS_ITS | Encounter Summary ---
[facility] Organization [facility] Address [address] [place] [address] Care Team Providers Care Dinkey Engine Mechanic Name Role Phone Unavailable Primary Care Provider Unavailabl e Reason for Visit * Reason Comments Med Refill Encounter Details Date Type Department Care Team (Late st Contact Info) Description 03/19/2024 Refill Department of Oncology in [place], [place] [address] [place] [phone] Georgiana Samayoa M.D. 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
--- OUTSIDE RECORDS SUMMARY | 2024-05-15 02:53 | XMS_ITS | Encounter Summary ---
Author Organization [facility] Address [address] [place] [address] Care Team Providers Care Astronaut Mission Specialist Name Role Phone Unavailable Primary Care Provider Unavailabl e Encounter Details Date Type Department Care Team (Late st Contact Info) Description 05/05/2024 7:56 AM APPLICATION DEVELOPMENT DIRECTOR Hospital Encounter Department of Radiation Oncology in [place], [place] [address] [place] [address] Haley Martínez M.D. [address] [place] [address] Ant Mccullough M.D. [address] [place] [address] Social History Tobacco Use Types Packs/Day Years Used Date Smoking Tobacco: Former Cigarettes 1 15 1 - 2008 Alcohol Use Standard Drinks/Week Comments Not Currently [...] on file Legal Sex Male 9:27 PM APPLICATION DEVELOPMENT DIRECTOR Gender Identity Not on file Sexual Orientation Not on file Occupation Industry Job Start Date Job End Date Not on file Not on file Not on file Not on file documented as of this encounter Plan of Treatment Not on file documented as of this encounter Visit Diagnoses Not on filedocumented in this encounter
--- OUTSIDE RECORDS SUMMARY | 2024-05-15 02:53 | XMS_ITS ---
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 Past Plans No past plan information found. Radiation Treatments * Plan Last Treated On Elapsed Days Fractions Treated Prescribed Fraction Dose Prescribed Total Dose [id number] 05/07/2024 6 5 of 5 400 cGy 2,000 cGy [id number] 05/07/2024 6 5 of 5 400 cGy 2,000 cGy [id number] 05/07/2024 6 5 of 5 400 cGy 2,000 cGy Reference Point Last Treated On Elapsed Days Session Dose Total Dose [id number] 05/07/2024 6 400 cGy 2,000 cGy [id number] 05/07/2024 6 400 cGy 2,000 cGy [id number] 05/07/2024 6 400 cGy 2,000 cGy
--- OUTSIDE RECORDS SUMMARY | 2024-05-15 02:53 | XMS_ITS | Encounter Summary ---
Author Organization [facility] Address [address] [place] [address] Care Team Providers Care Autocad Technician Name Role Phone Unavailable Primary Care Provider Unavailabl e Encounter Details Date Type Department Care Team (Late st Contact Info) Description 05/04/2024 7:49 AM DOCTOR OF VETERINARY MEDICINE Hospital Encounter Department of Radiation Oncology in [place], [place] [address] [place] [address] Haley Martínez M.D. [address] [place] [address] Ant Mccullough M.D. [address] [place] [address] Social History Tobacco Use Types Packs/Day Years [...] on file Legal Sex Male 9:27 PM DOCTOR OF VETERINARY MEDICINE Gender Identity Not on file Sexual Orientation Not on file Occupation Industry Job Start Date Job End Date Not on file Not on file Not on file Not on file documented as of this encounter Plan of Treatment Not on file documented as of this encounter Visit Diagnoses Not on filedocumented in this encounter
--- OUTSIDE RECORDS SUMMARY | 2024-05-15 02:53 | XMS_ITS | Referral Summary ---
Author Organization [facility] Address [address] [place] [address] Care Team Providers Care Client Support Coordinator Name Role Phone Unavailable Primary Care Provider Unavailabl e Source Comments Patient records contain information from all sites at [facility]. For routine questions regarding patient records, call [phone] during business hours, M-F 8:00 AM - 5:00 PM Central Time. Record requests for emergency care only can be directed to [phone] at any time.[facility] Encounters Date Type Department Care Team Description 05/12/2024 Refill Department of Oncology in [place], [place] [address] [place] [address] Georgiana Samayoa M.D. Med Refill 04/28/2024 11:42 AM [facility] - 05/12/2024 4:59 PM [facility] Hospital Encounter Department of Radiation Oncology in [address] [address] Ant Mccullough M.D. Cholangiocarcinoma (HCC) (Primary Dx); Secondary Malignant Neoplasm Bone (HCC) 05/07/2024 Documentation Department of Radiation Oncology in [address] [address] Ant Mccullough M.D. 05/07/2024 7:57 AM [facility] Hospital Encounter Department of Radiation Oncology in [address] [address] Haley Martínez M.D. Chamberlain, Daniel M.D. 04/28/2024 12:39 PM COMPUTER NETWORK AND SYSTEMS ENGINEER - 05/07/2024 10:29 AM COMPUTER NETWORK AND SYSTEMS ENGINEER Hospital Encounter Department of Radiation Oncology in [address] [address] Haley Martínez M.D. Chamberlain, Daniel, M.D. Cholangiocarcinoma (HCC); Secondary Malignant Neoplasm Bone (HCC) 05/06/2024 7:58 AM COMPUTER NETWORK AND SYSTEMS ENGINEER Hospital Encounter Department of Radiation Oncology in [address] [address] Haley Martínez M.D. Chamberlain, Daniel, M.D. 05/05/2024 7:56 AM COMPUTER NETWORK AND SYSTEMS ENGINEER - 05/05/2024 5:34 PM COMPUTER NETWORK AND SYSTEMS ENGINEER Hospital Encounter Department of Radiation Oncology in [address] [address] Ant Mccullough M.D. Cholangiocarcinoma (HCC); Secondary Malignant Neoplasm Bone (HCC) 05/05/2024 7:56 AM COMPUTER NETWORK AND SYSTEMS ENGINEER Hospital Encounter Department of Radiation Oncology in [address] [address] Haley Martínez M.D. Chamberlain, Daniel, M.D. 05/04/2024 Refill Department of Oncology in [address] [address] Georgiana Samayoa M.D. Med Refill 05/04/2024 7:49 AM COMPUTER NETWORK AND SYSTEMS ENGINEER Hospital Encounter Department of Radiation Oncology in [address] [address] Haley Martínez M.D. Chamberlain, Daniel, M.D. 05/01/2024 7:58 AM COMPUTER NETWORK AND SYSTEMS ENGINEER Hospital Encounter Department of Radiation Oncology in [address] [address] Haley Martínez M.D. Chamberlain, Daniel M.D. 04/24/2024 Orders Only Department of Radiation Oncology in [place], [place] [address] [place] [address] Charlene Kaufman APRN, C.N.P., D.N.P. Cholangiocarcinoma (HCC) (Primary Dx); Secondary Malignant Neoplasm Bone (HCC) 03/19/2024 Refill Department of Oncology in [place], [place] [address] [place] [address] Georgiana Samayoa M.D. Med Refill 02/21/2024 9:42 AM CDT - 02/21/2024 11:59 PM CDT Hospital Encounter Department of Radiology in [place], [place] [address] [place] [address] Georgiana Samayoa M.D. Cholangiocarcinoma (HCC) Discharge Disposition: Home or Self Care 02/17/2024 Refill Department of Oncology in [place], [place] [address] [place] [address] Georgiana Samayoa M.D. Med Refill from Last 3 Months Allergies No known active allergies Medications prochlorperazin [...] Inhale 2 puffs. 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 Social History Tobacco Use Types Packs/Day Years Used Date Smoking Tobacco: Former Cigarettes 1 15 1 - 2008 Tobacco Cessation:Counseling Given: Not Answered Alcohol Use [...] on file Legal Sex Male 9:27 PM COMPUTER NETWORK AND SYSTEMS ENGINEER Gender Identity Not on file Sexual Orientation Not on file Occupation Industry Job Start Date Job End Date Not on file Not on file Not on file Not on file Last Filed Vital Signs Vital Sign Reading Time Taken Comments Blood Pressure 111/73 05/05/2024 8:36 AM COMPUTER NETWORK AND SYSTEMS ENGINEER Pulse 103 05/05/2024 8:36 AM COMPUTER NETWORK AND SYSTEMS ENGINEER Temperature 36.1 C (96.9 F) 05/05/2024 8:36 AM COMPUTER NETWORK AND SYSTEMS ENGINEER Respiratory Rate - - Oxygen Saturation - - Inhaled Oxygen Concentration - - Weight 105 kg (232 lb 9.4 oz) 05/05/2024 8:36 AM COMPUTER NETWORK AND SYSTEMS ENGINEER Height - - Body Mass Index - - Plan of Treatment Not on file Procedures Procedure Name Priority Date/Time Associated Diagnosis Comments ARIA COURSE COMPLETE TREATMENT INFORMATION Routine 05/07/2024 8:21 AM COMPUTER NETWORK AND SYSTEMS ENGINEER ARIA DAILY TREATMENT INFORMATION Routine 05/07/2024 8:21 AM COMPUTER NETWORK AND SYSTEMS ENGINEER ARIA DAILY TREATMENT INFORMATION Routine 05/06/2024 8:27 AM COMPUTER NETWORK AND SYSTEMS ENGINEER ARIA DAILY TREATMENT INFORMATION Routine 05/05/2024 8:30 AM COMPUTER NETWORK AND SYSTEMS ENGINEER ARIA DAILY TREATMENT INFORMATION Routine 05/04/2024 8:27 AM COMPUTER NETWORK AND SYSTEMS ENGINEER ARIA DAILY TREATMENT INFORMATION Routine 05/01/2024 8:50 AM COMPUTER NETWORK AND SYSTEMS ENGINEER INITIAL RAD ONC TREATMENT PLANNING CT SIMULATION Routine 04/28/2024 1:00 PM COMPUTER NETWORK AND SYSTEMS ENGINEER Cholangiocarcinom a (HCC) Secondary Malignant Neoplasm Bone (HCC) OUTSIDE CT NEURO Routine 04/24/2024 7:35 AM COMPUTER NETWORK AND SYSTEMS ENGINEER OUTSIDE CT NEURO Routine 04/24/2024 7:30 AM COMPUTER NETWORK AND SYSTEMS ENGINEER OUTSIDE CT BODY Routine 03/27/2024 8:20 AM COMPUTER NETWORK AND SYSTEMS ENGINEER OUTSIDE MR BODY Routine 03/27/2024 7:30 AM COMPUTER NETWORK AND SYSTEMS ENGINEER OUTSIDE DX CHEST Routine 02/28/2024 12:[address] SKULL TO THIGH RAD - Routine (most inpatients and all outpatients) 02/21/2024 11:17 AM CDT Cholangiocarcinom a (HCC) from Last 3 Months Results * Aria Course Complete Treatment Information (05/07/2024 8:21 AM COMPUTER NETWORK AND SYSTEMS ENGINEER) Pathologist [facility] Course ID [id number] te CONLEY ARIA Course Start Date 4 10:56 COMPUTER NETWORK AND SYSTEMS ENGINEER CONLEY ARIA Course End Date 5 11:24 COMPUTER NETWORK AND SYSTEMS ENGINEER CONLEY ARIA First Treatment Date 5 08:27 COMPUTER NETWORK AND SYSTEMS ENGINEER CONLEY ARIA Last Treatment Date 5 08:21 COMPUTER NETWORK AND SYSTEMS ENGINEER CONLEY ARIA Treatment Elapsed Days 6 CONLEY ARIA Reference Point [id number]_ 2000x CONLEY ARIA Dosage Given to Date cGy 2000 CONLEY ARIA Reference Point dpvSpnT8_ 2000x CONLEY ARIA Dosage Given to Date cGy 2000 CONLEY ARIA Reference Point [id number]_ 2000x CONLEY ARIA Dosage Given to Date cGy 2000 CONLEY ARIA Plan ID [id number] CONLEY ARIA Fractions Treated to Date 5 CONLEY ARIA Planned Total Fractions 5 CONLEY ARIA Prescribed Dose Per Fraction 400 CONLEY ARIA Prescription Dose in cGy 2000 CONLEY ARIA Plan Primary Reference Point dpvSpnT4_ 2000x CONLEY ARIA Plan ID [id number] CONLEY ARIA Fractions Treated to Date 5 CONLEY ARIA Planned Total Fractions 5 CONLEY ARIA Prescribed Dose Per Fraction 400 CONLEY ARIA Prescription Dose in cGy 2000 CONLEY ARIA Plan Primary Reference Point dpvSpnT8_ 2000x CONLEY ARIA Plan ID [id number] CONLEY ARIA Fractions Treated to Date 5 CONLEY ARIA Planned Total Fractions 5 CONLEY ARIA Prescribed Dose Per Fraction 400 CONLEY ARIA Prescription Dose in cGy 2000 CONLEY ARIA Plan Primary Reference Point [id number]_ 2000x CONLEY ARIA 05/07/2024 8:21 AM COMPUTER NETWORK AND SYSTEMS ENGINEER us Provider Not In System RADIATION ONCOLOGY ORDERA BLES Final Result CONLEY ARIA na * Aria Daily Treatment Information (05/07/2024 8:21 AM COMPUTER NETWORK AND SYSTEMS ENGINEER) Only the most recent of5 resultswithin the time period is included. Course ID [id number] te CONLEY ARIA Course Start Date 4 10:56 COMPUTER NETWORK AND SYSTEMS ENGINEER CONLEY ARIA First Treatment Date 5 08:27 COMPUTER NETWORK AND SYSTEMS ENGINEER CONLEY ARIA Last Treatment Date 5 08:21 COMPUTER NETWORK AND SYSTEMS ENGINEER CONLEY ARIA Treatment Elapsed Days 6 CONLEY ARIA Reference Point dpvSpnT4_ 2000x CONLEY ARIA Dosage Given to Date cGy 2000 CONLEY ARIA Session Dosage Given 400 CONLEY ARIA Reference Point dpvSpnT8_ 2000x CONLEY ARIA Dosage Given to Date cGy 2000 CONLEY ARIA Session Dosage Given 400 CONLEY ARIA Reference Point [id number]_ 2000x CONLEY ARIA Dosage Given to Date cGy 2000 CONLEY ARIA Session Dosage Given 400 CONLEY ARIA Plan ID [id number] CONLEY ARIA Fractions Treated to Date 5 CONLEY ARIA Planned Total Fractions 5 CONLEY ARIA Prescribed Dose Per Fraction 400 CONLEY ARIA Prescription Dose in cGy 2000 CONLEY ARIA Plan Primary Reference Point dpvSpnT4_ 2000x CONLEY ARIA Plan ID [id number] CONLEY ARIA Fractions Treated to Date 5 CONLEY ARIA Planned Total Fractions 5 CONLEY ARIA Prescribed Dose Per Fraction 400 CONLEY ARIA Prescription Dose in cGy 2000 CONLEY ARIA Plan Primary Reference Point dpvSpnT8_ 2000x CONLEY ARIA Plan ID [id number] CONLEY ARIA Fractions Treated to Date 5 CONLEY ARIA Planned Total Fractions 5 CONLEY ARIA Prescribed Dose Per Fraction 400 CONLEY ARIA Prescription Dose in cGy 2000 CONLEY ARIA Plan Primary Reference Point [id number]_ 2000x CONLEY ARIA 05/07/2024 8:21 AM COMPUTER NETWORK AND SYSTEMS ENGINEER us Provider Not In System RADIATION ONCOLOGY ORDERA BLES Final Result YAEL TORRES na * Initial Rad Onc Treatment Planning CT Simulation (04/28/2024 1:00 PM COMPUTER NETWORK AND SYSTEMS ENGINEER) Narrative CONLEY ARIA - 04/28/2024 1:00 PM COMPUTER NETWORK AND SYSTEMS ENGINEER Rupal Payton, RTT 04/28/2024 1:28 PM Initial Rad Onc Treatment Planning CT Simulation Performed by: Ant Mccullough M.D. Authorized by: Haley Martínez M.D. Haley Martínez M.D. RADIATION ONCOLOGY ORDERA BLES Final Result YAEL TORRES na * CT thoracic spine wo con-Outside CT Neuro (04/24/2024 7:35 AM COMPUTER NETWORK AND SYSTEMS ENGINEER) Only the most recent of2 resultswithin the time period is included. 04/24/2024 7:29 AM COMPUTER NETWORK AND SYSTEMS ENGINEER Narrative [facility] - 04/24/2024 9:23 AM COMPUTER NETWORK AND SYSTEMS ENGINEER This order has been created and auto-finalized [...] PROCEDURES Final R esult Performing Organization Address [facility] Co de Phone Number IIMS NA * CT chest abdomen pelv w con-Outside CT Body (03/27/2024 8:20 AM COMPUTER NETWORK AND SYSTEMS ENGINEER) Narrative [facility] - 04/24/2024 9:26 AM COMPUTER NETWORK AND SYSTEMS ENGINEER This order has been created and auto-finalized [...] PROCEDURES Final R esult Performing Organization Address [facility] de Phone Number IIMS NA * MR abdomen wo/w con-Outside MR Body (03/27/2024 7:30 AM COMPUTER NETWORK AND SYSTEMS ENGINEER) Narrative [facility] - 04/24/2024 9:26 AM COMPUTER NETWORK AND SYSTEMS ENGINEER This order has been created and auto-finalized [...] MRI PROCEDURES Final Result Performing Organization Address [facility] Co de Phone Number [facility]IMS NA * XR chest 2V-Outside Chest Xray (02/28/2024 12:25 PM CDT) Narrative [facility] - 04/24/2024 9:18 AM COMPUTER NETWORK AND SYSTEMS ENGINEER This order has been created and auto-finalized to support the import of outside images. If available, original interpretation can be found on the Media Tab in Chart Review, in Document Viewer, as an image in QREADS or as an Addendum. If a re-interpretation or overread is required please follow defined workflow. us Provider Not In System IMG DIAGNOSTIC IMAGING WI OCEDURES Final Result [facility] NA * PET CT Skull to [...] indeterminate lytic lesions in the T8 and J2xkayzoaxz bodies without elevated radiotracer uptake. Other Findings: [...] withoutradiotracer uptake are indeterminate. Georgiana Samayoa M.D. [facility] [place] Final Resu lt from Last 3 Months Insurance [facility]
--- OUTSIDE RECORDS SUMMARY | 2024-05-15 02:53 | XMS_ITS ---
Author Organization [facility] Address [address] [place] [address] Care Team Providers Care Flight Operations Engineer Name Role Phone Unavailable Unavailable Unavailable Surgery Details Not on file Complications Check Surgery Details section. Procedure Estimated Blood Loss Check Surgery Details section. Procedure Findings Check Surgery Details section. Procedure Specimens Taken Check Surgery Details section.
--- OUTSIDE RECORDS SUMMARY | 2024-05-15 02:53 | XMS_ITS | Encounter Summary ---
Author Organization [facility] Address [address] [place] [address] Care Team Providers Care Commercial Helicopter Pilot Name Role Phone Unavailable Primary Care Provider Unavailabl e Encounter Details Date Type Department Care Team (Late st Contact Info) Description 05/06/2024 7:58 AM MARINE ENGINEERING TEACHER Hospital Encounter Department of Radiation Oncology in [place], [place] [address] [place] [address] Haley Martínez M.D. [address] [place] [address] Ant Mccullough M.D. [address] [place] [address] Social History Tobacco Use Types Packs/Day Years [...] on file Legal Sex Male 9:27 PM MARINE ENGINEERING TEACHER Gender Identity Not on file Sexual Orientation Not on file Occupation Industry Job Start Date Job End Date Not on file Not on file Not on file Not on file documented as of this encounter Plan of Treatment Not on file documented as of this encounter Visit Diagnoses Not on filedocumented in this encounter
--- OUTSIDE RECORDS SUMMARY | 2024-05-15 02:53 | XMS_ITS | Encounter Summary ---
Author Organization [facility] Address [address] [place] [address] Care Team Providers Care Zinc Plate Grainer Name Role Phone Unavailable Primary Care Provider Unavailabl e Encounter Details Date Type Department Care Team (Late st Contact Info) Description 05/07/2024 Documentation Department of Radiation Oncology in [place], [place] [address] [place] [address] Ant Mccullough M.D. [address] [place] [address] Social History Tobacco Use Types Packs/Day Years [...] on file Legal Sex Male 9:27 PM DRUM PRINTER Gender Identity Not on file Sexual Orientation Not on file Occupation Industry Job Start Date Job End Date Not on file Not on file Not on file Not on file documented as of this encounter Miscellaneous Notes * Radiation Completion Notes - Valente Reagan RNoryNNory - 05/07/2024 11:59 PM DRUM PRINTER DIAGNOSIS: Secondary Malignant Neoplasm Bone Attending Physician: Ant Mccullough M.D. Treatment Intent: Palliative Concomitant Therapy: None Single Plan Treatment Course: 1xMultiSite Plan ID Fractions Dose / Fraction (cGy) Dose Treated (cGy) Dose Planned (cGy) First Treatment Last Treatment Elapsed Days [id number] 5 / 5 400 199905/01/2024 05/07/2024 6 [id number] / 400 199905/01/2024 05/07/2024 6 [id number] 400 199905/01/2024 05/07/2024 6 Course Summary 05/01/2024 05/07/2024 6 Radiation Modality: Photons CLINICAL SUMMARY Mr. Rolando Schwartz completed radiation treatment as planned without interruptions. The course oftreatment was tolerated well. The patient experienced no toxicities during radiation treatment. TREATMENT RESPONSE: Response to treatment will be determined by post-treatment imaging and/or laboratory work. RECOMMENDED FOLLOW UP: Primary Medical Oncologist - Dr. Samayoa Signed by: Suzie Reagan R.N., 05/08/2024 8:29 AM DRUM PRINTER [facility] [address] [place] [address] Cosigned by Ant Mccullough M.D. at 05/12/2024 4:56 PM DRUM PRINTER PRINTER PRINTER documented in this encounter Plan of Treatment Not on file documented as of this encounter Visit Diagnoses Not on filedocumented in this encounter
--- OUTSIDE RECORDS SUMMARY | 2024-05-15 02:53 | XMS_ITS | Encounter Summary ---
Author Organization [facility] Address [address] [place] [address] Care Team Providers Care Psychotherapist Counselor Name Role Phone Unavailable Primary Care Provider Unavailabl e Reason for Visit * Radiation Therapy (Routine) - Authorized Specialty Diagnoses / Procedures Referred By Contac t Referred To Contact Diagnoses 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) Procedures Prior Auth Rad Tx RI RADTN TX DEL >=1 MEV COMPLEX RI GUIDANCE FOR LOC RAD TX RI 3D RAD THER ISODOSE FIELD PLAN 3D Haley Martínez M.D. [address] [place] [address] Phone: tel: fax: [facility] Referral ID Status Reason Start Date Expiration Date V isits Requested Visits Authorized [id number] Authorized 04/30/2024 04/24/2025 5 5 Encounter Details Date Type Department Care Team (Late st Contact Info) Description 05/01/2024 7:58 AM [facility] Hospital Encounter Department of Radiation Oncology in [place], [place] [address] [place] [address] Haley Martínez M.D. [address] [place] [address] Ant Mccullough M.D. 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
--- OUTSIDE RECORDS SUMMARY | 2024-05-15 02:53 | XMS_ITS | Encounter Summary ---
Author Organization [facility] Address [address] [place] [address] Care Team Providers Care Weathercaster Name Role Phone Unavailable Primary Care Provider Unavailabl e Reason for Visit * Reason Comments Med Refill Encounter Details Date Type Department Care Team (Late st Contact Info) Description 05/12/2024 Refill Department of Oncology in [place], [place] [address] [place] [phone] Georgiana Samayoa M.D. 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
--- OUTSIDE RECORDS SUMMARY | 2024-05-15 02:53 | XMS_ITS | Encounter Summary ---
Author Organization [facility] Address [address] [place] [address] Care Team Providers Care Fire Production Operator Name Role Phone Unavailable Primary Care Provider Unavailabl e Reason for Referral * Radiation Therapy (Routine) - Authorized Specialty Diagnoses / Procedures Referred By Contac t Referred To Contact Diagnoses 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) Procedures Initial Rad Onc Treatment Planning CT Simulation [place] 3D RAD THER ISODOSE FIELD PLAN Haley Martínez M.D. [address] [place] [address] Phone: tel: fax: [facility] Region Referral ID Status Reason Start Date Expiration Date V isits Requested Visits Authorized [id number] Authorized 04/24/2024 04/24/2025 2 2 ENT COLLECTOR Reason for Visit * Radiation Therapy (Routine) - Authorized Specialty Diagnoses / Procedures Referred By Bharat khoury Referred To Contact Diagnoses 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) Procedures Initial Rad Onc Treatment Planning CT Simulation [place] 3D RAD THER ISODOSE FIELD PLAN Haley Martínez M.D. [address] [place] [address] Phone: tel: fax: [facility] Region Referral ID Status Reason Start Date Expiration Date V isits Requested Visits Authorized [id number] Authorized 04/24/2024 04/24/2025 2 2 Encounter Details Date Type Department Care Team (Latest Contact Info) Description 04/28/2024 12:39 PM PAYMENT COLLECTOR - 05/07/2024 10:29 AM PAYMENT COLLECTOR Hospital Encounter Department of Radiation Oncology in [place], [place] [address] [place] [phone] Haley Martínez M.D. [address] [place] [address] Ant Mccullough M.D. 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 04/17/2022 albuterol 90 mcg/actuation inhaler Inhale 2 puffs. 03/18/2024 amLODIPine (Norvasc) 5 mg tablet 5 MG ORALLY EVERY DAY amoxicillin (AmoxiL) 500 mg capsule TAKE ONE CAPSULE BY MOUTH THREE TIMES A DAY UNTIL GONE 04/13/[address] tablet Take 81 mg by mouth daily. 04/17/2022 calcium carbonate-vitami n D3 1,500 mg (600 mg calcium)-10 mcg (400 Unit) per tablet Take 1 tablet by mouth 2 (two) times a day. 04/01/2024 chlorhexidine (Peridex) 0.12 % mouthwash RINSE WITH 15ML (1 CAPFUL) FOR 30 SECONDS AM AND PM AFTER TOOTHBRUSHING. EXPECTORATE AFTER RINSING, DO NOT SWALLOW. 04/13/2024 Eliquis 5 mg tablet 04/24/2024 fluticasone propion-salmeter oL (Advair HFA) 45-21 mcg/actuation inhaler Inhale 2 puffs. 03/11/2024 HYDROcodone-acet aminophen ([place]) 5-325 mg per tablet TAKE ONE HALF TABLET EVERY 4 TO 6 HOURS FOR PAIN NEEDED. DO NOT EXCEED 8 TABLETS PER DAY. 04/13/2024 ibuprofen 600 mg tablet Take 600 mg by mouth every 6 (six) hours as needed. 09/16/2012 levoFLOXacin (Levaquin) 500 mg tablet TAKE 1 TABLET (500 MG) BY MOUTH EVERY 24 HOURS 03/11/2024 lisinopriL 40 mg tablet 40 MG ORALLY EVERY DAY 01/31/2024 prochlorperazine (Compazine) 10 mg tablet TAKE 1/2 TABLET (5 MG) BY MOUTH 3 TIMES DAILY NEEDED FOR NAUSEA AND VOMITING 30 tablet 02/18/2024 documented as of this encounter Procedure Notes * Rupal Payton, RTT - 04/28/2024 1:00 PM CSTAssociated Order(s): Initial Rad Onc Treatment Planning CT Simulation Pre-Procedure Diagnose(s): Cholangiocarcinoma (HCC); Secondary Malignant Neoplasm Bone (HCC) Post-Procedure Diagnose(s): Cholangiocarcinoma (HCC); Secondary Malignant Neoplasm Bone (HCC) Initial Rad Onc Treatment Planning CT Simulation Performed by: Ant Mccullough M.D. Authorized by: Haley Martínez M.D. Simulation was performed under physician supervision based on physician order in preparation for radiation therapy. Physician was immediately available to provide assistance and direction throughout the procedure. Written consent for treatment was completed or confirmed. The patient was appropriately identified and placed in the treatment position using the necessary immobilization to ensure a reproducible treatment position. Reference last were placed to facilitate marking of isocenter. Area scanned:Chest, Abdomen, and Pelvis Contrast used for the simulation procedure: None Patient position:head first supine and arms up Custom immobilization: Vac-yudi Motion management: None Bolus: No CT guidance: Following positioning of the patient, a series of slices was obtained to be utilized in treatment planning. CT images were transferred to the Eclipse treatment planning system, after a reference isocenter was determined and marked. Segmentation and treatment planning will take place prior to treatment delivery. Patient set up and imaging was appropriate and completed without incident. Apprenticeship Training Representative use:No Cosigned by Ant Mccullough M.D. at 05/07/2024 10:29 AM PAYMENT COLLECTOR ENT COLLECTOR ENT COLLECTOR Associated attestation - Ant Mccullough M.D. - 05/07/2024 10:29 AM PAYMENT COLLECTOR Agree with documentation as below. I was personally available during the simulation. documented in this encounter Plan of Treatment Not on file documented as of this encounter Procedures Procedure Name Priority Date/Time Associated Diagnosis Comments INITIAL RAD ONC TREATMENT PLANNING CT SIMULATION Routine 04/28/2024 1:00 PM PAYMENT COLLECTOR 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) documented in this encounter Results * Initial Rad Onc Treatment Planning CT Simulation (04/28/2024 1:00 PM PAYMENT COLLECTOR) Narrative YAEL TORRES - 04/28/2024 1:00 PM PAYMENT COLLECTOR Rupal Payton RTT 04/28/2024 1:28 PM Initial Rad Onc Treatment Planning CT Simulation Performed by: Ant Mccullough M.D. Authorized by: Haley Martínez M.D. Haley Martínez M.D. RADIATION ONCOLOGY ORDERA BLES Final Result YAEL TORRES na documented in this encounter Visit Diagnoses Diagnosis 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) documented in this encounter
--- OUTSIDE RECORDS SUMMARY | 2024-05-15 02:53 | XMS_ITS | Encounter Summary ---
Author Organization [facility] Address [address] [place] [address] Care Team Providers Care Steward/Stewardess Lounge Name Role Phone Unavailable Primary Care Provider Unavailabl e Reason for Visit * Reason Comments Med Refill Encounter Details Date Type Department Care Team (Late st Contact Info) Description 05/04/2024 Refill Department of Oncology in [place], [place] [address] [place] [phone] Georgiana Samayoa M.D. 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
--- OUTSIDE RECORDS SUMMARY | 2024-05-15 02:53 | XMS_ITS | Encounter Summary ---
Author Organization [facility] Address [address] [place] [address] Care Team Providers Care Admitting Supervisor Name Role Phone Unavailable Primary Care Provider Unavailabl e Reason for Referral * Radiation Therapy (Routine) - Authorized Specialty Diagnoses / Procedures Referred By Bharat khoury Referred To Contact Diagnoses 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) Procedures Management Visit Haley Martínez M.D. [address] [place] [phone] Phone: tel: fax: [facility] Region Referral ID Status Reason Start Date Expiration Date V isits Requested Visits Authorized [id number] Authorized 04/24/2024 04/24/2025 10 10 ULIZING MACHINE OPERATOR Reason for Visit * Radiation Therapy (Routine) - Authorized Specialty Diagnoses / Procedures Referred By Bharat khoury Referred To Contact Diagnoses 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) Procedures Management Visit Haley Martínez M.D. [address] [place] [phone] Phone: tel: fax: [facility] Region Referral ID Status Reason Start Date Expiration Date V isits Requested Visits Authorized [id number] Authorized 04/24/2024 04/24/2025 10 10 Encounter Details Date Type Department Care Team (Latest Contact Info) Description 05/05/2024 7:56 AM GRANULIZING MACHINE OPERATOR - 05/05/2024 5:34 PM GRANULIZING MACHINE OPERATOR Hospital Encounter Department of Radiation Oncology in [place], [place] [address] [place] [phone] Ant Mccullough M.D. [address] [place] [phone] Cholangiocarcinoma (HCC); Secondary Malignant Neoplasm Bone (HCC) Social History Tobacco Use Types Packs/Day Years Used Date Smoking Tobacco: Former Cigarettes 1 15 1 4 - 2008 Alcohol Use Standard Drinks/Week Comments [...] on file Legal Sex Male 9:27 PM GRANULIZING MACHINE OPERATOR Gender Identity Not on file Sexual Orientation Not on file Occupation Industry Job Start Date Job End Date Not on file Not on file Not on file Not on file documented as of this encounter Last Filed Vital Signs Vital Sign Reading Time Taken Comments Blood Pressure 111/73 05/05/2024 8:36 AM GRANULIZING MACHINE OPERATOR Pulse 103 05/05/2024 8:36 AM GRANULIZING MACHINE OPERATOR Temperature 36.1 C (96.9 F) 05/05/2024 8:36 AM GRANULIZING MACHINE OPERATOR Respiratory Rate - - Oxygen Saturation - - Inhaled Oxygen Concentration - - Weight 105 kg (232 lb 9.4 oz) 05/05/2024 8:36 AM GRANULIZING MACHINE OPERATOR Height - - Body Mass Index - - documented in this encounter Medications at Time of Discharge [...] inhaler Inhale 2 puffs. 03/11/2024 HYDROcodone-acet aminophen ([place]) 5-325 mg per tablet TAKE ONE HALF [...] tablet 02/18/2024 documented as of this encounter Progress Notes * Ant Mccullough M.D. - 05/05/2024 9:00 AM CST SUBJECTIVE CHIEF COMPLAINT/REASON FOR VISIT Evaluation for side effects while receiving radiation treatment for 1. Cholangiocarcinoma (HCC) 2. Secondary Malignant Neoplasm Bone (HCC) SUPERVISED BY: Ant Mccullough M.D. HISTORY OF PRESENT ILLNESS Mr. Rolando Schwartz is a 53 y.o. male with metastatic cholangiocarcinoma. Treatment Course: 1xMultiSite Plan ID Fractions Dose / Fraction (cGy) Dose Treated (cGy) Dose Planned (cGy) First Treatment Last Treatment Elapsed Days [id number] 400 1200 199905/01/2024 05/05/2024 4 [id number] 400 1200 199905/01/2024 05/05/2024 4 [id number] 400 1200 199905/01/2024 05/05/2024 4 Course Summary 05/01/2024 05/05/2024 4 The patient was seen and examined today with Dr. Mccullough. The patient reports to be feeling well overall. He noted increasing fatigue with radiation treatment. He reports that his lower back and mid back pain seem to be improving the treatment. He takes Tylenol and Oxycodone as needed for pain management. He notes a decrease in appetite and mild nausea. He reports 1-2 soft stools daily. He denies any new weakness or numbness/tingling. OBJECTIVE BP 111/73 (BP Location: Right arm, Patient Position: Sitting, Cuff Size: Regular) Pulse 103 Temp 36.1 ??C (Temporal) Wt 105 kg PHYSICAL EXAMINATION General: Alert and oriented, in no apparent distress. ASSESSMENT / PLAN #1 Metastatic cholangiocarcinoma #2 Durvalumab, cisplatin, gemcitabine, pegfilgrastim x 3 cycles completed March 11, 2024 #3 Pemigatinib initiated on April 23, 2024 #4 Radiation therapy to spine T3-T5, T7-T9 and T11-L1 initiated on May 01, 2024; anticipated date of completion May 07, 2024. The patient is tolerating radiation treatment well overall. Reviewed post radiation recovery time frame and side effects. Patient reports that he has a visit with Dr. Samayoa tomorrow. Follow up with Dr. Mccullough will be on an as needed basis. He will continue with radiation treatment as planned.He can contact our care team with any questions or concerns. Signed by: Yoselin Bernal R.N. 05/05/2024 9:39 AM GRANULIZING MACHINE OPERATOR ATTESTATION FOR MANAGEMENT VISIT I saw and evaluated the patient and participated in the randolph portions of the service including medical decision making as noted above. I reviewed the documentation of Ms. Yoselin Bernal RN and agree with the findings and plan. The patient appears well on exam. We will continue with radiation as planned and monitor weekly. Ant Mccullough M.D., 05/05/2024 ULIZING MACHINE OPERATOR documented in this encounter Plan of Treatment Scheduled Orders Name Type Priority Associated Diagnoses Orde r Schedule Management Visit Radiation Oncology Routine 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) Once for 1 Occurrences starting 05/05/2024 until 05/05/2024 documented as of this encounter Visit Diagnoses Diagnosis 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) documented in this encounter
--- OUTSIDE RECORDS SUMMARY | 2024-05-15 02:53 | XMS_ITS | Encounter Summary ---
Author Organization [facility] Address [address] [place] [id number] Care Team Providers Care [place] Name Role Phone Unavailable Primary Care Provider Unavailabl e Reason for Referral * Outpatient (Routine) - Authorized Specialty Diagnoses / Procedures Referred By Contact Referred To Contact Radiology / Interventional Radiology Diagnoses 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) Yennifer Velasco P.A.-C., M.S. 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 [address] [place] [phone] Cholangiocarcinoma (HCC) (Primary Dx); Secondary Malignant Neoplasm Bone (HCC) Social History Tobacco Use Types Packs/Day Years Used Date Smoking Tobacco: Former Cigarettes 1 15 1 994 - 2008 Tobacco Cessation:Counseling Given: Not Answered [...] on file Legal Sex Male 9:27 PM RUBBER STAMP DIE INSPECTOR Gender Identity Not on file Sexual Orientation Not on file Occupation Industry Job Start Date Job End Date Not on file Not on file Not on file Not on file documented as of this encounter Last Filed Vital Signs Vital Sign Reading Time Taken Comments Blood Pressure 130/80 04/28/2024 11:45 AM RUBBER STAMP DIE INSPECTOR Pulse 124 04/28/2024 11:45 AM RUBBER STAMP DIE INSPECTOR Temperature 35.4 C (95.7 F) 04/28/2024 11:45 AM RUBBER STAMP DIE INSPECTOR Respiratory Rate - - Oxygen Saturation - - Inhaled Oxygen Concentration - - Weight 110 kg (243 lb 9.7 oz) 04/28/2024 11:45 A M RUBBER STAMP DIE INSPECTOR Height - - Body Mass Index - [...] inhaler Inhale 2 puffs. 03/11/2024 HYDROcodone-acet aminophen ([place]) 5-325 mg per tablet TAKE ONE HALF [...] tablet 02/18/2024 documented as of this encounter Consult Notes * Yennifer Velasco P.A.-C., M.S. - 04/28/2024 12:00 PM CST SUBJECTIVE REQUESTING PROVIDER Socorro Eduardo APRN CHIEF COMPLAINT/REASON FOR CONSULT 1. Cholangiocarcinoma (HCC) 2. Secondary Malignant Neoplasm Bone (HCC) SUPERVISED BY: Ant Mccullough M.D. HISTORY OF PRESENT ILLNESS Mr. Rolando Schwartz is a 53-year-old male with metastatic cholangiocarcinoma, who presents today for an opinion regarding the role of radiation therapy in the management of the patient's disease. His oncologic history is as follows: Oncology History Cholangiocarcinoma (HCC) 01/01/[address] abdomen pelvis Impression: 1. Slight nodular contour to liver extremely heterogeneous appearance with likely diffuse hypodenseill-defined masses. Upper abdominal adenopathy with gastrohepatic adenopathy enlarged iron hepatisnodes. Findings suspicious for metastatic disease. Suspect several focal areas of thrombus in the portal vein, proximal splenic vein. 2. Numerous small nodules throughout the lower lobes, indeterminate. 01/14/2024 Biopsy/Pathology A) LIVER, CT-GUIDED NEEDLE BIOPSY: 1. 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 Background nonneoplastic liver shows cirrhosis, likely steatohepatitic (see comment) 3. Ancillary studies: a. DNA mismatch repair enzyme IHC: Intact (positive labeling for MLH1, PMS2, MSH2 and MSH6) b. NGS 52 gene panel: Negative, See attached NGS report 01/15/2024 Critical Imaging MR abdomen Impression: 1. Mildly nodular liver contour suggestive of cirrhosis with multiple heterogeneously enhancing hepatic lesions replacing most of the left hepatic lobe, with additional lesions in the right hepatic lobe/dome. There was extensive tumor thrombus involving the intrahepatic IVC, left portal vein, main portal vein, and splenic vein. Imaging characteristics are indeterminate for primary hepatic malignancy versus metastases, although cholangiocarcinoma or possible pancreatic adenocarcinoma are favored. Hepatocellular carcinoma is also a consideration. Tissue sampling is recommended for further evaluation. 2. Possible right hilar lymph node versus filling defect within the right lower lobe central/segmental pulmonary artery. 3. Enlarged gastrohepatic and iron hepatis lymph nodes are suspicious for metastatic disease. 4. Thoracic osseous lesions are indeterminate for metastatic disease. 5. Innumerable subcentimeter pulmonary nodules are better evaluated on prior CT. 6. Focal intrahepatic biliary dilation in the right hepatic lobe. 7. Left adrenal gland nodule with signal characteristics suggestive of an adenoma, however its small size limits accurate characterization. 8. Splenomegaly. 01/17/[address] Chest Angio Impression: 1. Extensive pulmonary parenchymal metastatic nodules. 2. Metastatic mediastinal and bilateral hilar adenopathy. 3. Multiple lytic bone lesions consistent with osseous metastasis. 4. No pulmonary embolism. 01/30/2024 - 03/11/2024 Chemotherapy Durvalumab, cisplatin, gemcitabine, pegfilgrastim x 3 cycles under the care of Dr. Georgiana Samayoa. 02/21/2024 Critical Imaging PET-CT Scan IMPRESSION: 1. Focal elevated radiotracer uptake in hepatic segment 4 near the hilum, may correspond to previous biopsy result of adenocarcinoma/cholangiocarcinoma. Recommend further evaluation with liver MRI ormultiphase CT. 2. Multiple enlarged upper abdominal lymph [...] body lesions without radiotracer uptake are indeterminate. 03/24/2024 Genetic Testing and Tumor Genotyping TEST PERFORMED: Common Hereditary Cancers Panel (48 genes) via Recommend. See test report for details regarding the genes analyzed and testing methodologies. RESULT: NEGATIVE No clinically-actionable (pathogenic or likely pathogenic) mutations or other reportable variants were detected in the genes analyzed. 03/27/2024 Critical Imaging MR Abdomen: Impression: 1. Tumor nodules identified throughout the left hepatic lobe as well as segment seven of the liver;stable in appearance when compared to January 17, 2024. 2. Cirrhotic liver morphology with evidence of splenomegaly. 3. Tumor thrombus identified involving the right portal vein, splenic vein, and occlusion of the left portal vein by the tumor thrombus. 4. Possible tumor thrombus within the right hepatic vein with extension into the inferior vena cava. 5. Diffuse metastatic bone disease. 6. Metastatic disease involving the lymphadenopathy in the upper abdomen. CT Chest/Abdomen/Pelvis Impression: Progression of osseous metastatic disease within the T8 vertebral body. No acute fracture. Chronic wedging of T11. Similar adenopathy in the mediastinum, neftaly, and upper retroperitoneum. Similar appearance of the liver with cirrhotic morphology, ill-defined lesions in the right hepatic lobe, patchybiliary dilation and splenomegaly. Unchanged tumor thrombus within the main portal vein and portal vein confluence. Innumerable five mm or less metastatic pulmonary nodules throughout both lungs. 04/23/2024 - Biological/Targeted/Hormone Therapy Pemigatinib initiated. 04/24/[address] Lumbar Spine Impression: Lytic metastatic lesion in L1 is similar to prior. CT Thoracic Spine Impression: Redemonstration of the lytic metastatic lesion in T12 with new pathologic fracture. 04/30/2024 - Radiation Therapy Radiation Therapy Treatment Details (Noted on 04/24/2024) Site: Thoracic spine Technique: No technique specified Goal: Palliative Planned Treatment Start Date: 04/30/2024 Secondary Malignant Neoplasm Bone (HCC) 04/30/2024 - Radiation Therapy Radiation Therapy Treatment Details (Noted on 04/24/2024) Site: Thoracic spine Technique: No technique specified Goal: Palliative Planned Treatment Start Date: 04/30/2024 INTERVAL HISTORY: The patient was seen and examined today with Dr. Mccullough. The patient reports decreased energy levels. He reports having back pain for a couple of months. Hereports that the pain is located in his right posterior pelvis and can radiate across his waist. Hereports that this pain is constant. He also reports occasional pain across his shoulder blades thatcomes and goes. His pain is improved with laying flat or in a recliner. He rates the pain as severeas 8/10, but is currently 5/10 with sitting. The pain can decrease to 1- 2/10 at times. He is takingoxycodone 1-2 tablets at a time, typically between 4 and 10 tablets in a day, depending on his painlevels. He reports having regular bowel movements. He denies numbness, tingling, or weakness. He denies bowel or bladder incontinence. He reports occasional abdominal discomfort. He reports decreasedappetite, but he is continuing with good nutritional intake. He denies nausea or vomiting. The patient denies a history of prior radiation therapy, connective tissue disorders, or inflammatory bowel disease. His ECOG performance status is 1. REVIEW OF SYSTEMS Review of systems was negative except as documented above. MEDICAL HISTORY Past Medical History: Diagnosis Date Cholangiocarcinoma (HCC) Diabetes Mellitus Type 2 (HCC) Fasciitis Plantar Hypertension Essential Primary SURGICAL HISTORY Past Surgical History: Procedure Laterality Date REPLACEMENT TOTAL KNEE Right SHOULDER ARTHROSCOPY Right FAMILY HISTORY Family History Problem Relation Name Age of Onset Cancer Mother SOCIAL HISTORY Social History Socioeconomic History Marital status: Single Occupational History Employer: [employer] Tobacco Use Smoking status: Former Current packs/day: 0.00 Average packs/day: 1 pack/day for 15.0 years (15.0 ttl pk-yrs) Types: Cigarettes Start date: 1993 Quit date: 2009 Years since quittin.0 Substance and Sexual Activity Alcohol use: Not Currently Comment: Quit in December 2023. Previous use of 1 bottle of vodka per week for 20 years. OBJECTIVE BP 130/80 (BP Location: Right arm, Patient Position: Sitting, Cuff Size: Regular) Pulse (!) 124 Temp (!) 35.4 ??C (Temporal) Wt 110 kg PHYSICAL EXAMINATION General: Patient is alert and oriented in no apparent distress. Lungs: Clear to auscultation bilaterally. Heart: Regular rate and rhythm. Musculoskeletal: Spine is non-tender to palpation. ASSESSMENT / PLAN #1 Metastatic cholangiocarcinoma #2 Durvalumab, cisplatin, gemcitabine, pegfilgrastim x 3 cycles completed March 11, 2024 #3 Pemigatinib initiated on April 23, 2024 I had a detailed discussion with the patient regarding his metastatic cholangiocarcinoma diagnosis.We reviewed his oncologic history as detailed above. We discussed the risks, benefits, and alternatives of radiotherapy in this setting. Dr. Mccullough offered palliative radiation therapy to metastatic lesions at T4, T8, T12, and L1 in 5 fractions. I discussed the logistics as well as the acute and chronic side effects of treatment in detail. Theacute side effects are common and include, but are not limited to, fatigue, possible pain flare, radiation dermatitis, sore throat, nausea/vomiting, and loose stools. Long-term side effects could include, but are not limited to, bone arthritis, bone fracture, nerve damage, liver damage, kidney damage, and spinal cord damage. His questions were answered to his verbalized satisfaction. The patient is already aware of the recommendation for consideration of kyphoplasty/vertebroplasty.He would like referral to [facility] and an order will be placed. Dr. Mccullough also met with the patient today, please see his attestation for details. The patient is scheduled for CT simulation today. The patient was provided with our contact information. He will contact us with questions or concerns. He verbally expressed his understanding of the plan. EDUCATION: Ready to learn, no apparent learning barriers were identified; learning preferences include listening. Explained diagnosis and treatment plan; patient expressed understanding of the content. PRIMARY PROVIDER Anthony Moeller M.D. I personally spent 50 minutes in care of the patient today. Time includes both non face to face andface to face patient care. Signed by: Yennifer Velasco P.A.-C., M.S. 04/28/2024 12:45 PM [facility] [address] [place] [address] Cosigned by Ant Mccullough M.D. at 05/12/2024 4:59 PM RUBBER STAMP DIE INSPECTOR ER STAMP DIE INSPECTOR ER STAMP DIE INSPECTOR Associated attestation - Ant Mccullough M.D. - 05/12/2024 4:59 PM RUBBER STAMP DIE INSPECTOR I was the supervising physician in the delivery of the service. I personally saw the patient and reviewed the indications and goals of treatment as well as the potential risks and adverse effects with the patient. I agree with the documentation provided by Yennifer Velasco. They understand that he should contact us if he develops any significant adverse effects during or after treatment. I am particularly concerned about esophagitis given the distribution of the lesions. He wished to proceed with palliative radiation therapy. documented in this encounter Plan of Treatment Scheduled Referrals Name Type Priority Associated Diagnoses Order Schedule Interventional Radiology - Neuro spine consult (clinic) Outpatient Referral Routine 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) Expected: 04/28/2024, Expires: 07/27/2025 documented as of this encounter Visit Diagnoses Diagnosis Cholangiocarcinoma (HCC)- Primary Secondary Malignant Neoplasm Bone (HCC) documented in this encounter
--- OUTSIDE RECORDS SUMMARY | 2024-05-15 02:53 | XMS_ITS | Encounter Summary ---
Author Organization [facility] Address [address] [place] [address] Care Team Providers Care Dry Goods Clerk Name Role Phone Unavailable Primary Care Provider Unavailabl e Reason for Referral * Radiation Therapy (Routine) - Authorized Specialty Diagnoses / Procedures Referred By Aydenac t Referred To Contact Diagnoses 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) Procedures Management Visit Haley Martínez M.D. [address] [place] [phone] Phone: tel: fax: [facility] Region Referral ID Status Reason Start Date Expiration Date V isits Requested Visits Authorized [id number] Authorized 04/24/2024 04/24/2025 10 10 LASTER * Radiation Therapy (Routine) - Authorized Specialty Diagnoses / Procedures Referred By Bharat khoury Referred To Contact Diagnoses 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) Procedures Initial Rad Onc Treatment Planning CT Simulation PA 3D RAD THER ISODOSE FIELD PLAN Haley Martínez M.D. [address] [place] [phone] Phone: tel: fax: [facility] Region Referral ID Status Reason Start Date Expiration Date V isits Requested Visits Authorized [id number] Authorized 04/24/2024 04/24/2025 2 2 LASTER * Radiation Therapy (Routine) - Authorized Specialty Diagnoses / Procedures Referred By Bharat t Referred To Contact Diagnoses 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) Procedures Prior Auth Rad Tx PA RADTN TX DEL >=1 MEV COMPLEX PA GUIDANCE FOR LOC RAD TX PA 3D RAD THER ISODOSE FIELD PLAN 3D Haley Martínez M.D. [address] [place] [phone] Phone: tel: fax: [facility] Referral ID Status Reason Start Date Expiration Date V isits Requested Visits Authorized [id number] Authorized 04/30/2024 04/24/2025 5 5 LASTER Encounter Details Date Type Department Care Team (Late st Contact Info) Description 04/24/2024 Orders Only Department of Radiation Oncology in [place], [place] [address] [place] [phone] Charlene Kaufman APRN, C.N.P., D.N.P. [address] [place] [phone] Cholangiocarcinoma (HCC) (Primary Dx); Secondary Malignant Neoplasm [...] on file Legal Sex Male 9:27 PM BED LASTER Gender Identity Not on file Sexual Orientation Not on file documented as of this encounter Plan of Treatment Scheduled Orders Name Type Priority Associated Diagnoses Order Schedule Prior Auth Rad Tx Radiation Oncology Routine 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) Ordered: 04/24/2024 Management Visit Radiation Oncology Routine 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) 10 Occurrences starting 04/24/2024 until 07/23/2025 documented as of this encounter Results * Initial Rad Onc Treatment Planning CT Simulation (04/28/2024 1:00 PM BED LASTER) Narrative YAEL TORRES - 04/28/2024 1:00 PM BED LASTER Rupal Payton, RTT 04/28/2024 1:28 PM Initial Rad Onc Treatment Planning CT Simulation Performed by: Ant Mccullough M.D. Authorized by: Haley Martínez M.D. Haley Martínez M.D. RADIATION ONCOLOGY ORDERA BLES Final Result YAEL TORRES na documented in this encounter Visit Diagnoses Diagnosis Cholangiocarcinoma (HCC)- Primary Secondary Malignant Neoplasm Bone (HCC) 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) documented in this encounter
--- OUTSIDE RECORDS SUMMARY | 2024-05-15 02:53 | XMS_ITS | Clinical Summary ---
Author Organization [facility] Address [address] [place] [address] Care Team Providers Care Field Recorder Name Role Phone Md JUSTIN Hoff Primary Care Provider [phone] Source Comments You are receiving this document as you are listed as the primary care provider,follow-up provider, or the patient has been referred to you for consultation.This is in compliance with the Medicare and[facility] EHR Incentive Program,which states Providers who transition their patient to another setting of careor provider of care or refers their patient to another provider of care shouldprovide summary care record for each transition of care or referral. [facility] Allergies No known active allergies Medications Medication [...] (10/02/2019): Added automatically from request for surgery [id number] Complete rupture of rotator cuff 08/20/2012 Tobacco abuse 04/15/2012 Obstructive sleep apnea 12/23/2007 Overview (12/19/2016): Setting: Auto 8-15 cmH20 Supplied by: [facility] PSG done: 12-10-07, 01-07-08 AHI 94 [...] PROSTATIC SPECIFIC ANTIGEN(SCREEN) Routine 06/20/2010 8:15 AM CREATIVE STRATEGIST LIPID PANEL & DIRECT LDL (IF NEEDED) Routine 06/20/2010 8:15 AM CREATIVE STRATEGIST from Last 3 Months or Most Recently Relevant to Health Maintenance Results * Lipid Panel and Direct LDL(If Needed) (06/20/2010 8:15 AM CREATIVE STRATEGIST) Cholesterol 174 0 - 200 mg/dL HP CONVERSION Triglycerides 125 0 - 149 mg/dL HP CONVERSION HDL Cholesterol 46 >39 mg/dL HP CONVERSION Cholesterol/HDL Ratio Screen 3.8 No normal range HP CONVERSION LDL Calculated 103 19 - 130 mg/dL HP CONVERSION Hours Fasting 15.0 No normal range HP CONVERSION 06/20/2010 8:15 AM CREATIVE STRATEGIST Maximiliano Barahona [facility] LAB_1 HP CONVERSION * Prostatic Specific Antigen (Screen) (06/20/2010 8:15 AM CREATIVE STRATEGIST) Prostate Specific Antigen 0.8 0.0 - 4.0 ng/mL HP CONVERSION 06/20/2010 8:15 AM CREATIVE STRATEGIST Maximiliano Barahona [facility] LAB_1 HP CONVERSION from Last 3 Months or Most Recently Relevant to Health Maintenance Advance Directives * Full Code (Latest Code Status on File) Date Activated Date Inactivated Comments 11/04/2019 8:12 AM 11/04/2019 10:54 AM Care Teams Field Recorder Relationship Specialty Start Date End Date Md Luis Eduardo, [place] [address] PCP - General 08/01/10
--- OUTSIDE RECORDS SUMMARY | 2024-05-15 02:53 | XMS_ITS | Encounter Summary ---
Author Organization [facility] Address [address] [place] [phone] Care Team Providers Care Sales Enablement Manager Name Role Phone Unavailable Primary Care Provider Unavailabl e Encounter Details Date Type Department Care Team (Late st Contact Info) Description 05/07/2024 7:57 AM DISPUTE COORDINATOR Hospital Encounter Department of Radiation Oncology in [place], [place] [address] [place] [phone] Haley Matrínez M.D. [address] [place] [phone] Ant Mccullough M.D. [address] [place] [phone] Social History Tobacco Use Types Packs/Day Years [...] on file Legal Sex Male 9:27 PM DISPUTE COORDINATOR Gender Identity Not on file Sexual Orientation Not on file Occupation Industry Job Start Date Job End Date Not on file Not on file Not on file Not on file documented as of this encounter Plan of Treatment Not on file documented as of this encounter Visit Diagnoses Not on filedocumented in this encounter
[2024-05-15 02:55] VITALS: BP 108/72; PULSE 79; RESP 16; TEMP 36; O2SAT 96; BMI 35.0
--- OUTSIDE RECORDS SUMMARY | 2024-05-15 03:22 | XMS_ITS | Clinical Summary ---
Author Organization [facility] Address [address] [place] [address] Care Team Providers Care New Car Sales Manager Name Role Phone Md JUSTIN Hoff Primary Care Provider [phone] Source Comments You are receiving this document as you are listed as the primary care provider,follow-up provider, or the patient has been referred to you for consultation.This is in compliance with the Medicare and[facility] Cent[facility]aid EHR Incentive Program,which states Providers who transition their patient to another setting of careor provider of care or refers their patient to another provider of care shouldprovide summary care record for each transition of care or referral. [facility] Allergies No known active allergies Medications Medication [...] (10/02/2019): Added automatically from request for surgery [id number] Complete rupture of rotator cuff 08/20/2012 Tobacco abuse 04/15/2012 Obstructive sleep apnea 12/23/2007 Overview (12/19/2016): Setting: Auto 8-15 cmH20 Supplied by: [facility] PSG done: 12-10-07, 01-07-08 AHI 94 [...] PROSTATIC SPECIFIC ANTIGEN(SCREEN) Routine 06/20/2010 8:15 AM CHEF INSTRUCTOR LIPID PANEL & DIRECT LDL (IF NEEDED) Routine 06/20/2010 8:15 AM CHEF INSTRUCTOR from Last 3 Months or Most Recently Relevant to Health Maintenance Results * Lipid Panel and Direct LDL(If Needed) (06/20/2010 8:15 AM CHEF INSTRUCTOR) Cholesterol 174 0 - 200 mg/dL HP CONVERSION Triglycerides 125 0 - 149 mg/dL HP CONVERSION HDL Cholesterol 46 >39 mg/dL HP CONVERSION Cholesterol/HDL Ratio Screen 3.8 No normal range HP CONVERSION LDL Calculated 103 19 - 130 mg/dL HP CONVERSION Hours Fasting 15.0 No normal range HP CONVERSION 06/20/2010 8:15 AM CHEF INSTRUCTOR Maximiliano Barahona [facility] LAB_1 HP CONVERSION * Prostatic Specific Antigen (Screen) (06/20/2010 8:15 AM CHEF INSTRUCTOR) Prostate Specific Antigen 0.8 0.0 - 4.0 ng/mL HP CONVERSION 06/20/2010 8:15 AM CHEF INSTRUCTOR Maximiliano Barahona [facility] LAB_1 HP CONVERSION from Last 3 Months or Most Recently Relevant to Health Maintenance Advance Directives * Full Code (Latest Code Status on File) Date Activated Date Inactivated Comments 11/04/2019 8:12 AM 11/04/2019 10:54 AM Care Teams New Car Sales Manager Relationship Specialty Start Date End Date Md Luis Eduardo, [place] [address] PCP - General 08/01/10
--- OUTSIDE RECORDS SUMMARY | 2024-05-15 03:22 | XMS_ITS | Clinical Summary ---
Author Organization [facility] Address [address] [place] [address] Care Team Providers Care Supervisory Aide Name Role Phone Anthony Moeller MD Primary Care Provider [phone] Donald Parker MD Unavailable [phone] Allergies No known active allergies Medications LISINOPRIL [...] on file Legal Sex Male 5:12 AM SEMICONDUCTOR MANUFACTURING TECHNICIAN Gender Identity Not on file Sexual Orientation Not on file Last Filed Vital Signs Vital Sign Reading Time Taken Comments Blood Pressure 129/86 12/20/2023 11:46 AM CDT Pulse 72 04/18/2022 8:11 AM SEMICONDUCTOR MANUFACTURING TECHNICIAN Temperature 36.5 C (97.7 F) 04/18/2022 8:11 AM SEMICONDUCTOR MANUFACTURING TECHNICIAN Respiratory Rate 16 04/18/2022 8:11 AM SEMICONDUCTOR MANUFACTURING TECHNICIAN Oxygen Saturation 97% 04/18/2022 8:1 1 AM SEMICONDUCTOR MANUFACTURING TECHNICIAN Inhaled Oxygen Concentration - - Weight 128.8 kg (284 lb) 05/25/2022 10: 23 AM SEMICONDUCTOR MANUFACTURING TECHNICIAN pulled from last visit Height 175.3 cm (5' 9) 05/25/2022 10:2 3 AM SEMICONDUCTOR MANUFACTURING TECHNICIAN Body Mass Index 41.94 05/25/2022 10:23 AM SEMICONDUCTOR MANUFACTURING TECHNICIAN Plan of Treatment Health Maintenance Due Date [...] this topic Medical Devices Implanted Type Area Calcine Furnace Loader Device Identifier Shelf Expiration Date Model / Serial / Lot Bone Cement Simplex Full Dose 6191-1-001 - [id number] Implanted:Qty : 1 on 04/17/2022 by Donald Parker MD at Cement, Bone Right: Knee [employer] 06/27/2023 6191-1-001 / / [id number] Twinfix Ultra Pk 5.5mm Suture [place] With 2 Ultrabraid Sutures Implanted:Qty : 1 on 12/10/2017 by Les Israel MD at Metallic Hardware/An chor Right: Shoulder 05/23/2022 [id number] / / [id number] 2.8mm Q-Fix Suture [place] Implanted:Qty : 1 on 12/10/2017 by Les Israel MD at Metallic Hardware/An chor Right: Shoulder 04/03/2020 [id number] / / [id number] Knee Uni Tibia Tray Mobile Bear D5 Rm/Ll - [id number] Implanted:Qty : 1 on 04/17/2022 by Donald Parker MD at Total Joint Component/I nsert Right: Knee [employer] 07/27/2031 [id number] / / [id number] Knee Marathon Uni Femoral Med - [id number] Implanted:Qty : 1 on 04/17/2022 by Donald Parker MD at Total Joint Component/I nsert Right: Knee [employer] 03/19/2032 [id number] / / [id number] Insert Marathon Anatomic Bear R Med Sz 4 - [id number] Implanted:Qty : 1 on 04/17/2022 by Donald Parker MD at Total Joint Component/I nsert Right: Knee [employer] 11/16/2025 [id number] / / [id number] Twinfix Ultra Pk 5.5mm Suture [place] With 2 Ultrabraid Sutures Implanted:Qty : 1 on 12/10/2017 by Les Israel MD at Right: Shoulder [employer] 01/10/2022 [id number] / / [id number] Procedures Procedure Name Priority Date/Time Associated Diagnosis Comments GLUCOSE BY METER Routine 04/18/2022 7:15 AM SEMICONDUCTOR MANUFACTURING TECHNICIAN from Last 3 Months or Most Recently Relevant to Health Maintenance Results * (ABNORMAL) Glucose by meter (04/18/2022 7:15 AM SEMICONDUCTOR MANUFACTURING TECHNICIAN) [facility] GLUCOSE BY METER POCT 143(H) 70 - 99 mg/dL 04/18/2022 7:22 AM SEMICONDUCTOR MANUFACTURING TECHNICIAN RH LABORATORY POC Blood, Capillary BLOOD SPECIMEN / Unknown 04/18/2022 7:15 AM SEMICONDUCTOR MANUFACTURING TECHNICIAN 04/18/2022 7:22 AM SEMICONDUCTOR MANUFACTURING TECHNICIAN Donald [facility] PO[facility] Final Resu lt RH LABORATORY POC [facility] Acute Care Lab [address] Lab (1st floor, no room number) [place] [address], [facility] [phone] from Last 3 Months or Most Recently Relevant to Health Maintenance Insurance [employer] OF [place] [facility] [employer] Advance Directives For more information, please contact: [phone] * Full Code (Latest Code Status on File) Date Activated Date Inactivated Comments 04/17/2022 11:28 AM 04/18/2022 10:58 AM All basi c and advanced life-sustaining interventions are performed as appropriate Question Answer Comments Code status determined by: Discussion with adriana nt/ legal decision maker Care Teams Supervisory Aide Relationship Specialty Start Date End Date Anthony Moeller MD PCP - General Family Practice 11/21/17 Donald Parker MD [address] [place] [address] Assigned Musculoskeletal Provider 01/20/24
--- OUTSIDE RECORDS SUMMARY | 2024-05-15 03:22 | XMS_ITS | Clinical Summary ---
Author Organization [facility] [employer] Address [place], [place] [address] Care Team Providers Care Director Diversity Name Role Phone Anthony Moeller MD Primary Care Provider [phone] Allergies No known active allergies Medications ibuprofen [...] Type Department Care Team Description 03/24/2024 Telephone [facility] [address] [place] [address] Kayli Ty MS, [facility] Results 03/13/2024 Telephone [facility] [address] [place] [address] Ab[facility] 03/11/2024 9:00 AM FINANCIAL ACCOUNTING ANALYST Phone Office Visit [facility] [address] [place] [address] Kayli Ty MS, [facility] Counseling (Cancer genetic counseling); Phone Visit 03/03/2024 Telephone [facility] [address] [place] [address] [facility] 02/21/2024 Transcribe Orders [place] [address] [place] [address] Georgiana Samayoa MD from Last 3 Months Social History Tobacco Use Types Packs/Day Years Used Date Smoking Tobacco: Former Cigarettes Tobacco Cessation:Counseling Given: Not Answered Alcohol Use Standard Drinks/Week Comments Yes 3.3 (1 standard drink = 0.6 oz p ure alcohol) social Sex and Gender Information Value Date Recorded Sex Assigned at Not on file Legal Sex Male 6:24 AM FINANCIAL ACCOUNTING ANALYST Gender Identity Not on file Sexual [...] 50-64 12/29/2023 Medical Devices Implanted Type Area Mottler Operator Device Identifier Shelf Expiration Date Model / Serial / Lot Sut Ancr 4.75 W/Loop - [id number] Implanted:Qty: 1 on 09/16/2012 by Jama Cohen MD at [facility] Right: Shoulder [employer] 04/27/2014 [id number] / / [id number] Insurance [facility] Care Teams Director Diversity Relationship Specialty Start Date End Date Anthony Moeller MD [address] [place] [address] PCP - General Family Practice 01/09/24
--- OUTSIDE RECORDS SUMMARY | 2024-05-15 03:22 | XMS_ITS | Referral Summary ---
Author Organization [facility] Address [address] [place] [address] Care Team Providers Care Turret Punch Press Operator Name Role Phone Anthony Moeller MD Primary Care Provider [phone] Donald Parker MD Unavailable [phone] Allergies No known active allergies Medications LISINOPRIL [...] on file Legal Sex Male 5:12 AM DIGITAL TECH Gender Identity Not on file Sexual Orientation Not on file Last Filed Vital Signs Vital Sign Reading Time Taken Comments Blood Pressure 129/86 12/20/2023 11:46 AM CDT Pulse 72 04/18/2022 8:11 AM DIGITAL TECH Temperature 36.5 C (97.7 F) 04/18/2022 8:11 AM DIGITAL TECH Respiratory Rate 16 04/18/2022 8:11 AM DIGITAL TECH Oxygen Saturation 97% 04/18/2022 8:1 1 AM DIGITAL TECH Inhaled Oxygen Concentration - - Weight 128.8 kg (284 lb) 05/25/2022 10: 23 AM DIGITAL TECH pulled from last visit Height 175.3 cm (5' 9) 05/25/2022 10:2 3 AM DIGITAL TECH Body Mass Index 41.94 05/25/2022 10:23 AM DIGITAL TECH Plan of Treatment Not on file Medical Devices Implanted Type Area Hasher Operator Device Identifier Shelf Expiration Date Model / Serial / Lot Bone Cement Simplex Full Dose 6191-1-001 - [id number] Implanted:Qty : 1 on 04/17/2022 by Donald Parker MD at [facility] Cement, Bone Right: Knee [employer] 06/27/2023 6191-1-001 / / [id number] Twinfix Ultra Pk 5.5mm Suture [place]ter With 2 Ultrabraid Sutures Implanted:Qty : 1 on 12/10/2017 by Les Israel MD at [facility] Metallic Hardware/An chor Right: Shoulder 05/23/2022 [id number] / / [id number] 2.8mm Q-Fix Suture Manter Implanted:Qty : 1 on 12/10/2017 by Les Israel MD at [facility] Metallic Hardware/An chor Right: Shoulder 04/03/2020-2800 / / [id number] Knee Uni Tibia Tray Mobile Bear D5 Rm/Ll - [id number] Implanted:Qty : 1 on 04/17/2022 by Donald Parker MD at [facility] Total Joint Component/I nsert Right: Knee [employer] 07/27/2031 [id number] / / [id number] Knee Cassel Uni Femoral Med - [id number] Implanted:Qty : 1 on 04/17/2022 by Donald Parker MD at [facility] Total Joint Component/I nsert Right: Knee [employer] 03/19/2032 [id number] / / [id number] Insert Cassel Anatomic Bear R Med Sz 4 - [id number] Implanted:Qty : 1 on 04/17/2022 by Donald Parker MD at [facility] Total Joint Component/I nsert Right: Knee [employer] 11/16/2025 [id number] / / [id number] Twinfix Ultra Pk 5.5mm Suture Manter With 2 Ultrabraid Sutures Implanted:Qty : 1 on 12/10/2017 by Les Israel MD at [facility] Right: Shoulder [employer] 01/10/2022 [id number] / / [id number] Procedures Procedure Name Priority Date/Time Associated Diagnosis Comments GLUCOSE BY METER Routine 04/18/2022 7:15 AM DIGITAL TECH from Last 3 Months or Most Recently Relevant to Health Maintenance Results * (ABNORMAL) Glucose by meter (04/18/2022 7:15 AM DIGITAL TECH) GLUCOSE BY METER POCT 143(H) 70 - 99 mg/dL 04/18/2022 7:22 AM DIGITAL TECH RH LABORATORY POC Blood, Capillary BLOOD SPECIMEN / Unknown 04/18/2022 7:15 AM DIGITAL TECH 04/18/2022 7:22 AM DIGITAL TECH us Donald Parkre MD LAB - BEAKER POCT Final Resu lt RH LABORATORY [facility] Acute Care Lab [address] [facility] Lab (1st floor, no room number) [place] [address], [facility] [phone] from Last 3 Months or Most Recently Relevant to Health Maintenance Insurance [facility] [place] [phone] [facility] INSURANCE COMPANY Advance Directives For more information, please contact: [phone] * Full Code (Latest Code Status on File) Date Activated Date Inactivated Comments 04/17/2022 11:28 AM 04/18/2022 10:58 AM All basi c and advanced life-sustaining interventions are performed as appropriate Question Answer Comments Code status determined by: Discussion with patie nt/ legal decision maker Care Teams Turret Punch Press Operator Relationship Specialty Start Date End Date Anthony Moeller MD PCP - General Family Practice 11/21/17 Donald Parker MD [address] [place] [address] Assigned Musculoskeletal Provider 01/20/24
--- OUTSIDE RECORDS SUMMARY | 2024-05-15 03:22 | XMS_ITS | Clinical Summary ---
Author Organization [facility] Address [address] [place] [address] Care Team Providers Care Song Lyricist Name Role Phone Unavailable Primary Care Provider Unavailabl e Source Comments Patient records contain information from all sites at [facility]. For routine questions regarding patient records, call [phone] during business hours, M-F 8:00 AM - 5:00 PM Central Time. Record requests for emergency care only can be directed to [phone] at any time.[facility] Allergies No known active allergies Medications prochlorperazin [...] Inhale 2 puffs. 4 Active HYDROcodone-jessica taminophen ([place]) 5-325 mg per tablet TAKE ONE HALF [...] Description 05/12/2024 Refill Department of Oncology in [address] [address] Georgiana Samayoa M.D. Med Refill 05/07/2024 7:57 AM SECURITY ADVISOR Hospital Encounter Department of Radiation Oncology in [address] [address] Haley Martínez M.D. Chamberlain, Daniel, M.D. 05/07/2024 Documentation Department of Radiation Oncology in [address] [address] Ant Mccullough M.D. 05/06/2024 7:58 AM SECURITY ADVISOR Hospital Encounter Department of Radiation Oncology in [address] [address] Haley Martínez M.D. Chamberlain, Daniel, M.D. 05/05/2024 7:56 AM SECURITY ADVISOR - 05/05/2024 5:34 PM SECURITY ADVISOR Hospital Encounter Department of Radiation Oncology in [address] [address] Ant Mccullough M.D. Cholangiocarcinoma (HCC); Secondary Malignant Neoplasm Bone (HCC) 05/05/2024 7:56 AM SECURITY ADVISOR Hospital Encounter Department of Radiation Oncology in [address] [address] Haley Martínez M.D. Chamberlain, Daniel, M.D. 05/04/2024 7:49 AM SECURITY ADVISOR Hospital Encounter Department of Radiation Oncology in [address] [address] Haley Martínez M.D. Chamberlain, Daniel, M.D. 05/04/2024 Refill Department of Oncology in [address] [address] Georgiana Samayoa M.D. [facility] Refill 05/01/2024 7:58 AM SECURITY ADVISOR Hospital Encounter Department of Radiation Oncology in [address] [address] Haley Martínez M.D. Chamberlain, Daniel, M.D. 04/28/2024 12:39 PM SECURITY ADVISOR - 05/07/2024 10:29 AM SECURITY ADVISOR Hospital Encounter Department of Radiation Oncology in [address] [address] Haley Martínez M.D. Chamberlain, Daniel, M.D. Cholangiocarcinoma (HCC); Secondary Malignant Neoplasm Bone (HCC) 04/28/2024 11:42 AM SECURITY ADVISOR - 05/12/2024 4:59 PM SECURITY ADVISOR Hospital Encounter Department of Radiation Oncology in [address] [address] Ant Mccullough M.D. Cholangiocarcinoma (HCC) (Primary Dx); Secondary Malignant Neoplasm Bone (HCC) 04/24/2024 Orders Only Department of Radiation Oncology in [address] [address] Charlene Kaufman APRN, C.N.P., D.N.P. Cholangiocarcinoma (HCC) (Primary Dx); Secondary Malignant Neoplasm Bone (HCC) 03/19/2024 Refill Department of Oncology in [place], [place] [address] [place] [address] Georgiana Samayoa M.D. Med Refill 02/21/2024 9:42 AM CDT - 02/21/2024 11:59 PM CDT Hospital Encounter Department of Radiology in [place], [place] [address] [place] [address] Georgiana Samayoa M.D. Cholangiocarcinoma (HCC) Discharge Disposition: Home or Self Care 02/17/2024 Refill Department of Oncology in [place], [place] [address] [place] [address] Georgiana Samayoa M.D. Med Refill from Last [...] on file Legal Sex Male 9:27 PM SECURITY ADVISOR Gender Identity Not on file Sexual Orientation Not on file Occupation Industry Job Start Date Job End Date Not on file Not on file Not on file Not on file Last Filed Vital Signs Vital Sign Reading Time Taken Comments Blood Pressure 111/73 05/05/2024 8:36 AM SECURITY ADVISOR Pulse 103 05/05/2024 8:36 AM SECURITY ADVISOR Temperature 36.1 C (96.9 F) 05/05/2024 8:36 AM SECURITY ADVISOR Respiratory Rate - - Oxygen Saturation - - Inhaled Oxygen Concentration - - Weight 105 kg (232 lb 9.4 oz) 05/05/2024 8:36 AM SECURITY ADVISOR Height - - Body Mass Index - [...] COMPLETE TREATMENT INFORMATION Routine 05/07/2024 8:21 AM SECURITY ADVISOR ARIA DAILY TREATMENT INFORMATION Routine 05/07/2024 8:21 AM SECURITY ADVISOR ARIA DAILY TREATMENT INFORMATION Routine 05/06/2024 8:27 AM SECURITY ADVISOR ARIA DAILY TREATMENT INFORMATION Routine 05/05/2024 8:30 AM SECURITY ADVISOR ARIA DAILY TREATMENT INFORMATION Routine 05/04/2024 8:27 AM SECURITY ADVISOR ARIA DAILY TREATMENT INFORMATION Routine 05/01/2024 8:50 AM SECURITY ADVISOR INITIAL RAD ONC TREATMENT PLANNING CT SIMULATION Routine 04/28/2024 1:00 PM SECURITY ADVISOR Cholangiocarcinom a (HCC) Secondary Malignant Neoplasm Bone (HCC) OUTSIDE CT NEURO Routine 04/24/2024 7:35 AM SECURITY ADVISOR OUTSIDE CT NEURO Routine 04/24/2024 7:30 AM SECURITY ADVISOR OUTSIDE CT BODY Routine 03/27/2024 8:20 AM SECURITY ADVISOR OUTSIDE MR BODY Routine 03/27/2024 7:30 AM SECURITY ADVISOR OUTSIDE DX CHEST Routine 02/28/2024 12:[address] SKULL TO THIGH RAD - Routine (most inpatients and all outpatients) 02/21/2024 11:17 AM CDT Cholangiocarcinom a (HCC) from Last 3 Months Results * Aria Course Complete Treatment Information (05/07/2024 8:21 AM SECURITY ADVISOR) Course ID [id number] te CONLEY ARIA Course Start Date 4 10:56 SECURITY ADVISOR CONLEY ARIA Course End Date 5 11:24 SECURITY ADVISOR CONLEY ARIA First Treatment Date 5 08:27 SECURITY ADVISOR CONLEY ARIA Last Treatment Date 5 08:21 SECURITY ADVISOR CONLEY ARIA Treatment Elapsed Days 6 CONLEY ARIA Reference Point [id number]_ 2000x CONLEY ARIA Dosage Given to Date cGy 1999 [facility]A Reference Point dpvSpnT8_ 2000x CON[facility] ARIA Dosage Given to Date cGy 1999 CON[facility] ARIA Reference Point [id number]_ 2000x CONLEY ARIA Dosage Given to Date cGy 1999 CON[facility] ARIA Plan ID [id number] CONLEY ARIA Fractions Treated to Date 5 CONLEY ARIA Planned Total Fractions 5 CONLEY ARIA Prescribed Dose Per Fraction 400 CONLEY ARIA Prescription Dose in cGy 2000 CONLEY ARIA Plan Primary Reference Point dpvSpnT4_ 2000x CONLEY ARIA Plan ID [id number] CONLEY ARIA Fractions Treated to Date 5 CONLEY ARIA Planned Total Fractions 5 CONLEY ARIA Prescribed Dose Per Fraction 400 CONLEY ARIA Prescription Dose in cGy 2000 CONLEY ARIA Plan Primary Reference Point dpvSpnT8_ 2000x CONLEY ARIA Plan ID [id number] CONLEY ARIA Fractions Treated to Date 5 CONLEY ARIA Planned Total Fractions 5 CONLEY ARIA Prescribed Dose Per Fraction 400 CONLEY ARIA Prescription Dose in cGy 2000 CONLEY ARIA Plan Primary Reference Point [id number]_ 1999x CONLEY ARIA 05/07/2024 8:21 AM SECURITY ADVISOR us Provider Not In System RADIATION ONCOLOGY ORDERA BLES Final Result CONLEY ARIA na * Aria Daily Treatment Information (05/07/2024 8:21 AM SECURITY ADVISOR) Only the most recent of5 resultswithin the time period is included. Course ID [id number] te CONLEY ARIA Course Start Date 4 10:56 SECURITY ADVISOR CONLEY ARIA First Treatment Date 5 08:27 SECURITY ADVISOR CONLEY ARIA Last Treatment Date 5 08:21 SECURITY ADVISOR CONLEY ARIA Treatment Elapsed Days 6 CONLEY ARIA Reference Point [id number]_ 2000x CONLEY ARIA Dosage Given to Date cGy 1999 CONLEY ARIA Session Dosage Given 400 CONLEY ARIA Reference Point dpvSpnT8_ 2000x CONLEY ARIA Dosage Given to Date cGy 1999 CONLEY ARIA Session Dosage Given 400 CONLEY ARIA Reference Point [id number]_ 2000x CONELY ARIA Dosage Given to Date cGy 1999 CONLEY ARIA Session Dosage Given 400 CONLEY ARIA Plan ID [id number] CONLEY ARIA Fractions Treated to Date 5 CONLEY ARIA Planned Total Fractions 5 CONLEY ARIA Prescribed Dose Per Fraction 400 CONLEY ARIA Prescription Dose in cGy 2000 CONLEY ARIA Plan Primary Reference Point dpvSpnT4_ 2000x CONLEY ARIA Plan ID [id number] CONLEY ARIA Fractions Treated to Date 5 CONLEY ARIA Planned Total Fractions 5 CONLEY ARIA Prescribed Dose Per Fraction 400 CONLEY ARIA Prescription Dose in cGy 2000 CON[facility] ARIA Plan Primary Reference Point dpvSpnT8_ 2000x CONLEY ARIA Plan ID [id number] CONLEY ARIA Fractions Treated to Date 5 CONLEY ARIA Planned Total Fractions 5 CONLEY ARIA Prescribed Dose Per Fraction 400 CONLEY ARIA Prescription Dose in cGy 2000 CONLEY ARIA Plan Primary Reference Point [id number]_ 2000x CONLEY ARIA 05/07/2024 8:21 AM SECURITY ADVISOR us Provider Not In System RADIATION ONCOLOGY ORDERA BLES Final Result Performing Organization Address [facility] Co de Phone Number YAEL TRORES na * Initial Rad Onc Treatment Planning CT Simulation (04/28/2024 1:00 PM SECURITY ADVISOR) Narrative CONLEY ARIA - 04/28/2024 1:00 PM SECURITY ADVISOR Rupal Payton, RTT 04/28/2024 1:28 PM Initial Rad Onc Treatment Planning CT Simulation Performed by: nAt Mccullough M.D. Authorized by: Haley Martínez M.D. Haley Martínez M.D. RADIATION ONCOLOGY ORDERA BLES Final Result Performing Organization Address [facility] Co de Phone Number YAEL TORRES na * CT thoracic spine wo con-Outside CT Neuro (04/24/2024 7:35 AM SECURITY ADVISOR) Only the most recent of2 resultswithin the time period is included. 04/24/2024 7:29 AM SECURITY ADVISOR Narrative [facility] - 04/24/2024 9:23 AM SECURITY ADVISOR This order has been created and auto-finalized [...] PROCEDURES Final R esult Performing Organization Address City/[facility]/ZIP Co de Phone Number II NA * CT chest abdomen pelv w con-Outside CT Body (03/27/2024 8:20 AM SECURITY ADVISOR) Narrative [facility] - 04/24/2024 9:26 AM SECURITY ADVISOR This order has been created and auto-finalized [...] PROCEDURES Final R esult Performing Organization Address [facility] de Phone Number II NA * MR abdomen wo/w con-Outside MR Body (03/27/2024 7:30 AM SECURITY ADVISOR) Narrative [facility] - 04/24/2024 9:26 AM SECURITY ADVISOR This order has been created and auto-finalized [...] MRI PROCEDURES Final Result Performing Organization Address [facility] de Phone Number II NA * XR chest 2V-Outside Chest Xray (02/28/2024 12:25 PM CDT) Narrative [facility] - 04/24/2024 9:18 AM SECURITY ADVISOR This order has been created and auto-finalized [...] MO OCEDURES Final Result Performing Organization Address [facility] de Phone Number [facility] NA * PET [...] indeterminate lytic lesions in the T8 and R0uggcobjrs bodies without elevated radiotracer uptake. Other Findings: [...] lt from Last 3 Months Insurance [facility]
--- NOTE | 2024-05-15 03:23 | ED_ITS ---
HPI - Back Pain/Injury General Date Seen: 05/15/24 Chief Complaint: Back Injury/Pain Stated Complaint: Severe back pain, cancer pt. Time Seen by Provider: 05/15/24 02:54 Source: patient and family Mode of arrival: ambulatory Limitations: no limitations History of Present Illness HPI Narrative: Patient is a 53-year-old male who is currently undergoing chemotherapy and radiation therapy for cholangiocarcinoma. He has metastases and compression fractures in his spine. He has been using the oxycodone that I prescribed for him when he was last here. He has been waiting to get a prescription from his oncologist Dr. Samayoa but so far this has not been filled. Today he twisted just before noon and has had severe pain since then. Oxycodone and some old hydrocodone have not relieved the pain. He has developed some nausea and vomiting that he believes is related to the pain and not a side effect of the medication. Related Data Home Medications ?Medication ?Instructions ?Recorded ?Confirmed Blood Glucose Meter 12/26/21 04/24/24 aspirin 81 mg tablet,delayed 81 mg PO QDAY 12/26/21 05/06/24 release (Adult Low Dose Aspirin) multivitamin 1 tab PO QDAY 12/26/21 05/06/24 acetaminophen 500 mg capsule 1,000 mg PO Q6H PRN 01/20/24 05/06/24 apixaban 5 mg tablet (Eliquis) 5 mg PO BID 02/19/24 05/06/24 lisinopril 40 mg tablet 40 mg PO QDAY 03/12/24 05/06/24 loratadine 10 mg tablet (Claritin) 10 mg PO QDAY 03/12/24 05/06/24 ondansetron 4 mg disintegrating 4 mg PO Q8H PRN 04/01/24 05/06/24 tablet metoprolol succinate 100 mg 150 mg PO DAILY 04/24/24 05/06/24 tablet,extended release 24 hr sennosides 8.6 mg-docusate sodium 1 tab-cap PO QHS PRN constipation 05/06/24 50 mg tablet (Senna with Docusate Sodium) Previous Rx's ?Medication ?Instructions ?Recorded lancets #100 ea 01/07/23 amlodipine 5 mg tablet 5 mg PO QDAY #90 tabs 12/25/23 metformin 500 mg tablet 500 mg PO BIDWMEAL #180 tabs 12/25/23 rosuvastatin 10 mg tablet 10 mg PO QDAY #90 tabs 01/07/24 fluticasone propionate 45 2 puff inhalation BID #12 grams 03/11/24 mcg-salmeterol 21 mcg/actuation HFA inhaler (Advair HFA) albuterol sulfate 90 mcg/actuation 2 puff inhalation QID PRN 03/18/24 aerosol inhaler (Ventolin HFA) shortness of breath or wheezing #8.5 grams prochlorperazine maleate 5 mg 5 mg PO TID PRN nausea and 03/19/24 tablet (Compazine) vomiting #60 tabs magnesium oxide 400 mg PO QDAY #30 caps 04/01/24 omeprazole 40 mg capsule,delayed 40 mg PO QDAY #90 caps 04/01/24 release pemigatinib 9 mg tablet 9 mg PO QDAY #14 tabs 04/01/24 sodium chloride 1,000 mg soluble 1,000 mg PO BID electrolyte 04/01/24 tablet replenishment #100 tabs loperamide 2 mg capsule (Imodium 2 mg PO Q4H PRN loose stool #30 04/20/24 A-D) caps tramadol 50 mg tablet 50 mg PO Q6H PRN pain #60 tabs 04/20/24 calcium 600 mg (as carbonate)-vit 1 tab PO BID #120 tabs 05/14/24 D3 10 mcg (400 unit)-minerals tablet oxycodone 5 mg tablet 5 - 10 mg (1 - 2 x 5 mg) PO Q6H 05/14/24 PRN cancer related pain #45 tabs oxycodone 10 mg tablet 10 - 15 mg (1 - 1.5 x 10 mg) PO 05/15/24 Q6H PRN pain #30 tabs Allergies Allergy/AdvReac Type Severity Reaction Status Date / Time No Known Allergies Allergy Unknown Verified 05/06/24 09:26 Review of Systems Narrative: Review of systems is significant for chronic shortness of breath, loss of appetite, severe back pain. Review of systems in all other areas is noted to be negative. [facility] Medical History (Updated 05/15/24 @ 04:05 by Donell Giles MD) Encounter for antineoplastic chemotherapy and immunotherapy ?Z51.11 - Encounter for antineoplastic chemotherapy (ICD-10) ?Z51.12 - Encounter for antineoplastic immunotherapy (ICD-10) Osteoarthritis of knee ?M17.10 - Unilateral primary osteoarthritis, unspecified knee (ICD-10) History of fracture of vertebral column ?Z87.81 - Personal history of (healed) traumatic fracture (ICD-10) Surgical History History of tear of meniscus of knee joint ?Z87.828 - Personal history of other (healed) physical injury and trauma (ICD-10) Plantar fasciitis ?M72.2 - Plantar fascial fibromatosis (ICD-10) History of partial knee replacement ?Z96.659 - Presence of unspecified artificial knee joint (ICD-10) History of shoulder surgery ?Z98.890 - Other specified postprocedural states (ICD-10) History of colonoscopy with polypectomy ?Z98.890 - Other specified postprocedural states (ICD-10) ?Z86.010 - Personal history of colonic polyps (ICD-10) Family History Mother Diabetes Father Coronary artery disease History of coronary artery bypass graft x 3 Stroke Social History (Updated 01/27/24 @ 10:54 by Edel Kennedy MD) Narrative: History of alcohol use with cirrhosis noted on recent liver biopsy. Has now abstained since his diagnosis of cholangiocarcinoma. History of smoking; has been tobacco free for 15 years. 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 What is your current living situation?: I presently have a place to live Problems where you live: no known problems In the past 12 months, utilities in danger of being shut off: no In past 12 months, lack of transportation kept you from medical appts, meetings, work, or getting things needed for daily living: no In the past 12 mos, have been you worried that your food would run out before you had money to buy more?: never true In the past 12 mos, the food you bought just didn't last and you didn't have money to buy more?: never true Smoking Status: Former smoker Second hand tobacco smoke exposure: No How often do you have a drink containing alcohol: monthly or less AUDIT-C Alcohol total score: 1 Non-prescribed substance use: denies use Caffeine: Yes How often does anyone, including family, friends and others, physically hurt you : never How often does anyone, including family, friends and others, insult or talk down to you: never How often does anyone, including family, friends and others, threaten you with harm: never How often does anyone, including family, friends and others, scream or curse at you: never Exam Narrative: Exam Narrative: Vitals noted. He is pale and chronically ill-appearing. HEENT: Conjunctiva clear. Neck is supple without adenopathy, thyromegaly, carotid bruit. Lungs: Diminished but Clear to auscultation in all elaine. No wheezes, rales, rhonchi. Heart: Regular rate and rhythm without murmur. Abdomen: Soft and nontender. No guarding, rigidity, rebound. Bowel sounds are normal. No palpable masses. Extremities: No cyanosis or edema. Good distal pulses. His tenderness to palpation over the thoracic and lumbar spine. His pain overall is not much worse with palpation that is at rest. Movement makes it worse. Skin: No abnormalities noted of the exposed skin. Neurologic: Awake, alert, fully oriented. Neurologic exam is nonfocal. Const: Vital Signs, click to edit/add: Vital Signs - 24 hr 05/15/24 02:55 Temperature 96.8 F L Pulse Rate [Pulse Oximeter] 79 Respiratory Rate 16 Blood Pressure [Ri ght Upper Arm] 108/72 Pulse Oximetry 96 Oxygen Delivery Me thod Room Air Course Course ED Course: Patient seen and examined. He is vomiting. We accessed his port in gave him 1 L of normal saline along with Zofran 4 mg IV and Dilaudid 0.5 mg IV. I see no indication for further imaging. Reevaluation(s) Reevaluation #1: He was much more comfortable and was able to rest after the medications given. I will send a new prescription for higher dose of oxycodone to his pharmacy. Vital Signs Vital signs: Initial Vital Signs Temperature 96.8 F L 05/15/24 02:55 Temperature Source Temporal Artery Scan 05/15/24 02:55 Pulse Rate 79 05/15/24 02:55 Respiratory Rate 16 05/15/24 02:55 Blood Pressure 108/72 05/15/24 02:55 Blood Pressure Mean 84 05/15/24 02:55 Blood Pressure Position Sitting 05/15/24 02:55 Pulse Oximetry 96 05/15/24 02:55 Oxygen Delivery Method Room Air 05/15/24 02:55 Vital Signs Temperature 96.8 F L 05/15/24 02:55 Pulse Rate 79 05/15/24 02:55 Respiratory Rate 16 05/15/24 02:55 Blood Pressure 108/72 05/15/24 02:55 Pulse Oximetry 96 05/15/24 02:55 Oxygen Delivery Method Room Air 05/15/24 02:55 Temperature 96.8 F L 05/15/24 02:55 Pulse Rate 79 05/15/24 02:55 Respiratory Rate 16 05/15/24 02:55 Blood Pressure 108/72 05/15/24 02:55 Pulse Oximetry 96 05/15/24 02:55 Oxygen Delivery Method Room Air 05/15/24 02:55 Medications Administered Medications: Generic Name Dose Route Start Last Admin Trade Name Freq PRN Reason Stop Dose Admin Sodium Chloride 1,000 mls @ 1,000 mls/hr 05/15/24 03:16 05/15/24 03:24 0.9 % Sodium Chloride 1000 Ml IV 05/15/24 04:15 1,000 mls/hr .Q1H [place] Administration Discontinued Medications Generic Name Dose Route Start Last Admin Trade Name Freq PRN Reason Stop Dose Admin Hydromorphone HCl 0.5 mg 05/15/24 03:16 05/15/24 03:24 Hydromorphone 0.5 Mg/0.5 Ml Inj IVP 05/15/24 03:17 0.5 mg ONCE ONE Administration Ketorolac Tromethamine 30 mg 05/15/24 03:15 05/15/24 03:25 Ketorolac 30 Mg/Ml Inj IVP 05/15/24 03:16 30 mg ONCE ONE Administration Ondansetron HCl 4 mg 05/15/24 03:15 05/15/24 03:25 Ondansetron 2 Mg/Ml Inj IVP 05/15/24 03:16 4 mg ONCE ONE Administration Discharge Plan Discharge Clinical Impression: Metastasis to bone Patient Disposition: Home, Self-Care Condition: Improved Additional Instructions: Continue Oxycodone 10-15 mg every 4 hours as needed. Follow up as scheduled. Activity Level: No Restrictions Discharge Diet: Regular Prescriptions: New oxycodone 10 mg tablet 10 - 15 mg PO Q6H PRN (Reason: pain) Qty: 30 0RF No Action (DME) lancets Misc See Rx Instructions .Route Qty: 100 3RF Rx Instructions: As directed acetaminophen 500 mg capsule 1,000 mg PO Q6H PRN ondansetron 4 mg tablet,disintegrating 4 mg PO Q8H PRN omeprazole 40 mg capsule,delayed release(DR/EC) 40 mg PO QDAY Qty: 90 1RF pemigatinib 9 mg tablet 9 mg PO QDAY Qty: 14 0RF Rx Instructions: Take 1 tablet daily, administer for 14 days, followed by 7 days off (21-day cycle) sodium chloride 1,000 mg tablet,soluble 1,000 mg PO BID Qty: 100 3RF magnesium oxide 400 mg magnesium capsule 400 mg PO QDAY Qty: 30 0RF lisinopril 40 mg tablet 40 mg PO QDAY Rx Instructions: alternating with 20mg every other day loratadine [Claritin] 10 mg tablet 10 mg PO QDAY sennosides-docusate sodium [Senna with Docusate Sodium] 8.6-50 mg tablet 1 tab-cap PO QHS PRN (Reason: constipation) Rx Instructions: Take 1 tablet at bedtime if needed to prevent constipation. Hold if having diarrhea. aspirin [Adult Low Dose Aspirin] 81 mg tablet,delayed release (DR/EC) 81 mg PO QDAY multivitamin Tablet 1 tab PO QDAY (DME) Blood Glucose Meter [facility] [place] See Rx Instructions .Route Rx Instructions: As directed amlodipine 5 mg tablet 5 mg PO QDAY Qty: 90 3RF metformin 500 mg tablet 500 mg PO BIDWMEAL Qty: 180 3RF fluticasone propion-salmeterol [Advair HFA] 45-21 mcg/actuation HFA aerosol inhaler 2 puff inhalation BID Qty: 12 1RF Eliquis 5 mg tablet 5 mg PO BID loperamide [Imodium A-D] 2 mg capsule 2 mg PO Q4H PRN (Reason: loose stool) Qty: 30 0RF Rx Instructions: administer after each loose stool until symptoms controlled; do not exceed 8 mg per 24 hrs tramadol 50 mg tablet 50 mg PO Q6H PRN (Reason: pain) Qty: 60 0RF Rx Instructions: Take 1 tablet, with 1 - 500mg acetaminophen (extra strength tylenol) every 6 hours if needed for moderate to severe pain. metoprolol succinate 100 mg tablet extended release 24 hr 150 mg PO DAILY rosuvastatin 10 mg tablet 10 mg PO QDAY Qty: 90 3RF albuterol sulfate [Ventolin HFA] 90 mcg/actuation HFA aerosol inhaler 2 puff inhalation QID PRN (Reason: shortness of breath or wheezing) Qty: 8.5 1RF prochlorperazine maleate [Compazine] 5 mg tablet 5 mg PO TID PRN (Reason: nausea and vomiting) Qty: 60 1RF calcium carbonate-vit D3-min 600 mg-10 mcg (400 unit) tablet 1 tab PO BID Qty: 120 0RF oxycodone 5 mg tablet 5 - 10 mg PO Q6H PRN (Reason: cancer related pain) Qty: 45 0RF Follow Up/Referrals: Anthony Moeller MD [Primary Care Provider] - Stand Alone Forms: [employer] Info Instructions
--- OUTSIDE RECORDS SUMMARY | 2024-05-15 03:23 | XMS_ITS | Encounter Summary ---
Author Organization [facility] Address [address] [place] [address] Care Team Providers Care Director Statistical Programming Name Role Phone Unavailable Primary Care Provider Unavailabl e Reason for Referral * Radiation Therapy (Routine) - Authorized Specialty Diagnoses / Procedures Referred By Contac t Referred To Contact Diagnoses 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) Procedures Initial Rad Onc Treatment Planning CT Simulation [place] 3D RAD THER ISODOSE FIELD PLAN Haley Martínez M.D. [address] [place] [address] Phone: tel: fax: [facility] Region Referral ID Status Reason Start Date Expiration Date V isits Requested Visits Authorized [id number] Authorized 04/24/2024 04/24/2025 2 2 P CRANE OPERATOR Reason for Visit * Radiation Therapy (Routine) - Authorized Specialty Diagnoses / Procedures Referred By Bharat khoury Referred To Contact Diagnoses 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) Procedures Initial Rad Onc Treatment Planning CT Simulation [place] 3D RAD THER ISODOSE FIELD PLAN Haley Martínez M.D. [address] [place] [address] Phone: tel: fax: [facility] Region Referral ID Status Reason Start Date Expiration Date V isits Requested Visits Authorized [id number] Authorized 04/24/2024 04/24/2025 2 2 Encounter Details Date Type Department Care Team (Latest Contact Info) Description 04/28/2024 12:39 PM SCRAP CRANE OPERATOR - 05/07/2024 10:29 AM SCRAP CRANE OPERATOR Hospital Encounter Department of Radiation Oncology in [place], [place] [address] [place] [phone] Haley Martínez M.D. [address] [place] [address] Atn Mccullough M.D. [address] [place] [address] Cholangiocarcinoma (HCC); Secondary Malignant Neoplasm Bone (HCC) [...] on file Legal Sex Male 9:27 PM SCRAP CRANE OPERATOR Gender Identity Not on file Sexual [...] inhaler Inhale 2 puffs. 03/11/2024 HYDROcodone-acet aminophen (Carbon) 5-325 mg per tablet TAKE ONE HALF [...] imaging was appropriate and completed without incident. Marine Steamfitter use:No Cosigned by Ant Mccullough M.D. at 05/07/2024 10:29 AM SCRAP CRANE OPERATOR P CRANE OPERATOR P CRANE OPERATOR Associated attestation - Ant Mccullough M.D. - 05/07/2024 10:29 AM SCRAP CRANE OPERATOR Agree with documentation as below. I was personally available during the simulation. documented in this encounter Plan of Treatment Not on file documented as of this encounter Procedures Procedure Name Priority Date/Time Associated Diagnosis Comments INITIAL RAD ONC TREATMENT PLANNING CT SIMULATION Routine 04/28/2024 1:00 PM SCRAP CRANE OPERATOR 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) documented in this encounter Results * Initial Rad Onc Treatment Planning CT Simulation (04/28/2024 1:00 PM SCRAP CRANE OPERATOR) Narrative YAEL TORRES - 04/28/2024 1:00 PM SCRAP CRANE OPERATOR Rupal Payton RTT 04/28/2024 1:28 PM Initial Rad Onc Treatment Planning CT Simulation Performed by: Ant Mccullough M.D. Authorized by: Haley Martínez M.D. Haley Martínez M.D. RADIATION ONCOLOGY ORDERA BLES Final Result YAEL TORRES na documented in this encounter Visit Diagnoses Diagnosis 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) documented in this encounter
--- OUTSIDE RECORDS SUMMARY | 2024-05-15 03:23 | XMS_ITS | Encounter Summary ---
Author Organization [facility] Address [address] [place] [address] Care Team Providers Care Scrap Wheeler Name Role Phone Unavailable Primary Care Provider Unavailabl e Encounter Details Date Type Department Care Team (Late st Contact Info) Description 05/05/2024 7:56 AM FINANCIAL SYSTEMS DIRECTOR Hospital Encounter Department of Radiation Oncology in [place], [place] [address] [place] [phone] Haley Martínez M.D. [address] [place] [address] Ant Mccullough M.D. 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
--- OUTSIDE RECORDS SUMMARY | 2024-05-15 03:23 | XMS_ITS | Encounter Summary ---
Author Organization [facility] Address [address] [place] [address] Care Team Providers Care Photocomposition Keyboard Operator Name Role Phone Unavailable Primary Care Provider Unavailabl e Reason for Visit * Reason Comments Med Refill Encounter Details Date Type Department Care Team (Late st Contact Info) Description 05/04/2024 Refill Department of Oncology in [place], [place] [address] [place] [phone] Georgiana Samayoa M.D. 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
--- OUTSIDE RECORDS SUMMARY | 2024-05-15 03:23 | XMS_ITS | Encounter Summary ---
Author Organization [facility] Address [address] [place] [address] Care Team Providers Care Shelter Supervisor Name Role Phone Unavailable Primary Care Provider Unavailabl e Encounter Details Date Type Department Care Team (Late st Contact Info) Description 05/04/2024 7:49 AM INDEPENDENT CONSULTANT Hospital Encounter Department of Radiation Oncology in [place], [place] [address] [place] [phone] Haley Martínez M.D. [address] [place] [address] Ant Mccullough M.D. [address] [place] [address] Social History Tobacco Use Types Packs/Day Years [...] on file Legal Sex Male 9:27 PM INDEPENDENT CONSULTANT Gender Identity Not on file Sexual Orientation Not on file Occupation Industry Job Start Date Job End Date Not on file Not on file Not on file Not on file documented as of this encounter Plan of Treatment Not on file documented as of this encounter Visit Diagnoses Not on filedocumented in this encounter
--- OUTSIDE RECORDS SUMMARY | 2024-05-15 03:23 | XMS_ITS | Encounter Summary ---
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 [address] [place] [phone] Phone: tel: fax: [facility] Referral ID Status Reason Start Date Expiration Date V isits Requested Visits Authorized [id number] Authorized 04/30/2024 04/24/2025 5 5 PRESSER Encounter Details Date Type Department Care Team (Late st Contact Info) Description 04/24/2024 Orders Only Department of Radiation Oncology in [place], [place] [address] [place] [phone] Charlene Kaufman APRN, C.N.P., D.N.P. 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
--- OUTSIDE RECORDS SUMMARY | 2024-05-15 03:23 | XMS_ITS | Encounter Summary ---
Author Organization [facility] Address [address] [place] [address] Care Team Providers Care Rural Carrier Name Role Phone Unavailable Primary Care Provider Unavailabl e Encounter Details Date Type Department Care Team (Late st Contact Info) Description 05/07/2024 Documentation Department of Radiation Oncology in [place], [place] [address] [place] [phone] Ant Mccullough M.D. 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 Treatment Intent: Palliative Concomitant Therapy: None Single Plan Treatment Course: 1xMultiSite Plan ID Fractions Dose / Fraction (cGy) Dose Treated (cGy) Dose Planned (cGy) First Treatment Last Treatment Elapsed Days [id number] 5 / 5 400 199905/01/2024 05/07/2024 6 [id number] / 400 199905/01/2024 05/07/2024 6 [id number] 400 199905/01/2024 05/07/2024 6 Course Summary 05/01/2024 [...] by: Suzie Reagan R.N., 05/08/2024 8:29 AM PUPPET MAKER [facility] Center [address] [place] [address] Cosigned by Ant Mccullough M.D. at 05/12/2024 4:56 PM PUPPET MAKER ET MAKER ET MAKER documented in this encounter Plan of Treatment Not on file documented as of this encounter Visit Diagnoses Not on filedocumented in this encounter
--- OUTSIDE RECORDS SUMMARY | 2024-05-15 03:23 | XMS_ITS | Encounter Summary ---
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 Gender Identity Not on file Sexual Orientation Not on file Occupation Industry Job Start Date Job End Date Not on file Not on file Not on file Not on file documented as of this encounter Last Filed Vital Signs Vital Sign Reading Time Taken Comments Blood Pressure 130/80 04/28/2024 11:45 AM PRESSURE WASHER Pulse 124 04/28/2024 11:45 AM PRESSURE WASHER Temperature 35.4 C (95.7 F) 04/28/2024 11:45 AM PRESSURE WASHER Respiratory Rate - - Oxygen Saturation - - Inhaled Oxygen Concentration - - Weight 110 kg (243 lb 9.7 oz) 04/28/2024 11:45 A M PRESSURE WASHER Height - - Body Mass Index - [...] inhaler Inhale 2 puffs. 03/11/2024 HYDROcodone-acet aminophen (Salcha) 5-325 mg per tablet TAKE ONE HALF [...] Common Hereditary Cancers Panel (48 genes) via [employer]. See test report for details regarding the [...] Marital status: Single Occupational History Employer: [employer] Tobacco Use Smoking status: Former Current packs/day: [...] consideration of kyphoplasty/vertebroplasty.He would like referral to [facility] and an order will be placed. Dr. [...] Yennifer Velasco P.A.-C., M.S. 04/28/2024 12:45 PM [facility] Radiation Therapy Center [address] [place] [address] Cosigned by Ant Mccullough M.D. at 05/12/2024 4:59 PM PRESSURE WASHER SURE WASHER SURE WASHER Associated attestation - Ant Mccullough M.D. - 05/12/2024 4:59 PM PRESSURE WASHER I was the supervising physician in the [...]
--- OUTSIDE RECORDS SUMMARY | 2024-05-15 03:23 | XMS_ITS | Encounter Summary ---
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 [address] [place] [phone] Phone: tel: fax: 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 [address] [place] [phone] Phone: tel: fax: [facility] Region Referral ID Status Reason Start Date Expiration Date V isits Requested Visits Authorized [id number] Authorized 04/24/2024 04/24/2025 10 10 Encounter Details Date Type Department Care Team (Latest Contact Info) Description 05/05/2024 7:56 AM SECOND OPERATOR - 05/05/2024 5:34 PM SECOND OPERATOR Hospital Encounter Department of Radiation Oncology in [place], [place] [address] [place] [phone] Ant Mccullough M.D. [address] [place] [phone] Cholangiocarcinoma (HCC); Secondary Malignant Neoplasm Bone (HCC) [...] on file Legal Sex Male 9:27 PM SECOND OPERATOR Gender Identity Not on file Sexual Orientation Not on file Occupation Industry Job Start Date Job End Date Not on file Not on file Not on file Not on file documented as of this encounter Last Filed Vital Signs Vital Sign Reading Time Taken Comments Blood Pressure 111/73 05/05/2024 8:36 AM SECOND OPERATOR Pulse 103 05/05/2024 8:36 AM SECOND OPERATOR Temperature 36.1 C (96.9 F) 05/05/2024 8:36 AM SECOND OPERATOR Respiratory Rate - - Oxygen Saturation - - Inhaled Oxygen Concentration - - Weight 105 kg (232 lb 9.4 oz) 05/05/2024 8:36 AM SECOND OPERATOR Height - - Body Mass Index [...] inhaler Inhale 2 puffs. 03/11/2024 HYDROcodone-acet aminophen ([place]) 5-325 mg per tablet TAKE ONE HALF [...] (cGy) First Treatment Last Treatment Elapsed Days [id number] 400 1200 199905/01/2024 05/05/2024 4 [id number] 400 1200 199905/01/2024 05/05/2024 4 [id number] 400 1200 199905/01/2024 05/05/2024 4 Course Summary [...] by: Yoselin Bernal R.N. 05/05/2024 9:39 AM SECOND OPERATOR ATTESTATION FOR MANAGEMENT VISIT I saw and evaluated the patient and participated in the randolph portions of the service including medical decision making as noted above. I reviewed the documentation of Ms. Yoselin Bernal RN and agree with the findings and plan. The patient appears well on exam. We will continue with radiation as planned and monitor weekly. Ant Mccullough M.D., 05/05/2024 [place] OPERATOR documented in this encounter Plan of [...]
--- OUTSIDE RECORDS SUMMARY | 2024-05-15 03:23 | XMS_ITS | Encounter Summary ---
Author Organization [facility] Address [address] [place] [id number] Care Team Providers Care Groundman Name Role Phone Unavailable Primary Care Provider Unavailabl e Reason for Visit * Radiation Therapy (Routine) - Authorized Specialty Diagnoses / Procedures Referred By Contac t Referred To Contact Diagnoses 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) Procedures Prior Auth Rad Tx MS RADTN TX DEL >=1 MEV COMPLEX MS GUIDANCE FOR LOC RAD TX MS 3D RAD THER ISODOSE FIELD PLAN 3D Haley Martínez M.D. [address] [place] [address] Phone: tel: fax: [facility] Referral ID Status Reason Start Date Expiration Date V isits Requested Visits Authorized [id number] Authorized 04/30/2024 04/24/2025 5 5 Encounter Details Date Type Department Care Team (Late st Contact Info) Description 05/01/2024 7:58 AM [facility] Hospital Encounter Department of Radiation Oncology in [place], [place] [address] [place] [phone] Haley Martínez M.D. [address] [place] [phone] Ant Mccullough M.D. 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
--- OUTSIDE RECORDS SUMMARY | 2024-05-15 03:23 | XMS_ITS | Referral Summary ---
Author Organization [facility] Address [address] [place] [address] Care Team Providers Care Outside Sales Account Manager Name Role Phone Unavailable Primary Care Provider Unavailabl e Source Comments Patient records contain information from all sites at [facility]. For routine questions regarding patient records, call [phone] during business hours, M-F 8:00 AM - 5:00 PM Central Time. Record requests for emergency care only can be directed to [phone] at any time.[facility] Encounters Date Type Department Care Team Description 05/12/2024 Refill Department of Oncology in [place], [place] [address] [place] [address] Georgiana Samayoa M.D. Med Refill 04/28/2024 11:42 AM [facility] - 05/12/2024 4:59 PM [facility] Hospital Encounter Department of Radiation Oncology in [address] [address] Ant Mccullough M.D. Cholangiocarcinoma (HCC) (Primary Dx); Secondary Malignant Neoplasm Bone (HCC) 05/07/2024 Documentation Department of Radiation Oncology in [address] [address] Ant Mccullough M.D. 05/07/2024 7:57 AM [facility] Hospital Encounter Department of Radiation Oncology in [address] [address] Haley Martínez M.D. Chamberlain, Daniel M.D. 04/28/2024 12:39 PM PASSENGER ELEVATOR OPERATOR - 05/07/2024 10:29 AM PASSENGER ELEVATOR OPERATOR Hospital Encounter Department of Radiation Oncology in [address] [address] Haley Martínez M.D. Chamberlain, Daniel, M.D. Cholangiocarcinoma (HCC); Secondary Malignant Neoplasm Bone (HCC) 05/06/2024 7:58 AM PASSENGER ELEVATOR OPERATOR Hospital Encounter Department of Radiation Oncology in [address] [address] Haley Martínez M.D. Chamberlain, Daniel, M.D. 05/05/2024 7:56 AM PASSENGER ELEVATOR OPERATOR - 05/05/2024 5:34 PM PASSENGER ELEVATOR OPERATOR Hospital Encounter Department of Radiation Oncology in [address] [address] Ant Mccullough M.D. Cholangiocarcinoma (HCC); Secondary Malignant Neoplasm Bone (HCC) 05/05/2024 7:56 AM PASSENGER ELEVATOR OPERATOR Hospital Encounter Department of Radiation Oncology in [address] [address] Haley Martínez M.D. Chamberlain, Daniel, M.D. 05/04/2024 Refill Department of Oncology in [address] [address] Georgiana Samayoa M.D. Med Refill 05/04/2024 7:49 AM PASSENGER ELEVATOR OPERATOR Hospital Encounter Department of Radiation Oncology in [address] [address] Haley Martínez M.D. Chamberlain, Daniel, M.D. 05/01/2024 7:58 AM PASSENGER ELEVATOR OPERATOR Hospital Encounter Department of Radiation Oncology in [address] [address] Haley Martínez M.D. Chamberlain, Daniel M.D. 04/24/2024 Orders Only Department of Radiation Oncology in [place], [place] [address] [place] [address] Charlene Kaufman APRN, C.N.P., D.N.P. Cholangiocarcinoma (HCC) (Primary Dx); Secondary Malignant Neoplasm Bone (HCC) 03/19/2024 Refill Department of Oncology in [place], [place] [address] [place] [address] Georgiana Samayoa M.D. Med Refill 02/21/2024 9:42 AM CDT - 02/21/2024 11:59 PM CDT Hospital Encounter Department of Radiology in [place], [place] [address] [place] [address] Georgiana Samayoa M.D. Cholangiocarcinoma (HCC) Discharge Disposition: Home or Self Care 02/17/2024 Refill Department of Oncology in [place], [place] [address] [place] [address] Georgiana Samayoa M.D. Med Refill from Last [...] Inhale 2 puffs. 4 Active HYDROcodone-jessica taminophen ([place]) 5-325 mg per tablet TAKE ONE HALF [...] on file Legal Sex Male 9:27 PM PASSENGER ELEVATOR OPERATOR Gender Identity Not on file Sexual Orientation Not on file Occupation Industry Job Start Date Job End Date Not on file Not on file Not on file Not on file Last Filed Vital Signs Vital Sign Reading Time Taken Comments Blood Pressure 111/73 05/05/2024 8:36 AM PASSENGER ELEVATOR OPERATOR Pulse 103 05/05/2024 8:36 AM PASSENGER ELEVATOR OPERATOR Temperature 36.1 C (96.9 F) 05/05/2024 8:36 AM PASSENGER ELEVATOR OPERATOR Respiratory Rate - - Oxygen Saturation - - Inhaled Oxygen Concentration - - Weight 105 kg (232 lb 9.4 oz) 05/05/2024 8:36 AM PASSENGER ELEVATOR OPERATOR Height - - Body Mass Index - - Plan of Treatment Not on file Procedures Procedure Name Priority Date/Time Associated Diagnosis Comments ARIA COURSE COMPLETE TREATMENT INFORMATION Routine 05/07/2024 8:21 AM PASSENGER ELEVATOR OPERATOR ARIA DAILY TREATMENT INFORMATION Routine 05/07/2024 8:21 AM PASSENGER ELEVATOR OPERATOR ARIA DAILY TREATMENT INFORMATION Routine 05/06/2024 8:27 AM PASSENGER ELEVATOR OPERATOR ARIA DAILY TREATMENT INFORMATION Routine 05/05/2024 8:30 AM PASSENGER ELEVATOR OPERATOR ARIA DAILY TREATMENT INFORMATION Routine 05/04/2024 8:27 AM PASSENGER ELEVATOR OPERATOR ARIA DAILY TREATMENT INFORMATION Routine 05/01/2024 8:50 AM PASSENGER ELEVATOR OPERATOR INITIAL RAD ONC TREATMENT PLANNING CT SIMULATION Routine 04/28/2024 1:00 PM PASSENGER ELEVATOR OPERATOR Cholangiocarcinom a (HCC) Secondary Malignant Neoplasm Bone (HCC) OUTSIDE CT NEURO Routine 04/24/2024 7:35 AM PASSENGER ELEVATOR OPERATOR OUTSIDE CT NEURO Routine 04/24/2024 7:30 AM PASSENGER ELEVATOR OPERATOR OUTSIDE CT BODY Routine 03/27/2024 8:20 AM PASSENGER ELEVATOR OPERATOR OUTSIDE MR BODY Routine 03/27/2024 7:30 AM PASSENGER ELEVATOR OPERATOR OUTSIDE DX CHEST Routine 02/28/2024 12:[address] SKULL TO THIGH RAD - Routine (most inpatients and all outpatients) 02/21/2024 11:17 AM CDT Cholangiocarcinom a (HCC) from Last 3 Months Results * Aria Course Complete Treatment Information (05/07/2024 8:21 AM PASSENGER ELEVATOR OPERATOR) Pathologist [facility] Course ID [id number] te CONLEY ARIA Course Start Date 4 10:56 PASSENGER ELEVATOR OPERATOR CONLEY ARIA Course End Date 5 11:24 PASSENGER ELEVATOR OPERATOR CONLEY ARIA First Treatment Date 5 08:27 PASSENGER ELEVATOR OPERATOR CONLEY ARIA Last Treatment Date 5 08:21 PASSENGER ELEVATOR OPERATOR CONLEY ARIA Treatment Elapsed Days 6 CONLEY ARIA Reference Point [id number]_ 2000x CONLEY ARIA Dosage Given to Date cGy 2000 CONLEY ARIA Reference Point dpvSpnT8_ 2000x CONLEY ARIA Dosage Given to Date cGy 2000 CONLEY ARIA Reference Point [id number]_ 2000x CONLEY ARIA Dosage Given to Date cGy 2000 CONLEY ARIA Plan ID [id number] CONLEY ARIA Fractions Treated to Date 5 CONLEY ARIA Planned Total Fractions 5 CONLEY ARIA Prescribed Dose Per Fraction 400 CONLEY ARIA Prescription Dose in cGy 2000 CONLEY ARIA Plan Primary Reference Point dpvSpnT4_ 2000x CONLEY ARIA Plan ID [id number] CONLEY ARIA Fractions Treated to Date 5 CONLEY ARIA Planned Total Fractions 5 CONLEY ARIA Prescribed Dose Per Fraction 400 CONLEY ARIA Prescription Dose in cGy 2000 CONLEY ARIA Plan Primary Reference Point [id number]_ 2000x CONLEY ARIA Plan ID [id number] CONLEY ARIA Fractions Treated to Date 5 CONLEY ARIA Planned Total Fractions 5 CONLEY ARIA Prescribed Dose Per Fraction 400 CONLEY ARIA Prescription Dose in cGy 2000 CONLEY ARIA Plan Primary Reference Point [id number]_ 2000x CONLEY ARIA 05/07/2024 8:21 AM PASSENGER ELEVATOR OPERATOR us Provider Not In System RADIATION ONCOLOGY ORDERA BLES Final Result CONLEY ARIA na * Aria Daily Treatment Information (05/07/2024 8:21 AM PASSENGER ELEVATOR OPERATOR) Only the most recent of5 resultswithin the time period is included. Course ID [id number] te CONLEY ARIA Course Start Date 4 10:56 PASSENGER ELEVATOR OPERATOR CONLEY ARIA First Treatment Date 5 08:27 PASSENGER ELEVATOR OPERATOR CONLEY ARIA Last Treatment Date 5 08:21 PASSENGER ELEVATOR OPERATOR CONLEY ARIA Treatment Elapsed Days 6 CONLEY ARIA Reference Point [id number]_ 2000x CONLEY ARIA Dosage Given to Date cGy 2000 CONLEY ARIA Session Dosage Given 400 CONLEY ARIA Reference Point [id number]_ 2000x CONLEY ARIA Dosage Given to Date cGy 2000 CONLEY ARIA Session Dosage Given 400 CONLEY ARIA Reference Point [id number]_ 2000x CONLEY ARIA Dosage Given to Date cGy 2000 CONLEY ARIA Session Dosage Given 400 CONLEY ARIA Plan ID [id number] CONLEY ARIA Fractions Treated to Date 5 CONLEY ARIA Planned Total Fractions 5 CONLEY ARIA Prescribed Dose Per Fraction 400 CONLEY ARIA Prescription Dose in cGy 2000 CONLEY ARIA Plan Primary Reference Point dpvSpnT4_ 2000x CONLEY ARIA Plan ID [id number] CONLEY ARIA Fractions Treated to Date 5 CONLEY ARIA Planned Total Fractions 5 CONLEY ARIA Prescribed Dose Per Fraction 400 CONLEY ARIA Prescription Dose in cGy 2000 CONLEY ARIA Plan Primary Reference Point [id number]_ 2000x CONLEY ARIA Plan ID [id number] CONLEY ARIA Fractions Treated to Date 5 CONLEY ARIA Planned Total Fractions 5 CONLEY ARIA Prescribed Dose Per Fraction 400 CONLEY ARIA Prescription Dose in cGy 2000 CONLEY ARIA Plan Primary Reference Point [id number]_ 2000x CONLEY ARIA 05/07/2024 8:21 AM PASSENGER ELEVATOR OPERATOR us Provider Not In System RADIATION ONCOLOGY ORDERA BLES Final Result YAEL TORRES na * Initial Rad Onc Treatment Planning CT Simulation (04/28/2024 1:00 PM PASSENGER ELEVATOR OPERATOR) Narrative CONLEY ARIA - 04/28/2024 1:00 PM PASSENGER ELEVATOR OPERATOR Rupal Payton, RTT 04/28/2024 1:28 PM Initial Rad Onc Treatment Planning CT Simulation Performed by: Ant Mccullough M.D. Authorized by: Haley Martínez M.D. Haley Martínez M.D. RADIATION ONCOLOGY ORDERA BLES Final Result YAEL OTRRES na * CT thoracic spine wo con-Outside CT Neuro (04/24/2024 7:35 AM PASSENGER ELEVATOR OPERATOR) Only the most recent of2 resultswithin the time period is included. 04/24/2024 7:29 AM PASSENGER ELEVATOR OPERATOR Narrative [facility] - 04/24/2024 9:23 AM PASSENGER ELEVATOR OPERATOR This order has been created and auto-finalized [...] PROCEDURES Final R esult Performing Organization Address [facility] Co de Phone Number [facility] NA * CT chest abdomen pelv w con-Outside CT Body (03/27/2024 8:20 AM PASSENGER ELEVATOR OPERATOR) Narrative [facility] - 04/24/2024 9:26 AM PASSENGER ELEVATOR OPERATOR This order has been created and auto-finalized [...] PROCEDURES Final R esult Performing Organization Address [facility] de Phone Number [facility] NA * MR abdomen wo/w con-Outside MR Body (03/27/2024 7:30 AM PASSENGER ELEVATOR OPERATOR) Narrative [facility] - 04/24/2024 9:26 AM PASSENGER ELEVATOR OPERATOR This order has been created and auto-finalized [...] MRI PROCEDURES Final Result Performing Organization Address [facility] Co de Phone Number [facility]IM[facility] NA * XR chest 2V-Outside Chest Xray (02/28/2024 12:25 PM CDT) Narrative [facility] - 04/24/2024 9:18 AM PASSENGER ELEVATOR OPERATOR This order has been created and auto-finalized to support the import of outside images. If available, original interpretation can be found on the Media Tab in Chart Review, in Document Viewer, as an image in QREADS or as an Addendum. If a re-interpretation or overread is required please follow defined workflow. us Provider Not In System IMG DIAGNOSTIC IMAGING [place] OCEDURES Final Result [facility] NA * PET [...] RADIOPHARMACEUTICAL/MEDS: Route: intravenous fludeoxyglucose F 18 injection GROUP HOME (FDG F-18),14.7 millicurie Procedure Note Shant Bryson [...] indeterminate lytic lesions in the T8 and W1rokrepfgz bodies without elevated radiotracer uptake. Other Findings: [...] RADIOPHARMACEUTICAL/MEDS: Route: intravenous fludeoxyglucose F 18 injection GROUP HOME (FDG F-18),14.7 millicurie IMPRESSION: 1. Focal elevated [...] withoutradiotracer uptake are indeterminate. Georgiana Samayoa M.D. [facility] [place] PROCEDURES Final Resu lt from Last 3 Months Insurance [facility]
--- OUTSIDE RECORDS SUMMARY | 2024-05-15 03:23 | XMS_ITS ---
Author Organization [facility] Address [address] [place] [address] Care Team Providers Care Direct Support Professional Caregiver Name Role Phone Unavailable Unavailable Unavailable Surgery Details Not on file Complications Check Surgery Details section. Procedure Estimated Blood Loss Check Surgery Details section. Procedure Findings Check Surgery Details section. Procedure Specimens Taken Check Surgery Details section.
--- OUTSIDE RECORDS SUMMARY | 2024-05-15 03:23 | XMS_ITS | Encounter Summary ---
Author Organization [facility] Address [address] [place] [address] Care Team Providers Care Retail Field Supervisor Name Role Phone Unavailable Primary Care Provider Unavailabl e Reason for Visit * Reason Comments Med Refill Encounter Details Date Type Department Care Team (Late st Contact Info) Description 03/19/2024 Refill Department of Oncology in [place], [place] [address] [place] [phone] Georgiana Samayoa M.D. [address] [place] [address] Med Refill Social History Tobacco Use Types Packs/Day Years Used Date Smoking Tobacco: Never Assessed Nutrition Answer Date Recorded Nutrition: EVOO Fat Source 13 10/09 Nutrition: Servings of Fruits/Vegetables per Day Not on file 10/09/2018 Dental Answer Date Recorded Dental: Regular Dentist Unknown 07/06/19 21 Sex and Gender Information Value Date Recorded Sex Assigned at Not on file Legal Sex Male 9:27 PM NURSING HOME ASSISTANT ADMINISTRATOR Gender Identity Not on file Sexual Orientation Not on file documented as of this encounter Plan of Treatment Not on file documented as of this encounter Visit Diagnoses Not on filedocumented in this encounter
--- OUTSIDE RECORDS SUMMARY | 2024-05-15 03:23 | XMS_ITS ---
Author Organization [facility] Address [address] [place] [address] Care Team Providers Care Board Lining Machine Operator Name Role Phone Unavailable Primary Care Provider Unavailabl e Active Problems Problem Noted Date Diagnosed Date Cholangiocarcinoma 04/24/2024 Secondary Malignant Neoplasm Bone 04/24/2024 Current Oncology Plans No current plan information found. Past Plans No past plan information found. Radiation Treatments * Plan Last Treated On Elapsed Days Fractions Treated Prescribed Fraction Dose Prescribed Total Dose [id number] 05/07/2024 6 5 of 5 400 cGy 2,000 cGy [id number] 05/07/2024 6 5 of 5 400 cGy 2,000 cGy [id number] 05/07/2024 6 5 of 5 400 cGy 2,000 cGy Reference Point Last Treated On Elapsed Days Session Dose Total Dose [id number] 05/07/2024 6 400 cGy 2,000 cGy [id number] 05/07/2024 6 400 cGy 2,000 cGy [id number] 05/07/2024 6 400 cGy 2,000 cGy
--- OUTSIDE RECORDS SUMMARY | 2024-05-15 03:23 | XMS_ITS | Encounter Summary ---
Author Organization [facility] Address [address] [place] [address] Care Team Providers Care Instrument Tester Name Role Phone Unavailable Primary Care Provider Unavailabl e Reason for Visit * Reason Comments Med Refill Encounter Details Date Type Department Care Team (Late st Contact Info) Description 05/12/2024 Refill Department of Oncology in [place], [place] [address] [place] [phone] Georgiana Samayoa M.D. [address] [place] [address] Med Refill Social History Tobacco Use Types [...] on file Legal Sex Male 9:27 PM COLLAR POINTER Gender Identity Not on file Sexual Orientation Not on file Occupation Industry Job Start Date Job End Date Not on file Not on file Not on file Not on file documented as of this encounter Plan of Treatment Not on file documented as of this encounter Visit Diagnoses Not on filedocumented in this encounter
--- OUTSIDE RECORDS SUMMARY | 2024-05-15 03:23 | XMS_ITS | Encounter Summary ---
Author Organization [facility] Address [address] [place] [address] Care Team Providers Care Shot Coat Tender Name Role Phone Unavailable Primary Care Provider Unavailabl e Encounter Details Date Type Department Care Team (Late st Contact Info) Description 05/07/2024 7:57 AM REGULATORY ANALYST Hospital Encounter Department of Radiation Oncology in [place], [place] [address] [place] [address] Haley Martínez M.D. [address] [place] [address] Ant Mccullough M.D. [address] [place] [address] Social History Tobacco Use Types Packs/Day Years [...] on file Legal Sex Male 9:27 PM REGULATORY ANALYST Gender Identity Not on file Sexual Orientation Not on file Occupation Industry Job Start Date Job End Date Not on file Not on file Not on file Not on file documented as of this encounter Plan of Treatment Not on file documented as of this encounter Visit Diagnoses Not on filedocumented in this encounter
--- OUTSIDE RECORDS SUMMARY | 2024-05-15 03:23 | XMS_ITS | Encounter Summary ---
Author Organization [facility] Address [address] [place] [address] Care Team Providers Care Manager Aerospace Name Role Phone Unavailable Primary Care Provider Unavailabl e Encounter Details Date Type Department Care Team (Late st Contact Info) Description 05/06/2024 7:58 AM WAGON WINDER Hospital Encounter Department of Radiation Oncology in [place], [place] [address] [place] [phone] Haley Martínez M.D. [address] [place] [address] Ant Mccullough M.D. [address] [place] [address] Social History Tobacco Use Types Packs/Day Years [...] on file Legal Sex Male 9:27 PM WAGON WINDER Gender Identity Not on file Sexual Orientation Not on file Occupation Industry Job Start Date Job End Date Not on file Not on file Not on file Not on file documented as of this encounter Plan of Treatment Not on file documented as of this encounter Visit Diagnoses Not on filedocumented in this encounter
[2024-05-15] MEDS: 0.9 % SODIUM CHLORIDE 1000 ml 1,000 ML IV (03:24)
[2024-05-15] MEDS: HYDROmorphone 0.5 mg/0.5 ml inj IVP (03:24)
[2024-05-15] MEDS: ONDANSETRON 2 MG/ML inj 4 MG IVP (03:25)
[2024-05-15] MEDS: KETOROLAC 30 MG/ML inj IVP (03:25)
--- NOTE | 2024-05-15 04:22 | ED.NURSE ---
Pt's port was heparinized and d/c'd by this nurse.
[2024-05-15] MEDS: HEPARIN 500 UNIT/5 ML SYRINGE IVF (04:29)
== END 2024-05-15 04:29 | disposition home or self-care (01) ==
PROVIDERS: Emergency Provider Family Medicine; PCP Family Medicine
DX: M54.9 Dorsalgia, unspecified (principal); C79.51 Secondary malignant neoplasm of bone
CPT/HCPCS: 99282; 99284; J1171; J1642; J1885; J2405; J7030

== ENCOUNTER 2024-06-02 09:02 | Emergency (ER) | payer BC, SELFPAY ==
[2024-06-02] VITALS (23 sets, daily range): BP systolic 91–121; BP diastolic 58–84; PULSE 71–100; RESP 18; TEMP 35.7; O2SAT 82–100; BMI 35.1
--- NOTE | 2024-06-02 09:21 | ED_ITS ---
HPI - General Adult General Chief complaint: Chest Pain Stated complaint: chest pressure from [facility] Time Seen by Provider: 06/02/24 09:11 History of Present Illness HPI narrative: [facility] patient with cramping pain in central chest since 1600 yesterday while at rest. Worse with movement, coughing. Pain is better while resting in recliner. Patient notes it radiates around both sides of chest to back. No recent travel or illness. Patient notes he started another round on Pemigatinib yesterday. 53-year-old man presenting to the emergency Department with concern of cramping central chest pain at rest. Pain is worse with movement. 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 He reports metastases to his spine. Does have history of compression fracture. For a number of months has had chest tightness that he describes like soreness around his sternum. It appears that this is often relieved with his inhalers. He denies history of reactive airway but does have a history of shortness of breath and cough and possibly wheeze. There is also a sleep apnea diagnosis. He did run out of his inhalers yesterday and feels that if he took his scheduled inhaler this probably would have helped his discomfort. Positional changes do exacerbate. Sometimes might feel better more flat but as I placed him in a more upright position today during our interview he says this helps him feel better. He does anticipate refill of his inhaler shortly; says that provider was going to send this refill in. Was at the infusion center I believe this morning mention this chest tightness and recommended to be evaluated in the emergency department. He reports having all imaging done at this hospital however he reports having had PET scans as well which I do not see has been done here. Related Data Home Medications ?Medication ?Instructions ?Recorded ?Confirmed Blood Glucose Meter 12/26/21 04/24/24 aspirin 81 mg tablet,delayed 81 mg PO QDAY 12/26/21 06/02/24 release (Adult Low Dose Aspirin) multivitamin 1 tab PO QDAY 12/26/21 06/02/24 acetaminophen 500 mg capsule 1,000 mg PO Q6H PRN 01/20/24 06/02/24 apixaban 5 mg tablet (Eliquis) 5 mg PO BID 02/19/24 06/02/24 lisinopril 40 mg tablet 40 mg PO QDAY 03/12/24 06/02/24 loratadine 10 mg tablet (Claritin) 10 mg PO QDAY 03/12/24 06/02/24 ondansetron 4 mg disintegrating 4 mg PO Q8H PRN 04/01/24 06/02/24 tablet metoprolol succinate 100 mg 150 mg PO DAILY 04/24/24 06/02/24 tablet,extended release 24 hr sennosides 8.6 mg-docusate sodium 1 tab-cap PO QHS PRN constipation 06/03/24 50 mg tablet (Senna with Docusate Sodium) Previous Rx's ?Medication ?Instructions ?Recorded lancets #100 ea 01/07/23 amlodipine 5 mg tablet 5 mg PO QDAY #90 tabs 12/25/23 metformin 500 mg tablet 500 mg PO BIDWMEAL #180 tabs 12/25/23 rosuvastatin 10 mg tablet 10 mg PO QDAY #90 tabs 01/07/24 prochlorperazine maleate 5 mg 5 mg PO TID PRN nausea and 03/19/24 tablet (Compazine) vomiting #60 tabs magnesium oxide 400 mg PO QDAY #30 caps 04/01/24 pemigatinib 9 mg tablet 9 mg PO QDAY #14 tabs 04/01/24 sodium chloride 1,000 mg soluble 1,000 mg PO BID electrolyte 04/01/24 tablet replenishment #100 tabs loperamide 2 mg capsule (Imodium 2 mg PO Q4H PRN loose stool #30 04/20/24 A-D) caps tramadol 50 mg tablet 50 mg PO Q6H PRN pain #60 tabs 04/20/24 calcium 600 mg (as carbonate)-vit 1 tab PO BID #120 tabs 05/14/24 D3 10 mcg (400 unit)-minerals tablet omeprazole 40 mg capsule,delayed 40 mg PO BID #180 caps 05/19/24 release albuterol sulfate 90 mcg/actuation 2 puff inhalation QID PRN 06/02/24 aerosol inhaler (Ventolin HFA) shortness of breath or wheezing #8.5 grams fluticasone propionate 45 2 puff inhalation BID #12 grams 06/02/24 mcg-salmeterol 21 mcg/actuation HFA inhaler (Advair HFA) morphine 15 mg tablet,extended 15 mg PO Q12H cancer pain #60 tabs 06/02/24 release oxycodone 10 mg tablet 10 mg PO Q6H PRN pain #60 tabs 06/02/24 Narcan 4 mg/actuation nasal spray 4 mg intranasal Q2-3M PRN opioid 06/03/24 (naloxone) overdose #2 ea Allergies Allergy/AdvReac Type Severity Reaction Status Date / Time No Known Allergies Allergy Unknown Verified 06/02/24 15:24 Review of Systems Status of ROS: Reports: 6 or more systems reviewed and unremarkable except as noted in History and below [facility] Medical History Encounter for antineoplastic chemotherapy and immunotherapy ?Z51.11 - Encounter for antineoplastic chemotherapy (ICD-10) ?Z51.12 - Encounter for antineoplastic immunotherapy (ICD-10) Osteoarthritis of knee ?M17.10 - Unilateral primary osteoarthritis, unspecified knee (ICD-10) History of fracture of vertebral column ?Z87.81 - Personal history of (healed) traumatic fracture (ICD-10) Surgical History History of tear of meniscus of knee joint ?Z87.828 - Personal history of other (healed) physical injury and trauma (ICD-10) Plantar fasciitis ?M72.2 - Plantar fascial fibromatosis (ICD-10) History of partial knee replacement ?Z96.659 - Presence of unspecified artificial knee joint (ICD-10) History of shoulder surgery ?Z98.890 - Other specified postprocedural states (ICD-10) History of colonoscopy with polypectomy ?Z98.890 - Other specified postprocedural states (ICD-10) ?Z86.010 - Personal history of colonic polyps (ICD-10) Family History Mother Diabetes Father Coronary artery disease History of coronary artery bypass graft x 3 Stroke Social History Narrative: History of alcohol use with cirrhosis noted on recent liver biopsy. Has now abstained since his diagnosis of cholangiocarcinoma. History of smoking; has been tobacco free for 15 years. 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 What is your current living situation?: I presently have a place to live Problems where you live: no known problems In the past 12 months, utilities in danger of being shut off: no In past 12 months, lack of transportation kept you from medical appts, meetings, work, or getting things needed for daily living: no In the past 12 mos, have been you worried that your food would run out before you had money to buy more?: never true In the past 12 mos, the food you bought just didn't last and you didn't have money to buy more?: never true Smoking Status: Former smoker Second hand tobacco smoke exposure: No How often do you have a drink containing alcohol: monthly or less AUDIT-C Alcohol total score: 1 Non-prescribed substance use: marijuana (any form) Caffeine: Yes How often does anyone, including family, friends and others, physically hurt you : never How often does anyone, including family, friends and others, insult or talk down to you: never How often does anyone, including family, friends and others, threaten you with harm: never How often does anyone, including family, friends and others, scream or curse at you: never Exam Narrative: Exam Narrative: Pleasant. Sallow-appearing. Appears slightly worried. Heart in elevated rate but regular rhythm. I note pulse ox of 99%. Blood pressures not inconsistent with prior. Lungs are with some clearing trace crepitus in the lower lung elaine. Good air movement. No wheeze. Abdomen is soft. He is little tender to palpation in the left upper abdomen consistent with prior he feels. Lower extremities are without edema. He is sore to palpation across the anterior chest which she says has been present and is the tightness and soreness that he has been describing but worse Const: Vital Signs, click to edit/add: Vital Signs - 24 hr 06/02/24 09:10 06/02/24 09:24 06/02/24 09:25 Temperature 96.3 F L Pulse Rate 91 94 Pulse Rate [Pulse Oximeter] 99 Respiratory Rate 18 18 Blood Pressure 95/64 Blood Pressure [Ri ght Upper Arm] 99/60 Pulse Oximetry 98 96 99 Oxygen Delivery Me thod Room Air 06/02/24 09:30 06/02/24 09:45 06/02/24 10:00 Temperature Pulse Rate 92 92 90 Pulse Rate [Pulse Oximeter] Respiratory Rate Blood Pressure Blood Pressure [Ri ght Upper Arm] Pulse Oximetry 99 82 L 94 Oxygen Delivery Me thod 06/02/24 10:01 06/02/24 10:02 06/02/24 10:15 Temperature Pulse Rate 91 88 88 Pulse Rate [Pulse Oximeter] Respiratory Rate Blood Pressure 91/58 L Blood Pressure [Ri ght Upper Arm] Pulse Oximetry 98 98 100 Oxygen Delivery Me thod 06/02/24 10:30 06/02/24 10:45 06/02/24 11:00 Temperature Pulse Rate 92 75 92 Pulse Rate [Pulse Oximeter] Respiratory Rate Blood Pressure Blood Pressure [Ri ght Upper Arm] Pulse Oximetry 97 99 97 Oxygen Delivery Me thod 06/02/24 11:01 06/02/24 11:15 06/02/24 11:30 Temperature Pulse Rate 92 71 73 Pulse Rate [Pulse Oximeter] Respiratory Rate Blood Pressure 109/73 Blood Pressure [Ri ght Upper Arm] Pulse Oximetry 100 97 99 Oxygen Delivery Me thod 06/02/24 11:45 06/02/24 12:02 06/02/24 12:03 Temperature Pulse Rate 75 100 94 Pulse Rate [Pulse Oximeter] Respiratory Rate 18 Blood Pressure 121/84 Blood Pressure [Ri ght Upper Arm] Pulse Oximetry 97 100 100 Oxygen Delivery Me thod 06/02/24 12:15 06/02/24 12:30 06/02/24 12:45 Temperature Pulse Rate 92 92 94 Pulse Rate [Pulse Oximeter] Respiratory Rate Blood Pressure Blood Pressure [Ri ght Upper Arm] Pulse Oximetry 98 96 90 Oxygen Delivery Me thod 06/02/24 13:34 06/02/24 13:35 Temperature Pulse Rate 91 91 Pulse Rate [Pulse Oximeter] Respiratory Rate 18 Blood Pressure 120/74 Blood Pressure [Ri ght Upper Arm] Pulse Oximetry 97 99 Oxygen Delivery Me thod Documenting provider has reviewed patient's vital signs: yes Course Vital Signs Vital signs: Initial Vital Signs Temperature 96.3 F L 06/02/24 09:10 Temperature Source Temporal Artery Scan 06/02/24 09:10 Pulse Rate 99 06/02/24 09:10 Respiratory Rate 18 06/02/24 09:10 Blood Pressure 99/60 06/02/24 09:10 Blood Pressure Mean 73 06/02/24 09:10 Blood Pressure Position Sitting 06/02/24 09:10 Pulse Oximetry 98 06/02/24 09:10 Oxygen Delivery Method Room Air 06/02/24 09:10 Vital Signs Temperature 96.3 F L 06/02/24 09:10 Pulse Rate 99 06/02/24 09:10 Respiratory Rate 18 06/02/24 09:10 Blood Pressure 99/60 06/02/24 09:10 Pulse Oximetry 98 06/02/24 09:10 Oxygen Delivery Method Room Air 06/02/24 09:10 Temperature 96.3 F L 06/02/24 09:10 Pulse Rate 91 06/02/24 13:35 Respiratory Rate 18 06/02/24 13:35 Blood Pressure 120/74 06/02/24 13:35 Pulse Oximetry 99 06/02/24 13:35 Oxygen Delivery Method Room Air 06/02/24 09:10 Medications Administered Medications: Discontinued Medications Generic Name Dose Route Start Last Admin Trade Name Abdulkadirq PRN Reason Stop Dose Admin Albuterol/Ipratropium 1 neb 06/02/24 09:48 06/02/24 10:04 Iprat-Albut 0.5-2.5 Mg/3 Ml Neb IH 06/02/24 09:49 1 neb ONCE ONE Administration Sodium Chloride 1,000 mls @ 1,000 mls/hr 06/02/24 11:05 06/02/24 13:40 0.9 % Sodium Chloride 1000 Ml IV 06/02/24 12:04 Infused .Q1H ONE Infusion Ketorolac Tromethamine 30 mg 06/02/24 13:22 06/02/24 13:33 Ketorolac 30 Mg/Ml Inj IVP 06/02/24 13:23 30 mg ONCE ONE Administration Ondansetron HCl 4 mg 06/02/24 12:57 06/02/24 13:16 Ondansetron 2 Mg/Ml Inj IVP 06/02/24 12:58 4 mg ONCE ONE Administration Medical Decision Making MDM Narrative Medical decision making narrative: This appears to be chest wall discomfort. But puzzling that it seems to improve with a scheduled inhaler treatment. Only change has been he ran out of his inhalers as of yesterday. Might trial a nebulization. Does not have apparent reactive airway diagnosis. Does this represent new bony metastases into the chest wall? I think this is doubtful to be cardiac in origin. Will check basic labs. Has been a couple of weeks since last lab draw it appears. Satting 99% and not clearly with pleuritic pain. Certainly would be a set up for pulmonary embolus. Is already anticoagulated though with apixaban. Since he reports this chest I has been improving with his controller inhaler, did decide to trial a DuoNeb. This did not make any difference. Hemoglobin returns at 7.9. This is a g lower than when last checked. I discuss this with [facility]. They think would benefit from transfusion but question in particular that they would like answered is whether not there might be pulmonary embolus; this was the reason for presenting to the ER. Arranged for IV contrasted CT scan his chest. Will receive a L of fluids as pressures have been little soft and type and screen. Suppose it is possible that this lower hemoglobin could be contributing to the sensation though not reproducible aspect of his chest discomfort. Does seem to be chest wall and I would have concerns yet of metastases. INDICATION: anterior chest pain, HX CHOLANGIO CARCINOMA. (Sic) COMPARISON: 01/17/2024 TECHNIQUE: CT pulmonary angiography with 95 cc of Isovue 370 intravenous contrast. Please note that all CT scans at this facility use dose modulation, iterative reconstruction, and/or weight-based dosing when appropriate to reduce radiation dose to as low as reasonably achievable. FINDINGS: THORAX Pulmonary Arterial Vasculature: Opacification of the pulmonary arterial tree is suboptimal, though adequate, for assessment of pulmonary embolism due to timing of imaging relative to contrast bolus administration. No intraluminal pulmonary arterial filling defect is identified to indicate a pulmonary embolism. Suspected thrombus within the superior vena cava on the prior study 01/17/2024 is not evaluated on this examination as the superior vena cava is not opacified due to timing of imaging relative to contrast bolus administration. Visualized Lower Neck: No lower cervical adenopathy. Lungs: Redemonstration of diffuse bilateral small pulmonary nodules consistent with metastatic disease. Incidental note is made of left upper lobe benign calcified granulomas. Bilateral lower lobe dependent hypoventilatory changes. Pleura: No pleural effusion. No pneumothorax. Mediastinum: Redemonstration of multifocal mediastinal metastatic lymphadenopathy. Chronic increase caliber of the main pulmonary artery which measures 34 mm compared to the adjacent caliber of the ascending thoracic aorta which is 32 mm. This is consistent with pulmonary arterial hypertension. Cardiomegaly. Trace pericardial effusion. Trachea and esophagus are normal in appearance. ABDOMEN Visualized Upper Abdomen: Redemonstration of splenomegaly. Calcified hepatic and splenic granulomas are noted incidentally. No focal liver lesion is appreciated on this CT pulmonary angiogram which is limited in sensitivity for detection of hepatic lesions due to timing of imaging relative to contrast bolus administration. 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 The T8 lesion has grown significantly in the interval since the prior study. Very thin posterior vertebral body cortices at T4 and T8 with possible breech of the posterior vertebral body cortex. Epidural extension of disease is not excluded on this noncontrast chest CT. If there is ongoing concern for significant intraspinal metastatic disease then MRI is recommended with intravenous contrast. Right-sided Port-A-Cath. IMPRESSION: 1. Opacification of the pulmonary arterial tree is suboptimal, though adequate, for assessment of pulmonary embolism due to timing of imaging relative to contrast bolus administration. No intraluminal pulmonary arterial filling defect is identified or suspected to indicate a pulmonary embolism. 2. Suspected thrombus within the superior vena cava on the prior study 01/17/2024 (4 months prior) is not evaluated on this examination as the superior vena cava is not opacified due to timing of imaging relative to contrast bolus administration. 3. 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 4. 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 The T8 lesion has grown significantly in the interval since the prior study. Very thin posterior vertebral body cortices at T4 and T8 with possible breech of the posterior vertebral body cortex. Epidural extension of disease is not excluded on this noncontrast chest CT. If there is ongoing concern for significant intraspinal metastatic disease then MRI is recommended with intravenous contrast. 5. Redemonstration of diffuse bilateral pulmonary metastases and metastatic multifocal mediastinal lymphadenopathy. 6. Additional incidental findings described in the body of the report. May have some mild pericarditis with this small pericardial effusion. Might benefit from outpatient echocardiogram. Would recommend regularly dosed NSAID except for the fact that he is taking apixaban. Will give a singular dose of ketorolac here. I suspect that it is the sternal lesion that is contributing to his pain sensation appears Discussed all findings with Mr. Schwartz and [facility] team Discharged to [facility] for anticipated blood transfusion See patient discharge plan for further discussion You might benefit from regularly dosed, NSAIDs even ibuprofen, but the challenge is that you are also taking apixaban as blood thinner. I do understand you have opiate pain medication for these bony metastases. It does look as though there is a newer metastases in your sternum that I think is likely to be contributing to the pain you have been feeling. Otherwise your hemoglobin has drifted down a little more. You would likely benefit from a blood transfusion. Please go over to [facility] to receive this yet today. Return for persistent and increasing shortness of breath, uncontrolled pain, fever. Medical Records Medical records reviewed: Yes I reviewed the patient's medical records Lab Data Lab results reviewed: Yes I reviewed the patient's lab results Labs: Lab Results 06/02/24 06/02/24 06/02/24 Range/Units 09:35 09:42 09:53 WBC 4.14 L (4.50-11.00) K/uL RBC 2.80 L (4.30-5.90) m/uL Hgb 7.9 L* (13.5-17.5) gm/dL Hct 24.6 L (37.0-53.0) % MCV 88 (80-100) fL MCH 28 (26-34) pg MCHC 32 (32-36) gm/dL RDW Coeff of Nat 15.0 (11.5-15.5) % Plt Count 103 L (140-440) K/uL Neut % (Auto) 77.7 H (42.0-72.0) % Lymph % (Auto) 7.7 L (20-44) % Evangeline % (Auto) 12.8 H (0.0-11.0) % Eos % (Auto) 1.4 (0.0-7.0) % Baso % (Auto) 0.2 (0.0-3.0) % Neut # (Auto) 3.20 (1.7-7.0) K/uL Lymph # (Auto) 0.30 L (0.90-2.90) K/uL Evangeline # (Auto) 0.50 (0.00-0.90) K/UL Eos # (Auto) 0.10 (0.00-0.50) K/uL Baso # (Auto) 0.00 (0.00-0.30) K/uL Abs Immat Gran (auto) 0.00 (0.00-0.30) K/uL Imm/Tot Granulo (auto) 0.2 % Sodium 132 L (135-149) mmol/L Potassium 4.4 (3.6-5.1) mmol/L Chloride 98 (96-114) mmol/L Carbon Dioxide 21 (20-32) mmol/L Anion Gap 13 (7-15) mEq/L BUN 15 (7-30) mg/dL Creatinine 0.8 (0.5-1.5) mg/dL Estimated Creat Clear 100.94 Estimated GFR 105 ml/min Glucose 104 (60-115) mg/dL Calcium 9.2 (8.4-10.6) mg/dL Troponin I < 0.01 L (0.01-0.04) ng/mL NT-Pro-B Natriuret Pep 490 pg/mL POC Troponin I 0.01 (0.01-0.04) ng/ml Blood Type A Positive Antibody Screen NEGATIVE ECG Data Attestation: I personally reviewed and interpreted this ECG as follows: (Normal sinus rhythm at a rate of 95. no apparent ischemic changes.) Discharge Plan Discharge Clinical Impression: Pain from bone metastases, Anemia, Pericardial effusion Patient Disposition: Home, Self-Care Condition: Stable Additional Instructions: You might benefit from regularly dosed, NSAIDs even ibuprofen, but the challenge is that you are also taking apixaban as blood thinner. I do understand you have opiate pain medication for these bony metastases. It does look as though there is a newer metastases in your sternum that I think is likely to be contributing to the pain you have been feeling. Otherwise your hemoglobin has drifted down a little more. You would likely benefit from a blood transfusion. Please go over to [facility] to receive this yet today. Return for persistent and increasing shortness of breath, uncontrolled pain, fever. Prescriptions: No Action (DME) lancets Misc See Rx Instructions .Route Qty: 100 3RF Rx Instructions: As directed acetaminophen 500 mg capsule 1,000 mg PO Q6H PRN ondansetron 4 mg tablet,disintegrating 4 mg PO Q8H PRN pemigatinib 9 mg tablet 9 mg PO QDAY Qty: 14 0RF Rx Instructions: Take 1 tablet daily, administer for 14 days, followed by 7 days off (21-day cycle) sodium chloride 1,000 mg tablet,soluble 1,000 mg PO BID Qty: 100 3RF magnesium oxide 400 mg magnesium capsule 400 mg PO QDAY Qty: 30 0RF lisinopril 40 mg tablet 40 mg PO QDAY Rx Instructions: alternating with 20mg every other day loratadine [Claritin] 10 mg tablet 10 mg PO QDAY morphine 15 mg tablet extended release 15 mg PO Q12H Qty: 60 0RF Rx Instructions: Take 1 tablet every 12 hours. This is long-acting pain medication. Use oxycodone for breakthrough pain. aspirin [Adult Low Dose Aspirin] 81 mg tablet,delayed release (DR/EC) 81 mg PO QDAY multivitamin Tablet 1 tab PO QDAY (DME) Blood Glucose Meter Misc See Rx Instructions .Route Rx Instructions: As directed amlodipine 5 mg tablet 5 mg PO QDAY Qty: 90 3RF metformin 500 mg tablet 500 mg PO BIDWMEAL Qty: 180 3RF Eliquis 5 mg tablet 5 mg PO BID loperamide [Imodium A-D] 2 mg capsule 2 mg PO Q4H PRN (Reason: loose stool) Qty: 30 0RF Rx Instructions: administer after each loose stool until symptoms controlled; do not exceed 8 mg per 24 hrs tramadol 50 mg tablet 50 mg PO Q6H PRN (Reason: pain) Qty: 60 0RF Rx Instructions: Take 1 tablet, with 1 - 500mg acetaminophen (extra strength tylenol) every 6 hours if needed for moderate to severe pain. omeprazole 40 mg capsule,delayed release(DR/EC) 40 mg PO BID Qty: 180 1RF metoprolol succinate 100 mg tablet extended release 24 hr 150 mg PO DAILY rosuvastatin 10 mg tablet 10 mg PO QDAY Qty: 90 3RF prochlorperazine maleate [Compazine] 5 mg tablet 5 mg PO TID PRN (Reason: nausea and vomiting) Qty: 60 1RF calcium carbonate-vit D3-min 600 mg-10 mcg (400 unit) tablet 1 tab PO BID Qty: 120 0RF albuterol sulfate [Ventolin HFA] 90 mcg/actuation HFA aerosol inhaler 2 puff inhalation QID PRN (Reason: shortness of breath or wheezing) Qty: 8.5 1RF fluticasone propion-salmeterol [Advair HFA] 45-21 mcg/actuation HFA aerosol inhaler 2 puff inhalation BID Qty: 12 1RF oxycodone 10 mg tablet 10 mg PO Q6H PRN (Reason: pain) Qty: 60 0RF naloxone [Narcan] 4 mg/actuation spray,non-aerosol 4 mg intranasal Q2-3M PRN (Reason: opioid overdose) Qty: 2 1RF Rx Instructions: spray 1 dose into ONE nostril; alternate nostrils w each dose until help arrives. Instruct family members and caregivers on use. sennosides-docusate sodium [Senna with Docusate Sodium] 8.6-50 mg tablet 1 tab-cap PO QHS PRN (Reason: constipation) Rx Instructions: Take 1 tablet at bedtime if needed to prevent constipation. Hold if having diarrhea. Increase to 1 tab BID if no BM>2 days. Follow Up/Referrals: Anthony Moeller MD [Primary Care Provider] - Stand Alone Forms: [employer] Info Instructions
--- NOTE | 2024-06-02 09:42 | CRLHL7_ITS ---
For Patients: As a result of the Cures Act, medical imaging exams and procedure reports are released immediately into your electronic medical record. You may view this report before your referring provider. If you have questions, please contact your health care provider. INDICATION: Chest tightness COMPARISON: February 28, 2024 TECHNIQUE: A single view study was obtained as a portable CXR FINDINGS: As discussed below IMPRESSION: 1. Heart size normal. 2. Right IJ catheter ending in the SVC. 3. Right lung and right pleural space appear normal. Evidence of remote granulomatous infection on the left. Linear opacity at the left lung base probably atelectasis or scarring. Dictated by Ant Rodriguez MD @ 06/02/2024 10:17:04 AM (Electronically Signed)
--- OUTSIDE RECORDS SUMMARY | 2024-06-02 09:42 | XMS_ITS | Encounter Summary ---
Author Organization [facility] Address [address] [place] [address] Care Team Providers Care Breaker Off Name Role Phone Unavailable Primary Care Provider Unavailabl e Encounter Details Date Type Department Care Team (Late st Contact Info) Description 05/07/2024 Documentation Department of Radiation Oncology in [place], [place] [address] [place] [phone] Ant Mccullough M.D. 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 Treatment Intent: Palliative Concomitant Therapy: None Single Plan Treatment Course: 1xMultiSite Plan ID Fractions Dose / Fraction (cGy) Dose Treated (cGy) Dose Planned (cGy) First Treatment Last Treatment Elapsed Days [id number] 5 / 5 400 199905/01/2024 05/07/2024 6 [id number] / 400 199905/01/2024 05/07/2024 6 [id number] 400 199905/01/2024 05/07/2024 6 Course Summary 05/01/2024 [...] by: Suzie Reagan R.N., 05/08/2024 8:29 AM TOOL AND DIE TECHNICIAN [facility] [address] [place] [address] Cosigned by Ant Mccullough M.D. at 05/12/2024 4:56 PM TOOL AND DIE TECHNICIAN AND DIE TECHNICIAN AND DIE TECHNICIAN documented in this encounter Plan of Treatment Not on file documented as of this encounter Visit Diagnoses Not on filedocumented in this encounter
--- OUTSIDE RECORDS SUMMARY | 2024-06-02 09:42 | XMS_ITS | Encounter Summary ---
Author Organization [facility] Address [address] [place] [address] Care Team Providers Care Kiln Burner Name Role Phone Unavailable Primary Care Provider Unavailabl e Reason for Visit * Reason Comments Med Refill Encounter Details Date Type Department Care Team (Late st Contact Info) Description 03/19/2024 Refill Department of Oncology in [place], [place] [address] [place] [phone] Georgiana Samayoa M.D. 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
--- OUTSIDE RECORDS SUMMARY | 2024-06-02 09:42 | XMS_ITS | Clinical Summary ---
Author Organization [facility] Address [address] [place] [address] Care Team Providers Care Telephone Installer Name Role Phone Md JUSTIN Hoff Primary Care Provider [phone] Source Comments You are receiving this document as you are listed as the primary care provider,follow-up provider, or the patient has been referred to you for consultation.This is in compliance with the Medicare and[facility] EHR Incentive Program,which states Providers who transition their patient to another setting of careor provider of care or refers their patient to another provider of care shouldprovide summary care record for each transition of care or referral. [email or web address] Allergies No known active allergies Medications Medication [...] (10/02/2019): Added automatically from request for surgery [id number] Complete rupture of rotator cuff 08/20/2012 Tobacco abuse 04/15/2012 Obstructive sleep apnea 12/23/2007 Overview (12/19/2016): Setting: Auto 8-15 cmH20 Supplied by: [facility] PSG done: 12-10-07, 01-07-08 AHI 94 RDI [...] PROSTATIC SPECIFIC ANTIGEN(SCREEN) Routine 06/20/2010 8:15 AM COOK MAYONNAISE LIPID PANEL & DIRECT LDL (IF NEEDED) Routine 06/20/2010 8:15 AM COOK MAYONNAISE from Last 3 Months or Most Recently Relevant to Health Maintenance Results * Lipid Panel and Direct LDL(If Needed) (06/20/2010 8:15 AM COOK MAYONNAISE) Cholesterol 174 0 - 200 mg/dL HP CONVERSION Triglycerides 125 0 - 149 mg/dL HP CONVERSION HDL Cholesterol 46 >39 mg/dL HP CONVERSION Cholesterol/HDL Ratio Screen 3.8 No normal range HP CONVERSION LDL Calculated 103 19 - 130 mg/dL HP CONVERSION Hours Fasting 15.0 No normal range HP CONVERSION 06/20/2010 8:15 AM COOK MAYONNAISE Maximiliano Barahona [facility] HP CONVERSION * Prostatic Specific Antigen (Screen) (06/20/2010 8:15 AM COOK MAYONNAISE) Prostate Specific Antigen 0.8 0.0 - 4.0 ng/mL HP CONVERSION 06/20/2010 8:15 AM COOK MAYONNAISE Maximiliano Barahona [facility] HP CONVERSION from Last 3 Months or Most Recently Relevant to Health Maintenance Advance Directives * Full Code (Latest Code Status on File) Date Activated Date Inactivated Comments 11/04/2019 8:12 AM 11/04/2019 10:54 AM Care Teams Telephone Installer Relationship Specialty Start Date End Date Md Luis Eduardo, [place] [address] PCP - General 08/01/10
--- OUTSIDE RECORDS SUMMARY | 2024-06-02 09:42 | XMS_ITS | Encounter Summary ---
Author Organization [facility] Address [address] [place] [address] Care Team Providers Care Geriatric Nurse Name Role Phone Unavailable Primary Care Provider Unavailabl e Reason for Referral * Outpatient (Routine) - Authorized Specialty Diagnoses / Procedures Referred By Contac t Referred To Contact Anesthesiology Diagnoses Lesion Spine Lumbar Derek Bell M.D. [address] [place] [phone] Phone: tel: fax: [facility] Referral ID Status Reason Start Date Expiration Date V isits Requested Visits Authorized [id number] Authorized 06/02/2024 12/02/2025 1 1 Scheduling Instructions Performing Provider: Derek Bell Type of Ablation: Bone Estimated Length of Procedure: 3 hours Position (if known): lateral TAL FLAT GRINDER * Outpatient (Routine) - Authorized Specialty Diagnoses / Procedures Referred By Contac t Referred To Contact Radiology Diagnoses Lesion Spine Lumbar Procedures IR Spine Ablation Derek Bell M.D. [address] [place] [phone] Phone: tel: fax: [facility] Referral ID Status Reason Start Date Expiration Date V isits Requested Visits Authorized [id number] Authorized 06/02/2024 09/02/2025 1 1 TAL FLAT GRINDER Encounter Details Date Type Department Care Team (Late st Contact Info) Description 06/02/2024 Orders Only Department of Radiology, [facility], in [place], [place] [address] [place] [address] Belle Sheth R.N. 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 Gender Identity Not on file Sexual Orientation Not on file Occupation Industry Job Start Date Job End Date Not on file Not on file Not on file Not on file documented as of this encounter Plan of Treatment Scheduled Orders Name Type Priority Associated Diagnoses Order Schedule IR Spine Ablation Imaging RAD - Routine (most inpatients and all outpatients) Lesion Spine Lumbar Expected: 06/02/2024, Expires: 08/30/2025 CBC without Differential Lab Routine Lesion Spine Lumbar Expected: 06/02/2024 (Approximate), Expires: 08/30/2025 Prothrombin Time (PT) Lab Routine Lesion Spine Lumbar Expected: 06/02/2024, Expires: 08/30/2025 Scheduled Referrals Name Type Priority Associated Diagnoses Order Schedule Preoperative Evaluation BRANDON consult (clinic) Outpatient Referral Routine Lesion Spine Lumbar Expected: 06/02/2024 (Approximate), Expires: 08/30/2025 documented as of this encounter Visit Diagnoses Diagnosis Lesion Spine Lumbar- Primary documented in this encounter
--- OUTSIDE RECORDS SUMMARY | 2024-06-02 09:42 | XMS_ITS | Encounter Summary ---
Author Organization [facility] Address [address] [place] [address] Care Team Providers Care Department Clerk Name Role Phone Unavailable Primary Care Provider Unavailabl e Reason for Referral * Outpatient (Routine) - Authorized Specialty Diagnoses / Procedures Referred By Contact Referred To Contact Radiology / Interventional Radiology Diagnoses 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) Yennifer Velasco P.A.-C., M.S. 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 [address] [place] [address] Cholangiocarcinoma (HCC) (Primary Dx); Secondary Malignant Neoplasm [...] on file Legal Sex Male 9:27 PM PRESS TENDER LONG GOODS Gender Identity Not on file Sexual Orientation Not on file Occupation Industry Job Start Date Job End Date Not on file Not on file Not on file Not on file documented as of this encounter Last Filed Vital Signs Vital Sign Reading Time Taken Comments Blood Pressure 130/80 04/28/2024 11:45 AM PRESS TENDER [employer] Pulse 124 04/28/2024 11:45 AM PRESS TENDER LONG GOODS Temperature 35.4 C (95.7 F) 04/28/2024 11:45 AM PRESS TENDER LONG GOODS Respiratory Rate - - Oxygen Saturation - - Inhaled Oxygen Concentration - - Weight 110 kg (243 lb 9.7 oz) 04/28/2024 11:45 A M PRESS TENDER [employer] GOODS Height - - Body Mass Index - [...] inhaler Inhale 2 puffs. 03/11/2024 HYDROcodone-acet aminophen ([place]) 5-325 mg per tablet TAKE ONE HALF [...] central/segmental pulmonary artery. 3. Enlarged gastrohepatic and irno hepatis lymph nodes are suspicious for metastatic [...] Common Hereditary Cancers Panel (48 genes) via [employer]. See test report for details regarding the [...] Marital status: Single Occupational History Employer: [employer] Tobacco Use Smoking status: Former Current packs/day: [...] consideration of kyphoplasty/vertebroplasty.He would like referral to [facility] and an order will be placed. Dr. [...] Yennifer Velasco P.A.-C., M.S. 04/28/2024 12:45 PM [facility] Radiation Therapy Center [address] [place] [address] Cosigned by Ant Mccullough M.D. at 05/12/2024 4:59 PM PRESS TENDER LONG GOODS S TENDER LONG GOODS S TENDER LONG GOODS Associated attestation - Ant Mccullough M.D. - 05/12/2024 4:59 PM PRESS TENDER [employer] I was the supervising physician in the [...]
--- OUTSIDE RECORDS SUMMARY | 2024-06-02 09:42 | XMS_ITS | Clinical Summary ---
Author Organization [facility] Address [place], [place] [address] Care Team Providers Care Farmworker Poultry Name Role Phone Anthony Moeller MD Primary Care Provider Allergies No known active allergies Medications ibuprofen [...] Team Description 03/24/2024 Telephone [facility] [address] [place] [address] Kayli Ty MS, [facility] Results 03/13/2024 Telephone [facility] [address] [place] [address] Abbi [facility] 03/11/2024 9:00 AM INFORMATION SECURITY ENGINEER Phone Office Visit [facility] [address] [place] [address] Kayli Ty MS, [facility] Counseling (Cancer genetic counseling); Phone Visit 03/03/2024 Telephone [facility] [address] [place] [address] Abbi [facility] from Last 3 Months Social History Tobacco Use Types Packs/Day Years Used Date Smoking Tobacco: Former Cigarettes Tobacco Cessation:Counseling Given: Not Answered Alcohol Use Standard Drinks/Week Comments Yes 3.3 (1 standard drink = 0.6 oz p ure alcohol) social Interpersonal Safety Answer Date Record ed Are you being hit, kicked, p ushed or yelled at (see row info)? No 01/14/2024 Interpersonal Safety Abuse 12 - 18 Not on file 01/14/2024 Interpersonal Safety Ambulatory Vulnerability No t on file 01/14/2024 Sex and Gender Information Value Date Recorded Sex Assigned at Not on file Legal Sex Male 6:24 AM INFORMATION SECURITY ENGINEER Gender Identity Not on file Sexual [...] Health Maintenance Due Date Last Done Comments COVID-19 vaccine series (#1) 1973 Tdap 09/12/1979 Depression screening for age 12+ 1980 HIV for age 15-65 09/12/1983 BMI (ht and wt on same day) for age 18+ 1986 Hepatitis C screening for age 18-79 1986 Pneumococcal series for age 50+ (1 of 2 - PCV) 988 Zoster (shingles) series for age 50+ (1 of 2) 09/11/18 88 Tetanus booster 1988 Colonoscopy through age 75 2013 Lipids for age 45-75 2013 Influenza for age 50-64 12/29/2023 Medical Devices Implanted Type Area Assistant Spa Director Device Identifier Shelf Expiration Date Model / Serial / Lot Sut Ancr 4.75 W/Loop - [id number] Implanted:Qty: 1 on 09/16/2012 by Jama Cohen MD at [facility] Right: Shoulder [employer] 04/27/2014 [id number] # / / [id number] Insurance [facility] Care Teams Farmworker Poultry Relationship Specialty Start Date End Date Anthony Moeller MD [address] [place] [address] PCP - General Family Practice 01/09/24
--- OUTSIDE RECORDS SUMMARY | 2024-06-02 09:42 | XMS_ITS | Encounter Summary ---
Author Organization [facility] Address [address] [place] [address] Care Team Providers Care Explosives Engineer Name Role Phone Unavailable Primary Care Provider Unavailabl e Reason for Referral * Outpatient (Routine) - Authorized Specialty Diagnoses / Procedures Referred By Contac t Referred To Contact Anesthesiology Diagnoses Anemia Mark Alvarez APRN C.N.P., M.S.N. [address] [place] [phone] Phone: tel: fax: [facility] Referral ID Status Reason Start Date Expiration Date V isits Requested Visits Authorized [id number] Authorized 06/02/2024 12/02/2025 1 1 TERING FILTERING SUPERVISOR Encounter Details Date Type Department Care Team (Late st Contact Info) Description 06/02/2024 Orders Only Preoperative Evaluation Center in [place], [place] [address] [place] [phone] Mark Alvarez APRN C.N.P., M.S.N. 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 Gender Identity Not on file Sexual Orientation Not on file Occupation Industry Job Start Date Job End Date Not on file Not on file Not on file Not on file documented as of this encounter Plan of Treatment Scheduled Orders Name Type Priority Associated Diagnoses Orde r Schedule Basic Metabolic Panel Lab Routine Preanesthetic Medical Exam Expected: 06/02/2024, Expires: 08/30/2025 Scheduled Referrals Name Type Priority Associated Diagnoses Order Schedule Preoperative Medical Evaluation - BRANDON Anemia Consult (clinic) Outpatient Referral Routine Anemia Expected: 06/02/2024, Expires: 08/30/2025 documented as of this encounter Visit Diagnoses Diagnosis Preanesthetic Medical Exam- Primary Anemia documented in this encounter
--- OUTSIDE RECORDS SUMMARY | 2024-06-02 09:43 | XMS_ITS | Encounter Summary ---
Author Organization [facility] Address [address] [place] [address] Care Team Providers Care Estimating Manager Name Role Phone Unavailable Primary Care Provider Unavailabl e Reason for Visit * Reason Comments Med Refill Encounter Details Date Type Department Care Team (Late st Contact Info) Description 05/12/2024 Refill Department of Oncology in [place], [place] [address] [place] [phone] Georgiana Samayoa M.D. 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
--- OUTSIDE RECORDS SUMMARY | 2024-06-02 09:43 | XMS_ITS | Encounter Summary ---
Author Organization [facility] Address [address] [place] [address] Care Team Providers Care News Technical Director Name Role Phone Unavailable Primary Care Provider Unavailabl e Reason for Visit * Reason Comments Med Refill Encounter Details Date Type Department Care Team (Late st Contact Info) Description 05/04/2024 Refill Department of Oncology in [place], [place] [address] [place] [phone] Georgiana Samayoa M.D. 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
--- OUTSIDE RECORDS SUMMARY | 2024-06-02 09:43 | XMS_ITS | Encounter Summary ---
Author Organization [facility] Address [address] [place] [address] Care Team Providers Care Medical Administrative Assistant Name Role Phone Unavailable Primary Care Provider Unavailabl e Reason for Referral * Radiation Therapy (Routine) - Authorized Specialty Diagnoses / Procedures Referred By Aydenac t Referred To Contact Diagnoses 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) Procedures Initial Rad Onc Treatment Planning CT Simulation CO 3D RAD THER ISODOSE FIELD PLAN Haley Martínez M.D. [address] [place] [address] Phone: tel: fax: [facility] Region Referral ID Status Reason Start Date Expiration Date V isits Requested Visits Authorized [id number] Authorized 04/24/2024 04/24/2025 2 2 CARE BILLER Reason for Visit * Radiation Therapy (Routine) - Authorized Specialty Diagnoses / Procedures Referred By Bharat khoury Referred To Contact Diagnoses 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) Procedures Initial Rad Onc Treatment Planning CT Simulation CO 3D RAD THER ISODOSE FIELD PLAN Haley Martínez M.D. [address] [place] [address] Phone: tel: fax: [facility] Region Referral ID Status Reason Start Date Expiration Date V isits Requested Visits Authorized [id number] Authorized 04/24/2024 04/24/2025 2 2 Encounter Details Date Type Department Care Team (Latest Contact Info) Description 04/28/2024 12:39 PM MEDICARE BILLER - 05/07/2024 10:29 AM MEDICARE BILLER Hospital Encounter Department of Radiation Oncology in [place], [place] [address] [place] [phone] Haley Martínez M.D. [address] [place] [address] Ant Mccullough M.D. [address] [place] [address] Cholangiocarcinoma (HCC); Secondary Malignant Neoplasm Bone (HCC) [...] on file Legal Sex Male 9:27 PM MEDICARE BILLER Gender Identity Not on file Sexual Orientation [...] inhaler Inhale 2 puffs. 03/11/2024 HYDROcodone-acet aminophen ([place]) 5-325 mg per tablet TAKE ONE HALF [...] imaging was appropriate and completed without incident. Diabetes Education Coordinator use:No Cosigned by Ant Mccullough M.D. at 05/07/2024 10:29 AM MEDICARE BILLER CARE BILLER CARE BILLER Associated attestation - Ant Mccullough M.D. - 05/07/2024 10:29 AM MEDICARE BILLER Agree with documentation as below. I was personally available during the simulation. documented in this encounter Plan of Treatment Not on file documented as of this encounter Procedures Procedure Name Priority Date/Time Associated Diagnosis Comments INITIAL RAD ONC TREATMENT PLANNING CT SIMULATION Routine 04/28/2024 1:00 PM MEDICARE BILLER 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) documented in this encounter Results * Initial Rad Onc Treatment Planning CT Simulation (04/28/2024 1:00 PM MEDICARE BILLER) Narrative YAEL TORRES - 04/28/2024 1:00 PM MEDICARE BILLER Rupal Payton RTT 04/28/2024 1:28 PM Initial Rad Onc Treatment Planning CT Simulation Performed by: Ant Mccullough M.D. Authorized by: Haley Martínez M.D. Haley Martínez M.D. RADIATION ONCOLOGY ORDERA BLES Final Result YAEL TORRES na documented in this encounter Visit Diagnoses Diagnosis 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) documented in this encounter
--- OUTSIDE RECORDS SUMMARY | 2024-06-02 09:43 | XMS_ITS | Encounter Summary ---
Author Organization [facility] Address [address] [place] [address] Care Team Providers Care Supervisor Channel Process Name Role Phone Unavailable Primary Care Provider Unavailabl e Encounter Details Date Type Department Care Team (Late st Contact Info) Description 05/07/2024 7:57 AM COMPENSATION AND HRIS ANALYST Hospital Encounter Department of Radiation Oncology in [place], [place] [address] [place] [phone] Haley Martínez M.D. [address] [place] [address] Ant Mccullough M.D. [address] [place] [address] Social History Tobacco Use Types Packs/Day Years [...] on file Legal Sex Male 9:27 PM COMPENSATION AND HRIS ANALYST Gender Identity Not on file Sexual Orientation Not on file Occupation Industry Job Start Date Job End Date Not on file Not on file Not on file Not on file documented as of this encounter Plan of Treatment Not on file documented as of this encounter Visit Diagnoses Not on filedocumented in this encounter
--- OUTSIDE RECORDS SUMMARY | 2024-06-02 09:43 | XMS_ITS | Encounter Summary ---
Author Organization [facility] Address [address] [place] [address] Care Team Providers Care Plate Slitter And Inspector Name Role Phone Unavailable Primary Care Provider Unavailabl e Encounter Details Date Type Department Care Team (Late st Contact Info) Description 05/04/2024 7:49 AM MUSHROOM PACKER Hospital Encounter Department of Radiation Oncology in [place], [place] [address] [place] [phone] Haley Martínez M.D. [address] [place] [address] Ant Mccullough M.D. [address] [place] [address] Social History Tobacco Use Types Packs/Day Years [...] on file Legal Sex Male 9:27 PM MUSHROOM PACKER Gender Identity Not on file Sexual Orientation Not on file Occupation Industry Job Start Date Job End Date Not on file Not on file Not on file Not on file documented as of this encounter Plan of Treatment Not on file documented as of this encounter Visit Diagnoses Not on filedocumented in this encounter
--- OUTSIDE RECORDS SUMMARY | 2024-06-02 09:43 | XMS_ITS | Encounter Summary ---
Author Organization [facility] Address [address] [place] [address] Care Team Providers Care Deputy Manager Name Role Phone Unavailable Primary Care Provider Unavailabl e Encounter Details Date Type Department Care Team (Late st Contact Info) Description 05/05/2024 7:56 AM HOME AIDE Hospital Encounter Department of Radiation Oncology in [place], [place] [address] [place] [address] Haley Martínez M.D. 200 [place] [address] Ant Mccullough M.D. [address] [place] [address] Social History Tobacco Use Types Packs/Day Years [...] on file Legal Sex Male 9:27 PM HOME AIDE Gender Identity Not on file Sexual Orientation Not on file Occupation Industry Job Start Date Job End Date Not on file Not on file Not on file Not on file documented as of this encounter Plan of Treatment Not on file documented as of this encounter Visit Diagnoses Not on filedocumented in this encounter
--- OUTSIDE RECORDS SUMMARY | 2024-06-02 09:43 | XMS_ITS | Encounter Summary ---
Author Organization [facility] Address [address] [place] [address] Care Team Providers Care Baggage Handling Supervisor Name Role Phone Unavailable Primary Care Provider Unavailabl e Reason for Visit * Radiation Therapy (Routine) - Authorized Specialty Diagnoses / Procedures Referred By Contac t Referred To Contact Diagnoses 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) Procedures Prior Auth Rad Tx GA RADTN TX DEL >=1 MEV COMPLEX GA GUIDANCE FOR LOC RAD TX GA 3D RAD THER ISODOSE FIELD PLAN 3D Haley Martínez M.D. [address] [place] [address] Phone: tel: fax: [facility] Referral ID Status Reason Start Date Expiration Date V isits Requested Visits Authorized [id number] Authorized 04/30/2024 04/24/2025 5 5 Encounter Details Date Type Department Care Team (Latest Contact Info) Description 05/01/2024 7:58 AM MR TEACHER - 05/01/2024 11:59 PM [facility] Hospital Encounter Department of Radiation Oncology in [place], [place] [address] [place] [address] aHley Martínez M.D. [address] [place] [phone] Ant Mccullough M.D. [address] [place] [address] Discharge Disposition: Home or Self Care Social [...] on file Legal Sex Male 9:27 PM MR TEACHER Gender Identity Not on file Sexual [...] inhaler Inhale 2 puffs. 03/11/2024 HYDROcodone-acet aminophen ([place]) 5-325 mg per tablet TAKE ONE HALF [...]
--- OUTSIDE RECORDS SUMMARY | 2024-06-02 09:43 | XMS_ITS | Referral Summary ---
Author Organization [facility] Address [address] [place] [address] Care Team Providers Care Avionics Repair Technician Name Role Phone Anthony Moeller MD Primary Care Provider [phone] Donald Parker MD Unavailable [phone] Allergies No known active allergies Medications LISINOPRIL [...] on file Legal Sex Male 5:12 AM BRIM WELT SEWING MACHINE OPERATOR Gender Identity Not on file Sexual Orientation Not on file Last Filed Vital Signs Vital Sign Reading Time Taken Comments Blood Pressure 129/86 12/20/2023 11:46 AM CDT Pulse 72 04/18/2022 8:11 AM BRIM WELT SEWING MACHINE OPERATOR Temperature 36.5 C (97.7 F) 04/18/2022 8:11 AM BRIM WELT SEWING MACHINE OPERATOR Respiratory Rate 16 04/18/2022 8:11 AM BRIM WELT SEWING MACHINE OPERATOR Oxygen Saturation 97% 04/18/2022 8:1 1 AM BRIM WELT SEWING MACHINE OPERATOR Inhaled Oxygen Concentration - - Weight 128.8 kg (284 lb) 05/25/2022 10: 23 AM BRIM WELT SEWING MACHINE OPERATOR pulled from last visit Height 175.3 cm (5' 9) 05/25/2022 10:2 3 AM BRIM WELT SEWING MACHINE OPERATOR Body Mass Index 41.94 05/25/2022 10:23 AM BRIM WELT SEWING MACHINE OPERATOR Plan of Treatment Not on file Medical Devices Implanted Type Area Pipeline Dispatcher Device Identifier Shelf Expiration Date Model / Serial / Lot Bone Cement Simplex Full Dose 6191-1-001 - [id number] Implanted:Qty : 1 on 04/17/2022 by Donald Parker MD at [facility] Cement, Bone Right: Knee [employer] 06/27/2023 6191-1-001 / / [id number] Twinfix Ultra Pk 5.5mm Suture Camanche With 2 Ultrabraid Sutures Implanted:Qty : 1 on 12/10/2017 by Les Israel MD at [facility] Metallic Hardware/An chor Right: Shoulder 05/23/2022 [id number] / / [id number] 2.8mm Q-Fix Suture Camanche Implanted:Qty : 1 on 12/10/2017 by Les Israel MD at [facility] Metallic Hardware/An chor Right: Shoulder 04/03/2020-2800 / / [id number] Knee Uni Tibia Tray Mobile Bear D5 Rm/Ll - [id number] Implanted:Qty : 1 on 04/17/2022 by Donald Parker MD at [facility] Total Joint Component/I nsert Right: Knee [employer] 07/27/2031 [id number] / / [id number] Knee Alton Uni Femoral Med - [id number] Implanted:Qty : 1 on 04/17/2022 by Donald Parker MD at [facility] Total Joint Component/I nsert Right: Knee [employer] 03/19/2032 [id number] / / [id number] Insert Alton Anatomic Bear R Med Sz 4 - [id number] Implanted:Qty : 1 on 04/17/2022 by Donald Parker MD at [facility] Total Joint Component/I nsert Right: Knee [employer] 11/16/2025 [id number] / / [id number] Twinfix Ultra Pk 5.5mm Suture Camanche With 2 Ultrabraid Sutures Implanted:Qty : 1 on 12/10/2017 by Les Israel MD at [facility] Right: Shoulder [employer] 01/10/2022 [id number] / / [id number] Procedures Procedure Name Priority Date/Time Associated Diagnosis Comments GLUCOSE BY METER Routine 04/18/2022 7:15 AM BRIM WELT SEWING MACHINE OPERATOR from Last 3 Months or Most Recently Relevant to Health Maintenance Results * (ABNORMAL) Glucose by meter (04/18/2022 7:15 AM BRIM WELT SEWING MACHINE OPERATOR) GLUCOSE BY METER POCT 143(H) 70 - 99 mg/dL 04/18/2022 7:22 AM BRIM WELT SEWING MACHINE OPERATOR [facility] POC Blood, Capillary BLOOD SPECIMEN / Unknown 04/18/2022 7:15 AM BRIM WELT SEWING MACHINE OPERATOR 04/18/2022 7:22 AM BRIM WELT SEWING MACHINE OPERATOR us Donald Parker MD LAB - BEAKER POCT Final Resu lt [facility] Acute Care Lab [address] [facility] (1st floor, no room number) [place] [address], [facility] [phone] from Last 3 Months or Most Recently Relevant to Health Maintenance Insurance [facility] Samuel [place] Unbounce [facility] [place] [id number] [facility] [employer] Advance Directives For more information, please contact: [phone] * Full Code (Latest Code Status on File) Date Activated Date Inactivated Comments 04/17/2022 11:28 AM 04/18/2022 10:58 AM All basi c and advanced life-sustaining interventions are performed as appropriate Question Answer Comments Code status determined by: Discussion with patie nt/ legal decision maker Care Teams Avionics Repair Technician Relationship Specialty Start Date End Date Anthony Moeller MD PCP - General Family Practice 11/21/17 Donald Parker MD [address] [place] [address] Assigned Musculoskeletal Provider 01/20/24
--- OUTSIDE RECORDS SUMMARY | 2024-06-02 09:43 | XMS_ITS | Encounter Summary ---
Author Organization [facility] Address [address] [place] [address] Care Team Providers Care Document Photographer Name Role Phone Unavailable Primary Care Provider Unavailabl e Reason for Referral * Radiation Therapy (Routine) - Authorized Specialty Diagnoses / Procedures Referred By Aydenac t Referred To Contact Diagnoses 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) Procedures Management Visit Haley Martínez M.D. [address] [place] [phone] Phone: tel: fax: [facility] Region Referral ID Status Reason Start Date Expiration Date V isits Requested Visits Authorized [id number] Authorized 04/24/2024 04/24/2025 10 10 ERCIAL ACCOUNT EXECUTIVE * Radiation Therapy (Routine) - Authorized Specialty Diagnoses / Procedures Referred By Bharat khoury Referred To Contact Diagnoses 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) Procedures Initial Rad Onc Treatment Planning CT Simulation SD 3D RAD THER ISODOSE FIELD PLAN Haley Martínez M.D. [address] [place] [address] Phone: tel: fax: [facility] Region Referral ID Status Reason Start Date Expiration Date V isits Requested Visits Authorized [id number] Authorized 04/24/2024 04/24/2025 2 2 ERCIAL ACCOUNT EXECUTIVE * Radiation Therapy (Routine) - Authorized Specialty Diagnoses / Procedures Referred By Bharat t Referred To Contact Diagnoses 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) Procedures Prior Auth Rad Tx SD RADTN TX DEL >=1 MEV COMPLEX SD GUIDANCE FOR LOC RAD TX SD 3D RAD THER ISODOSE FIELD PLAN 3D Haley Martínez M.D. [address] [place] [address] Phone: tel: fax: [facility] Referral ID Status Reason Start Date Expiration Date V isits Requested Visits Authorized [id number] Authorized 04/30/2024 04/24/2025 5 5 ERCIAL ACCOUNT EXECUTIVE Encounter Details Date Type Department Care Team (Late st Contact Info) Description 04/24/2024 Orders Only Department of Radiation Oncology in [place], [place] [address] [place] [phone] Charlene Kaufman APRN, C.N.P., D.N.P. [address] [place] [phone] Cholangiocarcinoma (HCC) (Primary Dx); Secondary Malignant Neoplasm [...] on file Legal Sex Male 9:27 PM COMMERCIAL ACCOUNT EXECUTIVE Gender Identity Not on file Sexual Orientation [...] Treatment Planning CT Simulation (04/28/2024 1:00 PM COMMERCIAL ACCOUNT EXECUTIVE) Narrative YAEL TORRES - 04/28/2024 1:00 PM COMMERCIAL ACCOUNT EXECUTIVE Rupal Payton, RTT 04/28/2024 1:28 PM Initial [...]
--- OUTSIDE RECORDS SUMMARY | 2024-06-02 09:43 | XMS_ITS | Clinical Summary ---
Author Organization [facility] Address [address] [place] [address] Care Team Providers Care Production Line Technician Name Role Phone Unavailable Primary Care Provider Unavailabl e Source Comments Patient records contain information from all sites at [facility]. For routine questions regarding patient records, call [phone] during business hours, M-F 8:00 AM - 5:00 PM Central Time. Record requests for emergency care only can be directed to [phone] at any time.[facility] Allergies No known active allergies Medications prochlorperazin [...] Inhale 2 puffs. 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 PSG done: 12-10-07, 01-07-08 AHI 94 RDI 94 Lowest O2 Sat: 76% [place] FF 05-18-14 ; Severe Obstructive sleep apnea (adult) ([facility] Encounters Date Type Department Care Team Description 06/02/2024 Orders Only Preoperative Evaluation Center in [place], [place] [address] [place] [address] Mark Alvarez, NUCLEAR PHYSICIST, C.N.P., M.S.N. Preanesthetic Medical Exam (Primary Dx); Anemia 06/02/2024 Orders Only Department of Radiology, [facility], in [place], [place] [address] [place] [address] Belle Sheth R.N. Lesion Spine Lumbar (Primary Dx) 05/12/2024 Refill Department of Oncology in [place], [place] [address] [place] [address] Georgiana Samayoa M.D. Med Refill 05/07/2024 7:57 AM ASSISTANT MAINTENANCE MANAGER Hospital Encounter Department of Radiation Oncology in [address] [phone] Haley Martínez M.D. Chamberlain, Daniel, M.D. 05/07/2024 Documentation Department of Radiation Oncology in [address] [address] Ant Mccullough M.D. 05/06/2024 7:58 AM ASSISTANT MAINTENANCE MANAGER Hospital Encounter Department of Radiation Oncology in [address] [phone] Haley Martínez M.D. Chamberlain, Daniel, M.D. 05/05/2024 7:56 AM ASSISTANT MAINTENANCE MANAGER - 05/05/2024 5:34 PM ASSISTANT MAINTENANCE MANAGER Hospital Encounter Department of Radiation Oncology in [address] [phone] Ant Mccullough M.D. Cholangiocarcinoma (HCC); Secondary Malignant Neoplasm Bone (HCC) 05/05/2024 7:56 AM ASSISTANT MAINTENANCE MANAGER Hospital Encounter Department of Radiation Oncology in [address] [phone] Haley Martínez M.D. Chamberlain, Daniel, M.D. 05/04/2024 7:49 AM ASSISTANT MAINTENANCE MANAGER Hospital Encounter Department of Radiation Oncology in [address] [address] Haley Martínez M.D. Chamberlain, Daniel, M.D. 05/04/2024 Refill Department of Oncology in [place], [place] [address] [place] [address] Georgiana Samayoa M.D. Med Refill 05/01/2024 7:58 AM ASSISTANT MAINTENANCE MANAGER - 05/01/2024 11:59 PM ASSISTANT MAINTENANCE MANAGER Hospital Encounter Department of Radiation Oncology in [address] [address] Haley Martínez M.D. Chamberlain, Daniel, M.D. Discharge Disposition: Home or Self Care 04/28/2024 12:39 PM ASSISTANT MAINTENANCE MANAGER - 05/07/2024 10:29 AM ASSISTANT MAINTENANCE MANAGER Hospital Encounter Department of Radiation Oncology in [address] [address] Haley Martínez M.D. Chamberlain, Daniel, M.D. Cholangiocarcinoma (HCC); Secondary Malignant Neoplasm Bone (HCC) 04/28/2024 11:42 AM ASSISTANT MAINTENANCE MANAGER - 05/12/2024 4:59 PM ASSISTANT MAINTENANCE MANAGER Hospital Encounter Department of Radiation Oncology in [address] [address] Ant Mccullough M.D. Cholangiocarcinoma (HCC) (Primary Dx); Secondary Malignant Neoplasm Bone (HCC) 04/24/2024 Orders Only Department of Radiation Oncology in [address] [phone] Charlene Kaufman APRN, C.N.P., D.N.P. Cholangiocarcinoma (HCC) (Primary Dx); Secondary Malignant Neoplasm Bone (HCC) 03/19/2024 Refill Department of Oncology in [address] [address] Georgiana Samayoa M.D. Med Refill from Last [...] on file Legal Sex Male 9:27 PM ASSISTANT MAINTENANCE MANAGER Gender Identity Not on file Sexual Orientation Not on file Occupation Industry Job Start Date Job End Date Not on file Not on file Not on file Not on file Last Filed Vital Signs Vital Sign Reading Time Taken Comments Blood Pressure 111/73 05/05/2024 8:36 AM ASSISTANT MAINTENANCE MANAGER Pulse 103 05/05/2024 8:36 AM ASSISTANT MAINTENANCE MANAGER Temperature 36.1 C (96.9 F) 05/05/2024 8:36 AM ASSISTANT MAINTENANCE MANAGER Respiratory Rate - - Oxygen Saturation - - Inhaled Oxygen Concentration - - Weight 105 kg (232 lb 9.4 oz) 05/05/2024 8:36 AM ASSISTANT MAINTENANCE MANAGER Height - - Body Mass Index - [...] Procedure Name Priority Date/Time Associated Diagnosis Comments [facility] COURSE COMPLETE TREATMENT INFORMATION Routine 05/07/2024 8:21 AM ASSISTANT MAINTENANCE MANAGER [facility] DAILY TREATMENT INFORMATION Routine 05/07/2024 8:21 AM ASSISTANT MAINTENANCE MANAGER [facility] DAILY TREATMENT INFORMATION Routine 05/06/2024 8:27 AM ASSISTANT MAINTENANCE MANAGER [facility] DAILY TREATMENT INFORMATION Routine 05/05/2024 8:30 AM ASSISTANT MAINTENANCE MANAGER [facility] DAILY TREATMENT INFORMATION Routine 05/04/2024 8:27 AM ASSISTANT MAINTENANCE MANAGER [facility] DAILY TREAT[facility] INFORMATION Routine 05/01/2024 8:50 AM ASSISTANT MAINTENANCE MANAGER INITIAL RAD ONC TREATMENT PLANNING CT SIMULATION Routine 04/28/2024 1:00 PM ASSISTANT MAINTENANCE MANAGER 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) OUTSIDE CT NEURO Routine 04/24/2024 7:35 AM ASSISTANT MAINTENANCE MANAGER OUTSIDE CT NEURO Routine 04/24/2024 7:30 AM ASSISTANT MAINTENANCE MANAGER OUTSIDE CT BODY Routine 03/27/2024 8:20 AM ASSISTANT MAINTENANCE MANAGER OUTSIDE MR BODY Routine 03/27/2024 7:30 AM ASSISTANT MAINTENANCE MANAGER from Last 3 Months [facility] * [facility] Treatment Information (05/07/2024 8:21 AM ASSISTANT MAINTENANCE MANAGER) Pathologist [facility] Course ID [id number] te CONLEY ARIA Course Start Date 4 10:56 ASSISTANT MAINTENANCE MANAGER CONLEY ARIA Course End Date 5 11:24 ASSISTANT MAINTENANCE MANAGER CONLEY ARIA First Treatment Date 5 08:27 ASSISTANT MAINTENANCE MANAGER CONLEY ARIA Last Treatment Date 5 08:21 ASSISTANT MAINTENANCE MANAGER CONLEY ARIA Treatment Elapsed Days 6 CONLEY ARIA Reference Point dpvSpnT4_ 2000x CONLEY ARIA Dosage Given to Date cGy 2000 CONLEY ARIA Reference Point dpvSpnT8_ 2000x CONLEY ARIA Dosage Given to Date cGy 2000 CONLEY ARIA Reference Point [id number]_ 2000x CONLEY ARIA Dosage Given to Date cGy 2000 CONLEY ARIA Plan ID [id number] CONLEY ARIA Fractions Treated to Date 5 CONLEY ARIA Planned Total Fractions 5 CONLEY ARIA Prescribed Dose Per Fraction 400 CONLEY ARIA Prescription Dose in cGy 2000 CONLEY ARIA Plan Primary Reference Point dpvSpnT4_ 2000x CONLEY ARIA Plan ID [id number] CONLEY ARIA Fractions Treated to Date 5 CONLEY ARIA Planned Total Fractions 5 CONLEY ARIA Prescribed Dose Per Fraction 400 CONLEY ARIA Prescription Dose in cGy 2000 CONLEY ARIA Plan Primary Reference Point dpvSpnT8_ 2000x CONLEY ARIA Plan ID [id number] CONLEY ARIA Fractions Treated to Date 5 CONLEY ARIA Planned Total Fractions 5 CONLEY ARIA Prescribed Dose Per Fraction 400 CONLEY ARIA Prescription Dose in cGy 2000 CONLEY ARIA Plan Primary Reference Point [id number]_ 2000x CONLEY ARIA 05/07/2024 8:21 AM ASSISTANT MAINTENANCE MANAGER us Provider Not In System RADIATION ONCOLOGY ORDERA BLES Final Result CONLEY ARIA na * Aria Daily Treatment Information (05/07/2024 8:21 AM ASSISTANT MAINTENANCE MANAGER) Only the most recent of5 resultswithin the time period is included. Course ID 1xMultiSi te CONLEY ARIA Course Start Date 4 10:56 ASSISTANT MAINTENANCE MANAGER CONLEY ARIA First Treatment Date 5 08:27 ASSISTANT MAINTENANCE MANAGER CONLEY ARIA Last Treatment Date 5 08:21 ASSISTANT MAINTENANCE MANAGER CONLEY ARIA Treatment Elapsed Days 6 CONLEY ARIA Reference Point dpvSpnT4_ 2000x CONLEY ARIA Dosage Given to Date cGy 2000 CONLEY ARIA Session Dosage Given 400 CONLEY ARIA Reference Point dpvSpnT8_ 2000x CONLEY ARIA Dosage Given to Date cGy 2000 CONLEY ARIA Session Dosage Given 400 CONLEY ARIA Reference Point [id number]_ 2000x CONLEY ARIA Dosage Given to Date cGy 2000 CONLEY ARIA Session Dosage Given 400 CONLEY ARIA Plan ID [id number] CONLEY ARIA Fractions Treated to Date 5 CONLEY ARIA Planned Total Fractions 5 CONLEY ARIA Prescribed Dose Per Fraction 400 CONLEY ARIA Prescription Dose in cGy 2000 CONLEY ARIA Plan Primary Reference Point dpvSpnT4_ 2000x CONLEY ARIA Plan ID [id number] CONLEY ARIA Fractions Treated to Date 5 CONLEY ARIA Planned Total Fractions 5 CONLEY ARIA Prescribed Dose Per Fraction 400 CONLEY ARIA Prescription Dose in cGy 2000 CONLEY ARIA Plan Primary Reference Point dpvSpnT8_ 2000x CONLEY ARIA Plan ID [id number] 1 CONLEY ARIA Fractions Treated to Date 5 CONLEY ARIA Planned Total Fractions 5 CONLEY ARIA Prescribed Dose Per Fraction 400 CONLEY ARIA Prescription Dose in cGy 2000 CONLEY ARIA Plan Primary Reference Point [id number]_ 2000x CONLEY ARIA 05/07/2024 8:21 AM ASSISTANT MAINTENANCE MANAGER us Provider Not In System RADIATION ONCOLOGY ORDERA BLES Final Result YAEL TORRES na * Initial Rad Onc Treatment Planning CT Simulation (04/28/2024 1:00 PM ASSISTANT MAINTENANCE MANAGER) Narrative CONLEY ARIA - 04/28/2024 1:00 PM ASSISTANT MAINTENANCE MANAGER Rupal Payton, RTT 04/28/2024 1:28 PM Initial Rad Onc Treatment Planning CT Simulation Performed by: Ant Mccullough M.D. Authorized by: Haley Martínez M.D. us Haley Martínez M.D. RADIATION ONCOLOGY ORDERA BLES Final Result YAEL TORRES na * CT thoracic spine wo con-Outside CT Neuro (04/24/2024 7:35 AM ASSISTANT MAINTENANCE MANAGER) Only the most recent of2 resultswithin the time period is included. 04/24/2024 7:29 AM ASSISTANT MAINTENANCE MANAGER Narrative [facility] - 04/24/2024 9:23 AM ASSISTANT MAINTENANCE MANAGER This order has been created and auto-finalized [...] PROCEDURES Final R esult Performing Organization Address [facility] de Phone Number IIMS NA * CT chest abdomen pelv w con-Outside CT Body (03/27/2024 8:20 AM ASSISTANT MAINTENANCE MANAGER) Narrative [facility] - 04/24/2024 9:26 AM ASSISTANT MAINTENANCE MANAGER This order has been created and auto-finalized [...] PROCEDURES Final R esult Performing Organization Address [facility] de Phone Number IIMS NA * MR abdomen wo/w con-Outside MR Body (03/27/2024 7:30 AM ASSISTANT MAINTENANCE MANAGER) Narrative [facility] - 04/24/2024 9:26 AM ASSISTANT MAINTENANCE MANAGER This order has been created and auto-finalized [...] MRI PROCEDURES Final Result Performing Organization Address [facility] Co de Phone Number IIMS NA from Last 3 Months Insurance [facility]
--- OUTSIDE RECORDS SUMMARY | 2024-06-02 09:43 | XMS_ITS ---
Author Organization [facility] Address [address] [place] [address] Care Team Providers Care Epic Professional Name Role Phone Unavailable Primary Care Provider [...] (06/02/2024): Setting: Auto 8-15 cmH20 Supplied by: [facility] PSG done: 12-10-07, 01-07-08 AHI 94 RDI 94 Lowest O2 Sat: 76% [place] FF 05-18-14 ; Severe Obstructive [place] ([place] Current Treatment and Therapy Plans No current plan information found. Past Treatment and Therapy Plans No past plan information found. Past Radiation Episodes * 3D SUPERVISOR FISH HATCHERY: Thoracic spineOverview* First Treatment Date Last Treatment Date Treatment Site Technique Goal Episode Provider 05/01/2024 05/07/2024 Thoracic spine 3D SUPERVISOR FISH HATCHERY Palliative Ki Valente orosco RNoryN. * Linked Problems CholangiocarcinomaSecondary Malignant Neoplasm Bone Treatment Courses* Course 1xMultiSite 05/01/2024 - 05/07/2024 Treatment Period Fraction Dose Fractions Total Dose Plans Planned [id number] 05/01/2024 - 05/07/2024 400 cGy 5 / 5 2 ,000 cGy [id number] 05/01/2024 - 05/07/2024 400 cGy 5 / 5 2 ,000 cGy [id number] 05/01/2024 - 05/07/2024 400 cGy 5 / 5 2 ,000 cGy Reference Points Delivered [id number] 05/01/2024 - 05/07/2024 2,000 cGy [id number]_[id number] 05/01/2024 - 05/07/2024 2,000 cGy [id number] 05/01/2024 - 05/07/2024 2,000 cGy
--- OUTSIDE RECORDS SUMMARY | 2024-06-02 09:43 | XMS_ITS | Encounter Summary ---
Author Organization [facility] Address [address] [place] [address] Care Team Providers Care Champagne Maker Name Role Phone Unavailable Primary Care Provider Unavailabl e Encounter Details Date Type Department Care Team (Late st Contact Info) Description 05/06/2024 7:58 AM FENCE REPAIRMAN Hospital Encounter Department of Radiation Oncology in [place], [place] [address] [place] [phone] Haley Martínez M.D. [address] [place] [address] Ant Mccullough M.D. [address] [place] [phone] Social History Tobacco Use Types Packs/Day Years [...] on file Legal Sex Male 9:27 PM FENCE REPAIRMAN Gender Identity Not on file Sexual Orientation Not on file Occupation Industry Job Start Date Job End Date Not on file Not on file Not on file Not on file documented as of this encounter Plan of Treatment Not on file documented as of this encounter Visit Diagnoses Not on filedocumented in this encounter
--- OUTSIDE RECORDS SUMMARY | 2024-06-02 09:43 | XMS_ITS | Encounter Summary ---
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 [address] [place] [phone] Phone: tel: fax: 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 [address] [place] [phone] Phone: tel: fax: [facility] Region Referral ID Status Reason Start Date Expiration Date V isits Requested Visits Authorized [id number] Authorized 04/24/2024 04/24/2025 10 10 Encounter Details Date Type Department Care Team (Latest Contact Info) Description 05/05/2024 7:56 AM INDUSTRIAL ORGANIZATION MANAGER - 05/05/2024 5:34 PM INDUSTRIAL ORGANIZATION MANAGER Hospital Encounter Department of Radiation Oncology in [place], [place] [address] [place] [phone] Ant Mccullough M.D. [address] [place] [phone] Cholangiocarcinoma (HCC); Secondary Malignant Neoplasm Bone (HCC) [...] on file Legal Sex Male 9:27 PM INDUSTRIAL ORGANIZATION MANAGER Gender Identity Not on file Sexual Orientation Not on file Occupation Industry Job Start Date Job End Date Not on file Not on file Not on file Not on file documented as of this encounter Last Filed Vital Signs Vital Sign Reading Time Taken Comments Blood Pressure 111/73 05/05/2024 8:36 AM INDUSTRIAL ORGANIZATION MANAGER Pulse 103 05/05/2024 8:36 AM INDUSTRIAL ORGANIZATION MANAGER Temperature 36.1 C (96.9 F) 05/05/2024 8:36 AM INDUSTRIAL ORGANIZATION MANAGER Respiratory Rate - - Oxygen Saturation - - Inhaled Oxygen Concentration - - Weight 105 kg (232 lb 9.4 oz) 05/05/2024 8:36 AM INDUSTRIAL ORGANIZATION MANAGER Height - - Body Mass Index [...] inhaler Inhale 2 puffs. 03/11/2024 HYDROcodone-acet aminophen ([place]) 5-325 mg per tablet TAKE ONE HALF [...] (cGy) First Treatment Last Treatment Elapsed Days [id number] 400 1200 199905/01/2024 05/05/2024 4 [id number] 400 1200 199905/01/2024 05/05/2024 4 [id number] 400 1200 199905/01/2024 05/05/2024 4 Course Summary [...] by: Yoselin Bernal R.N. 05/05/2024 9:39 AM INDUSTRIAL ORGANIZATION MANAGER ATTESTATION FOR MANAGEMENT VISIT I saw and evaluated the patient and participated in the randolph portions of the service including medical decision making as noted above. I reviewed the documentation of Ms. Yoselin Bernal RN and agree with the findings and plan. The patient appears well on exam. We will continue with radiation as planned and monitor weekly. 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
--- OUTSIDE RECORDS SUMMARY | 2024-06-02 09:44 | XMS_ITS | Clinical Summary ---
Author Organization [facility] Address [address] [place] [address] Care Team Providers Care Emt Dispatcher Name Role Phone Anthony Moeller MD Primary Care Provider [phone] Donald Parker MD Unavailable [phone] Allergies No known active allergies Medications LISINOPRIL [...] on file Legal Sex Male 5:12 AM WET WHEELER Gender Identity Not on file Sexual Orientation Not on file Last Filed Vital Signs Vital Sign Reading Time Taken Comments Blood Pressure 129/86 12/20/2023 11:46 AM CDT Pulse 72 04/18/2022 8:11 AM WET WHEELER Temperature 36.5 C (97.7 F) 04/18/2022 8:11 AM WET WHEELER Respiratory Rate 16 04/18/2022 8:11 AM WET WHEELER Oxygen Saturation 97% 04/18/2022 8:1 1 AM WET WHEELER Inhaled Oxygen Concentration - - Weight 128.8 kg (284 lb) 05/25/2022 10: 23 AM WET WHEELER pulled from last visit Height 175.3 cm (5' 9) 05/25/2022 10:2 3 AM WET WHEELER Body Mass Index 41.94 05/25/2022 10:23 AM WET WHEELER Plan of Treatment Health Maintenance Due Date [...] this topic Medical Devices Implanted Type Area Rn Physician Office Device Identifier Shelf Expiration Date Model / Serial / Lot Bone Cement Simplex Full Dose 6191-1-001 - [id number] Implanted:Qty : 1 on 04/17/2022 by Donald Parker MD at [facility] Cement, Bone Right: Knee [employer] 06/27/2023 6191-1-001 / / [id number] Twinfix Ultra Pk 5.5mm Suture [place] With 2 Ultrabraid Sutures Implanted:Qty : 1 on 12/10/2017 by Les Israel MD at [facility] Metallic Hardware/An chor Right: Shoulder 05/23/2022 [id number] / / [id number] 2.8mm Q-Fix Suture [place] Implanted:Qty : 1 on 12/10/2017 by Les Israel MD at [facility] Metallic Hardware/An chor Right: Shoulder 04/03/2020 [id number] / / [id number] Knee Uni Tibia Tray Mobile Bear D5 Rm/Ll - [id number] Implanted:Qty : 1 on 04/17/2022 by Donald Parker MD at [facility] Total Joint Component/I nsert Right: Knee [employer] 07/27/2031 [id number] / / [id number] Knee [place] Uni Femoral Med - [id number] Implanted:Qty : 1 on 04/17/2022 by Donald Parker MD at [facility] Total Joint Component/I nsert Right: Knee [employer] 03/19/2032 [id number] / / [id number] Insert [place] Anatomic Bear R Med Sz 4 - [id number] Implanted:Qty : 1 on 04/17/2022 by Donald Parker MD at [facility] Total Joint Component/I nsert Right: Knee [employer] 11/16/2025 [id number] / / [id number] Twinfix Ultra Pk 5.5mm Suture [place] With 2 Ultrabraid Sutures Implanted:Qty : 1 on 12/10/2017 by Les Israel MD at [facility] Right: Shoulder [employer] 01/10/2022 [id number] / / [id number] Procedures Procedure Name Priority Date/Time Associated Diagnosis Comments GLUCOSE BY METER Routine 04/18/2022 7:15 AM WET WHEELER from Last 3 Months or Most Recently Relevant to Health Maintenance Results * (ABNORMAL) Glucose by meter (04/18/2022 7:15 AM WET WHEELER) [facility] GLUCOSE BY METER POCT 143(H) 70 - 99 mg/dL 04/18/2022 7:22 AM WET WHEELER [facility]AT[facility] POC Blood, Capillary BLOOD SPECIMEN / Unknown 04/18/2022 7:15 AM WET WHEELER 04/18/2022 7:22 AM WET WHEELER Donald MILLER - SUEBANNER POCT Final Resu lt [facility]ORATORY POC [facility] [address] Lab (1st floor, no room number) [place] [address], [facility] [[email or web address]] [phone] from Last 3 Months or Most Recently Relevant to Health Maintenance Insurance [employer] [place] [facility] [employer] Advance Directives For more information, please contact: [phone] * Full Code (Latest Code Status on File) Date Activated Date Inactivated Comments 04/17/2022 11:28 AM 04/18/2022 10:58 AM All basi c and advanced life-sustaining interventions are performed as appropriate Question Answer Comments Code status determined by: Discussion with adriana nt/ legal decision maker Care Teams Emt Dispatcher Relationship Specialty Start Date End Date Anthony Moeller MD PCP - General Family Practice 11/21/17 Donald Parker MD [address] [place] [phone] Assigned Musculoskeletal Provider 01/20/24
[2024-06-02 10:00] LABS: Basophils Percent Auto 0.2 % (0.0-3.0); Eosinophils Percent Auto 1.4 % (0.0-7.0); Hematocrit 24.6 % (37.0-53.0); Immature Granulocytes Pct Auto 0.2 %; Lymphocytes Percent Auto 7.7 % (20-44); Mean Corpuscular HGB Conc 32 gm/dL (32-36); Mean Corpuscular Hemoglobin 28 pg (26-34); Mean Corpuscular Volume 88 fL (80-100); Monocytes Percent Auto 12.8 % (0.0-11.0); Neutrophils Percent Auto 77.7 % (42.0-72.0); Platelet Count* 103 K/uL (140-440); White Blood Count* 4.14 K/uL (4.50-11.00)
[2024-06-02] MEDS: IPRAT-ALBUT 0.5-2.5 MG/3 ML NEB 1 NEB IH (10:04)
[2024-06-02 10:05] LABS: Hemoglobin* 7.9 gm/dL (13.5-17.5); Slide Review Reflex No
[2024-06-02 10:08] LABS: Troponin, Point-of-Care* 0.01 ng/ml (0.01-0.04)
[2024-06-02 10:12] LABS: Chloride* 98 mmol/L (96-114); Potassium* 4.4 mmol/L (3.6-5.1); Sodium* 132 mmol/L (135-149)
[2024-06-02 10:15] LABS: Anion Gap 13 mEq/L (7-15); Carbon Dioxide* 21 mmol/L (20-32); Creatinine* 0.8 mg/dL (0.5-1.5); Est. Creatinine Clearance* 100.94; Estimated Glomerular Filt Rate 105 ml/min
[2024-06-02 10:16] LABS: Blood Urea Nitrogen* 15 mg/dL (7-30); Calcium* 9.2 mg/dL (8.4-10.6); Glucose* 104 mg/dL (60-115)
[2024-06-02 10:39] LABS: NT Pro B Type NatriureticPept* 490 pg/mL; Troponin I* < 0.01 ng/mL (0.01-0.04)
--- NOTE | 2024-06-02 11:03 | CRLHL7_ITS ---
For Patients: As a result of the 21st Century Cures Act, medical imaging exams and procedure reports are released immediately into your electronic medical record. You may view this report before your referring provider. If you have questions, please contact your health care provider. INDICATION: anterior chest pain, HX CHOLANGIO CARCINOMA. (Sic) COMPARISON: 01/17/2024 TECHNIQUE: CT pulmonary angiography with 95 cc of Isovue 370 intravenous contrast. Please note that all CT scans at this facility use dose modulation, iterative reconstruction, and/or weight-based dosing when appropriate to reduce radiation dose to as low as reasonably achievable. FINDINGS: THORAX Pulmonary Arterial Vasculature: Opacification of the pulmonary arterial tree is suboptimal, though adequate, for assessment of pulmonary embolism due to timing of imaging relative to contrast bolus administration. No intraluminal pulmonary arterial filling defect is identified to indicate a pulmonary embolism. Suspected thrombus within the superior vena cava on the prior study 01/17/2024 is not evaluated on this examination as the superior vena cava is not opacified due to timing of imaging relative to contrast bolus administration. Visualized Lower Neck: No lower cervical adenopathy. Lungs: Redemonstration of diffuse bilateral small pulmonary nodules consistent with metastatic disease. Incidental note is made of left upper lobe benign calcified granulomas. Bilateral lower lobe dependent hypoventilatory changes. Pleura: No pleural effusion. No pneumothorax. Mediastinum: Redemonstration of multifocal mediastinal metastatic lymphadenopathy. Chronic increase caliber of the main pulmonary artery which measures 34 mm compared to the adjacent caliber of the ascending thoracic aorta which is 32 mm. This is consistent with pulmonary arterial hypertension. Cardiomegaly. Trace pericardial effusion. Trachea and esophagus are normal in appearance. ABDOMEN Visualized Upper Abdomen: Redemonstration of splenomegaly. Calcified hepatic and splenic granulomas are noted incidentally. No focal liver lesion is appreciated on this CT pulmonary angiogram which is limited in sensitivity for detection of hepatic lesions due to timing of imaging relative to contrast bolus administration. 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 The T8 lesion has grown significantly in the interval since the prior study. Very thin posterior vertebral body cortices at T4 and T8 with possible breech of the posterior vertebral body cortex. Epidural extension of disease is not excluded on this noncontrast chest CT. If there is ongoing concern for significant intraspinal metastatic disease then MRI is recommended with intravenous contrast. Right-sided Port-A-Cath. IMPRESSION: 1. Opacification of the pulmonary arterial tree is suboptimal, though adequate, for assessment of pulmonary embolism due to timing of imaging relative to contrast bolus administration. No intraluminal pulmonary arterial filling defect is identified or suspected to indicate a pulmonary embolism. 2. Suspected thrombus within the superior vena cava on the prior study 01/17/2024 (4 months prior) is not evaluated on this examination as the superior vena cava is not opacified due to timing of imaging relative to contrast bolus administration. 3. 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 4. 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 The T8 lesion has grown significantly in the interval since the prior study. Very thin posterior vertebral body cortices at T4 and T8 with possible breech of the posterior vertebral body cortex. Epidural extension of disease is not excluded on this noncontrast chest CT. If there is ongoing concern for significant intraspinal metastatic disease then MRI is recommended with intravenous contrast. 5. Redemonstration of diffuse bilateral pulmonary metastases and metastatic multifocal mediastinal lymphadenopathy. 6. Additional incidental findings described in the body of the report. Please note that all CT scans at this facility use dose modulation, iterative reconstruction, and/or weight-based dosing when appropriate to reduce radiation dose to as low as reasonably achievable. Dictated by Peter Mendoza MD @ 06/02/2024 12:39:18 PM (Electronically Signed)
[2024-06-02] MEDS: 0.9 % SODIUM CHLORIDE 1000 ml 1,000 ML IV (11:58)
[2024-06-02] MEDS: ONDANSETRON 2 MG/ML inj 4 MG IVP (13:16)
[2024-06-02] MEDS: KETOROLAC 30 MG/ML inj IVP (13:33)
== END 2024-06-02 13:47 | disposition home or self-care (01) ==
PROVIDERS: Emergency Provider Family Medicine; PCP Family Medicine
DX: G89.3 Neoplasm related pain (acute) (chronic) (principal); C79.51 Secondary malignant neoplasm of bone; D64.9 Anemia, unspecified; I26.99 Other pulmonary embolism without acute cor pulmonale
CPT/HCPCS: 36415; 71045; 71275; 80048; 83880; 84484; 85025; 86850; 86900; 86901; 93005; 96361; 96374; 96375; 99284; 99285; J1885; J2405; J7030; Q9967

== ENCOUNTER 2024-06-12 12:35 | Outpatient (CLI) | payer BC, SELFPAY | END 2024-06-12 12:36 | disposition home or self-care (01) | LOC: MRI 12:41 | PROVIDERS: PCP Family Medicine; Visit Provider Clinical Nurse Specialist | DX: C22.1 Intrahepatic bile duct carcinoma (principal); M51.26 Other intervertebral disc displacement, lumbar region; C79.51 Secondary malignant neoplasm of bone; G89.3 Neoplasm related pain (acute) (chronic) | CPT/HCPCS: 72156; 72157; 72158; A9575 ==

== ENCOUNTER 2024-06-26 22:08 | Emergency (ER) | payer BC, SELFPAY ==
[2024-06-26 22:20] VITALS: BP 128/83; PULSE 74; RESP 20; TEMP 35.7; O2SAT 99; BMI 34.7
[2024-06-26 23:19] LABS: Lactate* 1.3 mmol/L (0.5-1.9)
[2024-06-26 23:23] LABS: Basophils Absolute Auto 0.02 K/uL (0.00-0.30); Basophils Percent Auto 0.4 % (0.0-3.0); Eosinophils Absolute Auto 0.09 K/uL (0.00-0.50); Eosinophils Percent Auto 1.7 % (0.0-7.0); Hematocrit 21.4 % (37.0-53.0); Immature Granulocytes Abs Auto 0.08 K/uL (0.00-0.30); Immature Granulocytes Pct Auto 1.5 %; Lymphocytes Percent Auto 6.3 % (20-44); Mean Corpuscular HGB Conc 32 gm/dL (32-36); Mean Corpuscular Hemoglobin 27 pg (26-34); Mean Corpuscular Volume 85 fL (80-100); Monocytes Percent Auto 12.2 % (0.0-11.0); Neutrophils Percent Auto 77.9 % (42.0-72.0); Platelet Count* 134 K/uL (140-440); RDW Coefficient of Variation % 15.8 % (11.5-15.5); Red Blood Count 2.52 m/uL (4.30-5.90)
--- NOTE | 2024-06-26 23:24 | ED_ITS ---
HPI - General Adult General Chief complaint: Abdominal Pain Stated complaint: Abdominal Pain Time Seen by Provider: 06/26/24 22:31 Source: patient Mode of arrival: ambulatory Limitations: no limitations History of Present Illness HPI narrative: 53-year-old male with a history of metastatic cholangiocarcinoma receiving palliative radiation therapy, presenting today with diffuse abdominal pain. Patient had a blood transfusion this morning around 8:30 a.m.. Around 1 in the afternoon he developed diffuse abdominal pain. He has been unable to eat. He tried eating in the evening and vomited. He feels chills but has not had any fevers. He has been constipated for the last 2 days but had a bowel movement today. She denies difficulty with urination, denies pain frequency or urgency. Denies blood in his stool or urine. The pain is located across the entire abdomen. It is worse if he sits up, better if he lays back. He denies pain in his chest, no shortness of breath. Does not feel impending doom. Looking through the patient's chart he has had chronic abdominal pain for couple of months now. States that the reason he came in today is because it was worse than usual. Related Data Home Medications ?Medication ?Instructions ?Recorded ?Confirmed Blood Glucose Meter 12/26/21 06/12/24 acetaminophen 500 mg capsule 1,000 mg PO Q6H PRN 01/20/24 06/25/24 lisinopril 40 mg tablet 40 mg PO QDAY 03/12/24 06/26/24 loratadine 10 mg tablet (Claritin) 10 mg PO QDAY 03/12/24 06/26/24 metoprolol succinate 100 mg 150 mg PO DAILY 04/24/24 06/26/24 tablet,extended release 24 hr sennosides 8.6 mg-docusate sodium 1 tab-cap PO QHS PRN constipation 06/03/24 06/26/24 50 mg tablet (Senna with Docusate Sodium) Previous Rx's ?Medication ?Instructions ?Recorded lancets #100 ea 01/07/23 amlodipine 5 mg tablet 5 mg PO QDAY #90 tabs 12/25/23 metformin 500 mg tablet 500 mg PO BIDWMEAL #180 tabs 12/25/23 loperamide 2 mg capsule (Imodium 2 mg PO Q4H PRN loose stool #30 04/20/24 A-D) caps calcium 600 mg (as carbonate)-vit 1 tab PO BID #120 tabs 05/14/24 D3 10 mcg (400 unit)-minerals tablet omeprazole 40 mg capsule,delayed 40 mg PO BID #180 caps 05/19/24 release albuterol sulfate 90 mcg/actuation 2 puff inhalation QID PRN 06/02/24 aerosol inhaler (Ventolin HFA) shortness of breath or wheezing #8.5 grams fluticasone propionate 45 2 puff inhalation BID #12 grams 06/02/24 mcg-salmeterol 21 mcg/actuation HFA inhaler (Advair HFA) Narcan 4 mg/actuation nasal spray 4 mg intranasal Q2-3M PRN opioid 06/03/24 (naloxone) overdose #2 ea Eliquis 5 mg tablet (apixaban) 5 mg PO BID blood thinner #60 tabs 06/04/24 prochlorperazine maleate 5 mg 5 - 10 mg (1 - 2 x 5 mg) PO TID 06/15/24 tablet (Compazine) PRN nausea and vomiting #60 tabs fentanyl 50 mcg/hr transdermal 1 patch transdermal Q72H #5 ea 06/19/24 patch oxycodone 10 mg tablet 10 mg PO Q4H PRN moderate to 06/25/24 severe pain #60 tabs Allergies Allergy/AdvReac Type Severity Reaction Status Date / Time No Known Allergies Allergy Unknown Verified 06/26/24 23:29 Review of Systems Status of ROS: Reports: 10 or more systems reviewed and unremarkable except as noted in History and below [facility] Medical History Chemotherapy management, encounter for ?Z51.11 - Encounter for antineoplastic chemotherapy (ICD-10) Hypomagnesemia ?E83.42 - Hypomagnesemia (ICD-10) Encounter for antineoplastic chemotherapy and immunotherapy ?Z51.11 - Encounter for antineoplastic chemotherapy (ICD-10) ?Z51.12 - Encounter for antineoplastic immunotherapy (ICD-10) Osteoarthritis of knee ?M17.10 - Unilateral primary osteoarthritis, unspecified knee (ICD-10) History of fracture of vertebral column ?Z87.81 - Personal history of (healed) traumatic fracture (ICD-10) Surgical History History of tear of meniscus of knee joint ?Z87.828 - Personal history of other (healed) physical injury and trauma (ICD-10) Plantar fasciitis ?M72.2 - Plantar fascial fibromatosis (ICD-10) History of partial knee replacement ?Z96.659 - Presence of unspecified artificial knee joint (ICD-10) History of shoulder surgery ?Z98.890 - Other specified postprocedural states (ICD-10) History of colonoscopy with polypectomy ?Z98.890 - Other specified postprocedural states (ICD-10) ?Z86.010 - Personal history of colonic polyps (ICD-10) Family History Mother Diabetes Father Coronary artery disease History of coronary artery bypass graft x 3 Stroke Social History Narrative: History of alcohol use with cirrhosis noted on recent liver biopsy. Has now abstained since his diagnosis of cholangiocarcinoma. History of smoking; has been tobacco free for 15 years. 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 What is your current living situation?: I presently have a place to live Problems where you live: no known problems In the past 12 months, utilities in danger of being shut off: no In past 12 months, lack of transportation kept you from medical appts, meetings, work, or getting things needed for daily living: no In the past 12 mos, have been you worried that your food would run out before you had money to buy more?: never true In the past 12 mos, the food you bought just didn't last and you didn't have money to buy more?: never true Smoking Status: Former smoker Second hand tobacco smoke exposure: No How often do you have a drink containing alcohol: monthly or less AUDIT-C Alcohol total score: 1 Non-prescribed substance use: marijuana (any form) Caffeine: Yes How often does anyone, including family, friends and others, physically hurt you : never How often does anyone, including family, friends and others, insult or talk down to you: never How often does anyone, including family, friends and others, threaten you with harm: never How often does anyone, including family, friends and others, scream or curse at you: never Exam Narrative: Exam Narrative: Overweight, well-developed patient in no acute distress. Alert and oriented. Answers questions appropriately. Mood and affect are appropriate. Thoughts are goal oriented and rational. No tangential or magical thinking noted. Patient speaks in full sentences without needing to catch his breath. HEENT: Normocephalic atraumatic. Pupils are equally round reactive to light. Extraocular muscles are intact. Conjunctivae are moist without any icterus noted. Moist mucous membranes. Posterior pharynx is normal. Neck is soft. Cardiovascular: Heart is regular rate and rhythm S1 and S2 are present without any murmurs. Lungs: Clear to auscultation bilaterally. Patient takes deep breaths without discomfort. Abdomen: Soft and protuberant with normal bowel sounds. He has diffuse tenderness with the most tender areas located periumbilically. Skin: Well perfused without any obvious rashes. Const: Vital Signs, click to edit/add: Vital Signs - 24 hr 06/26/24 22:20 06/27/24 00:02 Temperature 96.3 F L 96.6 F L Pulse Rate [Pulse Oximeter] 74 74 Respiratory Rate 20 18 Blood Pressure [Le ft Upper Arm] 128/83 131/68 Pulse Oximetry 99 99 Oxygen Delivery Me thod Room Air Course Course ED Course: Differential diagnosis is broad but includes hepatitis, pancreatitis, mesenteric ischemia, small-bowel obstruction, appendicitis. CBC shows hemoglobin of 6.9. Patient states that he is not dizzy, lightheaded, having shortness of breath or chest pain. Platelet count is 134, looks better than it has in the recent past. Sodium is low at 128. Because of this we did give the patient a L of normal saline. He also complains of not being able the eat for the last few days so this should help. Chemistries are otherwise unremarkable. Normal lactate at 1.3. LFTs are unremarkable aside from a alkaline phosphatase elevated at 271. This has been elevated in the past. CRP slightly elevated at 5.5 a. Total protein and albumin are within normal limits. Normal lipase. UA normal. CT does not appear to show anything acute. Does show hydropic gallbladder. While patient is here he does also received Carafate. He is already on oxycodone and fentanyl. Vital Signs Vital signs: Initial Vital Signs Temperature 96.3 F L 06/26/24 22:20 Temperature Source Temporal Artery Scan 06/26/24 22:20 Pulse Rate 74 06/26/24 22:20 Respiratory Rate 20 06/26/24 22:20 Blood Pressure 128/83 06/26/24 22:20 Blood Pressure Mean 98 06/26/24 22:20 Blood Pressure Position Semi-Fowlers 06/26/24 22:20 Pulse Oximetry 99 06/26/24 22:20 Vital Signs Temperature 96.3 F L 06/26/24 22:20 Pulse Rate 74 06/26/24 22:20 Respiratory Rate 20 06/26/24 22:20 Blood Pressure 128/83 06/26/24 22:20 Pulse Oximetry 99 06/26/24 22:20 Temperature 96.6 F L 06/27/24 00:02 Pulse Rate 74 06/27/24 00:02 Respiratory Rate 18 06/27/24 00:02 Blood Pressure 131/68 06/27/24 00:02 Pulse Oximetry 99 06/27/24 00:02 Oxygen Delivery Method Room Air 06/27/24 00:02 Medications Administered Medications: Generic Name Dose Route Start Last Admin Trade Name Freq PRN Reason Stop Dose Admin Sodium Chloride 1,000 mls @ 1,000 mls/hr 06/26/24 23:45 06/26/24 23:58 0.9 % Sodium Chloride 1000 Ml IV 06/27/24 00:44 1,000 mls/hr .Q1H [place] Administration Medical Decision Making MDM Narrative Medical decision making narrative: 53-year-old male with abdominal pain for several months. Patient does have cholangiocarcinoma with metastasis. I do recommend he follow up with his primary care and oncology team to discuss his pain management. Also recommend right upper quadrant ultrasound to see if his gallbladder could be contributing to his pain. Patient has an appointment already scheduled for Saturday at which time he should have CBC repeated also. Lab Data Lab results reviewed: Yes I reviewed the patient's lab results Labs: Lab Results 06/26/24 06/26/24 Range/Units 00:19 23:20 WBC 5.40 (4.50-11.00) K/uL RBC 2.52 L (4.30-5.90) m/uL Hgb 6.9 L* (13.5-17.5) gm/dL Hct 21.4 L (37.0-53.0) % MCV 85 (80-100) fL MCH 27 (26-34) pg MCHC 32 (32-36) gm/dL RDW Coeff of Nat 15.8 H (11.5-15.5) % Plt Count 134 L (140-440) K/uL Neut % (Auto) 77.9 H (42.0-72.0) % Lymph % (Auto) 6.3 L (20-44) % [place] % (Auto) 12.2 H (0.0-11.0) % Eos % (Auto) 1.7 (0.0-7.0) % Baso % (Auto) 0.4 (0.0-3.0) % Neut # (Auto) 4.20 (1.7-7.0) K/uL Lymph # (Auto) 0.30 L (0.90-2.90) K/uL [place] # (Auto) 0.70 (0.00-0.90) K/UL Eos # (Auto) 0.09 (0.00-0.50) K/uL Baso # (Auto) 0.02 (0.00-0.30) K/uL Abs Immat Gran (auto) 0.08 (0.00-0.30) K/uL Imm/Tot Granulo (auto) 1.5 % Sodium 128 L (135-149) mmol/L Potassium 4.2 (3.6-5.1) mmol/L Chloride 97 (96-114) mmol/L Carbon Dioxide 22 (20-32) mmol/L Anion Gap 9 (7-15) mEq/L BUN 15 (7-30) mg/dL Creatinine 0.6 (0.5-1.5) mg/dL Estimated Creat Clear 139.11 Estimated GFR 114 ml/min Glucose 131 H (60-115) mg/dL Lactate 1.3 (0.5-1.9) mmol/L Calcium 8.9 (8.4-10.6) mg/dL Total Bilirubin 0.6 (0.1-1.5) mg/dL Direct Bilirubin 0.3 (0.0-0.5) mg/dL AST 24 (12-35) U/L ALT 21 (4-50) U/L Alkaline Phosphatase 271 H (40-150) U/L C-Reactive Protein 5.5 H (0.5-1.0) mg/dL Total Protein 7.4 (6.0-8.3) g/dL Albumin 3.7 (3.3-5.0) g/dL Lipase 161 (23-300) U/L Urine Color Yellow (Yellow) Urine Appearance Clear (Clear) Urine pH 6.5 (5.0-8.5) Ur Specific [place] <= 1.005 (1.000-1.030) Urine Protein Negative (Negative) Urine Glucose (UA) Negative (Negative) Urine Ketones Negative (Negative) Urine Blood Negative (Negative) Urine Nitrite Negative (Negative) Urine Bilirubin Negative (Negative) Urine Urobilinogen 0.2 (0.2-1.0) Ur Leukocyte Esterase Negative (Negative) Urine RBC 0-2 (0-2) Urine WBC 0-2 (0-5) Ur Squamous Epith Cells None (None-Few) Urine Bacteria None (None) Imaging Data CT scan - abdomen: Attestation: I have reviewed the pertinent imaging results. Radiologist's impression: TECHNIQUE: CT abdomen and pelvis acquired with 116 cc of Isovue 370 IV contrast. COMPARISON: Chest CT 06/02/[address] chest, abdomen, and pelvis 03/27/2024. FINDINGS: Lower chest: Innumerable tiny pulmonary nodules throughout the lung bases. Hepatobiliary: Cirrhotic liver morphology. Interval increased size of the tumor thrombus noted within the main portal vein. There is also increased size of the tumor thrombus at the portosplenic confluence. There may be additional tumor thrombus within the proximal splenic vein (2/45). Focal heterogeneity of the left hepatic lobe central parenchyma (2/33 with likely associated intrahepatic biliary ductal dilatation. Other scattered areas of intrahepatic biliary ductal dilatation. Hydropic gallbladder without mural thickening or pericholecystic fluid. Scattered calcified hepatic granulomata. Pancreas: Unremarkable. No mass or inflammation. Spleen: Enlarged. Scattered calcified granulomata. Adrenal glands: Unremarkable. No nodules. Kidneys: Unremarkable. No suspicious masses, stones, or hydronephrosis. GI tract: Mild perigastric fluid. Mild mural thickening of the mid duodenum. Diverticulosis without pericolonic inflammation. No obstruction. No evidence for appendicitis. Vasculature: Normal caliber abdominal aorta with mild atherosclerotic calcification. Mesenteric arteries are patent. Collateral vessels within the upper abdomen. Lymph nodes: Mirtha hepatis and superior retroperitoneal lymphadenopathy, mildly smaller in size compared to the prior exam. Peritoneum/Abdominal Wall: New small volume ascites. No free air. Unremarkable abdominal wall. Pelvis: Unremarkable. Bones: Redemonstrated multiple lytic lesions within the vertebral bodies. New lytic lesion within the L3 vertebral body. Unchanged mild chronic wedging at T11. IMPRESSION: 1. Interval increased size of the tumor thrombus within the main portal vein and at the portosplenic confluence, compatible with progression of disease. Possible additional tumor thrombus within the proximal splenic vein. 2. Focal heterogeneity of the left hepatic lobe central parenchyma with likely associated intrahepatic biliary ductal dilatation, suspicious for tumor infiltration. This can be further evaluated with MRI. 3. Mirtha hepatis and superior retroperitoneal lymphadenopathy, mildly decreased in size compared to the prior exam. 4. New small volume ascites. Mild mural thickening of the mid duodenum, may be reactive to the ascites; however, duodenitis is also a consideration. 5. Innumerable tiny pulmonary metastatic nodules in the lung bases. 6. Cirrhotic liver and splenomegaly. Discharge Plan Discharge Clinical Impression: Abdominal pain Patient Disposition: Home, Self-Care Condition: Stable Additional Instructions: Recommend following up with your primary care provider to get a right upper quadrant ultrasound scheduled to have a better look at your gallbladder - this can be causing pain. Would also recommend rechecking your blood counts this coming week to make sure they are not getting lower. But also follow-up with your care team to discuss your pain management medications. Prescriptions: No Action (DME) lancets [facility] See Rx Instructions .Route Qty: 100 3RF Rx Instructions: As directed acetaminophen 500 mg capsule 1,000 mg PO Q6H PRN lisinopril 40 mg tablet 40 mg PO QDAY Rx Instructions: alternating with 20mg every other day loratadine [Claritin] 10 mg tablet 10 mg PO QDAY oxycodone 10 mg tablet 10 mg PO Q4H PRN (Reason: moderate to severe pain) Qty: 60 0RF (DME) Blood Glucose Meter Mis See Rx Instructions .Route Rx Instructions: As directed amlodipine 5 mg tablet 5 mg PO QDAY Qty: 90 3RF metformin 500 mg tablet 500 mg PO BIDWMEAL Qty: 180 3RF loperamide [Imodium A-D] 2 mg capsule 2 mg PO Q4H PRN (Reason: loose stool) Qty: 30 0RF Rx Instructions: administer after each loose stool until symptoms controlled; do not exceed 8 mg per 24 hrs omeprazole 40 mg capsule,delayed release(DR/EC) 40 mg PO BID Qty: 180 1RF prochlorperazine maleate [Compazine] 5 mg tablet 5 - 10 mg PO TID PRN (Reason: nausea and vomiting) Qty: 60 1RF metoprolol succinate 100 mg tablet extended release 24 hr 150 mg PO DAILY calcium carbonate-vit D3-min 600 mg-10 mcg (400 unit) tablet 1 tab PO BID Qty: 120 0RF albuterol sulfate [Ventolin HFA] 90 mcg/actuation HFA aerosol inhaler 2 puff inhalation QID PRN (Reason: shortness of breath or wheezing) Qty: 8.5 1RF fluticasone propion-salmeterol [Advair HFA] 45-21 mcg/actuation HFA aerosol inhaler 2 puff inhalation BID Qty: 12 1RF naloxone [Narcan] 4 mg/actuation spray,non-aerosol 4 mg intranasal Q2-3M PRN (Reason: opioid overdose) Qty: 2 1RF Rx Instructions: spray 1 dose into ONE nostril; alternate nostrils w each dose until help arrives. Instruct family members and caregivers on use. sennosides-docusate sodium [Senna with Docusate Sodium] 8.6-50 mg tablet 1 tab-cap PO QHS PRN (Reason: constipation) Rx Instructions: Take 1 tablet at bedtime if needed to prevent constipation. Hold if having diarrhea. Increase to 1 tab BID if no BM>2 days. Eliquis 5 mg tablet 5 mg PO BID Qty: 60 2RF fentanyl 50 mcg/hr patch 72 hour 1 patch transdermal Q72H Qty: 5 0RF Follow Up/Referrals: Anthony Moeller MD [Primary Care Provider] - Stand Alone Forms: [facility] Info Instructions
[2024-06-26 23:26] LABS: Hemoglobin* 6.9 gm/dL (13.5-17.5); Slide Review Reflex No
[2024-06-26 23:35] LABS: Albumin* 3.7 g/dL (3.3-5.0); Chloride* 97 mmol/L (96-114); Sodium* 128 mmol/L (135-149)
[2024-06-26 23:36] LABS: Potassium* 4.2 mmol/L (3.6-5.1)
[2024-06-26 23:38] LABS: Anion Gap 9 mEq/L (7-15); Aspartate Amino Transferase* 24 U/L (12-35); Bilirubin Direct* 0.3 mg/dL (0.0-0.5); Bilirubin Total* 0.6 mg/dL (0.1-1.5); Blood Urea Nitrogen* 15 mg/dL (7-30); Carbon Dioxide* 22 mmol/L (20-32); Creatinine* 0.6 mg/dL (0.5-1.5); Est. Creatinine Clearance* 139.11; Estimated Glomerular Filt Rate 114 ml/min
[2024-06-26 23:39] LABS: Alanine Aminotransferase* 21 U/L (4-50); Alkaline Phosphatase* 271 U/L (40-150); Calcium* 8.9 mg/dL (8.4-10.6); Glucose* 131 mg/dL (60-115); Lipase* 161 U/L (23-300); Total Protein* 7.4 g/dL (6.0-8.3)
[2024-06-26 23:41] LABS: C Reactive Protein* 5.5 mg/dL (0.5-1.0)
[2024-06-26] MEDS: 0.9 % SODIUM CHLORIDE 1000 ml 1,000 ML IV (23:58)
[2024-06-27 00:02] VITALS: BP 131/68; PULSE 74; RESP 18; TEMP 35.9; O2SAT 99
[2024-06-27 00:22] LABS: Appearance Urine Clear (Clear); Bilirubin Urine Negative (Negative); Blood Urine Negative (Negative); Color Urine Yellow (Yellow); Glucose Urine Negative (Negative); Ketones Urine Negative (Negative); Leukocyte Esterase Urine Negative (Negative); Nitrite Urine Negative (Negative); Protein Urine Negative (Negative); Specific Gravity Urine <= 1.005 (1.000-1.030); Urobilinogen Urine 0.2 (0.2-1.0); pH Urine 6.5 (5.0-8.5)
[2024-06-27 00:28] LABS: RBC Urine 0-2 (0-2); WBC Urine 0-2 (0-5)
[2024-06-27] MEDS: SUCRALFATE 1 GM TABLET PO (00:42)
[2024-06-27] MEDS: ONDANSETRON 2 MG/ML inj 4 MG IVP (01:04)
[2024-06-27] MEDS: fentaNYL 100 MCG/2 ML inj 50 MCG IVP ×2 (01:06→03:09)
[2024-06-27] MEDS: HEPARIN 500 UNIT/5 ML SYRINGE IVF (03:18)
[2024-06-27 03:21] VITALS: BP 115/79; PULSE 89; RESP 20; O2SAT 97
== END 2024-06-27 03:23 | disposition home or self-care (01) ==
PROVIDERS: Emergency Provider Family Medicine; PCP Family Medicine
DX: R10.11 Right upper quadrant pain (principal)
CPT/HCPCS: 36415; 74177; 80048; 80076; 81001; 83605; 83690; 85025; 86140; 87086; 96374; 96376; 99284; A9270; J1642; J2405; J3010; J7030; Q9967

== ENCOUNTER 2024-07-08 09:00 | Outpatient (RCR) | payer BC, SELFPAY ==
[2024-01-20 10:57] LABS: Basophils Absolute Auto 0.03 K/uL (0.00-0.30); Basophils Percent Auto 0.4 % (0.0-3.0); Eosinophils Absolute Auto 0.22 K/uL (0.00-0.50); Eosinophils Percent Auto 2.7 % (0.0-7.0); Hematocrit 33.6 % (37.0-53.0); Hemoglobin* 10.9 gm/dL (13.5-17.5); Immature Granulocytes Abs Auto 0.04 K/uL (0.00-0.30); Immature Granulocytes Pct Auto 0.5 %; Lymphocytes Percent Auto 10.5 % (20-44); Mean Corpuscular HGB Conc 32 gm/dL (32-36); Mean Corpuscular Hemoglobin 30 pg (26-34); Mean Corpuscular Volume 93 fL (80-100); Monocytes Percent Auto 12.4 % (0.0-11.0); Neutrophils Percent Auto 73.5 % (42.0-72.0); Platelet Count* 253 K/uL (140-440); RDW Coefficient of Variation % 12.7 % (11.5-15.5); Red Blood Count 3.63 m/uL (4.30-5.90); White Blood Count* 8.12 K/uL (4.50-11.00)
[2024-01-20 11:02] LABS: Slide Review Reflex No
[2024-01-20 11:10] LABS: Albumin* 4.5 g/dL (3.3-5.0); Chloride* 96 mmol/L (96-114)
[2024-01-20 11:11] LABS: Potassium* 5.2 mmol/L (3.6-5.1); Sodium* 130 mmol/L (135-149)
[2024-01-20 11:13] LABS: Alanine Aminotransferase* 26 U/L (4-50); Alkaline Phosphatase* 198 U/L (40-150); Anion Gap 9 mEq/L (7-15); Aspartate Amino Transferase* 35 U/L (12-35); Bilirubin Total* 0.7 mg/dL (0.1-1.5); Blood Urea Nitrogen* 16 mg/dL (7-30); Carbon Dioxide* 25 mmol/L (20-32); Creatinine* 0.8 mg/dL (0.5-1.5); Est. Creatinine Clearance* 100.94; Estimated Glomerular Filt Rate 105 ml/min; Glucose* 105 mg/dL (60-115); Total Protein* 8.4 g/dL (6.0-8.3)
[2024-01-20 11:14] LABS: Calcium* 9.8 mg/dL (8.4-10.6); Magnesium* 1.7 mg/dL (1.5-2.6)
[2024-01-20 11:15] LABS: INR 1.06 (0.91-1.10); Prothrombin Time 14.5 Seconds
[2024-01-21 19:53] LABS: Cancer Antigen-GI (CA 19-9) 40 U/mL (<=35); Carcinoembryonic Antigen 0.9 ng/mL (<=3.8)
[2024-01-23 00:05] LABS: Albumin 3.63 g/dL (3.75-5.01); Alpha 1 Globulin 0.48 g/dL (0.19-0.46); Alpha 2 Globulin 0.98 g/dL (0.48-1.05); Immunofixation IFE Done; Immunoglobulin A 334 mg/dL (68-408); Immunoglobulin G 1599 mg/dL (768-1632); Immunoglobulin M 269 mg/dL (35-263); Kappa Qnt Free Light Chains 52.75 mg/L (3.30-19.40); Kappa/Lambda Light Chain Ratio 1.46 (0.26-1.65); Lambda Qnt Free Light Chains 36.15 mg/L (5.71-26.30); Total Protein, Serum 7.8 g/dL (6.3-8.2)
--- NOTE | 2024-01-24 10:49 | URNOTE ---
Request received for authorization for the following medications: Durvalumab (Imfinzi) (J9173) Approved for dose of 1500mg, for 9 doses, Date Range: 01/29/2024 to 07/26/2024, Auth#[id number]. Cisplatin (J9060): No PA required per Dashawn on behalf of [facility]. Gemcitabine (J9201): No PA required. Fosaprepitant (J1453) : No PA required. Aloxi (Palonosetron) (J2469) Approved for dose of 250 mcg, for 18 doses, Date Range: 01/29/2024 to 07/26/2024, Auth#[id number]. Fulphila (Pegfilgrastim-db) (Q5108) approved for dose 6mg, for 6 doses, Date Range: 01/29/2024 to 05/27/2024, Auth#[id number].
--- NOTE | 2024-01-24 11:47 | ONC.NURNOTE ---
New chemo start teaching on Udrgrcafwu-Mvsxzftia-Guzvmp reviewed possible side effects of immunotherapy and the chemotherapy, after hours management, ED if fever over 100.4, self care at home, treatment schedule, dietitian consult, reviewed contents of new treatment binder, calling with changes or concerns at home questions addressed consents and DANIEL reviewed and signed recommended claritin to start on Day 9 am before receiving pegfilgrastim injection informed about tendency with low magnesium during cisplatin treatment audiology appt date is pending patient with questions about what medications to take before the port placement- understands to hold his asa advised to check with PCP about oral hypoglycemics on day on surgery
--- NOTE | 2024-01-24 12:00 | ONC.NURNOTE ---
PSDS = 1 eating- early satiety- diabetic- referral to be placed for dietitian pain
[2024-01-27 16:38] LABS: Alpha Fetoprotein Tumor Marker 2 ng/mL (0-9)
[2024-01-28 08:26] LABS: Basophils Percent Auto 0.1 % (0.0-3.0); Eosinophils Percent Auto 0.1 % (0.0-7.0); Hematocrit 30.3 % (37.0-53.0); Hemoglobin* 9.9 gm/dL (13.5-17.5); Immature Granulocytes Pct Auto 0.5 %; Lymphocytes Percent Auto 7.7 % (20-44); Mean Corpuscular HGB Conc 33 gm/dL (32-36); Mean Corpuscular Hemoglobin 30 pg (26-34); Mean Corpuscular Volume 91 fL (80-100); Monocytes Percent Auto 8.8 % (0.0-11.0); Neutrophils Percent Auto 82.8 % (42.0-72.0); Platelet Count* 261 K/uL (140-440); Red Blood Count 3.32 m/uL (4.30-5.90); White Blood Count* 16.28 K/uL (4.50-11.00)
[2024-01-28 08:31] LABS: Slide Review Reflex No
[2024-01-28 08:51] LABS: Albumin* 4.5 g/dL (3.3-5.0); Chloride* 93 mmol/L (96-114); Sodium* 126 mmol/L (135-149)
[2024-01-28 08:53] LABS: Creatinine* 0.7 mg/dL (0.5-1.5); Est. Creatinine Clearance* 115.36; Estimated Glomerular Filt Rate 109 ml/min
[2024-01-28 08:54] LABS: Alanine Aminotransferase* 24 U/L (4-50); Alkaline Phosphatase* 200 U/L (40-150); Anion Gap 11 mEq/L (7-15); Aspartate Amino Transferase* 30 U/L (12-35); Bilirubin Total* 0.6 mg/dL (0.1-1.5); Blood Urea Nitrogen* 17 mg/dL (7-30); Calcium* 9.6 mg/dL (8.4-10.6); Carbon Dioxide* 22 mmol/L (20-32); Glucose* 129 mg/dL (60-115); Total Protein* 8.6 g/dL (6.0-8.3)
[2024-01-28 08:58] VITALS: BP 110/71; PULSE 61; RESP 16; TEMP 35.9; O2SAT 98
[2024-01-28 09:12] LABS: Magnesium* 1.7 mg/dL (1.5-2.6)
[2024-01-28] MEDS: 0.9 % SODIUM CHLORIDE 1000 ml 1,000 ML IV (10:00)
--- NOTE | 2024-01-28 11:21 | ONC.NURNOTE ---
Pt here for cycle 1 infinzi/gemzar/cisplatin. VSS. Na 126, WBC elevated. Discussed labs with Dr. Samayoa who ordered 1 L NS over one hour today and sent prescription for salt tabs to pt's pharmacy to be picked up today and started. Pt given written information on hyponatremia. Pt to return on 01/29/24 at 0800 to recheck labs and possible chemotherapy. Pt verbalized understanding of plan of care.
[2024-01-29 08:32] LABS: Basophils Percent Auto 0.2 % (0.0-3.0); Eosinophils Percent Auto 0.7 % (0.0-7.0); Hematocrit 29.2 % (37.0-53.0); Hemoglobin* 9.4 gm/dL (13.5-17.5); Immature Granulocytes Pct Auto 0.3 %; Lymphocytes Percent Auto 10.8 % (20-44); Mean Corpuscular HGB Conc 32 gm/dL (32-36); Mean Corpuscular Hemoglobin 30 pg (26-34); Mean Corpuscular Volume 93 fL (80-100); Monocytes Percent Auto 10.1 % (0.0-11.0); Neutrophils Percent Auto 77.9 % (42.0-72.0); Platelet Count* 247 K/uL (140-440); RDW Coefficient of Variation % 13.1 % (11.5-15.5); Red Blood Count 3.13 m/uL (4.30-5.90); White Blood Count* 12.03 K/uL (4.50-11.00)
[2024-01-29 08:36] VITALS: BP 102/68; PULSE 65; RESP 18; TEMP 36; O2SAT 98
[2024-01-29 08:37] LABS: Slide Review Reflex No
[2024-01-29 08:53] LABS: Sodium* 129 mmol/L (135-149)
--- NOTE | 2024-01-29 15:11 | ONC.NURNOTE ---
Pt here for chemotherapy, VSS. However, port site significantly more bruised than yesterday. Proposal Rep called surgery and Dr. Bowen came to assess pt. Stat Chest CT ordered, scan done at 1030. Andrés discussed results with pt. Per Dr. Bowen, port is okay to use for treatment and to hold eliquis for 3 days and to use ice to chest. Proposal Rep also discussed results with Dr. Samayoa, she instructed nursing to marking bruising on pt's chest today and tomorrow. Pt will then come in on Saturday02/03/24 for a nurse visit to assess bruising, if bruising improved and not worse, okay for pt to restart eliquis. Per Danita, pt okay for treatment on 01/30/24. Discussed with Danita pt's back pain, she will send script for tramadol to pt's pharmacy. Pt to return to clinic tomorrow for chemotherapy. Pt verbalized understanding of plan of care.
[2024-01-30 08:44] VITALS: BP 102/68; PULSE 66; RESP 16; TEMP 35.6; O2SAT 99
[2024-01-30] MEDS: diphenhydrAMINE 25 MG CAPSULE 50 MG PO ×2 (08:50→08:51)
[2024-01-30] MEDS: ACETAMINOPHEN 325 MG TABLET 650 MG PO (08:51)
[2024-01-30] MEDS: DURVALUMAB 1,500 MG, TUBING PRIMARY 1 EACH, In-line 0.2 micron filter set 1 EACH in 0.9... 280 MG IVPB (09:31)
[2024-01-30] MEDS: MAGNESIUM SULFATE 2 GM, POTASSIUM CHLORIDE 10 MEQ in 0.9 % SODIUM CHLORIDE 1000 ml 1,00... IV (10:40)
[2024-01-30] MEDS: PALONOSETRON 0.25 MG/5 ML inj IV (11:45)
[2024-01-30] MEDS: dexAMETHasone 10 MG in 0.9 % SODIUM CHLORIDE 100 ml 100 ML 404 MG IVPB (11:45)
[2024-01-30] MEDS: FOSAPREPITANT 150 MG inj 150 MG in 0.9 % SODIUM CHLORIDE 250 ml 250 ML 510 MG IVPB (12:07)
--- NOTE | 2024-01-30 16:02 | ONC.NURNOTE ---
Pt here for cycle 1 Imfinzi/Gemzar/Cisplatin. Pt's chest bruising reassessed this morning and Dr. Samayoa updated. Per Danita, okay to restart baby aspirin. Pt will come in tomorrow (01/31/2024) for Faith to reassess his bruising, if bruising does not exceed the markings, we will have patient restart his Eliquis at 2.5mg BID and then he will be reevaluated on Saturday (02/03/24) to see if he can be increased to Eliquis 5mg BID. I spoke to the pt's pharmacist at [facility] and they stated the patient can cut the Eliquis in half over the weekend, so another prescription is not needed at this time. Pt verbalized understanding of plan of care.
[2024-01-31 08:41] VITALS: BP 131/79; PULSE 66; RESP 16; TEMP 36.6; O2SAT 97
--- NOTE | 2024-01-31 08:42 | ONC.NURNOTE ---
Addendum entered by Faith Khalil RN 01/31/24 08:50: Patient given handout on medications as he is questioning whether he started back on Eliquis last night but after reviewing closer he thinks it was the stomach pill he started. Given handout and highlighted Eliquis and instructed him to start back on it but 1/2 of tablet (2.5mg) every 12 hours Reviewed signs of worsening clot/increased bleeding etc and when to go to ER. Original Note: Patient arrived and reports stomach pain is better and he feels pretty good. VSS-Here for recheck of chest bruising post port placement. Reddened area darkening and has decreased parameter especially lower center chest by freckles Area remarked today all around with dots vs dashes
[2024-02-03 08:38] VITALS: BP 102/65; PULSE 61; RESP 16; TEMP 35.9; O2SAT 97
[2024-02-03 08:43] LABS: Sodium* 129 mmol/L (135-149)
--- NOTE | 2024-02-03 09:01 | ONC.NURNOTE ---
Pt here to reaccess bruising and recheck sodium level. Na-!29 and bruising improved, bruising has moved beyond the marking below the sternum approx 1/2 inch. Drawing Tender discussed with Dr. Samayoa lab results and bruising. Per Dr. Samayoa, pt to increase eliquis to 5 mg BID and continue taking 1 salt tab daily, pt encouraged to increase salt in his diet as well. Pt verbalized understanding of plan of care.
[2024-02-06 08:24] LABS: Basophils Percent Auto 0.5 % (0.0-3.0); Hematocrit 26.3 % (37.0-53.0); Hemoglobin* 8.4 gm/dL (13.5-17.5); Immature Granulocytes Pct Auto 0.7 %; Lymphocytes Percent Auto 16.1 % (20-44); Mean Corpuscular HGB Conc 32 gm/dL (32-36); Mean Corpuscular Hemoglobin 29 pg (26-34); Mean Corpuscular Volume 92 fL (80-100); Monocytes Percent Auto 5.9 % (0.0-11.0); Neutrophils Percent Auto 75.8 % (42.0-72.0); Platelet Count* 110 K/uL (140-440); RDW Coefficient of Variation % 13.2 % (11.5-15.5); Red Blood Count 2.86 m/uL (4.30-5.90)
[2024-02-06 08:27] LABS: Slide Review Reflex No
[2024-02-06 08:42] VITALS: BP 112/77; PULSE 59; RESP 16; TEMP 35.9; O2SAT 99
[2024-02-06 08:44] LABS: Chloride* 94 mmol/L (96-114)
[2024-02-06 08:45] LABS: Albumin* 4.2 g/dL (3.3-5.0); Potassium* 4.9 mmol/L (3.6-5.1); Sodium* 129 mmol/L (135-149)
[2024-02-06 08:47] LABS: Anion Gap 9 mEq/L (7-15); Carbon Dioxide* 26 mmol/L (20-32); Creatinine* 0.6 mg/dL (0.5-1.5); Est. Creatinine Clearance* 134.58; Estimated Glomerular Filt Rate 114 ml/min
[2024-02-06 08:48] LABS: Alanine Aminotransferase* 59 U/L (4-50); Alkaline Phosphatase* 196 U/L (40-150); Aspartate Amino Transferase* 42 U/L (12-35); Bilirubin Total* 0.6 mg/dL (0.1-1.5); Blood Urea Nitrogen* 15 mg/dL (7-30); Calcium* 9.1 mg/dL (8.4-10.6); Glucose* 110 mg/dL (60-115); Magnesium* 1.6 mg/dL (1.5-2.6); Total Protein* 7.8 g/dL (6.0-8.3)
[2024-02-06 09:26] VITALS: BMI 39.6
[2024-02-06] MEDS: PALONOSETRON 0.25 MG/5 ML inj IV (09:26)
[2024-02-06] MEDS: dexAMETHasone 4 MG TABLET 10 MG PO (09:27)
[2024-02-06] MEDS: FOSAPREPITANT 150 MG inj 150 MG in 0.9 % SODIUM CHLORIDE 250 ml 250 ML 510 MG IVPB (09:50)
[2024-02-06] MEDS: MAGNESIUM SULFATE 2 GM, POTASSIUM CHLORIDE 10 MEQ in 0.9 % SODIUM CHLORIDE 1000 ml 1,00... IV (10:31)
--- NOTE | 2024-02-06 15:22 | ONC.NURNOTE ---
Patient in clinic today for treatment. His sodium level is still 129 today. Patient reports he is taking his Sodium tablets at home daily. States he only has 3-4 tabs left. RN spoke with Socorro Eduardo and she would like patient to stay on the sodium tablets and have a BMP rechecked next week in patient's off week. She will send a refill of the sodium tablets to the patient's pharmacy of choice. RN attempted to schedule lab for next week prior to patient leaving. He wanted to check his work schedule before committing to a time. Patient is in tomorrow for his Fulphilia injection. Faith MORALES made aware of patient needing to schedule a lab for next week.
[2024-02-07] MEDS: PEGFILGRASTIM-JMDB (Fulphila) 6 MG/0.6 ML SUBCUT (13:28)
--- NOTE | 2024-02-07 14:18 | ONC.NURNOTE ---
Pt here for Hunter today. He states he is feeling well. He is tired, having just woken up for a nap, but denies n/v, s/s infection. DC'd to home ambulatory per self.
[2024-02-19 08:18] LABS: Basophils Percent Auto 0.4 % (0.0-3.0); Eosinophils Percent Auto 0.1 % (0.0-7.0); Hematocrit 26.5 % (37.0-53.0); Hemoglobin* 8.6 gm/dL (13.5-17.5); Immature Granulocytes Pct Auto 7.5 %; Lymphocytes Percent Auto 8.3 % (20-44); Mean Corpuscular HGB Conc 33 gm/dL (32-36); Mean Corpuscular Hemoglobin 30 pg (26-34); Mean Corpuscular Volume 92 fL (80-100); Monocytes Percent Auto 13.2 % (0.0-11.0); Neutrophils Percent Auto 70.5 % (42.0-72.0); Platelet Count* 388 K/uL (140-440); RDW Coefficient of Variation % 16.4 % (11.5-15.5); Red Blood Count 2.87 m/uL (4.30-5.90); White Blood Count* 15.18 K/uL (4.50-11.00)
[2024-02-19 08:25] LABS: Slide Review Reflex Yes
[2024-02-19 08:35] LABS: Albumin* 4.3 g/dL (3.3-5.0)
[2024-02-19 08:36] LABS: Chloride* 93 mmol/L (96-114); Potassium* 4.9 mmol/L (3.6-5.1); Sodium* 127 mmol/L (135-149)
[2024-02-19 08:38] LABS: Anion Gap 11 mEq/L (7-15); Bilirubin Total* 0.6 mg/dL (0.1-1.5); Carbon Dioxide* 23 mmol/L (20-32); Creatinine* 0.7 mg/dL (0.5-1.5); Est. Creatinine Clearance* 115.36; Estimated Glomerular Filt Rate 109 ml/min
[2024-02-19 08:39] LABS: Alanine Aminotransferase* 28 U/L (4-50); Alkaline Phosphatase* 251 U/L (40-150); Aspartate Amino Transferase* 33 U/L (12-35); Blood Urea Nitrogen* 18 mg/dL (7-30); Calcium* 9.5 mg/dL (8.4-10.6); Glucose* 115 mg/dL (60-115); Magnesium* 1.7 mg/dL (1.5-2.6)
[2024-02-19] MEDS: ACETAMINOPHEN 325 MG TABLET 650 MG PO (09:29)
[2024-02-19] MEDS: diphenhydrAMINE 25 MG CAPSULE 50 MG PO (09:30)
[2024-02-19] MEDS: DURVALUMAB 1,500 MG, TUBING PRIMARY 1 EACH, In-line 0.2 micron filter set 1 EACH in 0.9... 280 MG IVPB (10:05)
[2024-02-19] MEDS: MAGNESIUM SULFATE 2 GM, POTASSIUM CHLORIDE 10 MEQ in 0.9 % SODIUM CHLORIDE 1000 ml 1,00... IV (11:12)
[2024-02-19] MEDS: dexAMETHasone 4 MG TABLET 10 MG PO (12:03)
[2024-02-19] MEDS: PALONOSETRON 0.25 MG/5 ML inj IV (12:27)
[2024-02-19] MEDS: FOSAPREPITANT 150 MG inj 150 MG in 0.9 % SODIUM CHLORIDE 250 ml 250 ML 510 MG IVPB (12:36)
[2024-02-19 13:00] LABS: Slide Review Acceptable Review (Acceptable)
[2024-02-21] VITALS (8 sets, daily range): BP systolic 98–112; BP diastolic 64–76; PULSE 64–78; RESP 16; TEMP 35.7–36.2; O2SAT 97–100; BMI 39.6
[2024-02-26 08:12] VITALS: BP 114/74; PULSE 70; RESP 16; TEMP 35.6; O2SAT 100
[2024-02-26 08:29] LABS: Basophils Absolute Auto 0.04 K/uL (0.00-0.30); Basophils Percent Auto 0.8 % (0.0-3.0); Eosinophils Absolute Auto 0.01 K/uL (0.00-0.50); Eosinophils Percent Auto 0.2 % (0.0-7.0); Hematocrit 26.6 % (37.0-53.0); Hemoglobin* 8.6 gm/dL (13.5-17.5); Immature Granulocytes Abs Auto 0.08 K/uL (0.00-0.30); Immature Granulocytes Pct Auto 1.7 %; Lymphocytes Percent Auto 16.2 % (20-44); Mean Corpuscular HGB Conc 32 gm/dL (32-36); Mean Corpuscular Hemoglobin 30 pg (26-34); Mean Corpuscular Volume 93 fL (80-100); Monocytes Percent Auto 10.6 % (0.0-11.0); Neutrophils Absolute Auto 3.39 K/uL (1.7-7.0); Neutrophils Percent Auto 70.5 % (42.0-72.0); Platelet Count* 194 K/uL (140-440); RDW Coefficient of Variation % 15.7 % (11.5-15.5); Red Blood Count 2.86 m/uL (4.30-5.90); White Blood Count* 4.81 K/uL (4.50-11.00)
[2024-02-26 08:31] LABS: Slide Review Reflex No
[2024-02-26 08:44] LABS: Albumin* 4.2 g/dL (3.3-5.0)
[2024-02-26 08:45] LABS: Chloride* 96 mmol/L (96-114); Potassium* 4.3 mmol/L (3.6-5.1); Sodium* 129 mmol/L (135-149)
[2024-02-26 08:47] LABS: Anion Gap 10 mEq/L (7-15); Aspartate Amino Transferase* 35 U/L (12-35); Bilirubin Total* 0.4 mg/dL (0.1-1.5); Carbon Dioxide* 23 mmol/L (20-32); Creatinine* 0.7 mg/dL (0.5-1.5); Est. Creatinine Clearance* 111.48; Estimated Glomerular Filt Rate 109 ml/min; Total Protein* 7.7 g/dL (6.0-8.3)
[2024-02-26 08:48] LABS: Alanine Aminotransferase* 52 U/L (4-50); Alkaline Phosphatase* 180 U/L (40-150); Blood Urea Nitrogen* 17 mg/dL (7-30); Calcium* 9.2 mg/dL (8.4-10.6); Glucose* 150 mg/dL (60-115)
[2024-02-26 09:05] LABS: Magnesium* 1.6 mg/dL (1.5-2.6)
[2024-02-26] MEDS: dexAMETHasone 2 MG TABLET 10 MG PO (09:54)
[2024-02-26] MEDS: PALONOSETRON 0.25 MG/5 ML inj IV (09:56)
[2024-02-26] MEDS: MAGNESIUM SULFATE 2 GM, POTASSIUM CHLORIDE 10 MEQ in 0.9 % SODIUM CHLORIDE 1000 ml 1,00... IV (10:15)
[2024-02-26] MEDS: FOSAPREPITANT 150 MG inj 150 MG in 0.9 % SODIUM CHLORIDE 250 ml 250 ML 510 MG IVPB (11:20)
[2024-02-27 15:08] VITALS: BP 113/74; PULSE 65; RESP 16; TEMP 35.6; O2SAT 100
[2024-02-27] MEDS: PEGFILGRASTIM-JMDB (Fulphila) 6 MG/0.6 ML SUBCUT (15:11)
[2024-02-28 10:44] VITALS: BP 105/67; PULSE 67; RESP 20; O2SAT 99
[2024-02-28 10:46] VITALS: BP 115/70; PULSE 68
[2024-02-28 11:14] LABS: Basophils Percent Auto 0.1 % (0.0-3.0); Eosinophils Percent Auto 0.2 % (0.0-7.0); Hematocrit 25.8 % (37.0-53.0); Hemoglobin* 8.5 gm/dL (13.5-17.5); Immature Granulocytes Pct Auto 0.2 %; Lymphocytes Percent Auto 7.4 % (20-44); Mean Corpuscular HGB Conc 33 gm/dL (32-36); Mean Corpuscular Hemoglobin 31 pg (26-34); Mean Corpuscular Volume 93 fL (80-100); Monocytes Percent Auto 5.5 % (0.0-11.0); Neutrophils Percent Auto 86.6 % (42.0-72.0); Platelet Count* 153 K/uL (140-440); RDW Coefficient of Variation % 16.2 % (11.5-15.5); Red Blood Count 2.78 m/uL (4.30-5.90); White Blood Count* 11.34 K/uL (4.50-11.00)
[2024-02-28 11:17] LABS: Chloride* 96 mmol/L (96-114); Potassium* 4.6 mmol/L (3.6-5.1); Sodium* 128 mmol/L (135-149)
[2024-02-28 11:20] LABS: Anion Gap 9 mEq/L (7-15); Blood Urea Nitrogen* 24 mg/dL (7-30); Calcium* 8.8 mg/dL (8.4-10.6); Carbon Dioxide* 23 mmol/L (20-32); Creatinine* 0.7 mg/dL (0.5-1.5); Est. Creatinine Clearance* 111.48; Estimated Glomerular Filt Rate 109 ml/min; Glucose* 86 mg/dL (60-115)
[2024-02-28 11:30] LABS: Slide Review Reflex No
[2024-02-28 15:07] LABS: Hepatitis B Surface Antigen* Negative (Negative)
[2024-02-28 15:17] LABS: HIV 1/2/P24 Combo Screen* Negative (Negative)
[2024-02-28 15:24] LABS: Hepatitis C Virus Antibody* Negative (Negative)
[2024-03-11 08:00] LABS: Basophils Percent Auto 0.3 % (0.0-3.0); Eosinophils Percent Auto 0.4 % (0.0-7.0); Hematocrit 26.9 % (37.0-53.0); Hemoglobin* 8.7 gm/dL (13.5-17.5); Immature Granulocytes Pct Auto 3.8 %; Lymphocytes Percent Auto 6.8 % (20-44); Mean Corpuscular HGB Conc 32 gm/dL (32-36); Mean Corpuscular Hemoglobin 30 pg (26-34); Mean Corpuscular Volume 94 fL (80-100); Monocytes Percent Auto 8.2 % (0.0-11.0); Neutrophils Percent Auto 80.5 % (42.0-72.0); Platelet Count* 225 K/uL (140-440); RDW Coefficient of Variation % 18.4 % (11.5-15.5); Red Blood Count 2.87 m/uL (4.30-5.90); White Blood Count* 17.83 K/uL (4.50-11.00)
[2024-03-11 08:03] LABS: Slide Review Reflex No
[2024-03-11 08:14] LABS: Albumin* 4.2 g/dL (3.3-5.0); Chloride* 93 mmol/L (96-114); Potassium* 4.5 mmol/L (3.6-5.1); Sodium* 128 mmol/L (135-149)
[2024-03-11 08:16] LABS: Creatinine* 0.7 mg/dL (0.5-1.5); Est. Creatinine Clearance* 111.48; Estimated Glomerular Filt Rate 109 ml/min
[2024-03-11 08:17] LABS: Alanine Aminotransferase* 26 U/L (4-50); Alkaline Phosphatase* 198 U/L (40-150); Anion Gap 12 mEq/L (7-15); Aspartate Amino Transferase* 29 U/L (12-35); Bilirubin Total* 0.5 mg/dL (0.1-1.5); Blood Urea Nitrogen* 22 mg/dL (7-30); Calcium* 9.3 mg/dL (8.4-10.6); Carbon Dioxide* 23 mmol/L (20-32); Glucose* 169 mg/dL (60-115); Magnesium* 1.4 mg/dL (1.5-2.6); Total Protein* 7.7 g/dL (6.0-8.3)
[2024-03-11] MEDS: MAGNESIUM SULFATE 2 GM/50 ML PIGGYBACK IVPB (09:22)
[2024-03-11] MEDS: 0.9 % SODIUM CHLORIDE 500 ML 250 ML IV (09:23)
[2024-03-11] MEDS: ACETAMINOPHEN 325 MG TABLET 650 MG PO (09:42)
[2024-03-11] MEDS: diphenhydrAMINE 25 MG CAPSULE 50 MG PO (09:42)
[2024-03-11] MEDS: DURVALUMAB 1,500 MG, TUBING PRIMARY 1 EACH, In-line 0.2 micron filter set 1 EACH in 0.9... 280 MG IVPB (10:20)
[2024-03-11] MEDS: dexAMETHasone 4 MG TABLET 10 MG PO (11:27)
[2024-03-11] MEDS: PALONOSETRON 0.25 MG/5 ML inj IV (11:29)
[2024-03-11] MEDS: FOSAPREPITANT 150 MG inj 150 MG in 0.9 % SODIUM CHLORIDE 250 ml 250 ML 800 MG IVPB (11:30)
[2024-03-11] MEDS: MAGNESIUM SULFATE 2 GM, POTASSIUM CHLORIDE 10 MEQ in 0.9 % SODIUM CHLORIDE 1000 ml 1,00... IV (12:09)
[2024-03-11] MEDS: HEPARIN 500 UNIT/5 ML SYRINGE IVF (16:16)
[2024-03-11] MEDS: SODIUM CHLORIDE 0.9 % (FLUSH) 10 ML SYRINGE IVF (16:16)
[2024-03-12 08:26] VITALS: BP 115/76; PULSE 67; RESP 16; TEMP 36; O2SAT 97
[2024-03-12 08:43] VITALS: BP 119/75; PULSE 61; RESP 16; TEMP 36; O2SAT 96
[2024-03-12 09:13] VITALS: BP 112/76; PULSE 63; RESP 16; TEMP 35.8; O2SAT 99
[2024-03-12 09:43] VITALS: BP 110/73; PULSE 63; RESP 16; TEMP 36; O2SAT 99
[2024-03-12 10:13] VITALS: BP 118/77; PULSE 66; RESP 18; TEMP 35.9; O2SAT 98
[2024-03-12 10:43] VITALS: BP 128/80; PULSE 64; RESP 16; TEMP 35.8; O2SAT 97
[2024-03-13 21:02] LABS: Cancer Antigen-GI (CA 19-9) 84 U/mL (<=35)
--- NOTE | 2024-03-17 13:48 | ONC.NURNOTE ---
Attending physicians statement of critical illness (Voya) completed and signed by provider per patient request- form was emailed to Mika and he will submit electronically copy placed in chart and copy to be given to Mika
[2024-03-18 08:11] VITALS: BP 114/79; PULSE 106; RESP 16; TEMP 35.8; O2SAT 98
[2024-03-18 08:24] LABS: Basophils Absolute Auto 0.04 K/uL (0.00-0.30); Basophils Percent Auto 0.6 % (0.0-3.0); Eosinophils Absolute Auto 0.01 K/uL (0.00-0.50); Eosinophils Percent Auto 0.2 % (0.0-7.0); Hematocrit 27.8 % (37.0-53.0); Hemoglobin* 9.1 gm/dL (13.5-17.5); Immature Granulocytes Abs Auto 0.14 K/uL (0.00-0.30); Immature Granulocytes Pct Auto 2.2 %; Lymphocytes Percent Auto 15.1 % (20-44); Mean Corpuscular HGB Conc 33 gm/dL (32-36); Mean Corpuscular Hemoglobin 30 pg (26-34); Mean Corpuscular Volume 93 fL (80-100); Monocytes Percent Auto 7.7 % (0.0-11.0); Neutrophils Percent Auto 74.2 % (42.0-72.0); Platelet Count* 146 K/uL (140-440); RDW Coefficient of Variation % 18.2 % (11.5-15.5); White Blood Count* 6.47 K/uL (4.50-11.00)
[2024-03-18 08:27] LABS: Slide Review Reflex No
[2024-03-18 08:36] LABS: Albumin* 4.2 g/dL (3.3-5.0); Chloride* 93 mmol/L (96-114); Sodium* 128 mmol/L (135-149)
[2024-03-18 08:37] LABS: Potassium* 4.2 mmol/L (3.6-5.1)
[2024-03-18 08:39] LABS: Alanine Aminotransferase* 53 U/L (4-50); Alkaline Phosphatase* 149 U/L (40-150); Anion Gap 12 mEq/L (7-15); Aspartate Amino Transferase* 36 U/L (12-35); Bilirubin Total* 0.6 mg/dL (0.1-1.5); Blood Urea Nitrogen* 28 mg/dL (7-30); Calcium* 9.4 mg/dL (8.4-10.6); Carbon Dioxide* 23 mmol/L (20-32); Creatinine* 0.7 mg/dL (0.5-1.5); Est. Creatinine Clearance* 111.48; Estimated Glomerular Filt Rate 109 ml/min; Glucose* 153 mg/dL (60-115); Total Protein* 7.4 g/dL (6.0-8.3)
[2024-03-18 08:40] LABS: Magnesium* 1.5 mg/dL (1.5-2.6)
[2024-03-18] MEDS: MAGNESIUM SULFATE 2 GM, POTASSIUM CHLORIDE 10 MEQ in 0.9 % SODIUM CHLORIDE 1000 ml 1,00... IV (09:34)
[2024-03-18] MEDS: PALONOSETRON 0.25 MG/5 ML inj IV (10:45)
[2024-03-18] MEDS: dexAMETHasone 4 MG TABLET 10 MG PO (10:45)
[2024-03-18] MEDS: FOSAPREPITANT 150 MG inj 150 MG in 0.9 % SODIUM CHLORIDE 250 ml 250 ML 750 MG IVPB (10:45)
[2024-03-18] MEDS: HEPARIN 500 UNIT/5 ML SYRINGE IVF (13:51)
[2024-03-18] MEDS: SODIUM CHLORIDE 0.9 % (FLUSH) 10 ML SYRINGE IVF (13:51)
[2024-03-19] MEDS: PEGFILGRASTIM-JMDB (Fulphila) 6 MG/0.6 ML SUBCUT (13:52)
[2024-03-19 14:00] VITALS: BP 124/72; PULSE 89; RESP 16; TEMP 35.7; O2SAT 100
[2024-04-01] VITALS (10 sets, daily range): BP systolic 106–134; BP diastolic 71–87; PULSE 72–105; RESP 16–18; TEMP 36.1–36.3; O2SAT 95–100
[2024-04-01 07:57] LABS: Basophils Percent Auto 0.4 % (0.0-3.0); Eosinophils Percent Auto 0.5 % (0.0-7.0); Hematocrit 23.8 % (37.0-53.0); Immature Granulocytes Pct Auto 2.8 %; Lymphocytes Percent Auto 7.4 % (20-44); Mean Corpuscular HGB Conc 32 gm/dL (32-36); Mean Corpuscular Hemoglobin 31 pg (26-34); Mean Corpuscular Volume 96 fL (80-100); Monocytes Percent Auto 8.4 % (0.0-11.0); Neutrophils Percent Auto 80.5 % (42.0-72.0); Platelet Count* 214 K/uL (140-440); Red Blood Count 2.48 m/uL (4.30-5.90); White Blood Count* 12.69 K/uL (4.50-11.00)
[2024-04-01 08:02] LABS: Hemoglobin* 7.7 gm/dL (13.5-17.5); Slide Review Reflex No
[2024-04-01 08:16] LABS: Chloride* 97 mmol/L (96-114); Potassium* 4.5 mmol/L (3.6-5.1); Sodium* 130 mmol/L (135-149)
[2024-04-01 08:18] LABS: Anion Gap 11 mEq/L (7-15); Aspartate Amino Transferase* 43 U/L (12-35); Bilirubin Total* 0.6 mg/dL (0.1-1.5); Carbon Dioxide* 22 mmol/L (20-32); Creatinine* 0.7 mg/dL (0.5-1.5); Est. Creatinine Clearance* 111.48; Estimated Glomerular Filt Rate 109 ml/min
[2024-04-01 08:19] LABS: Alanine Aminotransferase* 36 U/L (4-50); Alkaline Phosphatase* 306 U/L (40-150); Blood Urea Nitrogen* 14 mg/dL (7-30); Calcium* 9.2 mg/dL (8.4-10.6); Glucose* 165 mg/dL (60-115); Magnesium* 1.4 mg/dL (1.5-2.6); Total Protein* 7.2 g/dL (6.0-8.3)
[2024-04-01] MEDS: SODIUM CHLORIDE 0.9 % (FLUSH) 10 ML SYRINGE IVF ×2 (09:34→15:55)
[2024-04-01] MEDS: MAGNESIUM IV 2 GM/50 ML PIGGYBACK IVPB (09:34)
[2024-04-01] MEDS: HEPARIN 500 UNIT/5 ML SYRINGE IVF (15:55)
--- NOTE | 2024-04-03 13:39 | ONC.NURNOTE ---
Addendum entered by Sofi Hansen RN 04/09/24 13:13: [facility] approved 03/09/24-04/08/25 9 mg dosing Pemigatinib BCBS [id number] [phone] However [facility] is not the approved Specialty Pharmacy They will try to get an override and will contact this information with the override approval or the preferred specialty pharmacy there are only 4 pharmacies with dispensing capacity for this medication Original Note: New RX Pemigatinib at [facility] required clinicals faxed to [phone] [facility] will start the PA patient called with update
[2024-04-06 15:29] LABS: Fecal Occult Blood* Negative (Negative)
--- NOTE | 2024-04-16 10:17 | ONC.NURNOTE ---
Pemazyre/pemigatinib to be delivered to patient on Saturday plans to come in Saturday am for baseline labs and possible TXM patient will start Pemazyre once lab is reviewed and pending ophthalmology clearance
--- NOTE | 2024-04-17 16:17 | ONC.NURNOTE ---
editorial writer spoke with Mika earlier today follow up on next appt tooth extraction of 2 molars done on 04/13/24- he finishes the antibiotics on Saturday and has another week of rinses after that. Reports no concerns with the tooth extractions, eating drinking well Mika mentioned during this call that his pain medication has not been helpful and he has 4 pills left states that the pain is in various locations around skeletal- his back, shoulder blades and hips- reports as a continuous pain When he doesn't use the pain medication he says laying down and resting for an hour is helpful, also recommended heat- but he does not have a heating pad at home Recommended adding 1 XS tylenol to the Tramadol Follow up scheduled on Saturday with [facility]- along with lab Mika states he can wait until Saturday for refill
[2024-04-20] MEDS: HEPARIN 500 UNIT/5 ML SYRINGE IVF (08:20)
[2024-04-20] MEDS: SODIUM CHLORIDE 0.9 % (FLUSH) 10 ML SYRINGE IVF (08:20)
[2024-04-20 08:36] LABS: Basophils Absolute Auto 0.04 K/uL (0.00-0.30); Basophils Percent Auto 0.5 % (0.0-3.0); Eosinophils Percent Auto 1.3 % (0.0-7.0); Hematocrit 25.2 % (37.0-53.0); Immature Granulocytes Abs Auto 0.04 K/uL (0.00-0.30); Immature Granulocytes Pct Auto 0.5 %; Lymphocytes Percent Auto 10.5 % (20-44); Mean Corpuscular HGB Conc 32 gm/dL (32-36); Mean Corpuscular Hemoglobin 30 pg (26-34); Mean Corpuscular Volume 96 fL (80-100); Monocytes Percent Auto 10.8 % (0.0-11.0); Neutrophils Percent Auto 76.4 % (42.0-72.0); Platelet Count* 158 K/uL (140-440); RDW Coefficient of Variation % 16.7 % (11.5-15.5); Red Blood Count 2.64 m/uL (4.30-5.90); White Blood Count* 7.72 K/uL (4.50-11.00)
[2024-04-20 08:42] LABS: Slide Review Reflex No
[2024-04-20 08:53] LABS: Albumin* 3.8 g/dL (3.3-5.0); Chloride* 99 mmol/L (96-114)
[2024-04-20 08:54] LABS: Potassium* 4.3 mmol/L (3.6-5.1); Sodium* 129 mmol/L (135-149)
[2024-04-20 08:56] LABS: Alanine Aminotransferase* 22 U/L (4-50); Alkaline Phosphatase* 158 U/L (40-150); Anion Gap 6 mEq/L (7-15); Aspartate Amino Transferase* 35 U/L (12-35); Bilirubin Total* 0.7 mg/dL (0.1-1.5); Carbon Dioxide* 24 mmol/L (20-32); Creatinine* 0.6 mg/dL (0.5-1.5); Est. Creatinine Clearance* 130.06; Estimated Glomerular Filt Rate 114 ml/min; Total Protein* 7.1 g/dL (6.0-8.3)
[2024-04-20 08:57] LABS: Blood Urea Nitrogen* 12 mg/dL (7-30); Calcium* 8.8 mg/dL (8.4-10.6); Glucose* 110 mg/dL (60-115); Phosphorus* 3.9 mg/dL (2.5-4.5)
[2024-04-20 18:26] LABS: Magnesium* 1.7 mg/dL (1.5-2.6)
--- NOTE | 2024-04-27 10:09 | ONC.NURNOTE ---
Phone call to Dr De Souza (dentist)- he will fax a letter of clearance for Zometa
--- NOTE | 2024-04-27 11:05 | ONC.NURNOTE ---
new start pemigatinib- tolerance check in reports no new issues that he can attribute to new medications- reviewed list of possible side effects- denies any new concerns regarding pain reports as a 1 now while resting in bed yesterday pain at a 7 at [facility] and couldnt find a comfortable chair moving bowels no issues taking 3-6 oxycodone a day that is helps pain around shoulder blades, but not as helpful with pain around rib cage updated on dental clearance and lifting restictions waiting to hear from rad onc
--- NOTE | 2024-05-01 09:34 | ONC.NURNOTE ---
Mika started XRT today X 5 days he is here to discuss refills for oxycodone last taken around 0700 one tab with one XS Tylenol rates pain at a 3-4 now, although he is most comfortable laying down next appts reviewed denies nausea, diarrhea or constipation, stomatitis, nails intact, fever, change in breathing, lightheadedness lifting restriction for work was provided next appts discussed
--- NOTE | 2024-05-01 10:09 | ONC.NURNOTE ---
Ashley with [facility] called requesting more information about pt's diagnosis for [facility] for processing recent oral biopsy, for determining staining. Faxed rad onc consult, recent med onc note, last 3 scans and original liver biopsy for diagnosis of cholangiocarcinoma to: [facility]: F: [phone] [facility]: F: [phone]
--- NOTE | 2024-05-01 10:29 | URNOTE ---
Request received for authorization for Zoledronic Acid (Zometa) (J3489). No PA required per [facility] Ref#[id number].
[2024-05-06 09:08] LABS: Basophils Absolute Auto 0.03 K/uL (0.00-0.30); Basophils Percent Auto 0.5 % (0.0-3.0); Eosinophils Absolute Auto 0.08 K/uL (0.00-0.50); Eosinophils Percent Auto 1.3 % (0.0-7.0); Hematocrit 27.6 % (37.0-53.0); Hemoglobin* 8.9 gm/dL (13.5-17.5); Immature Granulocytes Abs Auto 0.01 K/uL (0.00-0.30); Immature Granulocytes Pct Auto 0.2 %; Mean Corpuscular HGB Conc 32 gm/dL (32-36); Mean Corpuscular Hemoglobin 30 pg (26-34); Mean Corpuscular Volume 92 fL (80-100); Monocytes Percent Auto 8.4 % (0.0-11.0); Neutrophils Percent Auto 83.6 % (42.0-72.0); Platelet Count* 158 K/uL (140-440); RDW Coefficient of Variation % 15.2 % (11.5-15.5); Red Blood Count 3.01 m/uL (4.30-5.90); White Blood Count* 6.21 K/uL (4.50-11.00)
[2024-05-06 09:11] LABS: Slide Review Reflex No
[2024-05-06 09:32] LABS: Albumin* 4.2 g/dL (3.3-5.0); Chloride* 96 mmol/L (96-114); Potassium* 4.2 mmol/L (3.6-5.1); Sodium* 131 mmol/L (135-149)
[2024-05-06 09:35] LABS: Alanine Aminotransferase* 15 U/L (4-50); Alkaline Phosphatase* 148 U/L (40-150); Anion Gap 13 mEq/L (7-15); Aspartate Amino Transferase* 19 U/L (12-35); Bilirubin Total* 0.7 mg/dL (0.1-1.5); Blood Urea Nitrogen* 11 mg/dL (7-30); Carbon Dioxide* 22 mmol/L (20-32); Creatinine* 0.9 mg/dL (0.5-1.5); Est. Creatinine Clearance* 89.72; Estimated Glomerular Filt Rate 101 ml/min; Glucose* 160 mg/dL (60-115); Total Protein* 7.6 g/dL (6.0-8.3)
[2024-05-06 09:36] LABS: Calcium* 9.1 mg/dL (8.4-10.6)
[2024-05-06 09:37] LABS: Phosphorus* 6.5 mg/dL (2.5-4.5)
[2024-05-06] MEDS: SODIUM CHLORIDE 0.9 % (FLUSH) 10 ML SYRINGE IVF (10:14)
[2024-05-06] MEDS: HEPARIN 500 UNIT/5 ML SYRINGE IVF (10:14)
--- NOTE | 2024-05-12 15:55 | ONC.NURNOTE ---
Patient called today about a pain he is having, he reports a few months ago he strained a muscle in his chest/sternum area and he feels like it is taking longer to heal. Patient asked with all of his treatment if this could be a reason it is taking longer to get better. RN explained that when chemo is given it can knock the bodies ability to fight things and heal down. Patient reports pain is not very bothersome and his pain medications help. He plans to address it at his next MD appt next week.
--- NOTE | 2024-05-18 11:42 | ONC.NURNOTE ---
Late Entry: on 05/06/24 Mika received written information on following a low phosphate diet with instructions per Dr Samayoa to finish this first cycle of pemazyre on 05/07 (day 14) and then to hold on restarting until he sees Dr Samayoa on 05/19 with lab cycle is 14 days on and 7 days off
[2024-05-19 08:59] LABS: Basophils Absolute Auto 0.03 K/uL (0.00-0.30); Basophils Percent Auto 0.6 % (0.0-3.0); Hematocrit 28.4 % (37.0-53.0); Hemoglobin* 8.9 gm/dL (13.5-17.5); Immature Granulocytes Abs Auto 0.01 K/uL (0.00-0.30); Immature Granulocytes Pct Auto 0.2 %; Lymphocytes Percent Auto 6.8 % (20-44); Mean Corpuscular HGB Conc 31 gm/dL (32-36); Mean Corpuscular Hemoglobin 29 pg (26-34); Mean Corpuscular Volume 93 fL (80-100); Monocytes Percent Auto 11.4 % (0.0-11.0); Platelet Count* 117 K/uL (140-440); RDW Coefficient of Variation % 14.9 % (11.5-15.5); Red Blood Count 3.07 m/uL (4.30-5.90); White Blood Count* 4.98 K/uL (4.50-11.00)
[2024-05-19 09:13] LABS: Chloride* 99 mmol/L (96-114); Sodium* 132 mmol/L (135-149)
[2024-05-19 09:16] LABS: Alanine Aminotransferase* 13 U/L (4-50); Alkaline Phosphatase* 116 U/L (40-150); Anion Gap 10 mEq/L (7-15); Aspartate Amino Transferase* 19 U/L (12-35); Bilirubin Total* 0.6 mg/dL (0.1-1.5); Blood Urea Nitrogen* 10 mg/dL (7-30); Carbon Dioxide* 23 mmol/L (20-32); Creatinine* 0.6 mg/dL (0.5-1.5); Est. Creatinine Clearance* 134.58; Estimated Glomerular Filt Rate 114 ml/min; Glucose* 143 mg/dL (60-115); Total Protein* 7.3 g/dL (6.0-8.3)
[2024-05-19 09:17] LABS: Calcium* 9.1 mg/dL (8.4-10.6); Phosphorus* 3.7 mg/dL (2.5-4.5); Slide Review Reflex No
[2024-05-19] MEDS: 0.9 % SODIUM CHLORIDE 1000 ml 1,000 ML IV (10:39)
[2024-05-19] MEDS: MAG HYDROX/ALUMINUM HYD/SIMETH 30 ML ORAL.SUSP 15 ML PO (10:39)
[2024-05-19] MEDS: dexAMETHasone 12 MG in 0.9 % SODIUM CHLORIDE 100 ml 100 ML 404.8 MG IVPB (10:39)
--- NOTE | 2024-05-19 11:23 | ONC.NURNOTE ---
Patient re-evaluated after maalox adminstered. Patient stated It made my stomach feel crampy and no change in the pain in my chest, but I am doing alright. was notified of this.
[2024-05-19 11:43] VITALS: BP 109/73; PULSE 92; RESP 16; O2SAT 98
[2024-05-19] MEDS: SODIUM CHLORIDE 0.9 % (FLUSH) 10 ML SYRINGE IVF (11:43)
[2024-05-19] MEDS: HEPARIN 500 UNIT/5 ML SYRINGE IVF (11:43)
--- NOTE | 2024-05-20 11:51 | ONC.NURNOTE ---
patient called [employer] and set up delivery to restart Pemazyre on 05/22/24 next appts reviewed- lab and MD on 06/08 comprehensive optical appts with Emerson Martinez 06/22/24 08/12/24September date is pending then Q 3mths optical exam
[2024-06-02 14:22] VITALS: BP 102/63; PULSE 98; RESP 18; TEMP 35.9; O2SAT 97
[2024-06-02 14:28] VITALS: BP 96/64; PULSE 93; RESP 17; TEMP 36.5; O2SAT 97
[2024-06-02 15:10] VITALS: BP 92/61; PULSE 90; RESP 20; TEMP 36.2; O2SAT 98
[2024-06-02 15:39] VITALS: BP 102/67; PULSE 80; RESP 16; TEMP 36.1; O2SAT 94
--- NOTE | 2024-06-02 16:07 | ONC.NURNOTE ---
Report given to Thelma MORALES on [facility]. Pt transferred at 1605 for remainder of blood transfusion and 1 hour observation. Pt alert and ambulatory. See Socorro Adair APRN note from visit today.
[2024-06-02 16:15] VITALS: BP 112/76; PULSE 87; RESP 16; TEMP 36.6; O2SAT 97
[2024-06-02] MEDS: HEPARIN 500 UNIT/5 ML SYRINGE IVF (16:52)
[2024-06-02] MEDS: SODIUM CHLORIDE 0.9 % (FLUSH) 10 ML SYRINGE IVF (16:52)
[2024-06-02 17:15] VITALS: BP 107/74; PULSE 76; RESP 16; TEMP 36.7; O2SAT 99
--- NOTE | 2024-06-02 17:55 | PC.NURSE ---
Patient to 243, blood transfusion completed at 1615. No s/s of transfusion reaction. Patient discharged home at 1715 with all personal belongings. Port flushed with saline and heparin and de-accessed prior to discharge.
--- NOTE | 2024-06-04 10:35 | ONC.NURNOTE ---
Addendum entered by Dalia Villarreal RN 06/04/24 10:55: Pt instructed to call Saturday afternoon with update and pain control status prior to the weekend in case doses need to be changed. Pt verbalized understanding of plan of care. Original Note: Pt called this am stating the Morphine extended release is not helping and he had to take Oxycodone 10mg PO at 0200 and 0800 this am. Pt started the Morphine last night at 8pm and took again this am at 0800. Rac Specialist explained to pt it will take some time for the Morphine to fully become effective and it is okay to take the oxycodone on an as needed basis. Rac Specialist called Radiology to see if MRI will be scheduled soon, they are working on this and may not be available until mid next week. Pt denies any new neurological symptoms such as leg weakness, pain, incontinence. Socorro Eduardo APRN updated.
--- NOTE | 2024-06-19 15:38 | ONC.NURNOTE ---
Patient called today with an update on how he is feeling. Patient reports that his pain is pretty good in the morning, as the day goes on it gets up to around a 5 in his shoulder blades. He does have pain in his sternum but only when he coughs or talks. He was advised to put Aspercreme on his calves. He reports that pain is his calves goes away almost instantly after he applies the cream and that the swelling is going down. He also reports that the redness and purple areas on his calves are improving. Updated him that Socorro Eduardo APRN sent in a new Fentanyl patch prescription for him and advised him that they well be the 50 mcg patches. Discussed with him that when he changes his patch to only use 1 patch (currently using 2- 25 mcg patches) He verbalized understanding. He is scheduled in [place] at 1 pm, he will call back with the results of that appt. Patient placed on Socorro's schedule on 06/25 at 2:30. Advised Mika to call before that appt of anything came up. He verbalized understanding and is agreeable to the plan.
[2024-06-25 15:27] LABS: Basophils Percent Auto 0.3 % (0.0-3.0); Eosinophils Percent Auto 2.6 % (0.0-7.0); Hematocrit 22.3 % (37.0-53.0); Immature Granulocytes Pct Auto 0.3 %; Mean Corpuscular HGB Conc 31 gm/dL (32-36); Mean Corpuscular Hemoglobin 27 pg (26-34); Mean Corpuscular Volume 86 fL (80-100); Monocytes Percent Auto 15.2 % (0.0-11.0); Neutrophils Percent Auto 73.6 % (42.0-72.0); Platelet Count* 124 K/uL (140-440); RDW Coefficient of Variation % 15.5 % (11.5-15.5); Red Blood Count 2.58 m/uL (4.30-5.90); White Blood Count* 3.48 K/uL (4.50-11.00)
[2024-06-25 15:43] LABS: Hemoglobin* 6.9 gm/dL (13.5-17.5)
[2024-06-25 15:44] LABS: Slide Review Reflex No
[2024-06-26] VITALS (8 sets, daily range): BP systolic 91–134; BP diastolic 41–80; PULSE 72–95; RESP 14–20; TEMP 36.2–36.9; O2SAT 96–99
--- NOTE | 2024-06-26 13:19 | ONC.NURNOTE ---
Pt here for blood transfusion; tolerated well. 1 hr after completion of transfusion pt noted feeling cold. He had recently been up to [place] and had taken his blankets off. VSS, afeb (T 98.4). Replaced with fresh warm blanket and observed pt for additional 15 min. He denies shaking chills, itchiness, rash, chest or back pain or other s/s reaction. Pt improved after 15 min. VSS, afeb again at 98.4. Pt DC'd to home ambulatory in the care of his sister. Reviewed s/s reaction and to be seen in ED if symptoms arise; pt and sister verbalize.
--- NOTE | 2024-06-29 08:41 | ONC.NURNOTE ---
Patient called and states that after his transfusion on Saturday, he ended up in the ER with increased pain. They gave him some IV medication and discussed increasing oxycodone. He notes that he still has the 50mcg patch on, but is now taking 10mg oxycodone every 4 hours, even through the night. His current pain level is 2/10. Looking through the note, his hemoglobin was 6.9 in the ER following the blood transfusion. [facility] is requesting that patient come in for CBC recheck. Patient has surgery planned for Saturday, and she would like to see CBC improved prior to this.
[2024-06-29 09:39] LABS: Basophils Absolute Auto 0.02 K/uL (0.00-0.30); Basophils Percent Auto 0.3 % (0.0-3.0); Eosinophils Absolute Auto 0.12 K/uL (0.00-0.50); Hematocrit 26.2 % (37.0-53.0); Hemoglobin* 8.2 gm/dL (13.5-17.5); Immature Granulocytes Abs Auto 0.04 K/uL (0.00-0.30); Immature Granulocytes Pct Auto 0.7 %; Lymphocytes Percent Auto 5.5 % (20-44); Mean Corpuscular HGB Conc 31 gm/dL (32-36); Mean Corpuscular Hemoglobin 27 pg (26-34); Mean Corpuscular Volume 86 fL (80-100); Monocytes Percent Auto 13.2 % (0.0-11.0); Neutrophils Percent Auto 78.3 % (42.0-72.0); Platelet Count* 187 K/uL (140-440); RDW Coefficient of Variation % 15.7 % (11.5-15.5); Red Blood Count 3.04 m/uL (4.30-5.90); Slide Review Reflex No; White Blood Count* 6.15 K/uL (4.50-11.00)
[2024-06-29 10:06] VITALS: BP 105/64; PULSE 69; RESP 18; TEMP 35.6; O2SAT 99
[2024-06-29] MEDS: SODIUM CHLORIDE 0.9 % (FLUSH) 10 ML SYRINGE IVF (10:35)
[2024-06-29] MEDS: HEPARIN 500 UNIT/5 ML SYRINGE IVF (10:35)
--- NOTE | 2024-07-03 08:18 | URNOTE ---
Request received for authorization for Iron Dextran (InFed) ([id number]). Prior authorization is not required as services are based on medical necessity and guidelines. Per RepNory Arechiga Ref#[id number].
[2024-07-03 11:02] VITALS: BP 106/72; PULSE 68; RESP 16; TEMP 36.6; O2SAT 97
[2024-07-03 11:19] LABS: Basophils Absolute Auto 0.02 K/uL (0.00-0.30); Basophils Percent Auto 0.2 % (0.0-3.0); Eosinophils Absolute Auto 0.08 K/uL (0.00-0.50); Immature Granulocytes Abs Auto 0.05 K/uL (0.00-0.30); Immature Granulocytes Pct Auto 0.6 %; Lymphocytes Percent Auto 5.2 % (20-44); Mean Corpuscular HGB Conc 31 gm/dL (32-36); Mean Corpuscular Hemoglobin 27 pg (26-34); Mean Corpuscular Volume 87 fL (80-100); Monocytes Percent Auto 13.5 % (0.0-11.0); Neutrophils Percent Auto 79.5 % (42.0-72.0); Platelet Count* 165 K/uL (140-440); RDW Coefficient of Variation % 16.3 % (11.5-15.5); Red Blood Count 2.88 m/uL (4.30-5.90)
[2024-07-03 11:31] LABS: Hemoglobin* 7.8 gm/dL (13.5-17.5); Slide Review Reflex No
[2024-07-03 12:11] VITALS: BP 97/60; PULSE 62; RESP 16; TEMP 36.4; O2SAT 96
[2024-07-03] MEDS: IRON DEXTRAN COMPLEX 25 MG in 0.9 % SODIUM CHLORIDE 100 ml 100 ML 402 MG IVPB (12:15)
[2024-07-03 12:40] VITALS: BP 98/62; PULSE 64; RESP 16; TEMP 36.4; O2SAT 96
[2024-07-03 13:34] VITALS: BP 101/69; PULSE 66; RESP 16; TEMP 36.6; O2SAT 98
[2024-07-03] MEDS: IRON DEXTRAN COMPLEX 975 MG in 0.9 % SODIUM CHLORIDE 250 ml 250 ML 269.5 MG IVPB (13:37)
[2024-07-03 14:46] VITALS: BP 95/55; PULSE 68; O2SAT 96
[2024-07-03 15:18] VITALS: BP 100/52; PULSE 66; RESP 16; TEMP 36.6; O2SAT 97
[2024-07-06] MEDS: HEPARIN 500 UNIT/5 ML SYRINGE IVF (12:13)
[2024-07-06] MEDS: SODIUM CHLORIDE 0.9 % (FLUSH) 10 ML SYRINGE IVF (12:13)
[2024-07-06 12:23] LABS: Basophils Absolute Auto 0.01 K/uL (0.00-0.30); Basophils Percent Auto 0.2 % (0.0-3.0); Eosinophils Absolute Auto 0.05 K/uL (0.00-0.50); Eosinophils Percent Auto 0.9 % (0.0-7.0); Hematocrit 24.3 % (37.0-53.0); Immature Granulocytes Abs Auto 0.03 K/uL (0.00-0.30); Immature Granulocytes Pct Auto 0.5 %; Lymphocytes Percent Auto 5.2 % (20-44); Mean Corpuscular HGB Conc 31 gm/dL (32-36); Mean Corpuscular Hemoglobin 27 pg (26-34); Mean Corpuscular Volume 87 fL (80-100); Neutrophils Percent Auto 78.2 % (42.0-72.0); Platelet Count* 112 K/uL (140-440); RDW Coefficient of Variation % 17.2 % (11.5-15.5); Red Blood Count 2.78 m/uL (4.30-5.90)
[2024-07-06 12:39] LABS: Albumin* 3.8 g/dL (3.3-5.0)
[2024-07-06 12:40] LABS: Chloride* 97 mmol/L (96-114); Potassium* 4.2 mmol/L (3.6-5.1); Sodium* 131 mmol/L (135-149)
[2024-07-06 12:42] LABS: Alkaline Phosphatase* 217 U/L (40-150); Anion Gap 12 mEq/L (7-15); Aspartate Amino Transferase* 21 U/L (12-35); Bilirubin Total* 0.7 mg/dL (0.1-1.5); Blood Urea Nitrogen* 9 mg/dL (7-30); Carbon Dioxide* 22 mmol/L (20-32); Creatinine* 0.6 mg/dL (0.5-1.5); Est. Creatinine Clearance* 130.06; Estimated Glomerular Filt Rate 114 ml/min; Total Protein* 7.3 g/dL (6.0-8.3)
[2024-07-06 12:43] LABS: Alanine Aminotransferase* 18 U/L (4-50); Calcium* 8.7 mg/dL (8.4-10.6); Glucose* 113 mg/dL (60-115)
[2024-07-06 12:45] LABS: Hemoglobin* 7.5 gm/dL (13.5-17.5); Slide Review Reflex No
[2024-07-08 09:47] VITALS: BP 125/80; PULSE 90; RESP 18; TEMP 36.6; O2SAT 97
[2024-07-08 10:07] VITALS: BP 115/76; PULSE 85; RESP 18; TEMP 36; O2SAT 98
[2024-07-08 10:40] VITALS: BP 115/77; PULSE 83; RESP 18; TEMP 36.5; O2SAT 97
[2024-07-08 11:10] VITALS: BP 112/77; PULSE 96; RESP 16; TEMP 36.7; O2SAT 97
[2024-07-08 11:35] VITALS: BP 128/82; PULSE 91; RESP 14; TEMP 36.2; O2SAT 99
[2024-07-08 12:00] VITALS: BP 123/79; PULSE 86; RESP 16; TEMP 36.3; O2SAT 97
[2024-07-08 17:34] LABS: Cancer Antigen-GI (CA 19-9) 24 U/mL (<=35)
== END 2024-07-18 23:59 | disposition home or self-care (01) ==
LOC: CCIC 09:00
PROVIDERS: Clinical Nurse Specialist; PCP Family Medicine; Referring Provider Family Medicine; Visit Provider Internal Medicine Hematology & Oncology
DX: C22.1 Intrahepatic bile duct carcinoma (principal); C79.51 Secondary malignant neoplasm of bone; D63.0 Anemia in neoplastic disease
CPT/HCPCS: 36415; 36430; 36591; 80048; 80053; 82105; 82270; 82378; 82784; 83520; 83735; 84100; 84155; 84165; 84295; 84443; 85025; 85610; 86301; 86334; 86703; 86803; 86850; 86900; 86901; 86922; 87340; 96360; 96361; 96365; 96366; 96367; 96372; 96374; 96375; 96376; 96413; 96415; 96417; 97802; 97803; 99202; 99205; 99211; 99214; 99215; G0463; A9270; J1100; J1453; J1642; J1750; J2469; J3475; J3480; J7030; J7050; J9060; J9173; J9201; P9016; Q5108

== ENCOUNTER 2024-07-30 09:30 | Outpatient (RCR) | payer BC, SELFPAY ==
[2024-07-27 14:33] LABS: Basophils Percent Auto 0.5 % (0.0-3.0); Eosinophils Percent Auto 1.4 % (0.0-7.0); Hematocrit 23.8 % (37.0-53.0); Immature Granulocytes Pct Auto 0.7 %; Lymphocytes Percent Auto 6.4 % (20-44); Mean Corpuscular HGB Conc 31 gm/dL (32-36); Mean Corpuscular Hemoglobin 27 pg (26-34); Mean Corpuscular Volume 88 fL (80-100); Monocytes Percent Auto 13.9 % (0.0-11.0); Neutrophils Percent Auto 77.1 % (42.0-72.0); Platelet Count* 111 K/uL (140-440); RDW Coefficient of Variation % 17.1 % (11.5-15.5); Red Blood Count 2.71 m/uL (4.30-5.90); White Blood Count* 4.38 K/uL (4.50-11.00)
[2024-07-27 14:39] LABS: Hemoglobin* 7.4 gm/dL (13.5-17.5)
[2024-07-27 14:40] LABS: Slide Review Reflex No
[2024-07-27 14:44] LABS: Albumin* 4.1 g/dL (3.3-5.0); Chloride* 94 mmol/L (96-114); Sodium* 130 mmol/L (135-149)
[2024-07-27 14:47] LABS: Alanine Aminotransferase* 27 U/L (4-50); Alkaline Phosphatase* 265 U/L (40-150); Anion Gap 11 mEq/L (7-15); Aspartate Amino Transferase* 40 U/L (12-35); Bilirubin Total* 0.7 mg/dL (0.1-1.5); Blood Urea Nitrogen* 17 mg/dL (7-30); Carbon Dioxide* 25 mmol/L (20-32); Creatinine* 0.7 mg/dL (0.5-1.5); Est. Creatinine Clearance* 111.48; Estimated Glomerular Filt Rate 109 ml/min; Glucose* 138 mg/dL (60-115); Total Protein* 7.5 g/dL (6.0-8.3)
[2024-07-27] MEDS: HEPARIN 500 UNIT/5 ML SYRINGE IVF (15:15)
[2024-07-30] VITALS (7 sets, daily range): BP systolic 110–121; BP diastolic 63–85; PULSE 75–992; RESP 14–20; TEMP 35.5–36.8; O2SAT 95–99
== END 2024-09-22 23:59 | disposition home or self-care (01) ==
LOC: CCIC 09:30
PROVIDERS: Clinical Nurse Specialist; PCP Family Medicine; Referring Provider Family Medicine; Visit Provider Internal Medicine Hematology & Oncology
DX: C22.1 Intrahepatic bile duct carcinoma (principal); C79.51 Secondary malignant neoplasm of bone; D63.0 Anemia in neoplastic disease
CPT/HCPCS: 36415; 36430; 36591; 80053; 85025; 86850; 86900; 86901; 86922; 99213; 99214; G0463; J1642; P9016